=== PATIENT | female | born 1950 | race Caucasian/White ===

== ENCOUNTER 2018-01-10 14:25 | Emergency (ER) | payer MEDICARE, MEDICAID, SELFPAY ==
[2018-01-10 14:27] VITALS: BP 126/67; PULSE 91; RESP 22; TEMP 35.8; O2SAT 96; BMI 44.9
--- NOTE | 2018-01-10 15:17 | EKG12_ITS ---
Test Reason : SOB Blood Pressure : / mmHG Vent. Rate : 073 BPM Atrial Rate : 073 BPM P-R Int : 134 ms QRS Dur : 088 ms QT Int : 366 ms P-R-T Axes : 000 048 095 degrees QTc Int : 403 ms Normal sinus rhythm Low voltage QRS Nonspecific T wave abnormality Abnormal ECG Confirmed by JEAN MANCILLA, FREIDA ([id number]), slot editor SATISH DIAZ ([id number] on 01/13/2018 2:44:15 PM Referred By: KARLEY Confirmed By:FREIDA PENA MD
--- NOTE | 2018-01-10 15:17 | RAD_ITS ---
STUDY: X-RAY CHEST REASON FOR EXAM: Female, 67 years old. sob, leg redness and swelling TECHNIQUE: Single AP portable view of the chest. COMPARISON: February 01, 2017 FINDINGS: The lungs are clear and expanded. There is no demonstrated pleural abnormality. There is stable borderline cardiomegaly. Normal mediastinum and dorinda. Normal visualized pulmonary arteries. Normal visualized aortic arch and descending thoracic aorta. Normal visualized thoracic spine. Normal visualized ribs, clavicles, and shoulders. There is no demonstrated abnormality of the visualized soft tissue structures of the upper abdomen. RAD/Chest 1 View (Portable) IMPRESSION: No acute disease is demonstrated. Electronically Signed: Catherine Burton MD at 16:07 EDT , Service support ,
[2018-01-10 15:56] LABS: Absolute Lymphocyte Count 0.98 X10^3/ul (0.83-4.51); Absolute Neutrophil Count 6.5 X10^3/uL (2.0-7.7); Basophil# 0.03 X10^3/uL; Basophil% 0.4 % (0-1); Eosinophil# 0.16 X10^3/uL; Eosinophils% 1.9 % (0-5); Hematocrit 23.5 % (37-47); Hemoglobin 7.7 g/dl (12.0-15.0); Lymphocyte # 0.98 X10^3/ul (4.0); Lymphocyte % 11.6 % (19-41); Mean Corp Hgb Conc 32.8 g/gl (32-36); Mean Corpuscular Hgb 29.7 pg (27.0-32.0); Mean Corpuscular Volume 90.7 fL (81-99); Mean Platelet Vol. 10.4 fl (6.2-12.0); Monocyte# 0.75 X10^3/uL; Monocyte% 8.9 % (0-10); Neutrophil # 6.49 X10^3/uL (2.7-7.7); Neutrophil % 76.8 % (47-70); Platelet Count 268 K/mm3 (150-450); RBC Distribution Width SD 49.8 fl (35.1-43.9); Red Blood Count 2.59 M/mm3 (4.2-5.4); White Blood Count 8.4 K/mm3 (4.4-11.0)
[2018-01-10 15:58] LABS: POSITIVE COUNT NO; POSITIVE DIFFERENTIAL NO; POSITIVE MORPHOLOGY NO
[2018-01-10 16:06] LABS: ALB/GLOB Ratio 0.8 RATIO (0.9-2.4); AST(SGOT) 21 U/L (15-37); Alanine Aminotransfer ALT/SGPT 46 U/L (13-56); Albumin, Serum 2.9 g/dL (3.2-5.0); Alkaline Phosphatase 78 U/L (45-117); Anion Gap 8 (5-15); BUN 15 mg/dL (7-18); BUN/Creat Ratio 17.8 RATIO (10-20); Calcium,Total 8.5 mg/dL (8.5-10.1); Chloride 107 mmol/L (98-107); Creatinine, Serum 0.84 mg/dL (0.55-1.02); EST Glomerular Filtration Rate 71 mL/min (>60); Est Glom Filt Rate - Afr Amer 86 mL/min (>60); Estimated Creatinine Clearance 97.29 ml/min; Globulin 3.5 g/dL (2.2-4.2); Glucose 240 mg/dL (74-106); Potassium 3.5 mmol/L (3.5-5.1); Protein, Total 6.4 g/dL (6.4-8.2); Sodium Level 140 mmol/L (136-145)
[2018-01-10 16:21] LABS: International Normalized Ratio 1.1; Prothrombin Time (Protime)PT. 14.1 SECONDS (11.7-14.9)
[2018-01-10 16:26] LABS: BNP,B-Type NATRIURETIC PEPTIDE 860.9 pg/mL (0-100)
[2018-01-10 16:36] VITALS: BP 106/75; PULSE 73; RESP 18; O2SAT 97
--- NOTE | 2018-01-10 16:55 | CT_ITS ---
STUDY: CTA CHEST REASON FOR EXAM: Female, 67 years old. SOB and right leg redness/swelling x today. Hx diabetes, hypertension, afib. RADIATION DOSAGE (If Supplied By Facility): CTDIvol = ( 18.06 ) mGy, DLP = ( 609.30 ) mGycm TECHNIQUE: The examination was performed with the intravenous administration of 100mL ml of Isovue 370 contrast material. Post-processing of the angiographic images was performed, with multiplanar reformation and 3D reconstruction. Individualized dose optimization techniques were used for this CT. COMPARISON: None. FINDINGS: Normal enhancement of the main pulmonary artery and right and left pulmonary arteries. Normal enhancement of the bilateral peripheral pulmonary arteries. There is no demonstrated pulmonary embolism. Normal thoracic aorta and visualized great vessels. There is no demonstrated aortic dissection. There is borderline cardiomegaly. There is prominent lymphoid tissue of the subcarinal region. Normal visualized trachea and bronchi. There is a small right pleural effusion. There is a trace left pleural effusion. There are multiple groundglass and nodular opacities of the lower lungs. There is mild left upper lobe and right upper and middle lobe atelectasis/scarring. Normal chest wall structures. There are degenerative changes of thoracic spine. There is diffuse heterogeneous density of the vertebrae and metastatic disease is not excluded. There is a small hiatal hernia. CT/CTA Chest W/WO Contrast IMPRESSION: No demonstrated pulmonary embolism or aortic dissection. There are multiple groundglass and nodular opacities of the lower lungs. There is mild left upper lobe and right upper and middle lobe atelectasis/scarring. There is a small right pleural effusion. There is a trace left pleural effusion. There is borderline cardiomegaly. There is prominent lymphoid tissue of the subcarinal region. There is diffuse heterogeneous density of the vertebrae and metastatic disease is not excluded. There is a small hiatal hernia. Electronically Signed: Catherine Burton MD at 18:31 EDT , Service support ,
--- NOTE | 2018-01-10 17:01 | ED.RN ---
AMBULATED TO BR, REMARKABLY SOB. DR CRANDALL AWARE. PT UPDATED ON PLAN FOR CTA.
[2018-01-10 18:40] VITALS: PULSE 73; RESP 20; O2SAT 93
--- NOTE | 2018-01-10 19:01 | ED.VISSUMM ---
- ER Visit Summary Date of Service: 01/10/18 Chief Complaint: Dizzy, lightheaded, shortness of breath History of Present Illness: The patient is a 67 F who presents with the above symptoms. Symptoms started today. Patient was admitted to [facility] on Thursday. She had a bleeding ulcer and was given multiple blood transfusions. She was on Plavix and Coumadin but she is not on these currently. She was feeling palpitations and was having lightheadedness and dizziness. She has a history of paroxysmal atrial fibrillation. She also noted some bruising on her leg. She is concerned about a blood clot however they did do an ultrasound in the hospital and it did not show any DVT. She denies any cough or chest pain. Physical Examination: Vital signs reviewed. HEENT exam unremarkable. Heart is regular rate and rhythm without murmurs. Lungs clear to auscultation. Abdomen is soft nontender. Back is nontender. Extremity exam reveals scattered ecchymosis on the arms and legs. The right inner thigh does have a large area of ecchymosis. Her peripheral pulses are intact. Her neurologic exam is normal Test Results: EKG is normal sinus rhythm with rate of 73. Hemoglobin 7.7, glucose 240, INR 1.1 BNP 860. Troponin is normal. Chest x-ray reveals no acute findings. CTA of the chest reveals chronic changes with no PE or dissection Emergency Department Course and Treatment: The patient was concerned about DVT in the right leg. She told me she had a normal ultrasound earlier this week. I think the ecchymosis may be from the pressure that was applied during the ultrasound. She has good pulses in both legs. She states that her stools were black but they are now brown. Her hemoglobin is 7.7 which she states is around what she left the hospital with. I feel that her symptoms may be due to being anemic. 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 I do not feel she requires transfusion. Patient has a follow-up appointment in 2 days with her primary care physician Treatment Plan: [] Disposition: Discharge Impression: Anemia secondary to GI bleed, GI bleed resolved, malaise secondary to #1 This note was generated with [employer]ation software. It may contain incorrect words, spelling, and punctuation that were not noted in review of the chart prior to signing ED Disposition - Plan for ED Patient: Chief Complaint: Shortness of Breath Referrals: Stephon Rust MD [Primary Care Provider] -
--- NOTE | 2018-01-10 19:04 | ED.DCSUM_ITS ---
- ER Visit Summary Date of Service: 01/10/18 Chief Complaint: Dizzy, lightheaded, shortness of breath History of Present Illness: The patient is a 67 F who presents with the above symptoms. Symptoms started today. Patient was admitted to [facility] on Thursday. She had a bleeding ulcer and was given multiple blood transfusions. She was on Plavix and Coumadin but she is not on these currently. She was feeling palpitations and was having lightheadedness and dizziness. She has a history of paroxysmal atrial fibrillation. She also noted some bruising on her leg. She is concerned about a blood clot however they did do an ultrasound in the hospital and it did not show any DVT. She denies any cough or chest pain. Physical Examination: Vital signs reviewed. HEENT exam unremarkable. Heart is regular rate and rhythm without murmurs. Lungs clear to auscultation. Abdomen is soft nontender. Back is nontender. Extremity exam reveals scattered ecchymosis on the arms and legs. The right inner thigh does have a large area of ecchymosis. Her peripheral pulses are intact. Her neurologic exam is normal Test Results: EKG is normal sinus rhythm with rate of 73. Hemoglobin 7.7, glucose 240, INR 1.1 BNP 860. Troponin is normal. Chest x-ray reveals no acute findings. CTA of the chest reveals chronic changes with no PE or dissection Emergency Department Course and Treatment: The patient was concerned about DVT in the right leg. She told me she had a normal ultrasound earlier this week. I think the ecchymosis may be from the pressure that was applied during the ultrasound. She has good pulses in both legs. She states that her stools were black but they are now brown. Her hemoglobin is 7.7 which she states is around what she left the hospital with. I feel that her symptoms may be due to being anemic. 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 I do not feel she requires transfusion. Patient has a follow-up appointment in 2 days with her primary care physician Treatment Plan: [] Disposition: Discharge Impression: Anemia secondary to GI bleed, GI bleed resolved, malaise secondary to #1 This note was generated with [employer] software. It may contain incorrect words, spelling, and punctuation that were not noted in review of the chart prior to signing ED Disposition - Plan for ED Patient: Chief Complaint: Shortness of Breath Referrals: Stephon Rust MD [Primary Care Provider] -
--- NOTE | 2018-01-10 19:04 | ED.DEP ---
ED Disposition - Plan for ED Patient: Disposition: Home or Assisted Living Chief Complaint: Shortness of Breath Instructions: ED Anemia Type Not Specified Referrals: Stephon Rust MD [Primary Care Provider] -
[2018-01-10 19:25] VITALS: BP 113/59; PULSE 71; RESP 18; O2SAT 96
== END 2018-01-10 19:26 | disposition home or self-care (01) ==
PROVIDERS: Emergency Provider Emergency Medicine; Family Provider Family Medicine; PCP Family Medicine
DX: D62 Acute posthemorrhagic anemia (principal); R53.81 Other malaise; R06.00 Dyspnea, unspecified; E66.9 Obesity, unspecified; E11.9 Type 2 diabetes mellitus without complications; E03.9 Hypothyroidism, unspecified; Z79.84 Long term (current) use of oral hypoglycemic drugs; Z79.899 Other long term (current) drug therapy
CPT/HCPCS: 71045; 71275; 80053; 83880; 84484; 85025; 85610; 86850; 86900; 93005; 96360; 96361; 99285; J7030; J7040; Q9967; A4216

== ENCOUNTER 2018-01-12 09:09 | Observation (INO) | payer MEDICARE, MEDICAID, SELFPAY ==
[2018-01-12] VITALS (19 sets, daily range): BP systolic 102–141; BP diastolic 51–95; PULSE 72–83; RESP 14–22; TEMP 36.6–37.2; O2SAT 92–99; BMI 44.7; BMI 44.8
--- NOTE | 2018-01-12 09:28 | RAD_ITS ---
STUDY: X-RAY CHEST REASON FOR EXAM: Female, 67 years old. Shortness of breath, atrial fibrillation TECHNIQUE: Single AP portable view of the chest. COMPARISON: 01/10/2018 FINDINGS: Cardiac monitoring leads overlie the chest. There is patchy airspace disease in the right mid and lower lung. There is no demonstrated pleural abnormality. There is borderline cardiomegaly. Normal mediastinum and dorinda. Normal visualized pulmonary arteries. Normal visualized aortic arch and descending thoracic aorta. Normal visualized thoracic spine. Normal visualized ribs, clavicles, and shoulders. There is no demonstrated abnormality of the visualized soft tissue structures of the upper abdomen. RAD/Chest 1 View (Portable) IMPRESSION: Patchy airspace disease in the right mid to lower lung. Electronically Signed: Rudolph Duffy DO at 9:56 EDT Tel , Service support ,
--- NOTE | 2018-01-12 09:28 | EKG12_ITS ---
Test Reason : SOB, LEFT SIDE PAIN Blood Pressure : / mmHG Vent. Rate : 083 BPM Atrial Rate : 083 BPM P-R Int : 142 ms QRS Dur : 094 ms QT Int : 388 ms P-R-T Axes : -24 059 073 degrees QTc Int : 455 ms Normal sinus rhythm Nonspecific ST and T wave abnormality Abnormal ECG Confirmed by OTF PATEL ([id number]), continuity editor SATISH DIAZ ([id number]) on 01/25/2018 5:10:14 PM Referred By: PHILIP Confirmed By:OTF PATEL
[2018-01-12 09:53] LABS: Absolute Lymphocyte Count 0.58 X10^3/ul (0.83-4.51); Absolute Neutrophil Count 7.2 X10^3/uL (2.0-7.7); Basophil# 0.01 X10^3/uL; Basophil% 0.1 % (0-1); Eosinophil# 0.03 X10^3/uL; Eosinophils% 0.4 % (0-5); Hematocrit 23.3 % (37-47); Hemoglobin 7.4 g/dl (12.0-15.0); Lymphocyte # 0.58 X10^3/ul (4.0); Lymphocyte % 6.9 % (19-41); Mean Corp Hgb Conc 31.8 g/gl (32-36); Mean Corpuscular Hgb 28.8 pg (27.0-32.0); Mean Corpuscular Volume 90.7 fL (81-99); Mean Platelet Vol. 9.8 fl (6.2-12.0); Monocyte% 7.1 % (0-10); Neutrophil # 7.17 X10^3/uL (2.7-7.7); Neutrophil % 85.3 % (47-70); Platelet Count 273 K/mm3 (150-450); RBC Distribution Width CV 16.6 % (11.6-14.6); RBC Distribution Width SD 51.4 fl (35.1-43.9); Red Blood Count 2.57 M/mm3 (4.2-5.4); White Blood Count 8.4 K/mm3 (4.4-11.0)
[2018-01-12 09:55] LABS: International Normalized Ratio 1.2; Prothrombin Time (Protime)PT. 15.2 SECONDS (11.7-14.9)
[2018-01-12 10:00] LABS: POSITIVE COUNT NO; POSITIVE DIFFERENTIAL YES; POSITIVE MORPHOLOGY NO
[2018-01-12 10:01] LABS: Differential Indicated SCAN CRITERIA MET
[2018-01-12 10:06] LABS: Anion Gap 9 (5-15); BUN 14 mg/dL (7-18); BUN/Creat Ratio 21.7 RATIO (10-20); Calcium,Total 8.5 mg/dL (8.5-10.1); Chloride 103 mmol/L (98-107); Creatinine, Serum 0.64 mg/dL (0.55-1.02); EST Glomerular Filtration Rate 97 mL/min (>60); Est Glom Filt Rate - Afr Amer 117 mL/min (>60); Estimated Creatinine Clearance 81.36 ml/min; Glucose 203 mg/dL (74-106); Potassium 3.2 mmol/L (3.5-5.1); Sodium Level 138 mmol/L (136-145)
[2018-01-12 10:19] LABS: Differential Comment SCANNED
[2018-01-12 10:20] LABS: Anisocytosis 2+; Macrocytosis 1+; Microcytosis 1+
[2018-01-12] MEDS: Aspirin 81 MG TAB.CHEW 324 MG PO (10:23)
--- NOTE | 2018-01-12 11:04 | ED.VISSUMM ---
- ER Visit Summary Date of Service: 01/12/18 Chief Complaint: Shortness of breath History of Present Illness: The patient is a 67 F presenting with shortness of breath since yesterday. Patient had an admission to [facility] last week. She was discharged on Thursday. She was admitted for an upper GI bleed. She had an endoscopy performed during that admission. She states when she was admitted she had black stool. She did receive a blood transfusion. She states her stool has now been brown for several days. She has been short of breath. She has had intermittent left-sided chest pain. She is unable to lay flat without being very short of breath. Shortness of breath is also worsened with exertion. She was seen in the emergency department 2 days ago for pain in her right knee and concern for DVT. She states she noted shortness breath at that time and CT of the chest was obtained which was unremarkable. Today she went to her primary care physician's office and they sent her to the ED for low pulse ox. The pulse ox was not documented. She has been off Coumadin for the past week. Physical Examination: Vitals are stable. Patient is afebrile. Alert no acute distress. HEENT exam is unremarkable. Pale conjunctivae Neck is supple. Lungs are clear and equal bilaterally. Heart is regular rate and rhythm. Abdomen is soft nontender nondistended. Extremities are unremarkable. Skin is warm and dry. No focal neurologic deficit. Remainder of exam is unremarkable. Emergency Department Course and Treatment: EKG is sinus rate of 83. Chest x-ray shows patchy airspace disease right mid and low lower lung. CBC shows a hemoglobin of 7.4. Chemistries show potassium 3.2, glucose 203. INR is 1.2. Troponin is negative. Stool is guaiac negative. I feel her shortness of breath is likely related to her anemia and patchy airspace disease right mid and lower lung which appears like pulmonary congestion. She has no cough or fever. Discussed with the hospitalist for admission. Disposition: Admission Impression: Dyspnea, symptomatic anemia This note was generated with [employer] dictation software. It may contain incorrect words, spelling, and punctuation that were not noted in review of the chart prior to signing ED Disposition - Plan for ED Patient: Disposition: Acute Care Hospital [facility] Chief Complaint: Shortness of Breath
--- NOTE | 2018-01-12 11:08 | ED.DCSUM_ITS ---
- ER Visit Summary Date of Service: 01/12/18 Chief Complaint: Shortness of breath History of Present Illness: The patient is a 67 F presenting with shortness of breath since yesterday. Patient had an admission to [facility] last week. She was discharged on Thursday. She was admitted for an upper GI bleed. She had an endoscopy performed during that admission. She states when she was admitted she had black stool. She did receive a blood transfusion. She states her stool has now been brown for several days. She has been short of breath. She has had intermittent left-sided chest pain. She is unable to lay flat without being very short of breath. Shortness of breath is also worsened with exertion. She was seen in the emergency department 2 days ago for pain in her right knee and concern for DVT. She states she noted shortness breath at that time and CT of the chest was obtained which was unremarkable. Today she went to her primary care physician's office and they sent her to the ED for low pulse ox. The pulse ox was not documented. She has been off Coumadin for the past week. Physical Examination: Vitals are stable. Patient is afebrile. Alert no acute distress. HEENT exam is unremarkable. Pale conjunctivae Neck is supple. Lungs are clear and equal bilaterally. Heart is regular rate and rhythm. Abdomen is soft nontender nondistended. Extremities are unremarkable. Skin is warm and dry. No focal neurologic deficit. Remainder of exam is unremarkable. Emergency Department Course and Treatment: EKG is sinus rate of 83. Chest x- ray shows patchy airspace disease right mid and low lower lung. CBC shows a hemoglobin of 7.4. Chemistries show potassium 3.2, glucose 203. INR is 1.2. Troponin is negative. Stool is guaiac negative. I feel her shortness of breath is likely related to her anemia and patchy airspace disease right mid and lower lung which appears like pulmonary congestion. She has no cough or fever. Discussed with the hospitalist for admission. Disposition: Admission Impression: Dyspnea, symptomatic anemia This note was generated with [employer] dictation software. It may contain incorrect words, spelling, and punctuation that were not noted in review of the chart prior to signing ED Disposition - Plan for ED Patient: Disposition: Acute Care Hospital [facility] Chief Complaint: Shortness of Breath
--- NOTE | 2018-01-12 12:50 | ECHOD_ITS ---
Reason For Study: CHF Procedure This was a 2D Doppler, Color Flow transthoracic echocardiogram. The exam was of fair technical quality due to body habitus. The study was technically difficult. Exam performed portable in patient room. Left Ventricle Normal LV size. Mild concentric left ventricular hypertrophy. Left ventricular systolic function is normal. The estimated ejection fraction is 55 %. No regional wall motion abnormalities noted. Right Ventricle Normal RV size. Normal systolic function. Atria The left atrium is moderately enlarged. Normal right atrium. No doppler evidence for ASD. Mitral Valve There is no mitral annular calcification. Normal mitral valve. Mild (1+) mitral valve insufficiency. Tricuspid Valve Normal tricuspid valve. Mild to moderate (1-2+) tricuspid valve insufficiency. Right ventricular systolic pressure estimated to be 41 mmHg. Aortic Valve Trisinus/trileaflet aortic valve. Moderate focal aortic valve thickening. Pulmonic Valve The pulmonic valve is not well visualized. Great Vessels Normal sized aortic root. Pericardium/Pleural No pericardial effusion. MMode/2D Measurements & Calculations LVIDd: 4.4 cm IVSd: 1.4 cm LVOT diam: 2.0 cm LVIDs: 3.3 cm LVPWd: 1.4 cm LVOT area: 3.0 cm2 FS: 24.8 % Ao root diam: 2.6 cm LAV(MOD-bp): 63.5 ml LA A4 area: 21.9 cm2 LA dimension: 4.1 cm LAV(MOD-bp) Indexed: 33.9 ml/m2 LAV(MOD-sp2): 56.8 ml LAV(MOD-sp4): 65.6 ml RA A4 area: 12.8 cm2 Time Measurements MV dec time: 0.22 sec Doppler Measurements & Calculations MV E max julius: 109.9 cm/sec Lat Peak E' Julius: 9.6 cm/sec Med Peak E' Julius: 7.7 cm/sec MV A max julius: 79.8 cm/sec E/E' lat: 11.5 E/E' med: 14.2 MV E/A: 1.4 MV V2 max: 124.7 cm/sec MV P1/2t max julius: 124.7 cm/sec Ao V2 max: 209.7 cm/sec MV max P.2 mmHg MV P1/2t: 78.6 msec Ao max P.6 mmHg MV V2 mean: 63.3 cm/sec MV dec slope: 464.3 cm/sec2 Ao V2 mean: 139.3 cm/sec MV mean P.0 mmHg MVA(P1/2t): 2.8 cm2 Ao mean P.8 mmHg MV V2 VTI: 33.4 cm Ao V2 VTI: 31.9 cm MVA(VTI): 2.9 cm2 DEVAUGHN(I,D): 3.1 cm2 DEVAUGHN(V,D): 2.3 cm2 AI max julius: 418.0 cm/sec LV V1 max: 158.5 cm/sec SV(LVOT): 97.6 ml AI max P.9 mmHg LV V1 max P.1 mmHg AI dec slope: 280.4 cm/sec2 LV V1 mean P.1 mmHg AI P1/2t: 436.6 msec LV V1 mean: 104.0 cm/sec LV V1 VTI: 32.1 cm PA V2 max: 94.7 cm/sec TR max julius: 307.4 cm/sec TR max P.8 mmHg Interpretation Summary The study was technically difficult. Left ventricular systolic function is normal. The estimated ejection fraction is 55 %. Mild concentric left ventricular hypertrophy. The left atrium is moderately enlarged. Mild (1+) mitral valve insufficiency. Mild to moderate (1-2+) tricuspid valve insufficiency. Moderate focal aortic valve thickening. Right ventricular systolic pressure estimated to be 41 mmHg. Transmitral diastolic flow velocities suggest diastolic dysfunction (pseudonormal pattern). Ordering Physician: Dave Hickey Referring Physician: Stephon Rust Performed By: Spencer Hirsch RCS
[2018-01-12] MEDS: Furosemide 40 MG/4 ML Vial IV (13:27)
[2018-01-12 13:41] LABS: Bedside Glucose 119 mg/dL (70-110)
--- NOTE | 2018-01-12 14:18 | PCM.HP.STD ---
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 Patient underwent an EGD that showed peptic ulcer disease. Patient was transfused 2 units of packed red blood cells while she was there and also received a copious amount of IV fluids. Since being home, patient has been short of breath with exertion. Patient presented to the emergency room on the underwent a CAT scan that showed no pulmonary embolism though did show some groundglass opacities the patient was sent home. Patient presented to her office her primary care doctors today and was short of breath. Patient was very short of breath but apparently her pulse ox was okay. Patient had chest x-ray shows some questionable pulmonary edema and patient was admitted to the progressive care unit through the emergency room for concern for heart failure though the patient does not have a history of heart failure. [] Past Medical History Past Medical History (Chronic Problems): Chronic Problems PUD (peptic ulcer disease) (Chronic) Afib (Chronic) DM2 (diabetes mellitus, type 2) (Chronic) Hypothyroid (Chronic) Allergies atorvastatin calcium [From Lipitor] Allergy (Verified 01/12/18 09:29) Pain in joints clindamycin Allergy (Verified 01/12/18 09:29) Hives lisinopril Allergy (Verified 01/12/18 09:29) Unknown Penicillins [PCN] Allergy (Verified 01/12/18 09:29) Hives potassium chloride [From Klor-Con] Allergy (Verified 01/12/18 09:29) Unknown simvastatin [From Zocor] Allergy (Verified 01/12/18 09:29) Pain in joints Home Medications: Ambulatory Orders Medication Instructions Recorded Citalopram [Celexa] 40 mg PO DAILY 09/09/13 Gemfibrozil 600 mg PO BID 09/09/13 Levothyroxine [Synthroid] 112 mcg PO DAILY 09/09/13 Multivitamins,Ther W-Minerals 1 tablet PO DAILY 09/09/13 [Multivitamin With Minerals] glipiZIDE [Glucotrol] 5 mg PO DAILY 09/09/13 Meloxicam [Mobic] 15 mg PO DAILY 01/23/17 Metformin HCl 1,000 mg PO QHS 01/10/18 Metformin HCl 500 mg PO DAILY 01/10/18 Ropinirole HCl [Requip] 0.25 mg PO BID 01/10/18 Atenolol 75 mg PO DAILY 01/12/18 Calcium Carbonate [Calcium] 500 mg PO BID 01/12/18 Vit E/Zn/Lut/Lyco/Bilber/Hb261 1 each PO DAILY 01/12/18 [Lipotriad Vision Support Plus] Surgical History: - - History of tubal ligation, appendectomy, bilateral carpal tunnel surgery. 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 Denies: Cough, Sputum production Gastrointestinal: Denies: Abdominal Pain, Hematochezia, Nausea, Melena, Vomiting Genitourinary: Denies: Dysuria Musculoskeletal: Denies: Joint Pain, Joint Tenderness Skin: Reports: - - Patient had bruising on her posterior leg. Patient denied any antecedent trauma. Denies: Rash, Wounds Neurological: Denies: Numbness, Tingling, Focal weakness Psychiatric: Denies: Anxiety, Depression Endocrine: Denies: Change in Body Habitus, Heat/ Cold Intolerance Hematologic/ Lymphatic: Reports: Easy Bruising, Easy Bleeding. Denies: Hx of blood clot VTE Information - Inpt Only VTE Present on Admission: No VTE Mechan Device Prophylaxis: SCD's VTE Pharm Prophylaxis ordered?: No Reason prophylaxis not ordered:: Medical Contraindication Patient Problems: Active and Suspected Problems Symptomatic anemia (Acute) - Physical Exam General: Alert, Cooperative, No apparent distress HEENT: Atraumatic, Normocephalic Neck: No Nodes, Thyroid Normal Size and Texture Lungs: Diminished, - - Bibasilar crackles Cardiovascular: Regular rate, Regular Rhythm, Normal S1, Normal S2, No murmurs Abdomen: Bowel Sounds Present, Soft, Non Tender, Non-Distended, No Hepato-splenomegaly Extremities: No edema, No Calf Tenderness Skin: No rashes, No breakdown, - - Him again to light ecchymosis of the right posterior leg Musculoskeletal: No Tenderness to Palpation of Joints or Extremities, No Muscle Wasting Neurological: Neuro grossly intact, Muscle tone normal, Coordination normal Psych/Mental Status: Normal Affect, Appropriate Vital Signs Temp Pulse Resp BP Pulse Ox 37.0 C 77 17 114/61 94 01/12/18 12:12 01/12/18 12:16 01/12/18 12:12 01/12/18 12:12 01/12/18 13:06 Oxygen Flow Rate (L/min) 2 Oxygen Delivery Method Room Air Weight: 97.2 kg Body Mass Index (BMI) 44.8 POC Glucose 01/12/18 13:24 POC Glucose 119 H Clinical Impression(s) from Imaging Studies Chest X-Ray 01/12/18 09:28 IMPRESSION: Patchy airspace disease in the right mid to lower lung. Electronically Signed: Rudolph Duffy DO at 9:56 EDT Tel , Service support , Assessment/Plan Active and Suspected Problems Symptomatic anemia (Acute) 1. Symptomatic anemia I am not sure the anemia is enough to explain her shortness of breath but is certainly is a new phenomenon for her. I will transfuse her 1 unit of packed red blood cells given her symptoms. Her hemoglobin has remained stable since her most recent discharge on the Much of this bleeding is due to her peptic ulcer disease but patient also incidentally developed a large ecchymosis in on her right posterior leg Putting her shortness of breath may also be some underlying heart failure. Patient states that she has been evaluated for sleep apnea in the past and has been told that she does not have it. 2. Possible pulmonary edema Clinically, I do not feel the patient has pneumonia Patient did receive 2 units of packed bloods blood cells plus IV fluids I will give her a dose of IV Lasix 40 mg followed by oral Lasix 40 mg twice daily Check an echocardiogram to evaluate her cardiac function 3. Atrial fibrillation Chronic Rate controlled Continue with atenolol and aspirin Patient will not be resuming her Coumadin until around February 08, 30 days after his recent hospitalization for bleeding peptic ulcers. 4. Peptic ulcer disease with GI bleed Will start the patient on Protonix Additionally stop her meloxicam 5. DVT prophylaxis with SCDs as chemical prophylaxis contraindicated in light of her recent GI bleed. Code Visit Inpatient E&M: 02781 Init Hosp L3
--- NOTE | 2018-01-12 14:27 | HP.PCM_ITS ---
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 Patient underwent an EGD that showed peptic ulcer disease. Patient was transfused 2 units of packed red blood cells while she was there and also received a copious amount of IV fluids. Since being home, patient has been short of breath with exertion. Patient presented to the emergency room on the underwent a CAT scan that showed no pulmonary embolism though did show some groundglass opacities the patient was sent home. Patient presented to her office her primary care doctors today and was short of breath. Patient was very short of breath but apparently her pulse ox was okay. Patient had chest x-ray shows some questionable pulmonary edema and patient was admitted to the progressive care unit through the emergency room for concern for heart failure though the patient does not have a history of heart failure. [] Past Medical History Past Medical History (Chronic Problems): Chronic Problems PUD (peptic ulcer disease) (Chronic) Afib (Chronic) DM2 (diabetes mellitus, type 2) (Chronic) Hypothyroid (Chronic) Allergies atorvastatin calcium [From Lipitor] Allergy (Verified 01/12/18 09:29) Pain in joints clindamycin Allergy (Verified 01/12/18 09:29) Hives lisinopril Allergy (Verified 01/12/18 09:29) Unknown Penicillins [PCN] Allergy (Verified 01/12/18 09:29) Hives potassium chloride [From Klor-Con] Allergy (Verified 01/12/18 09:29) Unknown simvastatin [From Zocor] Allergy (Verified 01/12/18 09:29) Pain in joints Home Medications: Ambulatory Orders Medication Instructions Recorded Citalopram [Celexa] 40 mg PO DAILY 09/09/13 Gemfibrozil 600 mg PO BID 09/09/13 Levothyroxine [Synthroid] 112 mcg PO DAILY 09/09/13 Multivitamins,Ther W-Minerals 1 tablet PO DAILY 09/09/13 [Multivitamin With Minerals] glipiZIDE [Glucotrol] 5 mg PO DAILY 09/09/13 Meloxicam [Mobic] 15 mg PO DAILY 01/23/17 Metformin HCl 1,000 mg PO QHS 01/10/18 Metformin HCl 500 mg PO DAILY 01/10/18 Ropinirole HCl [Requip] 0.25 mg PO BID 01/10/18 Atenolol 75 mg PO DAILY 01/12/18 Calcium Carbonate [Calcium] 500 mg PO BID 01/12/18 Vit E/Zn/Lut/Lyco/Bilber/Hb261 1 each PO DAILY 01/12/18 [Lipotriad Vision Support Plus] Surgical History: - - History of tubal ligation, appendectomy, bilateral carpal tunnel surgery. 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 Denies: Cough, Sputum production Gastrointestinal: Denies: Abdominal Pain, Hematochezia, Nausea, Melena, Vomiting Genitourinary: Denies: Dysuria Musculoskeletal: Denies: Joint Pain, Joint Tenderness Skin: Reports: - - Patient had bruising on her posterior leg. Patient denied any antecedent trauma. Denies: Rash, Wounds Neurological: Denies: Numbness, Tingling, Focal weakness Psychiatric: Denies: Anxiety, Depression Endocrine: Denies: Change in Body Habitus, Heat/ Cold Intolerance Hematologic/ Lymphatic: Reports: Easy Bruising, Easy Bleeding. Denies: Hx of blood clot VTE Information - Inpt Only VTE Present on Admission: No VTE Mechan Device Prophylaxis: SCD's VTE Pharm Prophylaxis ordered?: No Reason prophylaxis not ordered:: Medical Contraindication Patient Problems: Active and Suspected Problems Symptomatic anemia (Acute) - Physical Exam General: Alert, Cooperative, No apparent distress HEENT: Atraumatic, Normocephalic Neck: No Nodes, Thyroid Normal Size and Texture Lungs: Diminished, - - Bibasilar crackles Cardiovascular: Regular rate, Regular Rhythm, Normal S1, Normal S2, No murmurs Abdomen: Bowel Sounds Present, Soft, Non Tender, Non-Distended, No Hepato- splenomegaly Extremities: No edema, No Calf Tenderness Skin: No rashes, No breakdown, - - Him again to light ecchymosis of the right posterior leg Musculoskeletal: No Tenderness to Palpation of Joints or Extremities, No Muscle Wasting Neurological: Neuro grossly intact, Muscle tone normal, Coordination normal Psych/Mental Status: Normal Affect, Appropriate Vital Signs Temp Pulse Resp BP Pulse Ox 37.0 C 77 17 114/61 94 01/12/18 12:12 01/12/18 12:16 01/12/18 12:12 01/12/18 12:12 01/12/18 13:06 Oxygen Flow Rate (L/min) 2 Oxygen Delivery Method Room Air Weight: 97.2 kg Body Mass Index (BMI) 44.8 POC Glucose 01/12/18 13:24 POC Glucose 119 H Clinical Impression(s) from Imaging Studies Chest X-Ray 01/12/18 09:28 IMPRESSION: Patchy airspace disease in the right mid to lower lung. Electronically Signed: Rudolph Duffy DO at 9:56 EDT Tel , Service support , Assessment/Plan Active and Suspected Problems Symptomatic anemia (Acute) 1. Symptomatic anemia * I am not sure the anemia is enough to explain her shortness of breath but is certainly is a new phenomenon for her. * I will transfuse her 1 unit of packed red blood cells given her symptoms. * Her hemoglobin has remained stable since her most recent discharge on the * Much of this bleeding is due to her peptic ulcer disease but patient also incidentally developed a large ecchymosis in on her right posterior leg * Putting her shortness of breath may also be some underlying heart failure. Patient states that she has been evaluated for sleep apnea in the past and has been told that she does not have it. 2. Possible pulmonary edema * Clinically, I do not feel the patient has pneumonia * Patient did receive 2 units of packed bloods blood cells plus IV fluids * I will give her a dose of IV Lasix 40 mg followed by oral Lasix 40 mg twice daily * Check an echocardiogram to evaluate her cardiac function 3. Atrial fibrillation * Chronic * Rate controlled * Continue with atenolol and aspirin * Patient will not be resuming her Coumadin until around February 08, 30 days after his recent hospitalization for bleeding peptic ulcers. 4. Peptic ulcer disease with GI bleed * Will start the patient on Protonix * Additionally stop her meloxicam 5. DVT prophylaxis with SCDs as chemical prophylaxis contraindicated in light of her recent GI bleed. Code Visit Inpatient E&M: 60848 Init Hosp L3
[2018-01-12 15:17] LABS: BNP,B-Type NATRIURETIC PEPTIDE 396.3 pg/mL (0-100)
[2018-01-12] MEDS: Calcium Carbonate 500 MG Tablet PO (17:05)
[2018-01-12] MEDS: Gemfibrozil 600 MG Tablet PO (17:05)
[2018-01-12] MEDS: Furosemide 40 MG Tablet PO (17:05)
[2018-01-12 17:11] LABS: Bedside Glucose 174 mg/dL (70-110)
[2018-01-12] MEDS: Pantoprazole Sodium 40 MG Tablet PO (21:31)
[2018-01-12] MEDS: Pramipexole Di-HCl 0.125 MG Tablet PO (21:31)
[2018-01-12] MEDS: metFORMIN HCl 1,000 MG Tablet 1000 MG PO (21:33)
[2018-01-12 23:01] LABS: Bedside Glucose 105 mg/dL (70-110)
[2018-01-13] VITALS (7 sets, daily range): BP systolic 103–137; BP diastolic 52–58; PULSE 74–87; RESP 12–16; TEMP 36.8–37.1; O2SAT 92–95
[2018-01-13 05:40] LABS: Hematocrit 26.6 % (37-47); Hemoglobin 8.7 g/dl (12.0-15.0); Mean Corp Hgb Conc 32.7 g/gl (32-36); Mean Corpuscular Hgb 30.3 pg (27.0-32.0); Mean Corpuscular Volume 92.7 fL (81-99); Mean Platelet Vol. 10.2 fl (6.2-12.0); Platelet Count 283 K/mm3 (150-450); RBC Distribution Width CV 15.9 % (11.6-14.6); RBC Distribution Width SD 48.3 fl (35.1-43.9); Red Blood Count 2.87 M/mm3 (4.2-5.4); White Blood Count 5.6 K/mm3 (4.4-11.0)
[2018-01-13 05:42] LABS: Scan Indicated on CBC? Y/N NO
[2018-01-13 06:03] LABS: Anion Gap 11 (5-15); BUN 10 mg/dL (7-18); BUN/Creat Ratio 15.9 RATIO (10-20); Calcium,Total 8.2 mg/dL (8.5-10.1); Chloride 101 mmol/L (98-107); Creatinine, Serum 0.63 mg/dL (0.55-1.02); EST Glomerular Filtration Rate 100 mL/min (>60); Est Glom Filt Rate - Afr Amer 121 mL/min (>60); Estimated Creatinine Clearance 81.47 ml/min; Glucose 102 mg/dL (74-106); Potassium 2.8 mmol/L (3.5-5.1); Sodium Level 142 mmol/L (136-145)
[2018-01-13 06:06] LABS: International Normalized Ratio 1.1; Prothrombin Time (Protime)PT. 14.4 SECONDS (11.7-14.9)
[2018-01-13] MEDS: Gemfibrozil 600 MG Tablet PO (06:41)
[2018-01-13] MEDS: glipiZIDE 5 MG Tablet PO (06:41)
[2018-01-13] MEDS: Levothyroxine 112 MCG Tablet PO (06:41)
[2018-01-13 07:05] LABS: Bedside Glucose 103 mg/dL (70-110)
[2018-01-13] MEDS: Multivitamins,Ther W-Minerals Tablet 1 TABLET PO (07:33)
[2018-01-13] MEDS: Aspirin E.C. 81 MG Tablet PO (07:33)
[2018-01-13] MEDS: Calcium Carbonate 500 MG Tablet PO (07:33)
[2018-01-13] MEDS: Furosemide 40 MG Tablet PO (09:11)
[2018-01-13] MEDS: 0.9% NaCl Peripheral Flush Adult/Peds IV (09:11)
[2018-01-13] MEDS: Ondansetron 4 MG/2 ML Vial IV (09:11)
[2018-01-13] MEDS: Pantoprazole Sodium 40 MG Tablet PO (09:11)
[2018-01-13] MEDS: Pramipexole Di-HCl 0.125 MG Tablet PO (09:11)
[2018-01-13] MEDS: Atenolol 25 MG Tablet 75 MG PO (09:11)
[2018-01-13] MEDS: Citalopram 40 MG TABLET PO (09:11)
--- NOTE | 2018-01-13 10:05 | SLEEP ---
Seen patient and education on screening/testing for sleep disorder breathing was given. Patient states that she had a negative sleep study in the past but was dx with restless legs which was causing the fatigue. Brochure of information with left with the patient.
--- NOTE | 2018-01-13 10:50 | PCM.PN.HOSP ---
Patient Problems: Active and Suspected Problems Symptomatic anemia (Acute) Subjective: Dizziness as well as some nausea and vomiting but is eating breakfast this morning. Vitals/I&O's: Vital Signs Temp Pulse Resp BP Pulse Ox 36.8 C 85 16 103/52 L 92 01/13/18 09:10 01/13/18 09:10 01/13/18 09:10 01/13/18 09:10 01/13/18 09:10 Oxygen Flow Rate (L/min) 2 Oxygen Delivery Method Room Air Weight: 97.2 kg Body Mass Index (BMI) 44.8 Intake and Output for Last 24 Hours 01/11/18 01/12/18 01/13/18 23:59 23:59 23:59 Intake Total 693 / 693 640 / 640 Output Total 1680 / 1680 1700 / 1700 Balance -987 / -987 -1060 / -1060 General: Alert, Cooperative, No apparent distress HEENT: Atraumatic, PERRLA, EOMI, Normocephalic Oral: Moist Mucosa Neck: No Nodes, Thyroid Normal Size and Texture Lungs: Clear to auscultation, Normal air movement, No rhonchi, No wheeze Cardiovascular: Regular rate, Regular Rhythm, Normal S1, Normal S2, No murmurs Abdomen: Bowel Sounds Present, Soft, Non Tender, Non-Distended, No Hepato-splenomegaly Extremities: No edema, No Calf Tenderness Skin: No rashes, No breakdown Musculoskeletal: No Tenderness to Palpation of Joints or Extremities, No Muscle Wasting Neurological: Cranial nerves II-XII grossly intact, Neuro grossly intact, Motor Exam 5/5 strength throughout, - - Dm Hallpike was positive for reproducible symptoms on the left though no witnessed nystagmus. Psych/Mental Status: Normal Affect, Appropriate Laboratory Results 01/12/18 13:24: POC Glucose 119 H 01/12/18 16:54: POC Glucose 174 H 01/12/18 21:29: POC Glucose 105 01/13/18 05:15: WBC 5.6, RBC 2.87 L, Hgb 8.7 L, Hct 26.6 L, MCV 92.7, MCH 30.3, MCHC 32.7, RDW 15.9 H, RDW Differential 48.3 H, Plt Count 283, MPV 10.2 01/13/18 05:15: PT 14.4, INR 1.1 01/13/18 05:15: Sodium 142, Potassium 2.8 L, Chloride 101, Carbon Dioxide 30.0, Anion Gap 11, BUN 10, Creatinine 0.63, Estim Creat Clear Calc 81.47, Est GFR (MDRD) Af Amer 121, Est GFR (MDRD) Non-Af 100, BUN/Creatinine Ratio 15.9, Glucose 102, Calcium 8.2 L 01/13/18 06:44: POC Glucose 103 Current Medications Aspirin (Ecotrin) 81 mg PO DAILY@0800 [facility] Last Admin: 01/13/18 07:33 Dose: 81 mg Atenolol (Tenormin (Beta Beryl)) 75 mg PO DAILY [facility] Last Admin: 01/13/18 09:11 Dose: 75 mg Calcium Carbonate (Tums) 500 mg PO BIDCM [facility] Last Admin: 01/13/18 07:33 Dose: 500 mg Citalopram Hydrobromide (Celexa) 40 mg PO DAILY [facility] Last Admin: 01/13/18 09:11 Dose: 40 mg Dextrose (D50w Syringe) 0 gm IV X1 PRN; Protocol PRN Reason: Hypoglycemia Furosemide (Lasix) 40 mg PO BID@1000,1800 [facility] Last Admin: 01/13/18 09:11 Dose: 40 mg Gemfibrozil (Lopid) 600 mg PO BIDAC [facility] Last Admin: 01/13/18 06:41 Dose: 600 mg Glipizide (Glucotrol) 5 mg PO DAILY@0730 [facility] Last Admin: 01/13/18 06:41 Dose: 5 mg Glucagon () 1 mg IM .X1 PRN PRN Reason: Hypoglycemia Insulin Aspart (Novolog Flexpen (Bkc)) 0 units SC TIDAC [facility] PRN Reason: Protocol Last Admin: 01/13/18 07:33 Dose: Not Given Levothyroxine Sodium (Synthroid) 112 mcg PO DAILY@0600 [facility] Last Admin: 01/13/18 06:41 Dose: 112 mcg Magnesium Hydroxide (Milk Of Magnesia) 30 ml PO DAILY PRN PRN Reason: Constipation Metformin HCl (Glucophage) 1,000 mg PO QHS [facility] Last Admin: 01/12/18 21:33 Dose: 1,000 mg Metformin HCl (Glucophage) 500 mg PO DAILY@0800 [facility] Last Admin: 01/13/18 07:33 Dose: 500 mg Multivitamins/Minerals (Multivitamin With Minerals) 1 tablet PO DAILYCM [facility] Last Admin: 01/13/18 07:33 Dose: 1 tablet [facility] Admin: 01/13/18 07:33 Dose: 1 tablet Ondansetron HCl (Zofran) 4 mg IV Q8H PRN PRN PRN Reason: NAUSEA Last Admin: 01/13/18 09:11 Dose: 4 mg Pantoprazole Sodium (Protonix) 40 mg PO BID [facility] Last Admin: 01/13/18 09:11 Dose: 40 mg Potassium Chloride (K-Dur) 40 meq PO X1 ONE Stop: 01/13/18 12:01 Pramipexole Dihydrochloride (Mirapex) 0.125 mg PO BID [facility] Last Admin: 01/13/18 09:11 Dose: 0.125 mg Sodium Chloride () 5 - 30 ml IV UD PRN PRN Reason: SALINE FLUSH Last Admin: 01/13/18 09:11 Dose: 10 ml Medical Necessity - Tobacco Use Smoking Status: Never smoker Tobacco Use: Non-smoker Assessment/Plan Active and Suspected Problems Symptomatic anemia (Acute) 1. Symptomatic anemia I am not sure the anemia is enough to explain her shortness of breath but is certainly is a new phenomenon for her. I will transfuse her 1 unit of packed red blood cells given her symptoms. Her hemoglobin has remained stable since her most recent discharge on the Much of this bleeding is due to her peptic ulcer disease but patient also incidentally developed a large ecchymosis in on her right posterior leg Putting her shortness of breath may also be some underlying heart failure. Patient states that she has been evaluated for sleep apnea in the past and has been told that she does not have it. Recheck hemoglobin as outpatient 2. Heart failure with preserved ejection fraction Clinically, I do not feel the patient has pneumonia EF of 55% Patient did receive 2 units of packed bloods blood cells plus IV fluids I will give her a dose of IV Lasix 40 mg followed by oral Lasix 40 mg twice daily Improved overall Will discontinue Lasix as I feel that patient developed this due to cups amount of fluids that she received at the outside hospital plus transfusions. Will start her on low-dose of lisinopril 2.5 mg daily. 3. Atrial fibrillation Chronic Rate controlled Continue with atenolol and aspirin Patient will not be resuming her Coumadin until around February 08, 30 days after his recent hospitalization for bleeding peptic ulcers. Follow-up with Dr. Singleton 4. Peptic ulcer disease with GI bleed Will start the patient on Protonix Additionally stop her meloxicam 5. Benign paroxysmal positional vertigo Meclizine as needed Physical therapy for vestibular rehab as outpatient. 5. DVT prophylaxis with SCDs as chemical prophylaxis contraindicated in light of her recent GI bleed.
--- NOTE | 2018-01-13 10:54 | PN_ITS ---
Patient Problems: Active and Suspected Problems Symptomatic anemia (Acute) Subjective: Dizziness as well as some nausea and vomiting but is eating breakfast this morning. Vitals/I&O's: Vital Signs Temp Pulse Resp BP Pulse Ox 36.8 C 85 16 103/52 L 92 01/13/18 09:10 01/13/18 09:10 01/13/18 09:10 01/13/18 09:10 01/13/18 09:10 Oxygen Flow Rate (L/min) 2 Oxygen Delivery Method Room Air Weight: 97.2 kg Body Mass Index (BMI) 44.8 Intake and Output for Last 24 Hours 01/11/18 01/12/18 01/13/18 23:59 23:59 23:59 Intake Total 693 / 693 640 / 640 Output Total 1680 / 1680 1700 / 1700 Balance -987 / -987 -1060 / -1060 General: Alert, Cooperative, No apparent distress HEENT: Atraumatic, PERRLA, EOMI, Normocephalic Oral: Moist Mucosa Neck: No Nodes, Thyroid Normal Size and Texture Lungs: Clear to auscultation, Normal air movement, No rhonchi, No wheeze Cardiovascular: Regular rate, Regular Rhythm, Normal S1, Normal S2, No murmurs Abdomen: Bowel Sounds Present, Soft, Non Tender, Non-Distended, No Hepato- splenomegaly Extremities: No edema, No Calf Tenderness Skin: No rashes, No breakdown Musculoskeletal: No Tenderness to Palpation of Joints or Extremities, No Muscle Wasting Neurological: Cranial nerves II-XII grossly intact, Neuro grossly intact, Motor Exam 5/5 strength throughout, - - Dm Hallpike was positive for reproducible symptoms on the left though no witnessed nystagmus. Psych/Mental Status: Normal Affect, Appropriate Laboratory Results 01/12/18 13:24: POC Glucose 119 H 01/12/18 16:54: POC Glucose 174 H 01/12/18 21:29: POC Glucose 105 01/13/18 05:15: WBC 5.6, RBC 2.87 L, Hgb 8.7 L, Hct 26.6 L, MCV 92.7, MCH 30.3, MCHC 32.7, RDW 15.9 H, RDW Differential 48.3 H, Plt Count 283, MPV 10.2 01/13/18 05:15: PT 14.4, INR 1.1 01/13/18 05:15: Sodium 142, Potassium 2.8 L, Chloride 101, Carbon Dioxide 30.0, Anion Gap 11, BUN 10, Creatinine 0.63, Estim Creat Clear Calc 81.47, Est GFR ( MDRD) Af Amer 121, Est GFR (MDRD) Non-Af 100, BUN/Creatinine Ratio 15.9, Glucose 102, Calcium 8.2 L 01/13/18 06:44: POC Glucose 103 Current Medications Aspirin (Ecotrin) 81 mg PO DAILY@0800 [facility] Last Admin: 01/13/18 07:33 Dose: 81 mg Atenolol (Tenormin (Beta Beryl)) 75 mg PO DAILY [facility] Last Admin: 01/13/18 09:11 Dose: 75 mg Calcium Carbonate (Tums) 500 mg PO BIDCM [facility] Last Admin: 01/13/18 07:33 Dose: 500 mg Citalopram Hydrobromide (Celexa) 40 mg PO DAILY [facility] Last Admin: 01/13/18 09:11 Dose: 40 mg Dextrose (D50w Syringe) 0 gm IV X1 PRN; Protocol PRN Reason: Hypoglycemia Furosemide (Lasix) 40 mg PO BID@1000,1800 [facility] Last Admin: 01/13/18 09:11 Dose: 40 mg Gemfibrozil (Lopid) 600 mg PO BIDAC [facility] Last Admin: 01/13/18 06:41 Dose: 600 mg Glipizide (Glucotrol) 5 mg PO DAILY@0730 [facility] Last Admin: 01/13/18 06:41 Dose: 5 mg Glucagon () 1 mg IM .X1 PRN PRN Reason: Hypoglycemia Insulin Aspart (Novolog Flexpen (Bkc)) 0 units SC TIDAC [facility] PRN Reason: Protocol Last Admin: 01/13/18 07:33 Dose: Not Given Levothyroxine Sodium (Synthroid) 112 mcg PO DAILY@0600 [facility] Last Admin: 01/13/18 06:41 Dose: 112 mcg Magnesium Hydroxide (Milk Of Magnesia) 30 ml PO DAILY PRN PRN Reason: Constipation Metformin HCl (Glucophage) 1,000 mg PO QHS [facility] Last Admin: 01/12/18 21:33 Dose: 1,000 mg Metformin HCl (Glucophage) 500 mg PO DAILY@0800 [facility] Last Admin: 01/13/18 07:33 Dose: 500 mg Multivitamins/Minerals (Multivitamin With Minerals) 1 tablet PO DAILYCM [facility] Last Admin: 01/13/18 07:33 Dose: 1 tablet [facility] Admin: 01/13/18 07:33 Dose: 1 tablet Ondansetron HCl (Zofran) 4 mg IV Q8H PRN PRN PRN Reason: NAUSEA Last Admin: 01/13/18 09:11 Dose: 4 mg Pantoprazole Sodium (Protonix) 40 mg PO BID [facility] Last Admin: 01/13/18 09:11 Dose: 40 mg Potassium Chloride (K-Dur) 40 meq PO X1 ONE Stop: 01/13/18 12:01 Pramipexole Dihydrochloride (Mirapex) 0.125 mg PO BID [facility] Last Admin: 01/13/18 09:11 Dose: 0.125 mg Sodium Chloride () 5 - 30 ml IV UD PRN PRN Reason: SALINE FLUSH Last Admin: 01/13/18 09:11 Dose: 10 ml Medical Necessity - Tobacco Use Smoking Status: Never smoker Tobacco Use: Non-smoker Assessment/Plan Active and Suspected Problems Symptomatic anemia (Acute) 1. Symptomatic anemia * I am not sure the anemia is enough to explain her shortness of breath but is certainly is a new phenomenon for her. * I will transfuse her 1 unit of packed red blood cells given her symptoms. * Her hemoglobin has remained stable since her most recent discharge on the * Much of this bleeding is due to her peptic ulcer disease but patient also incidentally developed a large ecchymosis in on her right posterior leg * Putting her shortness of breath may also be some underlying heart failure. Patient states that she has been evaluated for sleep apnea in the past and has been told that she does not have it. * Recheck hemoglobin as outpatient 2. Heart failure with preserved ejection fraction * Clinically, I do not feel the patient has pneumonia * EF of 55% * Patient did receive 2 units of packed bloods blood cells plus IV fluids * I will give her a dose of IV Lasix 40 mg followed by oral Lasix 40 mg twice daily * Improved overall * Will discontinue Lasix as I feel that patient developed this due to cups amount of fluids that she received at the outside hospital plus transfusions. Will start her on low-dose of lisinopril 2.5 mg daily. 3. Atrial fibrillation * Chronic * Rate controlled * Continue with atenolol and aspirin * Patient will not be resuming her Coumadin until around February 08, 30 days after his recent hospitalization for bleeding peptic ulcers. * Follow-up with Dr. Singleton 4. Peptic ulcer disease with GI bleed * Will start the patient on Protonix * Additionally stop her meloxicam 5. Benign paroxysmal positional vertigo * Meclizine as needed * Physical therapy for vestibular rehab as outpatient. 5. DVT prophylaxis with SCDs as chemical prophylaxis contraindicated in light of her recent GI bleed.
--- NOTE | 2018-01-13 11:00 | PCM.DC ---
- Discharge Diagnoses Current Active Problems: Current Active and Chronic Problems Symptomatic anemia (Acute) PUD (peptic ulcer disease) (Chronic) Afib (Chronic) DM2 (diabetes mellitus, type 2) (Chronic) Hypothyroid (Chronic) You will use the following diet at home:: Calorie/Carbohydrate Controlled (specify 1200, 1400, etc) - 1800 kcal/day, Fluid restricted (specify 2000 mls, 1500 mls) - 2 liters/day Your food should be the consistency of: Regular Your liquids should be the consistency of: Regular/Thin Discharge Activity: Return to Normal Activity Call your doctor if you observe: Shortness of breath, Chest pain, - - blood in stool/vomit, dark tarry stools Allergies/Adverse Reactions: Allergies atorvastatin calcium [From Lipitor] Allergy (Verified 01/12/18 09:29) Pain in joints clindamycin Allergy (Verified 01/12/18 09:29) Hives lisinopril Allergy (Verified 01/12/18 09:29) Unknown Penicillins [PCN] Allergy (Verified 01/12/18 09:29) Hives simvastatin [From Zocor] Allergy (Verified 01/12/18 09:29) Pain in joints Medications to take at Discharge Citalopram [Celexa] 40 mg PO DAILY 09/09/13 Gemfibrozil 600 mg PO BID 09/09/13 Levothyroxine [Synthroid] 112 mcg PO DAILY 09/09/13 Multivitamins,Ther W-Minerals [Multivitamin With Minerals] 1 tablet PO DAILY 09/09/13 glipiZIDE [Glucotrol] 5 mg PO DAILY 09/09/13 Metformin HCl 1,000 mg PO QHS 01/10/18 Metformin HCl 500 mg PO DAILY 01/10/18 Ropinirole HCl [Requip] 0.25 mg PO BID 01/10/18 Atenolol 75 mg PO DAILY 01/12/18 Calcium Carbonate [Calcium] 500 mg PO BID 01/12/18 Vit E/Zn/Lut/Lyco/Bilber/Hb261 [Lipotriad Vision Support Plus] 1 each PO DAILY 01/12/18 Aspirin E.C. [Ecotrin] 81 mg PO DAILY@0800 tablet 01/13/18 Meclizine HCl 25 mg PO TID PRN #20 tab.chew 01/13/18 Pantoprazole Sodium [Protonix] 40 mg PO BID #60 tab 01/13/18 The following prescriptions were given: Pantoprazole Sodium [Protonix] 40 mg PO BID #60 tab Meclizine HCl 25 mg PO TID PRN #20 tab.chew PRN Reason: Dizziness Orders to be completed after discharge: Physical Therapy Evaluation Location: None Selected Primary Care Physician: Stephon Rust MD [Primary Care Provider] - Within 1 Week Please Follow Up With: Barrett Watson MD When: 2 weeks Please Follow Up With: gastroenterology When: 4 weeks Proposed Discharge Date: 01/13/18
--- NOTE | 2018-01-13 11:03 | DCINST_ITS ---
- Discharge Diagnoses Current Active Problems: Current Active and Chronic Problems Symptomatic anemia (Acute) PUD (peptic ulcer disease) (Chronic) Afib (Chronic) DM2 (diabetes mellitus, type 2) (Chronic) Hypothyroid (Chronic) You will use the following diet at home:: Calorie/Carbohydrate Controlled ( specify 1200, 1400, etc) - 1800 kcal/day, Fluid restricted (specify 2000 mls, 1500 mls) - 2 liters/day Your food should be the consistency of: Regular Your liquids should be the consistency of: Regular/Thin Discharge Activity: Return to Normal Activity Call your doctor if you observe: Shortness of breath, Chest pain, - - blood in stool/vomit, dark tarry stools Allergies/Adverse Reactions: Allergies atorvastatin calcium [From Lipitor] Allergy (Verified 01/12/18 09:29) Pain in joints clindamycin Allergy (Verified 01/12/18 09:29) Hives lisinopril Allergy (Verified 01/12/18 09:29) Unknown Penicillins [PCN] Allergy (Verified 01/12/18 09:29) Hives simvastatin [From Zocor] Allergy (Verified 01/12/18 09:29) Pain in joints Medications to take at Discharge Citalopram [Celexa] 40 mg PO DAILY 09/09/13 Gemfibrozil 600 mg PO BID 09/09/13 Levothyroxine [Synthroid] 112 mcg PO DAILY 09/09/13 Multivitamins,Ther W-Minerals [Multivitamin With Minerals] 1 tablet PO DAILY glipiZIDE [Glucotrol] 5 mg PO DAILY 09/09/13 Metformin HCl 1,000 mg PO QHS 01/10/18 Metformin HCl 500 mg PO DAILY 01/10/18 Ropinirole HCl [Requip] 0.25 mg PO BID 01/10/18 Atenolol 75 mg PO DAILY 01/12/18 Calcium Carbonate [Calcium] 500 mg PO BID 01/12/18 Vit E/Zn/Lut/Lyco/Bilber/Hb261 [Lipotriad Vision Support Plus] 1 each PO DAILY 01/12/18 Aspirin E.C. [Ecotrin] 81 mg PO DAILY@0800 tablet 01/13/18 Meclizine HCl 25 mg PO TID PRN #20 tab.chew 01/13/18 Pantoprazole Sodium [Protonix] 40 mg PO BID #60 tab 01/13/18 The following prescriptions were given: Pantoprazole Sodium [Protonix] 40 mg PO BID #60 tab Meclizine HCl 25 mg PO TID PRN #20 tab.chew PRN Reason: Dizziness Orders to be completed after discharge: Physical Therapy Evaluation Location: None Selected Primary Care Physician: Stephon Rust MD [Primary Care Provider] - Within 1 Week Please Follow Up With: Barrett Watson MD When: 2 weeks Please Follow Up With: gastroenterology When: 4 weeks Proposed Discharge Date: 01/13/18
--- NOTE | 2018-01-13 11:03 | PCM.DC.SUM ---
Discharge Date and Diagnosis - Problem List Patient Problems: Active and Suspected Problems Heart failure with preserved ejection fraction (Acute) BPPV (benign paroxysmal positional vertigo) (Acute) Symptomatic anemia (Acute) Date of Admission: 01/12/18 Date of Discharge: 01/13/18 - Primary Discharge Diagnosis Active and Suspected Problems Heart failure with preserved ejection fraction (Acute) BPPV (benign paroxysmal positional vertigo) (Acute) Symptomatic anemia (Acute) - Secondary Discharge Diagnosis Chronic Problems PUD (peptic ulcer disease) (Chronic) Afib (Chronic) DM2 (diabetes mellitus, type 2) (Chronic) Hypothyroid (Chronic) Hospital Course and Treatment Imaging Results: Clinical Impression(s) from Imaging Studies Chest X-Ray 01/12/18 09:28 IMPRESSION: Patchy airspace disease in the right mid to lower lung. Electronically Signed: Rudolph Duffy DO at 9:56 EDT Tel , Service support , Operations: None Procedures: 2-D Echocardiogram Summary of Care Provided: The patient is a 67 year old F is with presents with shortness of breath. Shortness of breath was due to anemia plus also a component of heart failure. Patient developed heart failure due to recent hospitalization where she had a GI bleed and received copious amounts of IV fluid plus packed red blood cells. 1. Symptomatic anemia I am not sure the anemia is enough to explain her shortness of breath but is certainly is a new phenomenon for her. I will transfuse her 1 unit of packed red blood cells given her symptoms. Her hemoglobin has remained stable since her most recent discharge on the Much of this bleeding is due to her peptic ulcer disease but patient also incidentally developed a large ecchymosis in on her right posterior leg Putting her shortness of breath may also be some underlying heart failure. Patient states that she has been evaluated for sleep apnea in the past and has been told that she does not have it. Recheck hemoglobin as outpatient 2. Heart failure with preserved ejection fraction Clinically, I do not feel the patient has pneumonia EF of 55% Patient did receive 2 units of packed bloods blood cells plus IV fluids I will give her a dose of IV Lasix 40 mg followed by oral Lasix 40 mg twice daily Improved overall Will discontinue Lasix as I feel that patient developed this due to cups amount of fluids that she received at the outside hospital plus transfusions. Unable to do BRIGITTE inhibitor given prior allergy history. 3. Atrial fibrillation Chronic Rate controlled Continue with atenolol and aspirin Patient will not be resuming her Coumadin until around February 08, 30 days after his recent hospitalization for bleeding peptic ulcers. Follow-up with Dr. Singleton 4. Peptic ulcer disease with GI bleed Will start the patient on Protonix Additionally stop her meloxicam Follow-up with gastroenterology as outpatient. 5. Benign paroxysmal positional vertigo Meclizine as needed Physical therapy for vestibular rehab as outpatient.[] Discharge Diet: 1800 Calorie Control Diet, 6 Cup Fluid Restriction, 2000 mg Sodium Diet Discharge Activity: Return to Normal Activity Call your doctor if you observe: Shortness of breath, Chest pain, - - blood in stool/vomit, dark tarry stools Home Medications: Medications to take at Discharge Citalopram [Celexa] 40 mg PO DAILY 09/09/13 Gemfibrozil 600 mg PO BID 09/09/13 Levothyroxine [Synthroid] 112 mcg PO DAILY 09/09/13 Multivitamins,Ther W-Minerals [Multivitamin With Minerals] 1 tablet PO DAILY 09/09/13 glipiZIDE [Glucotrol] 5 mg PO DAILY 09/09/13 Metformin HCl 1,000 mg PO QHS 01/10/18 Metformin HCl 500 mg PO DAILY 01/10/18 Ropinirole HCl [Requip] 0.25 mg PO BID 01/10/18 Atenolol 75 mg PO DAILY 01/12/18 Calcium Carbonate [Calcium] 500 mg PO BID 01/12/18 Vit E/Zn/Lut/Lyco/Bilber/Hb261 [Lipotriad Vision Support Plus] 1 each PO DAILY 01/12/18 Aspirin E.C. [Ecotrin] 81 mg PO DAILY@0800 tablet 01/13/18 Meclizine HCl 25 mg PO TID PRN #20 tab.chew 01/13/18 Pantoprazole Sodium [Protonix] 40 mg PO BID #60 tab 01/13/18 Following Prescrptions Were Given to Patient: Pantoprazole Sodium [Protonix] 40 mg PO BID #60 tab Meclizine HCl 25 mg PO TID PRN #20 tab.chew PRN Reason: Dizziness Other Amb Orders: Physical Therapy Evaluation Location: None Selected Primary Care Physician: Stephon Rust MD [Primary Care Provider] - Within 1 Week Please Follow Up With: Barrett Watson MD When: 2 weeks Please Follow Up With: gastroenterology When: 4 weeks Disposition: Home Minutes spent on discharge:: 35 Patient Condition:: Fair Medical Necessity - Tobacco Use Smoking Status: Never smoker Tobacco Use: Non-smoker Meaningful Use Info Meaningful Use Diagnoses (Choose all that apply): None applicable Code Visit OBSV E&M: 78117 Observation care discharge
--- NOTE | 2018-01-13 11:06 | DS.PCM_ITS ---
Discharge Date and Diagnosis - Problem List Patient Problems: Active and Suspected Problems Heart failure with preserved ejection fraction (Acute) BPPV (benign paroxysmal positional vertigo) (Acute) Symptomatic anemia (Acute) Date of Admission: 01/12/18 Date of Discharge: 01/13/18 - Primary Discharge Diagnosis Active and Suspected Problems Heart failure with preserved ejection fraction (Acute) BPPV (benign paroxysmal positional vertigo) (Acute) Symptomatic anemia (Acute) - Secondary Discharge Diagnosis Chronic Problems PUD (peptic ulcer disease) (Chronic) Afib (Chronic) DM2 (diabetes mellitus, type 2) (Chronic) Hypothyroid (Chronic) Hospital Course and Treatment Imaging Results: Clinical Impression(s) from Imaging Studies Chest X-Ray 01/12/18 09:28 IMPRESSION: Patchy airspace disease in the right mid to lower lung. Electronically Signed: Rudolph Duffy DO at 9:56 EDT Tel , Service support , Operations: None Procedures: 2-D Echocardiogram Summary of Care Provided: The patient is a 67 year old F is with presents with shortness of breath. Shortness of breath was due to anemia plus also a component of heart failure. Patient developed heart failure due to recent hospitalization where she had a GI bleed and received copious amounts of IV fluid plus packed red blood cells. 1. Symptomatic anemia * I am not sure the anemia is enough to explain her shortness of breath but is certainly is a new phenomenon for her. * I will transfuse her 1 unit of packed red blood cells given her symptoms. * Her hemoglobin has remained stable since her most recent discharge on the * Much of this bleeding is due to her peptic ulcer disease but patient also incidentally developed a large ecchymosis in on her right posterior leg * Putting her shortness of breath may also be some underlying heart failure. Patient states that she has been evaluated for sleep apnea in the past and has been told that she does not have it. * Recheck hemoglobin as outpatient 2. Heart failure with preserved ejection fraction * Clinically, I do not feel the patient has pneumonia * EF of 55% * Patient did receive 2 units of packed bloods blood cells plus IV fluids * I will give her a dose of IV Lasix 40 mg followed by oral Lasix 40 mg twice daily * Improved overall * Will discontinue Lasix as I feel that patient developed this due to cups amount of fluids that she received at the outside hospital plus transfusions. * Unable to do BRIGITTE inhibitor given prior allergy history. 3. Atrial fibrillation * Chronic * Rate controlled * Continue with atenolol and aspirin * Patient will not be resuming her Coumadin until around February 08, 30 days after his recent hospitalization for bleeding peptic ulcers. * Follow-up with Dr. Singleton 4. Peptic ulcer disease with GI bleed * Will start the patient on Protonix * Additionally stop her meloxicam * Follow-up with gastroenterology as outpatient. 5. Benign paroxysmal positional vertigo * Meclizine as needed * Physical therapy for vestibular rehab as outpatient.[] Discharge Diet: 1800 Calorie Control Diet, 6 Cup Fluid Restriction, 2000 mg Sodium Diet Discharge Activity: Return to Normal Activity Call your doctor if you observe: Shortness of breath, Chest pain, - - blood in stool/vomit, dark tarry stools Home Medications: Medications to take at Discharge Citalopram [Celexa] 40 mg PO DAILY 09/09/13 Gemfibrozil 600 mg PO BID 09/09/13 Levothyroxine [Synthroid] 112 mcg PO DAILY 09/09/13 Multivitamins,Ther W-Minerals [Multivitamin With Minerals] 1 tablet PO DAILY glipiZIDE [Glucotrol] 5 mg PO DAILY 09/09/13 Metformin HCl 1,000 mg PO QHS 01/10/18 Metformin HCl 500 mg PO DAILY 01/10/18 Ropinirole HCl [Requip] 0.25 mg PO BID 01/10/18 Atenolol 75 mg PO DAILY 01/12/18 Calcium Carbonate [Calcium] 500 mg PO BID 01/12/18 Vit E/Zn/Lut/Lyco/Bilber/Hb261 [Lipotriad Vision Support Plus] 1 each PO DAILY 01/12/18 Aspirin E.C. [Ecotrin] 81 mg PO DAILY@0800 tablet 01/13/18 Meclizine HCl 25 mg PO TID PRN #20 tab.chew 01/13/18 Pantoprazole Sodium [Protonix] 40 mg PO BID #60 tab 01/13/18 Following Prescrptions Were Given to Patient: Pantoprazole Sodium [Protonix] 40 mg PO BID #60 tab Meclizine HCl 25 mg PO TID PRN #20 tab.chew PRN Reason: Dizziness Other Amb Orders: Physical Therapy Evaluation Location: None Selected Primary Care Physician: Stephon Rust MD [Primary Care Provider] - Within 1 Week Please Follow Up With: Barrett Watson MD When: 2 weeks Please Follow Up With: gastroenterology When: 4 weeks Disposition: Home Minutes spent on discharge:: 35 Patient Condition:: Fair Medical Necessity - Tobacco Use Smoking Status: Never smoker Tobacco Use: Non-smoker Meaningful Use Info Meaningful Use Diagnoses (Choose all that apply): None applicable Code Visit OBSV E&M: 37112 Observation care discharge
[2018-01-13 11:30] LABS: Bedside Glucose 133 mg/dL (70-110)
== END 2018-01-13 11:02 | disposition home or self-care (01) ==
LOC: ED 09:42 → PCU 11:54
PROVIDERS: Emergency Provider Emergency Medicine; Family Provider Family Medicine; PCP Family Medicine
DX: D64.9 Anemia, unspecified (principal); K27.4 Chronic or unspecified peptic ulcer, site unspecified, with hemorrhage; H81.10 Benign paroxysmal vertigo, unspecified ear; R06.02 Shortness of breath; R06.00 Dyspnea, unspecified; K21.9 Gastro-esophageal reflux disease without esophagitis; I11.0 Hypertensive heart disease with heart failure; I50.9 Heart failure, unspecified; E78.00 Pure hypercholesterolemia, unspecified; E11.9 Type 2 diabetes mellitus without complications; I48.2 Chronic atrial fibrillation; E03.9 Hypothyroidism, unspecified
CPT/HCPCS: 36415; 36430; 71045; 80048; 82274; 82962; 83880; 84484; 85025; 85027; 85610; 86850; 86900; 86920; 86922; 93005; 93306; 96361; 96374; 96375; 99218; 99251; 99284; P9016; Q9957; A4216; G0378; G0463; J1940; J2405

== ENCOUNTER 2018-07-15 19:31 | Inpatient (IN) | payer MEDICARE, MEDICAID, SELFPAY ==
[2018-07-15] VITALS (7 sets, daily range): BP systolic 121–136; BP diastolic 52–69; PULSE 75–86; RESP 15–20; TEMP 36.8–38; O2SAT 87–95; BMI 43.0; BMI 45.6
--- NOTE | 2018-07-15 19:38 | EKG12_ITS ---
Test Reason : SOB Blood Pressure : / mmHG Vent. Rate : 077 BPM Atrial Rate : 077 BPM P-R Int : 134 ms QRS Dur : 082 ms QT Int : 370 ms P-R-T Axes : -17 054 036 degrees QTc Int : 418 ms Normal sinus rhythm Low voltage QRS Nonspecific ST abnormality Abnormal ECG Confirmed by JEAN MANCILLA, FREIDA ([id number]), material expeditor SATISH DIAZ ([id number] on 07/20/2018 3:34:32 PM Referred By: JENN Confirmed By:FREIDA PENA MD
--- NOTE | 2018-07-15 19:40 | RAD_ITS ---
STUDY: X-RAY CHEST REASON FOR EXAM: Female, 67 years old. Shortness of breath after total right knee arthroplasty on Thursday. TECHNIQUE: Single AP portable view of the chest. COMPARISON: Chest radiograph dated January 12, 2018. FINDINGS: Cardiac monitoring leads are present. The lungs are expanded. There is heterogeneous airspace consolidation at the right lung base and left lung base. There is interstitial thickening visible throughout both lungs. There is questionable a small effusion at the right costophrenic angle. There is mild cardiac enlargement. Normal mediastinum and dorinda. There is prominence of the pulmonary hilar arteries without peripheral pulmonary vascular congestion. There is atherosclerotic tortuosity of the aortic arch and descending thoracic aorta. There is demineralization of the osseous structures. Normal visualized ribs, clavicles, and shoulders. There is no demonstrated abnormality of the visualized soft tissue structures of the upper abdomen. RAD/Chest 1 View (Portable) IMPRESSION: Cardiomegaly and pulmonary congestion with bilateral basilar airspace consolidations. Electronically Signed: Erlinda Gomez MD at 20:02 EST , Service support ,
--- NOTE | 2018-07-15 19:41 | ED.DCSUM_ITS ---
- ER Visit Summary Date of Service: 07/15/18 Chief Complaint: Shortness of breath, hypoxia History of Present Illness: The patient is a 67 F presents to the emergency department with shortness of breath and hypoxia. The patient was recently admitted at [facility]. She underwent right total knee replacement. She was just discharged 2 days ago. She is been at her rehab facility. She states while in the hospital, she was having shortness of breath and was hypoxic. She is not normally on oxygen. Over the past 2 days, she states that she has had scant cough and is felt more short of breath. Today, her pulse ox was in the mid 80s. She denies any chest pain. She does describe orthopnea. She is also had some generalized malaise but denies any fevers or chills. She has no history of pulmonary embolus. She states that she was placed on a blood thinner after her surgery. She has had no bright red blood per rectum. Physical Examination: Vital signs reviewed General: Well-nourished, well-developed Head: Normocephalic, atraumatic Eyes: Pupils equal and reactive, extraocular muscles intact Neck, supple, no lymphadenopathy Heart: Regular rate and rhythm Respiratory: No distress, diminished throughout Abdomen: Soft, nontender, nondistended, no peritoneal signs Back: Nontender Extremities: Nontender, postoperative site is clean, dry, and intact. There is small hematoma. There is no cords. Pulses are normal. Skin: Normal color no rash Neuro: Alert and oriented, no focal or lateralizing deficits Test Results: [] Emergency Department Course and Treatment: The patient presents with hypoxia. S he was requiring supplemental oxygen. She had diminished lung sounds and crackles in her bases. Chest x-ray does show evidence of volume overload and a right lower lobe infiltrate. Her labs are unremarkable. Her BNP is elevated, but her EKG and cardiac enzymes are normal. I did review the patient's prior echo and she does have mild diastolic dysfunction. I do feel that her presentation is likely multifactorial. She had recent knee surgery and intraoperative fluids. She does appear to have decompensated heart failure, but is also had infectious type symptoms. She was treated with broad-spectrum antibiotics. Blood cultures were obtained. She was also given IV Lasix. At this time, the patient will be admitted for hypoxia for diuresis and continued treatment. Treatment Plan: [] Disposition: Admission Impression: 1. Hypoxia 2. Right lower lobe pneumonia 3. Decompensated congestive heart failure This note was generated with [employer] dictation software. It may contain incorrect words, spelling, and punctuation that were not noted in review of the chart prior to signing ED Disposition - Plan for ED Patient: Chief Complaint: Shortness of Breath Referrals: Stephon Rust MD [Primary Care Provider] -
[2018-07-15] MEDS: Ipratropium/Albuterol Sulfate 3 ML AMPUL.NEB INHALATION (19:50)
[2018-07-15 20:03] LABS: Absolute Lymphocyte Count 0.89 X10^3/ul (0.83-4.51); Absolute Neutrophil Count 7.7 X10^3/uL (2.0-7.7); Basophil# 0.02 X10^3/uL; Basophil% 0.2 % (0-1); Eosinophil# 0.03 X10^3/uL; Eosinophils% 0.3 % (0-5); Hematocrit 30.8 % (37-47); Hemoglobin 9.8 g/dl (12.0-15.0); Lymphocyte # 0.89 X10^3/ul (4.0); Lymphocyte % 9.4 % (19-41); Mean Corp Hgb Conc 31.8 g/gl (32-36); Mean Corpuscular Volume 91.1 fL (81-99); Mean Platelet Vol. 10.3 fl (6.2-12.0); Monocyte# 0.76 X10^3/uL; Monocyte% 8.1 % (0-10); Neutrophil % 81.7 % (47-70); POSITIVE COUNT NO; POSITIVE DIFFERENTIAL NO; POSITIVE MORPHOLOGY NO; Platelet Count 182 K/mm3 (150-450); RBC Distribution Width CV 14.1 % (11.6-14.6); RBC Distribution Width SD 46.5 fl (35.1-43.9); Red Blood Count 3.38 M/mm3 (4.2-5.4); White Blood Count 9.4 K/mm3 (4.4-11.0)
[2018-07-15 20:21] LABS: Lactic Acid 1.8 mmol/L (0.4-2.0)
[2018-07-15 20:25] LABS: ALB/GLOB Ratio 0.7 RATIO (0.9-2.4); AST(SGOT) 44 U/L (15-37); Alanine Aminotransfer ALT/SGPT 51 U/L (13-56); Alkaline Phosphatase 136 U/L (45-117); Anion Gap 8 (5-15); BUN 19 mg/dL (7-18); BUN/Creat Ratio 25.6 RATIO (10-20); Calcium,Total 8.5 mg/dL (8.5-10.1); Chloride 99 mmol/L (98-107); Creatinine, Serum 0.74 mg/dL (0.55-1.02); EST Glomerular Filtration Rate 82 mL/min (>60); Est Glom Filt Rate - Afr Amer 100 mL/min (>60); Estimated Creatinine Clearance 78.32 ml/min; Globulin 4.4 g/dL (2.2-4.2); Glucose 261 mg/dL (74-106); Protein, Total 7.4 g/dL (6.4-8.2); Sodium Level 135 mmol/L (136-145)
[2018-07-15] MEDS: Ceftriaxone 1 GM/50 ML BAG IV (20:46)
[2018-07-15] MEDS: oxyCODONE 5 MG Tablet PO (21:06)
--- NOTE | 2018-07-15 21:22 | PCM.HP.STD ---
Problem List (1) Acute heart failure Status: Acute History of Present Illness Date of Admission: 07/15/18 Chief Complaint: shortness of breath The patient is a 67 year old F with a significant history of heart failure with preserved ejection fraction; hypertension; A. fib; Diabetes; and who had a right hip replacement on 07/12/2018 presenting with progressively worsening shortness of breath with exertion times 2 days. Patient had a right hip replacement at [facility]. She reports that whiles at [facility] her oxygen saturation decreased to a minimum of 83%. She was subsequently discharged home on incentive spirometer which she states she is unable to move it higher than previous. She lives with her friend; and physical therapy and home health nurse visit her. Her Home Health nurse realized that her oxygen saturation was at 83% -86%. Patient was scheduled to have another visits from physical therapy while at home; but with no other scheduled visits from home health nurse. Associated with her symptoms is dry cough, chills, malaise and weakness. She is able to walk with a walker but she has shortness of breath with exertion as stated above. She denies orthopnea or paroxysmal nocturnal dyspnea. She denies noting any increase in her weight or edema. Past Medical History Past Medical History (Chronic Problems): Chronic Problems PUD (peptic ulcer disease) (Chronic) Afib (Chronic) DM2 (diabetes mellitus, type 2) (Chronic) Hypothyroid (Chronic) Allergies atorvastatin calcium [From Lipitor] Allergy (Verified 07/15/18 19:33) Pain in joints clindamycin Allergy (Verified 07/15/18 19:33) Hives lisinopril Allergy (Verified 07/15/18 19:33) Unknown Penicillins [PCN] Allergy (Verified 07/15/18 19:33) Hives simvastatin [From Zocor] Allergy (Verified 07/15/18 19:33) Pain in joints Home Medications: Ambulatory Orders Medication Instructions Recorded Levothyroxine [Synthroid] 112 mcg PO DAILY 09/09/13 Multivitamins,Ther W-Minerals 1 tablet PO DAILY 09/09/13 [Multivitamin With Minerals] glipiZIDE [Glucotrol] 5 mg PO DAILY 09/09/13 Ropinirole HCl [Requip] 0.5 mg PO BID 01/10/18 Atenolol 50 mg PO DAILY 01/12/18 Calcium Carbonate [Calcium] 500 mg PO BID 01/12/18 Citalopram Hydrobromide 20 mg PO DAILY 07/15/18 [Citalopram HBr] Oxycodone HCl/Acetaminophen 1 - 2 tablet PO Q4H PRN PRN 07/15/18 [Percocet 5/325] Pantoprazole Sodium [Protonix] 40 mg PO DAILY 07/15/18 Warfarin [Coumadin (PBKC)] 2.5 mg PO DAILY 07/15/18 Surgical History: total knee arthroplasty, - - History of tubal ligation, appendectomy, bilateral carpal tunnel surgery. Psychiatric History: No pertinent psych hx PHYSICS TECHNICIAN History: No pertinent PHYSICS TECHNICIAN history Lives: Friends Smoking Status: Former smoker Alcohol: None - *Family History Maternal History Items: Diabetes, Heart Disease Review of Systems Constitutional: Reports: Anorexia, Chills, Malaise, Weakness. Denies: Fever, Weight Change HEENT: Denies: Head Aches, Sinus Congestion, Sinus Drainage Cardiovascular: Denies: Chest Pain, Palpitations Respiratory: Reports: Shortness of breath upon exertion, Wheezing. Denies: Cough, Shortness of breath at rest, Sputum production Gastrointestinal: Reports: Nausea. Denies: Abdominal Pain, Vomiting Genitourinary: Denies: Dysuria Musculoskeletal: Reports: - - Right knee pain. Denies: Joint Pain Skin: Denies: Rash, Wounds Neurological: Denies: Numbness, Tingling, Focal weakness Psychiatric: Denies: Anxiety, Depression, Homicidal Ideations, Suicidal Ideations Hematologic/ Lymphatic: Denies: Easy Bruising, Easy Bleeding VTE Information - Inpt Only VTE Present on Admission: No VTE Mechan Device Prophylaxis: None VTE Pharm Prophylaxis ordered?: Yes Patient Problems: Active and Suspected Problems Acute heart failure (Acute) - Physical Exam General: Alert, Oriented x3, Cooperative HEENT: Atraumatic, PERRLA, EOMI, Normocephalic Neck: Supple, No JVD, Negative Carotid Bruits Lungs: Rales - Mild to moderate; diffuse. Cardiovascular: Regular rate, No murmurs Abdomen: Bowel Sounds Present, Soft, Non Tender Extremities: No edema, Capillary Refill Less than 3 Seconds, Edema - Around right knee., - - Right knee with dressing and erythema beneath dressing. Skin: No rashes, No breakdown Musculoskeletal: No Muscle Wasting Neurological: Neuro grossly intact Psych/Mental Status: Normal Affect, Appropriate Vital Signs Temp Pulse Resp BP Pulse Ox 98.2 F 86 20 H 121/58 H 93 07/15/18 19:33 07/15/18 19:50 07/15/18 19:50 07/15/18 19:40 07/15/18 19:50 Oxygen Flow Rate (L/min) 2 Oxygen Delivery Method Nasal Cannula Weight: 93.44 kg Body Mass Index (BMI) 43.0 Finger Stick Blood Glucose 161 Laboratory Tests Past 24 Hrs 07/15/18 07/15/18 07/15/18 19:45 19:45 19:45 WBC 9.4 RBC 3.38 L Hgb 9.8 L Hct 30.8 L MCV 91.1 MCH 29.0 MCHC 31.8 L RDW 14.1 RDW Differential 46.5 H Plt Count 182 MPV 10.3 Immature Gran % (Auto) 0.300 Neut % (Auto) 81.7 H Lymph % (Auto) 9.4 L [place] % (Auto) 8.1 Eos % (Auto) 0.3 Baso % (Auto) 0.2 Absolute Neuts (auto) 7.7 Absolute Lymphs (auto) 0.89 Total Counted Not Reportable Sodium 135 L Potassium 4.0 Chloride 99 Carbon Dioxide 28.0 Anion Gap 8 BUN 19 H Creatinine 0.74 Estim Creat Clear Calc 78.32 Est GFR (MDRD) Af Amer 100 Est GFR (MDRD) Non-Af 82 BUN/Creatinine Ratio 25.6 H Glucose 261 H Lactic Acid Calcium 8.5 Total Bilirubin 0.80 AST 44 H ALT 51 Alkaline Phosphatase 136 H Troponin I < 0.015 B-Natriuretic Peptide 452.0 H Total Protein 7.4 Albumin 3.0 L Globulin 4.4 H Albumin/Globulin Ratio 0.7 L 07/15/18 19:50 WBC RBC Hgb Hct MCV MCH MCHC RDW RDW Differential Plt Count MPV Immature Gran % (Auto) Neut % (Auto) Lymph % (Auto) [place] % (Auto) Eos % (Auto) Baso % (Auto) Absolute Neuts (auto) Absolute Lymphs (auto) Total Counted Sodium Potassium Chloride Carbon Dioxide Anion Gap BUN Creatinine Estim Creat Clear Calc Est GFR (MDRD) Af Amer Est GFR (MDRD) Non-Af BUN/Creatinine Ratio Glucose Lactic Acid 1.8 Calcium Total Bilirubin AST ALT Alkaline Phosphatase Troponin I B-Natriuretic Peptide Total Protein Albumin Globulin Albumin/Globulin Ratio Assessment/Plan All Active Problems Acute heart failure (Acute) Heart failure with preserved ejection fraction (Acute) BPPV (benign paroxysmal positional vertigo) (Acute) Symptomatic anemia (Acute) The patient is a 67 year old F with a significant history of heart failure with preserved ejection fraction; hypertension; A. fib; Diabetes; and who had a right hip replacement on 07/12/2018 presenting with progressively worsening shortness of breath with exertion; and also with hypoxia and chills. Acute Hypoxemic Respiratory Failure The etiology of her acute hypoxemic respiratory failure is unclear at this time. Reportedly patient had oxygen saturation of as low as 83% while inpatient and at [facility]. On admission her oxygen saturation on 2 L is 93-95%. She does not have a white count by reportedly she had chills. Chest x-ray showed cardiomegaly and pulmonary congestion with bilateral basilar airspace consolidation. We will treat empirically for preserved heart failure exacerbation and pneumonia. Her echocardiogram on 01/12/2018 showed mild concentric left ventricular hypertrophy with normal left ventricular systolic function. Her ejection fraction was 55%. Her left atrium was moderately enlarged. Her right ventricular systolic pressure was 41. Patient received azithromycin and Rocephin at emergency department; will continue. Patient received Lasix at emergency department; will continue. Daily weights ordered. Strict intake and output. Diet: 2 g sodium diet with no concentrated sweets. Strep pneumo antigen and Legionella urine antigen ordered. Chest physiotherapy and incentive spirometer ordered. Scheduled DuoNeb and albuterol as needed. Mucinex ordered. Right knee surgery. Patient reported that she received of Dr. Almaraz , orthopedic surgeon, in about 2 weeks for removal of her dressing. We will continue as needed Percocet for pain. We will continue Coumadin that was started after knee surgery a prophylactic for DVT/PE. On admission INR was 2. Of note patient has been started on macrolide that can increase her INR. A. fib Patient reports history of A. fib for which he sees Dr. Singleton, primary school teacher librarian. She reported that she is not on any anticoagulation for A. fib. Patient in sinus rhythm at this time. Admitted to [facility] with Telemetry. Atenolol continued. Hypertension On admission blood pressure was within goal. Home atenolol continued. Diabetes Patient reported that she was on both metformin and glipizide. But this time she is only on glipizide since A1c reduced to 6.0 At admission blood glucose was not within goal. We will continue glipizide and add a correction scale insulin. Restless leg syndrome Requip continued Hypothyroidism Synthroid continued GERD Pantoprazole continued DVT prophylaxis We will continue home Coumadin that was started after right knee surgery. Code Visit Inpatient E&M: 62798 Init Hosp L3
[2018-07-15] MEDS: Furosemide 40 MG/4 ML Vial IV (21:57)
[2018-07-16] VITALS (17 sets, daily range): BP systolic 93–123; BP diastolic 50–63; PULSE 61–88; RESP 16–20; TEMP 36.4–37.5; O2SAT 94–99; BMI 45.0
[2018-07-16] MEDS: oxyCODONE 5 MG Tablet PO ×3 (01:31→22:37)
[2018-07-16 01:46] LABS: Bedside Glucose 322 mg/dL (70-110)
[2018-07-16 05:53] LABS: Absolute Lymphocyte Count 0.89 X10^3/ul (0.83-4.51); Absolute Neutrophil Count 6.4 X10^3/uL (2.0-7.7); Basophil# 0.02 X10^3/uL; Basophil% 0.2 % (0-1); Eosinophil# 0.01 X10^3/uL; Eosinophils% 0.1 % (0-5); Hematocrit 27.1 % (37-47); Hemoglobin 8.7 g/dl (12.0-15.0); Lymphocyte # 0.89 X10^3/ul (4.0); Lymphocyte % 10.9 % (19-41); Mean Corp Hgb Conc 32.1 g/gl (32-36); Mean Corpuscular Hgb 29.2 pg (27.0-32.0); Mean Corpuscular Volume 90.9 fL (81-99); Mean Platelet Vol. 10.3 fl (6.2-12.0); Monocyte# 0.77 X10^3/uL; Monocyte% 9.5 % (0-10); Neutrophil # 6.42 X10^3/uL (2.7-7.7); Neutrophil % 79.1 % (47-70); Platelet Count 173 K/mm3 (150-450); RBC Distribution Width CV 14.1 % (11.6-14.6); RBC Distribution Width SD 47.1 fl (35.1-43.9); Red Blood Count 2.98 M/mm3 (4.2-5.4); White Blood Count 8.1 K/mm3 (4.4-11.0)
[2018-07-16 05:56] LABS: International Normalized Ratio 2.1; Prothrombin Time (Protime)PT. 23.3 SECONDS (11.7-14.9)
[2018-07-16 05:59] LABS: POSITIVE COUNT NO; POSITIVE DIFFERENTIAL NO; POSITIVE MORPHOLOGY NO
[2018-07-16] MEDS: Levothyroxine 112 MCG Tablet PO (06:11)
[2018-07-16 06:13] LABS: Anion Gap 9 (5-15); BUN 15 mg/dL (7-18); BUN/Creat Ratio 21.1 RATIO (10-20); Calcium,Total 8.6 mg/dL (8.5-10.1); Chloride 97 mmol/L (98-107); Creatinine, Serum 0.71 mg/dL (0.55-1.02); EST Glomerular Filtration Rate 87 mL/min (>60); Est Glom Filt Rate - Afr Amer 105 mL/min (>60); Estimated Creatinine Clearance 82.98 ml/min; Glucose 275 mg/dL (74-106); Potassium 3.7 mmol/L (3.5-5.1); Sodium Level 137 mmol/L (136-145)
[2018-07-16] MEDS: Ipratropium/Albuterol Sulfate 3 ML AMPUL.NEB INHALATION ×2 (07:11→13:12)
[2018-07-16 07:36] LABS: Bedside Glucose 293 mg/dL (70-110)
[2018-07-16] MEDS: Insulin Lispro 100 UNIT/ML INSULN.PEN SC ×3 (07:42→22:16)
[2018-07-16] MEDS: Multivitamins,Ther W-Minerals Tablet 1 TABLET PO (08:48)
[2018-07-16] MEDS: Citalopram 20 MG Tablet PO (08:48)
[2018-07-16] MEDS: Atenolol 50 MG Tablet PO (08:48)
[2018-07-16] MEDS: Pantoprazole Sodium 40 MG Tablet PO (08:48)
[2018-07-16] MEDS: glipiZIDE 5 MG Tablet PO (08:48)
[2018-07-16] MEDS: Pramipexole Di-HCl 0.25 MG Tablet PO ×2 (08:49→22:17)
[2018-07-16] MEDS: Furosemide 40 MG/4 ML Vial IV ×2 (08:49→17:08)
[2018-07-16] MEDS: Calcium Carbonate 500 MG Tablet PO ×2 (08:49→22:17)
[2018-07-16] MEDS: guaiFENesin 1,200 MG Tablet 1200 MG PO ×2 (08:49→22:17)
--- NOTE | 2018-07-16 09:37 | PN_ITS ---
Patient Problems: Active and Suspected Problems Acute heart failure (Acute) Subjective: Patient was seen and examined. Denied any new complaints. Feels very tired. Denies any chest pain or dizziness. Not on oxygen at home. Currently on 4 L of oxygen Vitals/I&O's: Vital Signs Temp Pulse Resp BP Pulse Ox 99.5 F H 77 20 H 121/56 H 95 07/16/18 08:15 07/16/18 08:15 07/16/18 08:15 07/16/18 08:15 07/16/18 08:15 Oxygen Flow Rate (L/min) 4 Oxygen Delivery Method Nasal Cannula Weight: 99 kg Body Mass Index (BMI) 45.6 Finger Stick Blood Glucose 161 Intake and Output for Last 24 Hours 07/14/18 07/15/18 07/16/18 23:59 23:59 23:59 Intake Total 150 / 150 Output Total 320 / 320 Balance -170 / -170 General: Alert, Oriented x3, Cooperative, No apparent distress, - - Obese, on 4L oxygen, pale, not jaundiced HEENT: Atraumatic, PERRLA, EOMI, Normocephalic Oral: Moist Mucosa Neck: Supple, No JVD, Negative Carotid Bruits Lungs: Normal air movement, Diminished - at the lung bases Cardiovascular: Regular rate, Regular Rhythm, Normal S1, Normal S2, No murmurs Abdomen: Bowel Sounds Present, Soft, Non Tender, Non-Distended, No Hepato- splenomegaly Extremities: No edema, Capillary Refill Less than 3 Seconds Skin: No rashes, No breakdown Musculoskeletal: No Tenderness to Palpation of Joints or Extremities Neurological: Cranial nerves II-XII grossly intact Psych/Mental Status: Normal Affect, Appropriate Laboratory Results 07/15/18 19:45: WBC 9.4, RBC 3.38 L, Hgb 9.8 L, Hct 30.8 L, MCV 91.1, MCH 29.0, MCHC 31.8 L, RDW 14.1, RDW Differential 46.5 H, Plt Count 182, MPV 10.3, Immature Gran % (Auto) 0.300, Neut % (Auto) 81.7 H, Lymph % (Auto) 9.4 L, [place] % (Auto) 8.1, Eos % (Auto) 0.3, Baso % (Auto) 0.2, Absolute Neuts (auto) 7.7, Absolute Lymphs (auto) 0.89, Total Counted Not Reportable 07/15/18 19:45: Sodium 135 L, Potassium 4.0, Chloride 99, Carbon Dioxide 28.0, Anion Gap 8, BUN 19 H, Creatinine 0.74, Estim Creat Clear Calc 78.32, Est GFR (MDRD) Af Amer 100, Est GFR (MDRD) Non-Af 82, BUN/Creatinine Ratio 25.6 H, Glucose 261 H, Calcium 8.5, Total Bilirubin 0.80, AST 44 H, ALT 51, Alkaline Phosphatase 136 H, Troponin I < 0.015, Total Protein 7.4, Albumin 3.0 L, Globulin 4.4 H, Albumin/Globulin Ratio 0.7 L 07/15/18 19:45: B-Natriuretic Peptide 452.0 H 07/15/18 19:45: PT 23.0 H, INR 2.0 07/15/18 19:50: Lactic Acid 1.8 07/16/18 01:20: POC Glucose 322 H 07/16/18 05:40: WBC 8.1, RBC 2.98 L, Hgb 8.7 L, Hct 27.1 L, MCV 90.9, MCH 29.2, MCHC 32.1, RDW 14.1, RDW Differential 47.1 H, Plt Count 173, MPV 10.3, Immature Gran % (Auto) 0.200, Neut % (Auto) 79.1 H, Lymph % (Auto) 10.9 L, [place] % (Auto) 9.5, Eos % (Auto) 0.1, Baso % (Auto) 0.2, Absolute Neuts (auto) 6.4, Absolute L ymphs (auto) 0.89, Total Counted Not Reportable 07/16/18 05:40: PT 23.3 H, INR 2.1 07/16/18 05:40: Sodium 137, Potassium 3.7, Chloride 97 L, Carbon Dioxide 31.0, Anion Gap 9, BUN 15, Creatinine 0.71, Estim Creat Clear Calc 82.98, Est GFR (MDRD) Af Amer 105, Est GFR (MDRD) Non-Af 87, BUN/Creatinine Ratio 21.1 H, Glucose 275 H, Calcium 8.6 07/16/18 07:27: POC Glucose 293 H Current Medications Acetaminophen (Tylenol) 650 mg PO Q6H PRN PRN PRN Reason: Mild Pain (scale 0-3)/T>100.7 Albuterol Sulfate (Ventolin Aerosols) 2.5 mg INHALATION Q2H PRN PRN PRN Reason: SHORTNESS OF BREATH Albuterol/Ipratropium (Duoneb) 3 ml INHALATION Q6H.RT [facility] Last Admin: 07/16/18 07:11 Dose: 3 ml Atenolol (Tenormin (Beta Beryl)) 50 mg PO DAILY [facility] Last Admin: 07/16/18 08:48 Dose: 50 mg Calcium Carbonate (Tums) 500 mg PO BID [facility] Last Admin: 07/16/18 08:49 Dose: 500 mg Citalopram Hydrobromide (Celexa) 20 mg PO DAILY [facility] Last Admin: 07/16/18 08:48 Dose: 20 mg Furosemide (Lasix) 40 mg IV BIDLX [facility] Last Admin: 07/16/18 08:49 Dose: 40 mg [facility]) [facility] Last Admin: 07/16/18 08:48 Dose: 5 mg Guaifenesin (Mucinex) 1,200 mg PO BID [facility] Last Admin: 07/16/18 08:49 Dose: 1,200 mg Azithromycin 500 mg/ Dextrose 255 mls @ 250 mls/hr IV Q24@2200 [facility] Stop: 07/18/18 23:02 Ceftriaxone Sodium (Rocephin) 1 gm in 50 mls @ 100 mls/hr IV Q24@2200 [facility] Insulin Human Lispro (Humalog Eleonora (Bkc)) 0 unit SC [facility]; Protocol Last Admin: 07/16/18 07:42 Dose: 4 units Levothyroxine Sodium (Synthroid) 112 mcg PO DAILY@0600 [facility] Last Admin: 07/16/18 06:11 Dose: 112 mcg Magnesium Hydroxide (Milk Of Magnesia) 30 ml PO DAILY PRN PRN PRN Reason: Constipation Multivitamins/Minerals (Multivitamin With Minerals) [facility] Last Admin: 07/16/18 08:48 Dose: 1 tablet Ondansetron HCl (Zofran) 4 mg IV Q8H PRN PRN PRN Reason: NAUSEA Oxycodone HCl (Oxyir) 5 - 10 mg PO Q4H PRN PRN PRN Reason: PAIN Last Admin: 07/16/18 08:48 Dose: 10 mg Pantoprazole Sodium (Protonix) 40 mg PO DAILY [facility] Last Admin: 07/16/18 08:48 Dose: 40 mg Pramipexole Dihydrochloride (Mirapex) 0.25 mg PO BID [facility] Last Admin: 07/16/18 08:49 Dose: 0.25 mg Sodium Chloride () 5 - 15 ml IV UD PRN PRN Reason: SALINE FLUSH Warfarin Sodium (Coumadin (Pbkc)) 2.5 mg PO DAILY@1700 [facility] Zolpidem Tartrate (Ambien (Generic)) 5 mg PO QHS PRN PRN PRN Reason: SLEEP Medical Necessity - Tobacco Use Smoking Status: Former smoker Assessment/Plan All Active Problems Acute heart failure (Acute) Heart failure with preserved ejection fraction (Acute) BPPV (benign paroxysmal positional vertigo) (Acute) Symptomatic anemia (Acute) 67-year-old female with multiple comorbidities including chronic diastolic CHF, hypertension, AAA fib, type II DM, status post right knee replacement on 06/18/2018 Hospital comes in with progressive worsening shortness of breath. Patient was on Coumadin for DVT prophylaxis and her INR was therapeutic on admission. 1. Acute hypoxic respiratory failure secondary to acute on chronic diastolic CHF and bilateral HCAP SPO2 was reported as low as 83% in [place], patient is on 4 L of oxygen, Would encourage use of incentive spirometer, wean off for SPO2 for 94% 2. Acute on chronic diastolic CHF/heart failure with preserved EF, on IV Lasix 40 mg twice daily, continue same, strict I's and O's 3. Bilateral HCAP, urine streptococcal and Legionella antigen negative, blood cultures pending, afebrile, no leukocytosis Started on IV ceftriaxone and azithromycin, will continue the same 4. Type II DM, blood sugars uncontrolled, on glipizide, will increase insulin sliding scale to high-dose, continue with Accu-Cheks 5. Morbid obesity, BMI is 35.6, diet and exercise recommended 6. Recent right knee replacement, will continue with PT and OT 7. Chronic medical conditions including hypothyroidism, GERD, restless leg, hypertension, chronic atrial fibrillation, stable, will continue home meds 8. DVT PPx- On coumadin; INR is therapeutic Code Visit Inpatient E&M: 81523 Subs Hosp L2
--- NOTE | 2018-07-16 11:10 | CASEMGMT ---
RN EVELINE Face to Face with patient for initial transition planning/care coordination assessment. RN CM introduced self and role at [facility]. Patient lying in bed, alert and oriented. Patient willing to participate in assessment and is able to answer all questions appropriately. Care providers, pharmacy, and demographics verified. Patient wishes to discharge home, denies need for home health at this time. Patient states she has no further needs or concerns at this time. CM to follow for discharge planning needs that may arise. PCP: Yocasta Specialists: Walter adjunct professor of law; autumn Almaraz Preferred Pharmacy: [facility] Insurance: [place] [facility] Prescription Benefit: [facility] Living Will/HPOA: None LNOK: DIL, Friend Living Arrangements: Patient lives alone but will be discharging to friends house who can assist with care and has 1 level home. Transportation: Friend DME/HHC: Patient has cane and walker. Is setup with [facility] therapy. Disposition Plan: Patient to discharge to friends home with support and follow-up plans in place. Aliza BECKFORD, RN, CM
[2018-07-16 11:21] LABS: Bedside Glucose 266 mg/dL (70-110)
--- NOTE | 2018-07-16 15:39 | NURSING ---
removed pt o2 sats on ra 94%. after 15 min. pt called out stated that she was having trouble breathing. check sats 94%. pt requesting for o2 to be placed back on. pt stated it helped her breath and she wanted it.
[2018-07-16 16:00] LABS: Bedside Glucose 133 mg/dL (70-110)
[2018-07-16] MEDS: 0.9% NaCl Peripheral Flush Adult/Peds IV ×2 (17:08→22:18)
[2018-07-16] MEDS: Ceftriaxone 1 GM/50 ML BAG IV (22:17)
[2018-07-16 23:11] LABS: Bedside Glucose 213 mg/dL (70-110)
[2018-07-17] VITALS (17 sets, daily range): BP systolic 105–133; BP diastolic 53–79; PULSE 66–83; RESP 16–18; TEMP 36.8–37; O2SAT 91–98
--- NOTE | 2018-07-17 05:45 | RAD_ITS ---
STUDY: X-RAY CHEST REASON FOR EXAM: Female, 67 years old. Shortness of breath TECHNIQUE: Single AP portable view of the chest. COMPARISON: 07/15/2018 FINDINGS: Lungs are hypoinflated. Slight decrease in diffuse pulmonary edema. Remainder is unchanged RAD/Chest 1 View (Portable) IMPRESSION: Slight interval improvement in pulmonary edema Electronically Signed: Tiago Seay DO at 8:22 EST Tel , Service support ,
[2018-07-17] MEDS: Insulin Lispro 100 UNIT/ML INSULN.PEN SC ×3 (06:37→21:51)
[2018-07-17] MEDS: Levothyroxine 112 MCG Tablet PO (06:37)
[2018-07-17 06:55] LABS: Bedside Glucose 162 mg/dL (70-110)
[2018-07-17] MEDS: Ipratropium/Albuterol Sulfate 3 ML AMPUL.NEB INHALATION ×3 (07:26→19:18)
[2018-07-17 07:31] LABS: Absolute Lymphocyte Count 0.92 X10^3/ul (0.83-4.51); Absolute Neutrophil Count 4.5 X10^3/uL (2.0-7.7); Basophil# 0.01 X10^3/uL; Basophil% 0.2 % (0-1); Eosinophil# 0.24 X10^3/uL; Eosinophils% 3.8 % (0-5); Hematocrit 28.3 % (37-47); Hemoglobin 8.9 g/dl (12.0-15.0); Lymphocyte # 0.92 X10^3/ul (4.0); Lymphocyte % 14.5 % (19-41); Mean Corp Hgb Conc 31.4 g/gl (32-36); Mean Corpuscular Hgb 28.8 pg (27.0-32.0); Mean Corpuscular Volume 91.6 fL (81-99); Mean Platelet Vol. 10.1 fl (6.2-12.0); Monocyte# 0.72 X10^3/uL; Monocyte% 11.3 % (0-10); Neutrophil # 4.45 X10^3/uL (2.7-7.7); Platelet Count 206 K/mm3 (150-450); RBC Distribution Width CV 14.3 % (11.6-14.6); RBC Distribution Width SD 47.3 fl (35.1-43.9); Red Blood Count 3.09 M/mm3 (4.2-5.4); White Blood Count 6.4 K/mm3 (4.4-11.0)
[2018-07-17 07:32] LABS: POSITIVE COUNT NO; POSITIVE DIFFERENTIAL NO; POSITIVE MORPHOLOGY NO
[2018-07-17 07:42] LABS: International Normalized Ratio 1.9; Prothrombin Time (Protime)PT. 22.2 SECONDS (11.7-14.9)
[2018-07-17 08:08] LABS: Anion Gap 9 (5-15); BUN 15 mg/dL (7-18); BUN/Creat Ratio 23.6 RATIO (10-20); Calcium,Total 8.4 mg/dL (8.5-10.1); Chloride 95 mmol/L (98-107); Creatinine, Serum 0.64 mg/dL (0.55-1.02); EST Glomerular Filtration Rate 98 mL/min (>60); Est Glom Filt Rate - Afr Amer 119 mL/min (>60); Estimated Creatinine Clearance 81.25 ml/min; Glucose 158 mg/dL (74-106); Potassium 3.1 mmol/L (3.5-5.1); Sodium Level 138 mmol/L (136-145)
[2018-07-17] MEDS: Citalopram 20 MG Tablet PO (09:00)
[2018-07-17] MEDS: Furosemide 40 MG/4 ML Vial IV ×2 (09:00→17:45)
[2018-07-17] MEDS: glipiZIDE 5 MG Tablet PO (09:00)
[2018-07-17] MEDS: Atenolol 50 MG Tablet PO (09:00)
[2018-07-17] MEDS: Multivitamins,Ther W-Minerals Tablet 1 TABLET PO (09:00)
[2018-07-17] MEDS: guaiFENesin 1,200 MG Tablet 1200 MG PO ×2 (09:01→21:38)
[2018-07-17] MEDS: Pramipexole Di-HCl 0.25 MG Tablet PO ×2 (09:01→21:38)
[2018-07-17] MEDS: Pantoprazole Sodium 40 MG Tablet PO (09:01)
[2018-07-17] MEDS: Calcium Carbonate 500 MG Tablet PO ×2 (09:01→21:38)
[2018-07-17] MEDS: oxyCODONE 5 MG Tablet PO ×3 (09:04→21:38)
[2018-07-17 11:30] LABS: Bedside Glucose 203 mg/dL (70-110)
--- NOTE | 2018-07-17 13:54 | PCM.PN.HOSP ---
Patient Problems: Active and Suspected Problems Acute heart failure (Acute) Subjective: Patient was seen and examined. Complains of feeling tired. Not ambulating much. Denies any chest pain or dizziness or shortness of breath. Objective: Physical exam: General: Alert, Oriented x3, Cooperative, No apparent distress, - - Obese, on 2L oxygen, pale, not jaundiced HEENT: Atraumatic, PERRLA, EOMI, Normocephalic Oral: Moist Mucosa Neck: Supple, No JVD, Negative Carotid Bruits Lungs: Normal air movement, Diminished - at the lung bases Cardiovascular: Regular rate, Regular Rhythm, Normal S1, Normal S2, No murmurs Abdomen: Bowel Sounds Present, Soft, Non Tender, Non-Distended, No Hepato-splenomegaly Extremities: No edema, Capillary Refill Less than 3 Seconds Skin: No rashes, No breakdown Musculoskeletal: No Tenderness to Palpation of Joints or Extremities Neurological: Cranial nerves II-XII grossly intact Psych/Mental Status: Normal Affect, Appropriate Vitals/I&O's: Vital Signs Temp Pulse Resp BP Pulse Ox 98.2 F 67 16 116/79 98 07/17/18 08:59 07/17/18 13:04 07/17/18 13:04 07/17/18 08:59 07/17/18 13:04 Oxygen Flow Rate (L/min) 2 Oxygen Delivery Method Nasal Cannula Weight: 96.933 kg Body Mass Index (BMI) 45.6 Finger Stick Blood Glucose 161 Intake and Output for Last 24 Hours 07/15/18 07/16/18 07/17/18 23:59 23:59 23:59 Intake Total 800 / 800 1062 / 1062 Output Total 1220 / 1220 1300 / 1300 Balance -420 / -420 -238 / -238 Microbiology Past 72 Hours 07/16/18 13:05 Urine, Clean Catch Streptococcus pneumoniae Antigen (M - Final 07/16/18 13:05 Urine, Clean Catch Legionella Antigen - Final Laboratory Results 07/16/18 05:40: Hemoglobin A1c 7.0 H 07/16/18 15:54: POC Glucose 133 H 07/16/18 22:15: POC Glucose 213 H 07/17/18 06:35: POC Glucose 162 H 07/17/18 07:10: WBC 6.4, RBC 3.09 L, Hgb 8.9 L, Hct 28.3 L, MCV 91.6, MCH 28.8, MCHC 31.4 L, RDW 14.3, RDW Differential 47.3 H, Plt Count 206, MPV 10.1, Immature Gran % (Auto) 0.200, Neut % (Auto) 70.0, Lymph % (Auto) 14.5 L, [place] % (Auto) 11.3 H, Eos % (Auto) 3.8, Baso % (Auto) 0.2, Absolute Neuts (auto) 4.5, Absolute Lymphs (auto) 0.92, Total Counted Not Reportable 07/17/18 07:10: PT 22.2 H, INR 1.9 07/17/18 07:10: Sodium 138, Potassium 3.1 L, Chloride 95 L, Carbon Dioxide 34.0 H, Anion Gap 9, BUN 15, Creatinine 0.64, Estim Creat Clear Calc 81.25, Est GFR (MDRD) Af Amer 119, Est GFR (MDRD) Non-Af 98, BUN/Creatinine Ratio 23.6 H, Glucose 158 H, Calcium 8.4 L 07/17/18 11:16: POC Glucose 203 H Current Medications Acetaminophen (Tylenol) 650 mg PO Q6H PRN PRN PRN Reason: Mild Pain (scale 0-3)/T>100.7 Albuterol Sulfate (Ventolin Aerosols) 2.5 mg INHALATION Q2H PRN PRN PRN Reason: SHORTNESS OF BREATH Albuterol/Ipratropium (Duoneb) 3 ml INHALATION Q6H.RT [facility] Last Admin: 07/17/18 13:03 Dose: 3 ml Atenolol (Tenormin (Beta Beryl)) 50 mg PO DAILY [facility] Last Admin: 07/17/18 09:00 Dose: 50 mg Calcium Carbonate (Tums) 500 mg PO BID [facility] Last Admin: 07/17/18 09:01 Dose: 500 mg Citalopram Hydrobromide (Celexa) 20 mg PO DAILY [facility] Last Admin: 07/17/18 09:00 Dose: 20 mg Furosemide (Lasix) 40 mg IV BIDLX [facility] Last Admin: 07/17/18 09:00 Dose: 40 mg [facility] Admin: 07/17/18 09:00 Dose: 5 mg Guaifenesin (Mucinex) 1,200 mg PO BID [facility] Last Admin: 07/17/18 09:01 Dose: 1,200 mg Azithromycin 500 mg/ Dextrose 255 mls @ 250 mls/hr IV Q24@2200 [facility] Stop: 07/18/18 23:02 Last Admin: 07/16/18 23:17 Dose: 250 mls/hr Ceftriaxone Sodium (Rocephin) 1 gm in 50 mls @ 100 mls/hr IV Q24@2200 [facility] Last Admin: 07/16/18 22:17 Dose: 100 mls/hr Insulin Human Lispro (Humalog Kwikpen (Bkc)) 0 unit SC ACHS [facility]; Protocol Last Admin: 07/17/18 11:18 Dose: 3 units Levothyroxine Sodium (Synthroid) 112 mcg PO DAILY@0600 [facility] Last Admin: 07/17/18 06:37 Dose: 112 mcg Magnesium Hydroxide (Milk Of Magnesia) 30 ml PO DAILY PRN PRN PRN Reason: Constipation Multivitamins/Minerals (Multivitamin With Minerals) [facility] Last Admin: 07/17/18 09:00 Dose: 1 tablet Ondansetron HCl (Zofran) 4 mg IV Q8H PRN PRN PRN Reason: NAUSEA Oxycodone HCl (Oxyir) 5 - 10 mg PO Q4H PRN PRN PRN Reason: PAIN Last Admin: 07/17/18 09:04 Dose: 10 mg Pantoprazole Sodium (Protonix) 40 mg PO DAILY [facility] Last Admin: 07/17/18 09:01 Dose: 40 mg Pramipexole Dihydrochloride (Mirapex) 0.25 mg PO BID [facility] Last Admin: 07/17/18 09:01 Dose: 0.25 mg Sodium Chloride () 5 - 15 ml IV UD PRN PRN Reason: SALINE FLUSH Last Admin: 07/16/18 22:18 Dose: 10 ml Warfarin Sodium (Coumadin (Pbkc)) 2.5 mg PO DAILY@1700 [facility] Last Admin: 07/16/18 17:04 Dose: 2.5 mg Zolpidem Tartrate (Ambien (Generic)) 5 mg PO QHS PRN PRN PRN Reason: SLEEP Medical Necessity - Tobacco Use Smoking Status: Former smoker Assessment/Plan All Active Problems Acute heart failure (Acute) Heart failure with preserved ejection fraction (Acute) BPPV (benign paroxysmal positional vertigo) (Acute) Symptomatic anemia (Acute) 67-year-old female with multiple comorbidities including chronic diastolic CHF, hypertension, AAA fib, type II DM, status post right knee replacement on 06/18/2018 Hospital comes in with progressive worsening shortness of breath. Patient was on Coumadin for DVT prophylaxis and her INR was therapeutic on admission. 1. Acute hypoxic respiratory failure secondary to acute on chronic diastolic CHF and bilateral HCAP, improving, will continue to encourage use of incentive spirometer, wean off oxygen if able. 2. Acute on chronic diastolic CHF/heart failure with preserved EF, on IV Lasix 40 mg twice daily, continue same, strict I's and O's 3. Bilateral HCAP, urine streptococcal and Legionella antigen negative, blood cultures pending, afebrile, no leukocytosis, continue on IV antibiotics. 4. Hypokalemia, replace, recheck in a.m., will also check magnesium level 5. Type II DM, blood sugars uncontrolled, on glipizide, ISS, will increase glipizide to 10 mg p.o. daily, continue with Accu-Cheks 6. Morbid obesity, BMI is 35.6, diet and exercise recommended 7. Recent right knee replacement, will continue with PT and OT 8. Chronic medical conditions including hypothyroidism, GERD, restless leg, hypertension, chronic atrial fibrillation, stable, will continue home meds 9. DVT PPx- On coumadin; INR is therapeutic Code Visit Inpatient E&M: 98372 Subs Hosp L2
--- NOTE | 2018-07-17 14:01 | PN_ITS ---
Patient Problems: Active and Suspected Problems Acute heart failure (Acute) Subjective: Patient was seen and examined. Complains of feeling tired. Not ambulating much. Denies any chest pain or dizziness or shortness of breath. Objective: Physical exam: General: Alert, Oriented x3, Cooperative, No apparent distress, - - Obese, on 2L oxygen, pale, not jaundiced HEENT: Atraumatic, PERRLA, EOMI, Normocephalic Oral: Moist Mucosa Neck: Supple, No JVD, Negative Carotid Bruits Lungs: Normal air movement, Diminished - at the lung bases Cardiovascular: Regular rate, Regular Rhythm, Normal S1, Normal S2, No murmurs Abdomen: Bowel Sounds Present, Soft, Non Tender, Non-Distended, No Hepato- splenomegaly Extremities: No edema, Capillary Refill Less than 3 Seconds Skin: No rashes, No breakdown Musculoskeletal: No Tenderness to Palpation of Joints or Extremities Neurological: Cranial nerves II-XII grossly intact Psych/Mental Status: Normal Affect, Appropriate Vitals/I&O's: Vital Signs Temp Pulse Resp BP Pulse Ox 98.2 F 67 16 116/79 98 07/17/18 08:59 07/17/18 13:04 07/17/18 13:04 07/17/18 08:59 07/17/18 13:04 Oxygen Flow Rate (L/min) 2 Oxygen Delivery Method Nasal Cannula Weight: 96.933 kg Body Mass Index (BMI) 45.6 Finger Stick Blood Glucose 161 Intake and Output for Last 24 Hours 07/15/18 07/16/18 07/17/18 23:59 23:59 23:59 Intake Total 800 / 800 1062 / 1062 Output Total 1220 / 1220 1300 / 1300 Balance -420 / -420 -238 / -238 Microbiology Past 72 Hours 07/16/18 13:05 Urine, Clean Catch Streptococcus pneumoniae Antigen (M - Final 07/16/18 13:05 Urine, Clean Catch Legionella Antigen - Final Laboratory Results 07/16/18 05:40: Hemoglobin A1c 7.0 H 07/16/18 15:54: POC Glucose 133 H 07/16/18 22:15: POC Glucose 213 H 07/17/18 06:35: POC Glucose 162 H 07/17/18 07:10: WBC 6.4, RBC 3.09 L, Hgb 8.9 L, Hct 28.3 L, MCV 91.6, MCH 28.8, MCHC 31.4 L, RDW 14.3, RDW Differential 47.3 H, Plt Count 206, MPV 10.1, Immature Gran % (Auto) 0.200, Neut % (Auto) 70.0, Lymph % (Auto) 14.5 L, [place] % (Auto) 11.3 H, Eos % (Auto) 3.8, Baso % (Auto) 0.2, Absolute Neuts (auto) 4.5, Absolute Lymphs (auto) 0.92, Total Counted Not Reportable 07/17/18 07:10: PT 22.2 H, INR 1.9 07/17/18 07:10: Sodium 138, Potassium 3.1 L, Chloride 95 L, Carbon Dioxide 34.0 H, Anion Gap 9, BUN 15, Creatinine 0.64, Estim Creat Clear Calc 81.25, Est GFR (MDRD) Af Amer 119, Est GFR (MDRD) Non-Af 98, BUN/Creatinine Ratio 23.6 H, Glucose 158 H, Calcium 8.4 L 07/17/18 11:16: POC Glucose 203 H Current Medications Acetaminophen (Tylenol) 650 mg PO Q6H PRN PRN PRN Reason: Mild Pain (scale 0-3)/T>100.7 Albuterol Sulfate (Ventolin Aerosols) 2.5 mg INHALATION Q2H PRN PRN PRN Reason: SHORTNESS OF BREATH Albuterol/Ipratropium (Duoneb) 3 ml INHALATION Q6H.RT [facility] Last Admin: 07/17/18 13:03 Dose: 3 ml Atenolol (Tenormin (Beta Beryl)) 50 mg PO DAILY [facility] Last Admin: 07/17/18 09:00 Dose: 50 mg Calcium Carbonate (Tums) 500 mg PO BID [facility] Last Admin: 07/17/18 09:01 Dose: 500 mg Citalopram Hydrobromide (Celexa) 20 mg PO DAILY [facility] Last Admin: 07/17/18 09:00 Dose: 20 mg Furosemide (Lasix) 40 mg IV BIDLX [facility] Last Admin: 07/17/18 09:00 Dose: 40 mg [facility]) [facility] Admin: 07/17/18 09:00 Dose: 5 mg Guaifenesin (Mucinex) 1,200 mg PO BID [facility] Last Admin: 07/17/18 09:01 Dose: 1,200 mg Azithromycin 500 mg/ Dextrose 255 mls @ 250 mls/hr IV Q24@2200 [facility] Stop: 07/18/18 23:02 Last Admin: 07/16/18 23:17 Dose: 250 mls/hr Ceftriaxone Sodium (Rocephin) 1 gm in 50 mls @ 100 mls/hr IV Q24@2200 [facility] Last Admin: 07/16/18 22:17 Dose: 100 mls/hr Insulin Human Lispro (Humalog Kwikpen (Bkc)) 0 unit SC ACHS [facility]; Protocol Last Admin: 07/17/18 11:18 Dose: 3 units Levothyroxine Sodium (Synthroid) 112 mcg PO DAILY@0600 [facility] Last Admin: 07/17/18 06:37 Dose: 112 mcg Magnesium Hydroxide (Milk Of Magnesia) 30 ml PO DAILY PRN PRN PRN Reason: Constipation Multivitamins/Minerals (Multivitamin With Minerals) [facility] Last Admin: 07/17/18 09:00 Dose: 1 tablet Ondansetron HCl (Zofran) 4 mg IV Q8H PRN PRN PRN Reason: NAUSEA Oxycodone HCl (Oxyir) 5 - 10 mg PO Q4H PRN PRN PRN Reason: PAIN Last Admin: 07/17/18 09:04 Dose: 10 mg Pantoprazole Sodium (Protonix) 40 mg PO DAILY [facility] Last Admin: 07/17/18 09:01 Dose: 40 mg Pramipexole Dihydrochloride (Mirapex) 0.25 mg PO BID [facility] Last Admin: 07/17/18 09:01 Dose: 0.25 mg Sodium Chloride () 5 - 15 ml IV UD PRN PRN Reason: SALINE FLUSH Last Admin: 07/16/18 22:18 Dose: 10 ml Warfarin Sodium (Coumadin (Pbkc)) 2.5 mg PO DAILY@1700 [facility] Last Admin: 07/16/18 17:04 Dose: 2.5 mg Zolpidem Tartrate (Ambien (Generic)) 5 mg PO QHS PRN PRN PRN Reason: SLEEP Medical Necessity - Tobacco Use Smoking Status: Former smoker Assessment/Plan All Active Problems Acute heart failure (Acute) Heart failure with preserved ejection fraction (Acute) BPPV (benign paroxysmal positional vertigo) (Acute) Symptomatic anemia (Acute) 67-year-old female with multiple comorbidities including chronic diastolic CHF, hypertension, AAA fib, type II DM, status post right knee replacement on 06/18/2018 Hospital comes in with progressive worsening shortness of breath. Patient was on Coumadin for DVT prophylaxis and her INR was therapeutic on admission. 1. Acute hypoxic respiratory failure secondary to acute on chronic diastolic CHF and bilateral HCAP, improving, will continue to encourage use of incentive spirometer, wean off oxygen if able. 2. Acute on chronic diastolic CHF/heart failure with preserved EF, on IV Lasix 40 mg twice daily, continue same, strict I's and O's 3. Bilateral HCAP, urine streptococcal and Legionella antigen negative, blood cultures pending, afebrile, no leukocytosis, continue on IV antibiotics. 4. Hypokalemia, replace, recheck in a.m., will also check magnesium level 5. Type II DM, blood sugars uncontrolled, on glipizide, ISS, will increase glipizide to 10 mg p.o. daily, continue with Accu-Cheks 6. Morbid obesity, BMI is 35.6, diet and exercise recommended 7. Recent right knee replacement, will continue with PT and OT 8. Chronic medical conditions including hypothyroidism, GERD, restless leg, hypertension, chronic atrial fibrillation, stable, will continue home meds 9. DVT PPx- On coumadin; INR is therapeutic Code Visit Inpatient E&M: 55077 Subs Hosp L2
[2018-07-17 14:27] LABS: Magnesium 1.4 mg/dL (1.6-2.6)
[2018-07-17 16:21] LABS: Bedside Glucose 115 mg/dL (70-110)
--- NOTE | 2018-07-17 17:05 | CM.UR ---
spoke with patient. Explained that we will ensure home care knows when she is discharged so they can resume care. Also discussed possibility of her going home with oxygen. States she has no preference regarding agency used. [facility] is in her network according to [employer] (and entering her ID number). She is agreeable to [email or web address]. Prepped order, F2F and green sheet with instructions. Michael Ladd RN, CCM.
[2018-07-17] MEDS: 0.9% NaCl Peripheral Flush Adult/Peds IV ×2 (21:37→21:43)
[2018-07-17] MEDS: Ceftriaxone 1 GM/50 ML BAG IV (21:39)
[2018-07-17] MEDS: 0.9% NaCl IVPB Med Flush (250 mL) 15 ML IV (21:51)
[2018-07-17 22:41] LABS: Bedside Glucose 175 mg/dL (70-110)
[2018-07-18] VITALS (7 sets, daily range): BP systolic 122–139; BP diastolic 50–56; PULSE 68–78; RESP 18; TEMP 36.8; O2SAT 91–97
[2018-07-18 06:55] LABS: Bedside Glucose 167 mg/dL (70-110)
[2018-07-18] MEDS: oxyCODONE 5 MG Tablet PO ×2 (06:59→11:18)
[2018-07-18] MEDS: Ipratropium/Albuterol Sulfate 3 ML AMPUL.NEB INHALATION (06:59)
[2018-07-18] MEDS: Levothyroxine 112 MCG Tablet PO (06:59)
[2018-07-18] MEDS: Insulin Lispro 100 UNIT/ML INSULN.PEN SC ×2 (07:00→11:47)
[2018-07-18] MEDS: Citalopram 20 MG Tablet PO (07:54)
[2018-07-18] MEDS: Multivitamins,Ther W-Minerals Tablet 1 TABLET PO (07:54)
[2018-07-18] MEDS: glipiZIDE 5 MG Tablet 10 MG PO (07:54)
[2018-07-18] MEDS: Pramipexole Di-HCl 0.25 MG Tablet PO (07:55)
[2018-07-18] MEDS: Pantoprazole Sodium 40 MG Tablet PO (07:55)
[2018-07-18] MEDS: Atenolol 50 MG Tablet PO (07:55)
[2018-07-18] MEDS: Calcium Carbonate 500 MG Tablet PO (07:55)
[2018-07-18] MEDS: guaiFENesin 1,200 MG Tablet 1200 MG PO (07:56)
[2018-07-18] MEDS: Furosemide 40 MG/4 ML Vial IV (07:56)
[2018-07-18] MEDS: 0.9% NaCl Peripheral Flush Adult/Peds IV (07:57)
[2018-07-18 09:36] LABS: Anion Gap 8 (5-15); BUN 15 mg/dL (7-18); BUN/Creat Ratio 20.7 RATIO (10-20); Calcium,Total 8.6 mg/dL (8.5-10.1); Chloride 92 mmol/L (98-107); Creatinine, Serum 0.72 mg/dL (0.55-1.02); EST Glomerular Filtration Rate 85 mL/min (>60); Est Glom Filt Rate - Afr Amer 102 mL/min (>60); Estimated Creatinine Clearance 79.96 ml/min; Glucose 187 mg/dL (74-106); Potassium 3.4 mmol/L (3.5-5.1); Sodium Level 137 mmol/L (136-145)
--- NOTE | 2018-07-18 09:39 | DCINST_ITS ---
- Discharge Diagnoses Current Active Problems: Current Active and Chronic Problems Acute heart failure (Acute) Reason(s) for Visit for Discharge Instructions: Shortness of breath You will use the following diet at home:: Cardiac, Fluid restricted (specify 2000 mls, 1500 mls) Your food should be the consistency of: Regular Your liquids should be the consistency of: Regular/Thin Discharge Activity: Return to Normal Activity Additional Instructions: Complete your antibiotics. Continue to use your incentive spirometer. Use your inhaler if needed for shortness of breath. Continue to be active. Weigh yourself everyday. Restrict your fluid intake to 1.5L a day. Follow-up with your orthopedic surgery team as scheduled. Take note of the increased dose of your glipizide. Continue to monitor your blood sugars at home, monitoring for low blood sugars. Continue to monitor your INR as previously. Allergies/Adverse Reactions: Allergies atorvastatin calcium [From Lipitor] Allergy (Verified 07/15/18 19:33) Pain in joints clindamycin Allergy (Verified 07/15/18 19:33) Hives lisinopril Allergy (Verified 07/15/18 19:33) Unknown Penicillins [PCN] Allergy (Verified 07/15/18 19:33) Hives simvastatin [From Zocor] Allergy (Verified 07/15/18 19:33) Pain in joints Medications to take at Discharge Levothyroxine [Synthroid] 112 mcg PO DAILY 09/09/13 Multivitamins,Ther W-Minerals [Multivitamin With Minerals] 1 tablet PO DAILY 09/09/13 Ropinirole HCl [Requip] 0.5 mg PO BID 01/10/18 Atenolol 50 mg PO DAILY 01/12/18 Calcium Carbonate [Calcium] 500 mg PO BID 01/12/18 Citalopram Hydrobromide [Citalopram HBr] 20 mg PO DAILY 07/15/18 Oxycodone HCl/Acetaminophen [Percocet 5-325] 1 - 2 tablet PO Q4H PRN PRN 07/15/18 Pantoprazole Sodium [Protonix] 40 mg PO DAILY 07/15/18 Warfarin [Coumadin] 2.5 mg PO DAILY 07/15/18 Albuterol IH (ProAir) [Proair Hfa] 1 puff INHALATION Q4H PRN PRN #1 inhaler 07/18/18 Amoxicillin/Potassium Clav [Augmentin 875-125 Tablet] 1 ea PO BID #8 tab 07/18/18 Azithromycin 500 mg PO DAILY #2 tab 07/18/18 Furosemide [Lasix] 20 mg PO BID #30 tab 07/18/18 Guaifenesin [Mucinex] 1,200 mg PO BID #30 tab 07/18/18 glipiZIDE [Glucotrol] 10 mg PO DAILYCM #30 tab 07/18/18 The following prescriptions were given: Azithromycin 500 mg PO DAILY #2 tab Amoxicillin/Potassium Clav [Augmentin 875-125 Tablet] 1 ea PO BID #8 tab Furosemide [Lasix] 20 mg PO BID #30 tab Orders to be completed after discharge: Basic Metabolic Profile (BMP) Time Frame: 3 Days, Location: Laboratory Prothrombin Time w/INR Time Frame: 3 Days, Location: Laboratory Primary Care Physician: Stephon Rust MD [Primary Care Provider] - Please follow up with your Primary Care Physician in: within 1-2 weeks Test Results: Test results from this visit will be discussed in further detail at your follow- up appointment, if applicable. When: Your orthopedic doctor as scheduled Proposed Discharge Date: 07/18/18
--- NOTE | 2018-07-18 10:02 | PCM.DC.SUM ---
Discharge Date and Diagnosis Date of Admission: 07/15/18 Date of Discharge: 07/18/18 - Primary Discharge Diagnosis Active and Suspected Problems Acute hypoxic respiratory failure Acute on chronic diastolic heart failure Bilateral HCAP Hypokalemia Hyperglycemia - Secondary Discharge Diagnosis Chronic Problems PUD (peptic ulcer disease) (Chronic) Afib (Chronic) DM2 (diabetes mellitus, type 2) (Chronic) Hypothyroid (Chronic) Hospital Course and Treatment Imaging Results: Clinical Impression(s) from Imaging Studies Chest X-Ray 07/15/18 19:40 IMPRESSION: Cardiomegaly and pulmonary congestion with bilateral basilar airspace consolidations. Electronically Signed: Erlinda Gomez MD at 20:02 EST , Service support , Chest X-Ray 07/17/18 05:45 IMPRESSION: Slight interval improvement in pulmonary edema Electronically Signed: Tiago Seay DO at 8:22 EST Tel , Service support , None Operations: None Procedures: None Summary of Care Provided: 67-year-old female with multiple comorbidities including chronic diastolic CHF, hypertension, type II DM, recent right knee replacement on who was admitted with progressive worsening shortness of breath. Patient was on Coumadin for DVT prophylaxis and her INR was therapeutic on admission. Her management was as follows: 1. Acute hypoxic respiratory failure secondary to acute on chronic diastolic CHF and bilateral HCAP, resolved with treatment. Did not qualify for home oxygen. 2. Acute on chronic diastolic CHF/heart failure with preserved EF, managed on IV Lasix with adequate diuresis, discharged on Lasix 20mg po bid 3. Bilateral HCAP, urine streptococcal and Legionella antigen negative, blood cultures negative, managed on IV ceftriaxone and azithromycin, discharged on augmentin and azithromycin. 4. Hypokalemia, replaced, repeat blood work planned within a week. 5. Type II DM, blood sugars was uncontrolled in this admission, was on glipizide 5mg, managed with accucheks and ISS. Her glipizide was increased to 10 mg p.o. daily. 6. Morbid obesity, BMI is 35.6, diet and exercise recommended 7. Recent right knee replacement, will follow-up in the outpatient. 8. Chronic medical conditions including hypothyroidism, GERD, restless leg, hypertension, chronic atrial fibrillation were stable. Subjective: On the day of discharge, she felt improved. Denies any chest pain, dizziness. Off oxygen, did not qualify for oxygen. - Physical Exam Vital Signs Temp Pulse Resp BP Pulse Ox 98.3 F 78 18 139/56 H 96 07/18/18 07:44 07/18/18 07:44 07/18/18 07:44 07/18/18 07:44 07/18/18 09:30 Oxygen Flow Rate (L/min) 1 Oxygen Delivery Method Room Air Weight: 95.4 kg Body Mass Index (BMI) 45.6 Finger Stick Blood Glucose 161 Intake and Output for Last 24 Hours 07/16/18 07/17/18 07/18/18 23:59 23:59 23:59 Intake Total 800 / 800 1160.6 / 1160.6 772 / 772 Output Total 1220 / 1220 1600 / 1600 203 / 203 Balance -420 / -420 -439.4 / -439.4 569 / 569 Microbiology Past 72 Hours 07/16/18 13:05 Streptococcus pneumoniae Antigen (M - Final Urine, Clean Catch 07/16/18 13:05 Legionella Antigen - Final Urine, Clean Catch Laboratory Tests Past 24 Hrs 07/17/18 07/18/18 07:10 09:19 Sodium 137 Potassium 3.4 L Chloride 92 L Carbon Dioxide 37.0 H Anion Gap 8 BUN 15 Creatinine 0.72 Estim Creat Clear Calc 79.96 Est GFR (MDRD) Af Amer 102 Est GFR (MDRD) Non-Af 85 BUN/Creatinine Ratio 20.7 H Glucose 187 H Calcium 8.6 Magnesium 1.4 L POC Glucose 07/18/18 07/17/18 07/17/18 06:46 21:49 15:57 POC Glucose 167 H 175 H 115 H 07/17/18 11:16 POC Glucose 203 H Discharge Diet: Low fat/ Low Cholesterol, 6 Cup Fluid Restriction, 2000 mg Sodium Diet Discharge Activity: Return to Normal Activity Home Medications: Medications to take at Discharge Levothyroxine [Synthroid] 112 mcg PO DAILY 09/09/13 Multivitamins,Ther W-Minerals [Multivitamin With Minerals] 1 tablet PO DAILY 09/09/13 Ropinirole HCl [Requip] 0.5 mg PO BID 01/10/18 Atenolol 50 mg PO DAILY 01/12/18 Calcium Carbonate [Calcium] 500 mg PO BID 01/12/18 Citalopram Hydrobromide [Citalopram HBr] 20 mg PO DAILY 07/15/18 Oxycodone HCl/Acetaminophen [Percocet 5-325] 1 - 2 tablet PO Q4H PRN PRN 07/15/18 Pantoprazole Sodium [Protonix] 40 mg PO DAILY 07/15/18 Warfarin [Coumadin] 2.5 mg PO DAILY 07/15/18 Albuterol IH (ProAir) [Proair Hfa] 1 puff INHALATION Q4H PRN PRN #1 inhaler 07/18/18 Amoxicillin/Potassium Clav [Augmentin 875-125 Tablet] 1 ea PO BID #8 tab 07/18/18 Azithromycin 500 mg PO DAILY #2 tab 07/18/18 Furosemide [Lasix] 20 mg PO BID #30 tab 07/18/18 Guaifenesin [Mucinex] 1,200 mg PO BID #30 tab 07/18/18 Potassium Chloride [Klor-Con M20] 20 meq PO DAILY #14 tab.er.prt 07/18/18 glipiZIDE [Glucotrol] 10 mg PO DAILYCM #30 tab 07/18/18 Following Prescrptions Were Given to Patient: Albuterol IH (ProAir) [Proair Hfa] 1 puff INHALATION Q4H PRN PRN #1 inhaler PRN Reason: Sob &/Or Wheezing Azithromycin 500 mg PO DAILY #2 tab glipiZIDE [Glucotrol] 10 mg PO DAILYCM #30 tab Potassium Chloride [Klor-Con M20] 20 meq PO DAILY #14 tab.er.prt Amoxicillin/Potassium Clav [Augmentin 875-125 Tablet] 1 ea PO BID #8 tab Furosemide [Lasix] 20 mg PO BID #30 tab Guaifenesin [Mucinex] 1,200 mg PO BID #30 tab Other Amb Orders: Basic Metabolic Profile (BMP) Time Frame: 3 Days, Location: Laboratory Prothrombin Time w/INR Time Frame: 3 Days, Location: Laboratory Primary Care Physician: Stephon Rust MD [Primary Care Provider] - Please follow up with your Primary Care Physician in: within 1-2 weeks When: Your orthopedic doctor as scheduled Disposition: Home with Home Health Minutes spent on discharge:: 40 Patient Condition:: Stable Medical Necessity - Tobacco Use Smoking Status: Former smoker Tobacco Use: Non-smoker Meaningful Use Info Meaningful Use Diagnoses (Choose all that apply): CHF - CHF BRIGITTE/ARB ordered at discharge?: No Reason BRIGITTE/ARB not ordered?: Drug Interaction Documented LVEF (%): 55 Code Visit Inpatient E&M: 57975 Disch Hosp
--- NOTE | 2018-07-18 10:05 | DS.PCM_ITS ---
Discharge Date and Diagnosis Date of Admission: 07/15/18 Date of Discharge: 07/18/18 - Primary Discharge Diagnosis Active and Suspected Problems Acute hypoxic respiratory failure Acute on chronic diastolic heart failure Bilateral HCAP Hypokalemia Hyperglycemia - Secondary Discharge Diagnosis Chronic Problems PUD (peptic ulcer disease) (Chronic) Afib (Chronic) DM2 (diabetes mellitus, type 2) (Chronic) Hypothyroid (Chronic) Hospital Course and Treatment Imaging Results: Clinical Impression(s) from Imaging Studies Chest X-Ray 07/15/18 19:40 IMPRESSION: Cardiomegaly and pulmonary congestion with bilateral basilar airspace consolidations. Electronically Signed: Erlinda Gomez MD at 20:02 EST , Service support , Chest X-Ray 07/17/18 05:45 IMPRESSION: Slight interval improvement in pulmonary edema Electronically Signed: Tiago Seay DO at 8:22 EST Tel , Service support , None Operations: None Procedures: None Summary of Care Provided: 67-year-old female with multiple comorbidities including chronic diastolic CHF, hypertension, type II DM, recent right knee replacement on who was admitted with progressive worsening shortness of breath. Patient was on Coumadin for DVT prophylaxis and her INR was therapeutic on admission. Her management was as follows: 1. Acute hypoxic respiratory failure secondary to acute on chronic diastolic CHF and bilateral HCAP, resolved with treatment. Did not qualify for home oxygen. 2. Acute on chronic diastolic CHF/heart failure with preserved EF, managed on IV Lasix with adequate diuresis, discharged on Lasix 20mg po bid 3. Bilateral HCAP, urine streptococcal and Legionella antigen negative, blood cultures negative, managed on IV ceftriaxone and azithromycin, discharged on augmentin and azithromycin. 4. Hypokalemia, replaced, repeat blood work planned within a week. 5. Type II DM, blood sugars was uncontrolled in this admission, was on glipizide 5mg, managed with accucheks and ISS. Her glipizide was increased to 10 mg p.o. daily. 6. Morbid obesity, BMI is 35.6, diet and exercise recommended 7. Recent right knee replacement, will follow-up in the outpatient. 8. Chronic medical conditions including hypothyroidism, GERD, restless leg, hypertension, chronic atrial fibrillation were stable. Subjective: On the day of discharge, she felt improved. Denies any chest pain, dizziness. Off oxygen, did not qualify for oxygen. - Physical Exam Vital Signs Temp Pulse Resp BP Pulse Ox 98.3 F 78 18 139/56 H 96 07/18/18 07:44 07/18/18 07:44 07/18/18 07:44 07/18/18 07:44 07/18/18 09:30 Oxygen Flow Rate (L/min) 1 Oxygen Delivery Method Room Air Weight: 95.4 kg Body Mass Index (BMI) 45.6 Finger Stick Blood Glucose 161 Intake and Output for Last 24 Hours 07/16/18 07/17/18 07/18/18 23:59 23:59 23:59 Intake Total 800 / 800 1160.6 / 1160.6 772 / 772 Output Total 1220 / 1220 1600 / 1600 203 / 203 Balance -420 / -420 -439.4 / -439.4 569 / 569 Microbiology Past 72 Hours 07/16/18 13:05 Streptococcus pneumoniae Antigen (M - Final Urine, Clean Catch 07/16/18 13:05 Legionella Antigen - Final Urine, Clean Catch Laboratory Tests Past 24 Hrs 07/17/18 07/18/18 07:10 09:19 Sodium 137 Potassium 3.4 L Chloride 92 L Carbon Dioxide 37.0 H Anion Gap 8 BUN 15 Creatinine 0.72 Estim Creat Clear Calc 79.96 Est GFR (MDRD) Af Amer 102 Est GFR (MDRD) Non-Af 85 BUN/Creatinine Ratio 20.7 H Glucose 187 H Calcium 8.6 Magnesium 1.4 L POC Glucose 07/18/18 07/17/18 07/17/18 06:46 21:49 15:57 POC Glucose 167 H 175 H 115 H 07/17/18 11:16 POC Glucose 203 H Discharge Diet: Low fat/ Low Cholesterol, 6 Cup Fluid Restriction, 2000 mg Sodium Diet Discharge Activity: Return to Normal Activity Home Medications: Medications to take at Discharge Levothyroxine [Synthroid] 112 mcg PO DAILY 09/09/13 Multivitamins,Ther W-Minerals [Multivitamin With Minerals] 1 tablet PO DAILY 09/09/13 Ropinirole HCl [Requip] 0.5 mg PO BID 01/10/18 Atenolol 50 mg PO DAILY 01/12/18 Calcium Carbonate [Calcium] 500 mg PO BID 01/12/18 Citalopram Hydrobromide [Citalopram HBr] 20 mg PO DAILY 07/15/18 Oxycodone HCl/Acetaminophen [Percocet 5-325] 1 - 2 tablet PO Q4H PRN PRN 06/18 05/04 Pantoprazole Sodium [Protonix] 40 mg PO DAILY 07/15/18 Warfarin [Coumadin] 2.5 mg PO DAILY 07/15/18 Albuterol IH (ProAir) [Proair Hfa] 1 puff INHALATION Q4H PRN PRN #1 inhaler 07/18/18 Amoxicillin/Potassium Clav [Augmentin 875-125 Tablet] 1 ea PO BID #8 tab 07/18/18 Azithromycin 500 mg PO DAILY #2 tab 07/18/18 Furosemide [Lasix] 20 mg PO BID #30 tab 07/18/18 Guaifenesin [Mucinex] 1,200 mg PO BID #30 tab 07/18/18 Potassium Chloride [Klor-Con M20] 20 meq PO DAILY #14 tab.er.prt 07/18/18 glipiZIDE [Glucotrol] 10 mg PO DAILYCM #30 tab 07/18/18 Following Prescrptions Were Given to Patient: Albuterol IH (ProAir) [Proair Hfa] 1 puff INHALATION Q4H PRN PRN #1 inhaler PRN Reason: Sob &/Or Wheezing Azithromycin 500 mg PO DAILY #2 tab glipiZIDE [Glucotrol] 10 mg PO DAILYCM #30 tab Potassium Chloride [Klor-Con M20] 20 meq PO DAILY #14 tab.er.prt Amoxicillin/Potassium Clav [Augmentin 875-125 Tablet] 1 ea PO BID #8 tab Furosemide [Lasix] 20 mg PO BID #30 tab Guaifenesin [Mucinex] 1,200 mg PO BID #30 tab Other Amb Orders: Basic Metabolic Profile (BMP) Time Frame: 3 Days, Location: Laboratory Prothrombin Time w/INR Time Frame: 3 Days, Location: Laboratory Primary Care Physician: Stephon Rust MD [Primary Care Provider] - Please follow up with your Primary Care Physician in: within 1-2 weeks When: Your orthopedic doctor as scheduled Disposition: Home with Home Health Minutes spent on discharge:: 40 Patient Condition:: Stable Medical Necessity - Tobacco Use Smoking Status: Former smoker Tobacco Use: Non-smoker Meaningful Use Info Meaningful Use Diagnoses (Choose all that apply): CHF - CHF BRIGITTE/ARB ordered at discharge?: No Reason BRIGITTE/ARB not ordered?: Drug Interaction Documented LVEF (%): 55 Code Visit Inpatient E&M: 91539 Disch Hosp
[2018-07-18 11:40] LABS: Bedside Glucose 150 mg/dL (70-110)
--- NOTE | 2018-07-19 13:53 | CASEMGMT ---
DEL MOSQUERA Discharge Follow-up Phone Call: SYLWIA: Milind Strata: 3 Call Date: 07/19/18 Discharge Date: 07/18/18 Time of Call: 1350 Duration: 4 minutes ? Admitting Diagnosis: Acute on chronic diastolic CHF, pneumonia This DEL MOSQUERA contacted pt via telephone in regard to discharge follow-up. Pt states she has been doing well since discharge. States she will obtain her prescriptions today after she gets her check. States she has made her follow-up appointment with Dr. Rust. Pt denies any questions or concerns. Jacquelyn Olguin RN
--- OUTSIDE RECORDS SUMMARY | 2018-09-09 23:40 | XMS RPT_ITS ---
:1950 Author Organization OHIP Support Name Relationship Address Phone DOMINIC KENDALLA Unavailable Unavailable + KENDALL, LASHAWN Unavailable Unavailable + KENDALL, LASHAWN Unavailable [address] + [place] [address] R Unavailable Unavailable Unavailable KENDALL, LASHAWN Unavailable [address] + [place] [address] R Unavailable Unavailable Unavailable KENDALL, LASHAWN Unavailable [address] + [place] [address] R Unavailable Unavailable Unavailable KENDALL, LASHAWN Unavailable [address] + [place] [address] R Unavailable Unavailable Unavailable KENDALL, LASHAWN Unavailable [address] + [place] [address] R Unavailable Unavailable Unavailable KENDALL, LASHAWN Unavailable [address] + [place] [address] R Unavailable Unavailable Unavailable KENDALL, LASHAWN Unavailable Unavailable + KENDALL, LASHAWN Unavailable Unavailable + KENDALL, LASHAWN Unavailable Unavailable + KENDALL, LASHAWN Unavailable Unavailable + KENDALL, LASHAWN Unavailable Unavailable + KENDALL, LASHAWN Unavailable Unavailable + KENDALL, LASHAWN Unavailable Unavailable + KENDALL, LASHAWN Unavailable Unavailable + KENDALL, LASHAWN Unavailable Unavailable + KENDALL, LASHAWN Unavailable [address] + [place] [address] R Unavailable Unavailable Unavailable KENDALL, LASHAWN Unavailable [address] + [place] [address] R Unavailable Unavailable Unavailable KENDALL, LASHAWN Unavailable [address] + [place] [address] R Unavailable Unavailable Unavailable KENDALL LASHAWN Unavailable [address] + [place] [address] R Unavailable Unavailable Unavailable KENDALL, LASHAWN Unavailable [address] + [place] [address] R Unavailable Unavailable Unavailable X, X Unavailable NONE LISTED +X X, X X KENDALL LASHAWN Unavailable Unavailable + KENDALL LASHAWN Unavailable Unavailable + KENDALL LASHAWN Unavailable Unavailable + Care Team Providers Name Role Phone Olaf, Dr. Galloway Attending Unavailable Cesar, Dr. Krishnamurthy Attending Unavailable Gwen, Dr. Dante Martins Attending Unavailable Humaira, Dr. Bea Milner Attending Unavailable JOJO RAGSDALE Attending Unavailable BONNEMA JOJO R Attending Unavailable ElderbrockTanja D Admitting Unavailable Elderbrock, Tanja Oseguera Attending Unavailable Elderbrock, Tanja D Primary Care Unavailable Elderbrock, Tanja D Primary Care Unavailable Rings, Pa Admitting Unavailable Rings, Pa Attending Unavailable Thomae, Milton R Admitting Unavailable Thomae, Milton R Attending Unavailable Elderbrock, Tanja D Primary Care Unavailable Thomae, Milton R Attending Unavailable Elderbrock, Tanja D Referring Unavailable Elderbrock, Tanja D Primary Care Unavailable Thomae, Milton R Admitting Unavailable Elderbrock, Tanja D Primary Care Unavailable ReyesAgustoBeck Ct Admitting Unavailable Reyes Beck A Attending Unavailable ElderbrockTanja D Primary Care Unavailable Rufina Beck Ct Admitting Unavailable Reyes Beck Ct Attending Unavailable Barrett Mancilla Admitting Unavailable Barrett Mancilla Attending Unavailable Elderbrock, Tanja D Primary Care Unavailable REYESBECK Attending Unavailable ELDERBROCK, TANJA Primary Care Unavailable REYESBECK Attending Unavailable ELDERBROCK, TANJA Primary Care Unavailable REYESBECK Attending Unavailable ELDERBROCK, TANJA Primary Care Unavailable REYESBECK Attending Unavailable ELDERBROCK, TANJA Primary Care Unavailable REYESBECK ROSARIO Attending Unavailable ELDERBROCK, TANJA Primary Care Unavailable REYESBECK Attending Unavailable ELDERBROCK, TANJA Primary Care Unavailable REYESBECK Attending Unavailable ELDERBROCK, TANJA Primary Care Unavailable TOMY SHAW Attending Unavailable ELDERBROCK, TANJA Primary Care Unavailable Elderbrock, Tanja Primary Care Unavailable Harry Rondon Attending Unavailable Elderbrock, Tanja Primary Care Unavailable Jopperi, Dave Admitting Unavailable Jopperi, Dave Attending Unavailable Jopperi, Dave Admitting Unavailable Jopperi, Dave Attending Unavailable Elderbrock, Tanja Primary Care Unavailable Jopperi, Dave Consulting Unavailable Jopperi, Dave Admitting Unavailable Jopperi, Dave Attending Unavailable Elderbrock, Atnja Primary Care Unavailable Jopperi, Dave Consulting Unavailable Giovany Baron Attending Unavailable Jopperi, Dave Referring Unavailable Elderbrock, Tanja Primary Care Unavailable Agyepong, Paolo Admitting Unavailable Paintsil, Tyler Attending Unavailable Agyepong, Paolo Admitting Unavailable Agyepong, Paolo Attending Unavailable Elderbrock, Tanja Primary Care Unavailable Agyepong, Paolo Consulting Unavailable Agyepong, Paolo Admitting Unavailable Paintsil, Tyler Attending Unavailable Elderbrock, Tanja Primary Care Unavailable Paintsil, Tyler Consulting Unavailable Agyepong, Paolo Admitting Unavailable Paintsil, Tyler Attending Unavailable Elderbrock, Tanja Primary Care Unavailable Paintsil, Tyler Consulting Unavailable Agyepong, Paolo Admitting Unavailable Paintsil, Tyler Attending Unavailable Elderbrock, Tanja Primary Care Unavailable Paintsil, Tyler Consulting Unavailable Paintsil, Tyler Attending Unavailable Paintsil, Tyler Referring Unavailable Elderbrock, Tanja Primary Care Unavailable Rufina, Dr. Beck Fofana Admitting Unavailable Rufina, Dr. Beck Fofana Attending Unavailable Mervin, Dr. Sergio Reagan Admitting Unavailable Mervin, Dr. Sergio Reagan Attending Unavailable BARRETT MANCILLA Attending Unavailable BARRETT MANCILLA E Referring Unavailable Sanaullzac, Nilesh Admitting Unavailable Cole, Unni Consulting Unavailable Jojo Light Attending Unavailable BARRETT MANCILLA Attending Unavailable BARRETT MANCILLA Referring Unavailable Elderbrock, Tanja D Primary Care Unavailable BARRETT MANCILLA Attending Unavailable BARRETT MANCILLA Referring Unavailable Elderbrock, Tanja D Primary Care Unavailable RYDER ALBERTS (PRODUCTION OR PLANT ENGINEER) Attending Unavailable ELDERTANJA DAHL D Referring Unavailable BARRETT MANCILLA E Referring Unavailable ELDERBROCKTANJA Attending Unavailable ELDERBROCKTANJA D Referring Unavailable ELDERBROCKTANJA D Attending Unavailable ELDERBROCK, TANJA D Referring Unavailable LAURENT, BARRETT E Attending Unavailable LAURENT, BARRETT E Referring Unavailable LAURENT, BARRETT E Referring Unavailable TANJA RUST Referring Unavailable LAURENT, BARRETT E Referring Unavailable TANJA RUST Attending Unavailable TANJA RUST Referring Unavailable RYDER ALBERTS (PRODUCTION OR PLANT ENGINEER) Referring Unavailable TANJA RUST Referring Unavailable LAURENT, BARRETT E Referring Unavailable TANJA RUST Attending Unavailable LOREE ALBERTSE (PRODUCTION OR PLANT ENGINEER) Attending Unavailable PROBLEMS PROBLEMS DATE TYPE CONDITION / CODE ATTENDING STATUS SOURCE 07/06/2018 Admitting Unknown / BECK REYES Active [facility] diagnosis UNK(Unknown) [facility] Repository 06/07/2007 Active Essential (primary) NA Active [facility] hypertension / [facility] I10(ICD-10) [place] Repository 04/14/2018 Active Encounter for [facility] screening for [facility] osteoporosis / [place] Z13.820(ICD-10) Repository 04/14/2018 Active Asymptomatic NA Active [facility] menopausal state / [facility] Z78.0(ICD-10) [place] Repository 04/06/2018 Active Encounter for Active [facility] screening mammogram [facility] for malignant [place] neoplasm of breast / Repository Z12.31(ICD-10) 03/29/2018 Active 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09 - Other forms [place], Active [facility] of dyspnea / [facility] R06.09(ICD-10) Hospital Repository 01/01/2018 Active Encounter for Active [facility] preprocedural [facility] cardiovascular [place] examination / Repository Z01.810(ICD-10) 01/01/2018 Active 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 without Repository angina pectoris / I25.10(ICD-10) 12/29/2017 Active Unknown / LAURENT, Active [facility] UNK(Unknown) BARRETT [facility] Other [place] Repository 12/15/2017 Admitting Bilateral primary BECK REYES Active [facility] diagnosis osteoarthritis of [place] Three knee / M17.0(ICD-10) Repository 06/05/2015 Active Hyperlipidemia, NA Active [facility] unspecified / [facility] E78.5(ICD-10) [place] Repository 09/19/2017 Active Type 2 diabetes NA Active [facility] mellitus without [facility] complications / [place] E11.9(ICD-10) Repository 09/19/2017 Active Hypothyroidism, NA Active [facility] unspecified / [facility] E03.9(ICD-10) [place] Repository PROCEDURES PROCEDURES No Procedure Records FoundRESULTS RESULTS CNOV Observed: 07/29/2018 Status: COMPLETED Source: [facility] 1:00 PM [facility] REPOSITORY Office Visit (FAMPWS) KYAW ESPINOZA ([id number]) 1950 F Date Time Provider Department 07/29/18 1:00 PM RYDER ALBERTS ([facility]) FAMPWS During your visit today, we recorded the following information about you: Temperature Pulse Blood pressure Weight 98.6 degrees 72/minute 118/64 92.1 kg Ryder Alberts APRN.CNP 07/29/2018 1:34 PM Signed TRANSITION CARE MANAGEMENT (TCM) INITIAL CONTACT [employer] [facility] ? Provider Action/FYI: 14 day TCM-Pt went to [facility] ER on 07/15/18 complains of SOB and hypoxia. Pt was recently discharged from [facility] after having right TKR, 2 days ago. Her oxygen at time of arrival to ER was in mid 80s. Denied any chest pains. Did describe orthopnea and some generalized malaise but no fever or chills. No hx of PE. Started on warfarin after surgery. Pt required supplemental oxygen. Noted diminished lung sounds and crackles in the bases. CXR showed evidence of volume overload and right lower lobe infiltrate. Labs unremarkable. BNP was elevated, EKG and cardiac enzymes normal. Was admitted for infectious type symptoms and decompensated heart failure. Was started on IV Lasix and broad spectrum antibiotics. Blood cultures were obtained. Pt was discharged in stable condition on 07/18/18 and advised to follow up with PCP within 1-2 weeks. Pt was also instructed to follow up with Ortho, Dr. Reyes as scheduled. Pt follows with Job Developer, Dr. Mancilla. Pt was told to have INR checked in 3 days time frame. ? ? ? Initial contact with patient post discharge, spoke to patient on 07/20/18. Patient identified by name and . ? TRANSITION CARE MANAGEMENT INITIAL OUTREACH DOCUMENTATION: No flowsheet data found. ? SUMMARY: -Pt discharged from [facility] on 07/18/18. -Admitted for: 1) Acute Hypoxic Respiratory Failure 2) Acute on chronic diastolic heart failure 3) Bilateral HCAP 4) Hypokalemia 5) hyperglycemia ? Do you have a hospital follow up appointment with your PCP? Appointment on 07/29/18 with Ryder Alberts. Yes. Remind patient of appointment date, time, and location. If not within 14 calendar days of discharge - please reschedule accordingly. ? MEDICATIONS: Many patients have questions or concerns about their medications once they are home. Were you prescribed any new medications? If yes, what are those medications? ? Klor-Con 20 meq daily mucinex 1,200 mg BID Lasix 20 mg BID Azithromycin 500 mg # 2 tablets Augmentin 875 mg BID # 8 tablets Warfarin 2.5 mg daily ProAir inhaler Percocet 5-325 mg 1-2 tablets every 4 hours PRN ? Were you told to hold any medications? No Were any of your medications discontinued? No ? Do you have any questions about getting or taking your medications? No ? Your discharge instructions/After visit Summary (AVS) are important in guiding you through the recovery process. Is there anything I might help you understand? No ? Do you have all the necessary equipment and supplies at home? Yes ? Medical records from recent hospitalization: Placed for provider to review TRANSITION CARE MANAGEMENT (TCM): Provider Documentation Chief Complaint Patient presents with: TCM HPI Kyaw Espinoza is a 67 year old female who presents here today for Hospital Discharge Follow up. Patient presents today for hospital follow-up. Patient was admitted to [facility] on 07/15/18 and discharged 07/18/18. Reason for admission was shortness breath, hypoxia. She presented to the ER after developing these symptoms approximately 2 days after having a right total knee replacement at [facility]. She had complaints of a cough, orthopnea, generalized malaise. She was placed on a blood thinner after surgery. Does have a history of atrial fibrillation. Chest x-ray at [facility] showed evidence of following overload and right lower lobe infiltrate. BNP was elevated. EKG and cardiac enzymes were normal. She was treated with broad-spectrum antibiotics, given IV Lasix, potassium was replaced for hypokalemia. Also her blood sugar was not well controlled during this admission. Glipizide was increased to 10 mg daily, but she has not increased it. She was discharged with Lasix 20 mg twice a day. He did not qualify for home oxygen. Blood cultures, urine samples were negative. She did have a BMP completed on 07/21/18, which showed a glucose of 200, normal GFR, potassium 3.0. She has not been replaced with supplemental potassium at this time. At this time, her orthopedist is following her INR. She does follow with Dr. Mancilla with cardiology. At this time, she denies any orthopnea, chest pain. No shortness of breath with walking down the hallway. Doing well with a walker and her right knee. She states that she never picked up the Lasix, potassium chloride, mucinex or albuterol inhaler. She did mixing picker tender the azithromycin, Augmentin. She did finish the antibiotics. No fevers or chills. No leg swelling. Weight is stable. Patient does have a documented allergy to potassium chloride, but states that she received this medication without any problems while hospitalized. Past medical history, appointments, medications, allergies reviewed. Previous Medical History PAST MEDICAL HISTORY Diagnosis Date - Afib (HCC) 09/22/2016 - Hypertension - Major depressive disorder, single episode, mild (HCC) - Other and unspecified hyperlipidemia - Type I (juvenile type) diabetes mellitus without mention of complication, not stated as uncontrolled - Unspecified hypothyroidism Previous Surgical History PAST SURGICAL HISTORY Procedure Laterality Date - CARPAL TUNNEL 80's? bilateral - EGD 04/20/2018 Dr. Milton Richardson - LAPAROSCOPIC CHOLEYCYSTECTOMY 09/19/13 - LIGATE FALLOPIAN TUBE 77? Tubal ligation and appendectomy - PAST SURGICAL HISTORY OF 01/26/2017 Heart catherization, [facility] by Dr. Roger - TOTAL KNEE REPLACEMENT Right 07/12/2018 Dr. Beck Reyes Family History FAMILY HISTORY Problem Relation Age of Onset - Diabetes Mother - Heart Mother - Stroke Mother - Cancer Maternal Uncle Unknown primary - Diabetes Father - Diabetes Maternal Aunt - Stroke Maternal Aunt - Cancer Maternal Aunt The female kind. Patient Allergies ALLERGIES Allergen Reactions - Clindamycin Hives - Klor-Con [Potassium* Hives - Lipitor [Atorvastat* Intolerance Muscle pain - Lisinopril Cough - Penicillins Hives - Rxxmyzw-Sgh-Flf Red* Other: See Comments Muscle pain - Zocor [Simvastatin] Intolerance Muscle pain Current Medications Current Outpatient Prescriptions on File Prior to Visit: atenolol (TENORMIN) 50 mg tablet Take 1 tablet by mouth once daily. calcium carbonate-Vit D3-minerals (CALTRATE PLUS) 600-400 mg-unit ORAL Tab Take 1 tablet by mouth twice daily. citalopram (CELEXA) 40 mg tablet Take 0.5 tablets by mouth once daily. pantoprazole DR (PROTONIX) 40 mg tablet Take 1 tablet by mouth once daily. rOPINIRole (REQUIP) 0.25 mg tablet Take 2 tablets by mouth twice daily. triamcinolone acetonide (KENALOG) 0.1 % cream Apply 1 application to affected area three times daily. Apply sparingly to area for rash/itching. warfarin (COUMADIN) 2.5 mg tablet Take 1 tablet by mouth once daily. ezetimibe (ZETIA) 10 mg tablet Take 1 tablet by mouth once daily. ferrous sulfate 325 mg (65 mg iron) tablet Take 1 tablet by mouth daily with breakfast. glipiZIDE XL (GLUCOTROL XL) 5 mg 24 hr tablet Take 1 tablet by mouth once daily. levothyroxine (SYNTHROID) 112 mcg tablet TAKE ONE TABLET BY MOUTH ONCE DAILY meclizine 25 mg chewable tablet(s) Take 25 mg by mouth as needed. Fpcitbwzhfywx-Ew-Rsrh-Minerals (ONE-A-DAY WOMENS FORMULA) 27-0.4 mg ORAL Tab Take by mouth once daily. nitroglycerin sublingual (NITROQUICK) 0.4 mg SL tablet Dissolve 1 tablet under the tongue as needed. FOR CHEST PAIN. IF NO RELIEF CALL 911 nystatin-triamcinolone (MYCOLOG II) cream Apply 1 application to affected area twice daily. omega-3 fatty acids (FISH OIL CONCENTRATE) 1,000 mg ORAL Cap Take 1 capsule by mouth twice daily. No current facility-administered medications on file prior to visit. Social History Social History Marital status: Spouse name: Years of education: Number of children: Occupational History Occupation Employer Comment [employer]. 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 Social History Main Topics Smoking status: Never Smoker Smokeless tobacco: Never Used Comment: Mother smoked in childhood home. No smokers in home for many years. Alcohol use: No Drug use: No Social History Narrative Blood type-AB Positive REVIEW OF SYSTEMS: as above ? Reviewed relevant PMHx, PSHx, Social Hx, current medications and allergies. EXAM: BP 118/64 Pulse 72 Temp 37 ?C (98.6 ?F) (Tympanic) Wt 92.1 kg (203 lb) SpO2 96% BMI 43.20 kg/m? General Appearance: Well appearing, alert, in no acute distress, well-hydrated, well nourished. and Overweight. Head: Normocephalic, no masses, lesions, tenderness or abnormalities. Eyes: Anicteric sclera. Pupils are equally round and reactive to light. Extraocular movements are intact. . Ears: External ears normal, canals clear. Nose/Sinuses: Nares normal, septum midline, mucosa normal, no drainage or sinus tenderness. Oropharynx: Lips, mucosa, and tongue normal, teeth and gums normal, oropharynx normal. Neck: Supple, no adenopathy; thyroid symmetric, normal size, no bruits. Lungs: lungs clear to auscultation. No wheezing, rhonchi, rales. Heart: RRR without murmur, gallop, or rubs. No ectopy. Extremities: Pulses: 2+, Edema: Trace in right lower leg around sock line. Health Maintenance List DTAP,TDAP,TD(1 - Tdap) due on 12/05/2014 INFLUENZA(1) due on 04/17/2018 FECAL OCCULT BLOOD due on 07/13/2018 DIABETIC FOOT EXAM due on 07/10/2018 DIABETES MED ADHERENCE due on 08/17/2018 URINE ALBUMIN:CREATININE RATIO due on 09/19/2018 HBA1C due on 12/04/2018 MAMMOGRAM due on 04/06/2019 DILATED RETINAL EXAM due on 05/26/2019 LDL CHOLESTEROL due on 06/05/2019 ANNUAL PCP TEAM CHRONIC DISEASE VISIT due on 06/25/2019 BP CONTROLLED (<130/80) due on 06/25/2019 BONE DENSITY Completed ADULT PREVNAR-13 Completed HEPATITIS C SCREENING Completed PNEUMOVAX AGE 65 AND OVER WITH 5YR LOOKBACK Completed Data reviewed 07/21/2018 BMP reviewed (K+ 3.0), Discharge summary, chest x-ray, labs, progress notes reviewed. ASSESSMENT/PLAN: 1. Essential hypertension, benign - ICD9: 401.1, ICD10: I10 (primary diagnosis) - good control - Continue current medication(s) - Recommended regular aerobic exercise. - Recommend home blood pressure monitoring, to bring results in on next visit - Goal of BP <130/80 2. Atrial fibrillation, unspecified type (HCC) - ICD9: 427.31, ICD10: I48.91 - SR today in office. 3. Chronic atrial fibrillation (HCC) - ICD9: 427.31, ICD10: I48.2 - See #2 4. Acute on chronic diastolic congestive heart failure (HCC) - ICD9: 428.33, 428.0, ICD10: I50.33 - Resolved. Patient does not have any orthopnea, shortness breath, swelling. She denies wanting to go back on any furosemide at this time. Given that she is asymptomatic, weight is stable, we will hold off on resuming Lasix. She states she has never been on diuretics other than this last hospitalization. 5. Hypokalemia - ICD9: 276.8, ICD10: E87.6 - Replace for 7 days, check BMP in 10 days. Order sent to [facility]. - POTASSIUM CHLORIDE ER 20 MEQ TABLET,EXTENDED RELEASE(PART/CRYST) - BASIC METABOLIC PNL 6. Chronic respiratory failure with hypoxia (HCC) - ICD9: 518.83, 799.02, ICD10: J96.11 - Resolved. Keep upcoming follow up with cardiology in August. Keep upcoming appt with PCP. Sooner if symptoms of orthopnea, shortness of breath, chest pain occur. Ryder Alberts, POULTRY HATCHERY MAN.PRODUCTION OR PLANT ENGINEER Rydersandra Alberts APRN.CNP 07/29/2018 1:22 PM Signed supervisor tank house potassium today, recheck lab at [facility] 10-14 day from now. Ryder Alberts APRN.POORNIMA Referring Provider: SELF [200] Allergies As of Date: 07/29/2018 Noted Allergy Reaction CLINDAMYCIN 12/04/2008 4 - Hives KLOR-CON (POTASSIUM CHLORIDE) 12/08/2013 4 - Hives LIPITOR (ATORVASTATIN CALCIUM) 07/14/2005 5 - Intolerance Comments: Muscle pain LISINOPRIL 12/08/2013 3 - Cough PENICILLINS 07/14/2005 4 - Hives HNOCSYF-PKD-WFM REDUCTASE INHIBIT*06/07/2014 14 - Other: See Comments Comments: Muscle pain ZOCOR (SIMVASTATIN) 07/14/2005 5 - Intolerance Comments: Muscle pain Date Reviewed: 07/29/2018 Reviewed by: Ryder (Poornima) [facility] - Fully Assessed Reason for Visit: TCM [Other] Primary Visit Diagnosis:Essential hypertension, benign [I10] Other Visit Diagnoses:Atrial fibrillation, unspecified type (HCC) [I48.91] Chronic atrial fibrillation (HCC) [I48.2] Acute on chronic diastolic congestive heart failure (HCC) [I50.33] Hypokalemia [E87.6] Chronic respiratory failure with hypoxia (HCC) [J96.11] Order(s):PROTHROMBIN TIME/PT [SQPT] Order #: [id number] potassium chloride ER (K-DUR, KLOR-CON) 20 mEq tabletTake 1 tablet by mouth twice daily for 7 days.Disp: 14 tabletRfl: 0 BASIC METABOLIC PNL [SQBMP] Order #: [id number] FUTURE Prescriptions as of 07/29/2018 Sig: ATENOLOL 50 MG TABLET Take 1 tablet by mouth once d* * CALCIUM CARB-VIT D3-MINERALS * Take 1 tablet by mouth twice * CITALOPRAM 40 MG TABLET Take 0.5 tablets by mouth onc* EZETIMIBE 10 MG TABLET Take 1 tablet by mouth once d* FERROUS SULFATE 325 MG (65 MG* Take 1 tablet by mouth daily * GLIPIZIDE ER 5 MG TABLET, EXT* Take 1 tablet by mouth once d* LEVOTHYROXINE 112 MCG TABLET TAKE ONE TABLET BY MOUTH ONCE* * LWPZRKGFAHLK-OU-SADK-MINERALS* Take by mouth once daily. NITROGLYCERIN 0.4 MG SUBLINGU* Dissolve 1 tablet under the t* PANTOPRAZOLE 40 MG TABLET,DEL* Take 1 tablet by mouth once d* POTASSIUM CHLORIDE ER 20 MEQ * Take 1 tablet by mouth twice * ROPINIROLE 0.25 MG TABLET Take 2 tablets by mouth twice* TRIAMCINOLONE ACETONIDE 0.1 %* Apply 1 application to affect* WARFARIN 2.5 MG TABLET Take 1 tablet by mouth once d* MECLIZINE 25 MG CHEWABLE TABL* Take 25 mg by mouth as needed. NYSTATIN-TRIAMCINOLONE 100,00* Apply 1 application to affect* Problem List As Of Date 07/29/2018 Noted Resolved Hypothyroidism [E03.9] Hyperlipidemia [E78.5] BENIGN HYPERTENSION [I10] INVALID FOR* Diabetes mellitus type 2, controlled, without c*INVALID FOR* Depression [F32.9] INVALID FOR* Lumbago [M54.5] INVALID FOR* Spinal stenosis, lumbar region, without neuroge*INVALID FOR* L-S radiculopathy [M54.17] INVALID FOR* Cholelithiasis [K80.20] INVALID FOR* Afib (HCC) [I48.91] INVALID FOR* Obesity, Class III, BMI 40-49.9 (morbid obesity*INVALID FOR* Other instructions from your clinician: supervisor tank house potassium today, recheck lab at [facility] 10-14 day from now. Ryder Alberts APRN.PRODUCTION OR PLANT ENGINEER Prescriptions ordered this encounter Disp Refills Start End POTASSIUM CHLORIDE ER 20 MEQ TABLET,* 14 t* 0 07/29/2018 08/05/2018 Route: ORAL Sig: Take 1 tablet by mouth twice daily for 7 days. Medications Discontinued During This Encounter amoxicillin-clavulanic acid (AUGMENT* 20 t* 0 07/20/2018 07/29/2018 Class: Historical Med Route: ORAL Sig: Take 1 tablet by mouth twice daily. Disc: Course of therapy completed azithromycin (ZITHROMAX) 500 mg tabl* 3 ta* 0 07/20/2018 07/29/2018 Class: Historical Med Route: ORAL Sig: Take 1 tablet by mouth once daily. Disc: Course of therapy completed fluticasone (FLONASE) 50 mcg/actuati* 1 Erik* 11 08/31/2017 07/29/2018 Route: EACH NOSTRIL Sig: Use 2 Sprays in each nostril once daily. Rinse mouth after use. Disc: Discontinued by Patient metFORMIN (GLUCOPHAGE) 500 mg tablet 270 * 3 04/06/2018 07/29/2018 Class: Med Update Route: ORAL Sig: Take 1 tablet by mouth daily with breakfast. Disc: Course of therapy completed oxyCODONE-acetaminophen (PERCOCET) 5* 0 07/20/2018 07/29/2018 Class: Historical Med Route: ORAL Sig: Take 1-2 tablets by mouth every 4 hours as needed for Pain. Disc: Course of therapy completed omega-3 fatty acids (FISH OIL CONCEN* 0 11/30/2010 07/29/2018 Class: OTC Route: ORAL Sig: Take 1 capsule by mouth twice daily. Disc: Discontinued by Patient furosemide (LASIX) 20 mg tablet 07/20/2018 07/29/2018 Class: Historical Med Route: ORAL Sig: Take 1 tablet by mouth twice daily. Disc: Cost of medication guaiFENesin (MUCINEX) 600 mg 12 hr t* 07/20/2018 07/29/2018 Class: Historical Med Route: ORAL Sig: Take 2 tablets by mouth twice daily. Disc: Course of therapy completed gemfibrozil (LOPID) 600 mg tablet 180 * 1 02/11/2018 07/29/2018 Route: ORAL Sig: Take 1 tablet by mouth twice daily with meals. Disc: Discontinued by another Health Care Provider potassium chloride ER (NICOL BAUTISTA* 07/20/2018 07/29/2018 Class: Historical Med Route: ORAL Sig: Take 1 tablet by mouth twice daily. Disc: Reason for discontinue is not on file. albuterol HFA (PROAIR HFA) 90 mcg/ac* 07/20/2018 07/29/2018 Class: Historical Med Route: INHALATION Sig: Inhale 2 Puffs as instructed every 4 hours as needed. Disc: Course of therapy completed Disposition: Return if symptoms worsen or fail to improve. Follow-up and Disposition History Recorded Encounter Status:Closed by RYDER ALBERTS CNP on 07/29/18 PROGRESS Observed: 07/29/2018 Status: COMPLETED Source: [facility] 12:53 PM [facility] REPOSITORY HNO ID: [id number] Author: Ryder Alberts Service: (none) Author Type: Nurse Practitioner Type: Progress Notes Filed: 07/29/2018 1:34 PM Note Text: TRANSITION CARE MANAGEMENT (TCM) INITIAL CONTACT [employer] ? Provider Action/FYI: 14 day TCM-Pt went to [facility] ER on 07/15/18 complains of SOB and hypoxia. Pt was recently discharged from [facility] after having right TKR, 2 days ago. Her oxygen at time of arrival to ER was in mid 80s. Denied any chest pains. Did describe orthopnea and some generalized malaise but no fever or chills. No hx of PE. Started on warfarin after surgery. Pt required supplemental oxygen. Noted diminished lung sounds and crackles in the bases. CXR showed evidence of volume overload and right lower lobe infiltrate. Labs unremarkable. BNP was elevated, EKG and cardiac enzymes normal. Was admitted for infectious type symptoms and decompensated heart failure. Was started on IV Lasix and broad spectrum antibiotics. Blood cultures were obtained. Pt was discharged in stable condition on 07/18/18 and advised to follow up with PCP within 1-2 weeks. Pt was also instructed to follow up with Ortho, Dr. Reyes as scheduled. Pt follows with Job Developer, Dr. Mancilla. Pt was told to have INR checked in 3 days time frame. ? ? ? Initial contact with patient post discharge, spoke to patient on 07/20/18. Patient identified by name and . ? TRANSITION CARE MANAGEMENT INITIAL OUTREACH DOCUMENTATION: No flowsheet data found. ? SUMMARY: -Pt discharged from [facility] on 07/18/18. -Admitted for: 1) Acute Hypoxic Respiratory Failure 2) Acute on chronic diastolic heart failure 3) Bilateral HCAP 4) Hypokalemia 5) hyperglycemia ? Do you have a hospital follow up appointment with your PCP? Appointment on 07/29/18 with Ryder Alberts. Yes. Remind patient of appointment date, time, and location. If not within 14 calendar days of discharge - please reschedule accordingly. ? MEDICATIONS: Many patients have questions or concerns about their medications once they are home. Were you prescribed any new medications? If yes, what are those medications? ? Klor-Con 20 meq daily mucinex 1,200 mg BID Lasix 20 mg BID Azithromycin 500 mg # 2 tablets Augmentin 875 mg BID # 8 tablets Warfarin 2.5 mg daily ProAir inhaler Percocet 5-325 mg 1-2 tablets every 4 hours PRN ? Were you told to hold any medications? No Were any of your medications discontinued? No ? Do you have any questions about getting or taking your medications? No ? Your discharge instructions/After visit Summary (AVS) are important in guiding you through the recovery process. Is there anything I might help you understand? No ? Do you have all the necessary equipment and supplies at home? Yes ? Medical records from recent hospitalization: Placed for provider to review TRANSITION CARE MANAGEMENT (TCM): Provider Documentation Chief Complaint Patient presents with: TCM HPI Kyaw Espinoza is a 67 year old female who presents here today for Hospital Discharge Follow up. Patient presents today for hospital follow-up. Patient was admitted to [facility] on 07/15/18 and discharged 07/18/18. Reason for admission was shortness breath, hypoxia. She presented to the ER after developing these symptoms approximately 2 days after having a right total knee replacement at [facility]. She had complaints of a cough, orthopnea, generalized malaise. She was placed on a blood thinner after surgery. Does have a history of atrial fibrillation. Chest x-ray at [facility] showed evidence of following overload and right lower lobe infiltrate. BNP was elevated. EKG and cardiac enzymes were normal. She was treated with broad-spectrum antibiotics, given IV Lasix, potassium was replaced for hypokalemia. Also her blood sugar was not well controlled during this admission. Glipizide was increased to 10 mg daily, but she has not increased it. She was discharged with Lasix 20 mg twice a day. He did not qualify for home oxygen. Blood cultures, urine samples were negative. She did have a BMP completed on 07/21/18, which showed a glucose of 200, normal GFR, potassium 3.0. She has not been replaced with supplemental potassium at this time. At this time, her orthopedist is following her INR. She does follow with Dr. Mancilla with cardiology. At this time, she denies any orthopnea, chest pain. No shortness of breath with walking down the hallway. Doing well with a walker and her right knee. She states that she never picked up the Lasix, potassium chloride, mucinex or albuterol inhaler. She did mixing picker tender the azithromycin, Augmentin. She did finish the antibiotics. No fevers or chills. No leg swelling. Weight is stable. Patient does have a documented allergy to potassium chloride, but states that she received this medication without any problems while hospitalized. Past medical history, appointments, medications, allergies reviewed. Previous Medical History PAST MEDICAL HISTORY Diagnosis Date - Afib (HCC) 09/22/2016 - Hypertension - Major depressive disorder, single episode, mild (HCC) - Other and unspecified hyperlipidemia - Type I (juvenile type) diabetes mellitus without mention of complication, not stated as uncontrolled - Unspecified hypothyroidism Previous Surgical History PAST SURGICAL HISTORY Procedure Laterality Date - CARPAL TUNNEL 80's? bilateral - EGD 04/20/2018 Dr. Milton Richardson - LAPAROSCOPIC CHOLEYCYSTECTOMY 09/19/13 - LIGATE FALLOPIAN TUBE 77? Tubal ligation and appendectomy - PAST SURGICAL HISTORY OF 01/26/2017 Heart catherization, [facility] by Dr. Roger - TOTAL KNEE REPLACEMENT Right 07/12/2018 Dr. Beck Reyes Family History FAMILY HISTORY Problem Relation Age of Onset - Diabetes Mother - Heart Mother - Stroke Mother - Cancer Maternal Uncle Unknown primary - Diabetes Father - Diabetes Maternal Aunt - Stroke Maternal Aunt - Cancer Maternal Aunt The female kind. Patient Allergies ALLERGIES Allergen Reactions - Clindamycin Hives - Klor-Con [Potassium* Hives - Lipitor [Atorvastat* Intolerance Muscle pain - Lisinopril Cough - Penicillins Hives - Oknjgml-Xgj-Yfj Red* Other: See Comments Muscle pain - Zocor [Simvastatin] Intolerance Muscle pain Current Medications Current Outpatient Prescriptions on File Prior to Visit: atenolol (TENORMIN) 50 mg tablet Take 1 tablet by mouth once daily. calcium carbonate-Vit D3-minerals (CALTRATE PLUS) 600-400 mg-unit ORAL Tab Take 1 tablet by mouth twice daily. citalopram (CELEXA) 40 mg tablet Take 0.5 tablets by mouth once daily. pantoprazole DR (PROTONIX) 40 mg tablet Take 1 tablet by mouth once daily. rOPINIRole (REQUIP) 0.25 mg tablet Take 2 tablets by mouth twice daily. triamcinolone acetonide (KENALOG) 0.1 % cream Apply 1 application to affected area three times daily. Apply sparingly to area for rash/itching. warfarin (COUMADIN) 2.5 mg tablet Take 1 tablet by mouth once daily. ezetimibe (ZETIA) 10 mg tablet Take 1 tablet by mouth once daily. ferrous sulfate 325 mg (65 mg iron) tablet Take 1 tablet by mouth daily with breakfast. glipiZIDE XL (GLUCOTROL XL) 5 mg 24 hr tablet Take 1 tablet by mouth once daily. levothyroxine (SYNTHROID) 112 mcg tablet TAKE ONE TABLET BY MOUTH ONCE DAILY meclizine 25 mg chewable tablet(s) Take 25 mg by mouth as needed. Cbumqnvotxcbw-Jv-Vwxr-Minerals (ONE-A-DAY WOMENS FORMULA) 27-0.4 mg ORAL Tab Take by mouth once daily. nitroglycerin sublingual (NITROQUICK) 0.4 mg SL tablet Dissolve 1 tablet under the tongue as needed. FOR CHEST PAIN. IF NO RELIEF CALL 911 nystatin-triamcinolone (MYCOLOG II) cream Apply 1 application to affected area twice daily. omega-3 fatty acids (FISH OIL CONCENTRATE) 1,000 mg ORAL Cap Take 1 capsule by mouth twice daily. No current facility-administered medications on file prior to visit. Social History Social History Marital status: Spouse name: Years of education: Number of children: Occupational History Occupation Employer Comment [employer]. 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 Social History Main Topics Smoking status: Never Smoker Smokeless tobacco: Never Used Comment: Mother smoked in childhood home. No smokers in home for many years. Alcohol use: No Drug use: No Social History Narrative Blood type-AB Positive REVIEW OF SYSTEMS: as above ? Reviewed relevant PMHx, PSHx, Social Hx, current medications and allergies. EXAM: BP 118/64 Pulse 72 Temp 37 ?C (98.6 ?F) (Tympanic) Wt 92.1 kg (203 lb) SpO2 96% BMI 43.20 kg/m? General Appearance: Well appearing, alert, in no acute distress, well-hydrated, well nourished. and Overweight. Head: Normocephalic, no masses, lesions, tenderness or abnormalities. Eyes: Anicteric sclera. Pupils are equally round and reactive to light. Extraocular movements are intact. . Ears: External ears normal, canals clear. Nose/Sinuses: Nares normal, septum midline, mucosa normal, no drainage or sinus tenderness. Oropharynx: Lips, mucosa, and tongue normal, teeth and gums normal, oropharynx normal. Neck: Supple, no adenopathy; thyroid symmetric, normal size, no bruits. Lungs: lungs clear to auscultation. No wheezing, rhonchi, rales. Heart: RRR without murmur, gallop, or rubs. No ectopy. Extremities: Pulses: 2+, Edema: Trace in right lower leg around sock line. Health Maintenance List DTAP,TDAP,TD(1 - Tdap) due on 12/05/2014 INFLUENZA(1) due on 04/17/2018 FECAL OCCULT BLOOD due on 07/13/2018 DIABETIC FOOT EXAM due on 07/10/2018 DIABETES MED ADHERENCE due on 08/17/2018 URINE ALBUMIN:CREATININE RATIO due on 09/19/2018 HBA1C due on 12/04/2018 MAMMOGRAM due on 04/06/2019 DILATED RETINAL EXAM due on 05/26/2019 LDL CHOLESTEROL due on 06/05/2019 ANNUAL PCP TEAM CHRONIC DISEASE VISIT due on 06/25/2019 BP CONTROLLED (<130/80) due on 06/25/2019 BONE DENSITY Completed ADULT PREVNAR-13 Completed HEPATITIS C SCREENING Completed PNEUMOVAX AGE 65 AND OVER WITH 5YR LOOKBACK Completed Data reviewed 07/21/2018 BMP reviewed (K+ 3.0), Discharge summary, chest x-ray, labs, progress notes reviewed. ASSESSMENT/PLAN: 1. Essential hypertension, benign - ICD9: 401.1, ICD10: I10 (primary diagnosis) - good control - Continue current medication(s) - Recommended regular aerobic exercise. - Recommend home blood pressure monitoring, to bring results in on next visit - Goal of BP <130/80 2. Atrial fibrillation, unspecified type (HCC) - ICD9: 427.31, ICD10: I48.91 - SR today in office. 3. Chronic atrial fibrillation (HCC) - ICD9: 427.31, ICD10: I48.2 - See #2 4. Acute on chronic diastolic congestive heart failure (HCC) - ICD9: 428.33, 428.0, ICD10: I50.33 - Resolved. Patient does not have any orthopnea, shortness breath, swelling. She denies wanting to go back on any furosemide at this time. Given that she is asymptomatic, weight is stable, we will hold off on resuming Lasix. She states she has never been on diuretics other than this last hospitalization. 5. Hypokalemia - ICD9: 276.8, ICD10: E87.6 - Replace for 7 days, check BMP in 10 days. Order sent to [facility]. - POTASSIUM CHLORIDE ER 20 MEQ TABLET,EXTENDED RELEASE(PART/CRYST) - BASIC METABOLIC PNL 6. Chronic respiratory failure with hypoxia (HCC) - ICD9: 518.83, 799.02, ICD10: J96.11 - Resolved. Keep upcoming follow up with cardiology in August. Keep upcoming appt with PCP. Sooner if symptoms of orthopnea, shortness of breath, chest pain occur. Ryder Alberts APRN.PRODUCTION OR PLANT ENGINEER XR KNEE RIGHT 3 VIEWS Observed: 07/28/2018 Status: F Source: [facility] (SPECIFY VIEWS IN 12:00 AM THREE REPOSITORY COMMENTS) 3 views right knee reveals total knee replacement in excellent position without complications patella tracks well Dictated by: BECK REYES on ThuJul 28, 2018 4:47:39 PM EST Transcribed by: BECK REYES on ThuJul 28, 2018 4:47:39 PM EST Finalized by: BECK REYES on ThuJul 28, 2018 4:47:39 PM EST PROTHROMBIN TIME W/INR Collected: 07/21/2018 Status: F Source: [place] 2:[address] [facility] REPOSITORY Order Comment: Send Results To: PCP Reason for Laboratory Test follow-up on coumadin therapy TYPE CODE TESTS RESULT OUT OF RANGE REFERENCE UNITS LAB L300.4150 11.7-14.9 SECONDS High PROTIME 29.1 LAB L300.4200 Normal INR 2.7 Performed By: #### L300.3900 #### [facility] [address] [place], [address] BASIC METABOLIC Collected: 07/21/2018 Status: F Source: [place] PROFILE (BMP) 2:[address] [facility] REPOSITORY Order Comment: Send Results To: PCP Reason for Laboratory Test follow-up on hypokalemia and diuretic effect TYPE CODE TESTS RESULT OUT OF RANGE REFERENCE UNITS LAB L501.0100 74-106 mg/dL High GLU 200 Result Comment: Glucose result greater than or equal to 200 mg/dL suggests DIABETES MELLITUS per A.D.A. criteria. Please note revised GLUCOSE reference range effective 2017. LAB L501.1000 7-18 mg/dL Normal BUN 12 LAB L501.1100 0.55-1.02 mg/dL Normal CREAT,SERUM 0.66 Result Comment: The validity of the calculated GFR AND GFRAA in patients over 70 years has not been determined. Clinical correlation is essential. LAB L501.1110 >60 mL/min Normal EST GFR 93 Result Comment: Non- GFR Calc LAB L501.1115 >60 mL/min Normal EST GFR - AA 113 Result Comment: GFR Calc LAB L501.1300 10-20 RATIO Normal BUN/CRE 18.0 LAB L501.2200 8.5-10.1 mg/dL CA Normal 8.6 LAB L501.5300 136-145 mmol/L NA Normal 139 LAB L501.5600 3.5-5.1 mmol/L Low K 3.0 LAB L501.5900 98-107 mmol/L CL Normal 99 LAB L501.6100 21.0-32.0 mmol/L Normal CO2 30.0 LAB L501.6200 5-15 Normal GAP 10 Performed By: #### L500.2500 #### [facility] [address] [place], [address] 12 LEAD ELECTROCARDIOGRAM Observed: 07/20/2018 Status: F Source: [place] 3:[address] [facility] REPOSITORY [facility] Cardiovascular Services [address] [place] [address] 12 Lead EKG 07/15/181957 MR#: [id number] Acct: [id number] Name: KYAW ESPINOZA Rep #: [id number] : 1950 67 From: Giovany Baron MD Attending Dr: Kat Bustos MD Status: DIS IN Ordering Dr: Mark Peck MD Date: 07/15/18 Location: [place] Sex: F C Admitted: 07/15/18 Test Reason : SOB Blood Pressure : / mmHG Vent. Rate : 077 BPM Atrial Rate : 077 BPM P-R Int : 134 ms QRS Dur : 082 ms QT Int : 370 ms P-R-T Axes : -17 054 036 degrees QTc Int : 418 ms Normal sinus rhythm Low voltage QRS Nonspecific ST abnormality Abnormal ECG Confirmed by JEAN MANCILLA, GIOVANY ([id number]), development editor SATISH DIAZ ([id number]) on 07/20/2018 3:34:32 PM Referred By: JENN Confirmed By:GIOVANY BARON MD 07/20/18 1534 Date Giovany Baron MD CC: Kat Bustos MD; Tanja Rust MD; Mark Peck MD Signed DISCHARGE SUMMARY Observed: 07/20/2018 Status: F Source: [place] 12:[address] [facility] REPOSITORY [facility] Medical Records Department [address] [place] [address] Discharge Summary 07/18/18 1002 MR#: [id number] Acct: [id number] Name: KYAW ESPINOZA Rep #: [id number] : 1950 67 From: Kat Bustos MD PCP: Tanja Rust MD Status: DIS IN Y Location: [place] [address] Discharge Date and Diagnosis Date of Admission: 07/15/18 Date of Discharge: 07/18/18 - Primary Discharge Diagnosis Active and Suspected Problems Acute hypoxic respiratory failure Acute on chronic diastolic heart failure Bilateral HCAP Hypokalemia Hyperglycemia - Secondary Discharge Diagnosis Chronic Problems PUD (peptic ulcer disease) (Chronic) Afib (Chronic) DM2 (diabetes mellitus, type 2) (Chronic) Hypothyroid (Chronic) Hospital Course and Treatment Imaging Results: Clinical Impression(s) from Imaging Studies Chest X-Ray 07/15/18 19:40 IMPRESSION: Cardiomegaly and pulmonary congestion with bilateral basilar airspace consolidations. Electronically Signed: Erlinda Diaz MD at 20:02 EST , Service support , Chest X-Ray 07/17/18 05:45 IMPRESSION: Slight interval improvement in pulmonary edema Electronically Signed: Tiago Seay DO at 8:22 EST Tel , Service support , None Operations: None Procedures: None Summary of Care Provided: 67-year-old female with multiple comorbidities including chronic diastolic CHF, hypertension, type II DM, recent right knee replacement on who was admitted with progressive worsening shortness of breath. Patient was on Coumadin for DVT prophylaxis and her INR was therapeutic on admission. Her management was as follows: 1. Acute hypoxic respiratory failure secondary to acute on chronic diastolic CHF and bilateral HCAP, resolved with treatment. Did not qualify for home oxygen. 2. Acute on chronic diastolic CHF/heart failure with preserved EF, managed on IV Lasix with adequate diuresis, discharged on Lasix 20mg po bid 3. Bilateral HCAP, urine streptococcal and Legionella antigen negative, blood cultures negative, managed on IV ceftriaxone and azithromycin, discharged on augmentin and azithromycin. 4. Hypokalemia, replaced, repeat blood work planned within a week. 5. Type II DM, blood sugars was uncontrolled in this admission, was on glipizide 5mg, managed with accucheks and ISS. Her glipizide was increased to 10 mg p.o. daily. 6. Morbid obesity, BMI is 35.6, diet and exercise recommended 7. Recent right knee replacement, will follow-up in the outpatient. 8. Chronic medical conditions including hypothyroidism, GERD, restless leg, hypertension, chronic atrial fibrillation were stable. Subjective: On the day of discharge, she felt improved. Denies any chest pain, dizziness. Off oxygen, did not qualify for oxygen. - Physical Exam Vital Signs Temp Pulse Resp BP Pulse Ox 98.3 F 78 18 139/56 H 96 07/18/18 07:44 07/18/18 07:44 07/18/18 07:44 07/18/18 07:44 07/18/18 09:30 Oxygen Flow Rate (L/min) 1 Oxygen Delivery Method Room Air Weight: 95.4 kg Body Mass Index (BMI) 45.6 Finger Stick Blood Glucose 161 Intake and Output for Last 24 Hours Intake Total 800 / 800 1160.6 / 1160.6 772 / 772 Output Total 1220 / 1220 1600 / 1600 203 / 203 Balance -420 / -420 -439.4 / -439.4 569 / 569 Microbiology Past 72 Hours 07/16/18 13:05 Streptococcus pneumoniae Antigen (M - Final Urine, Clean Catch 07/16/18 13:05 Legionella Antigen - Final Urine, Clean Catch Laboratory Tests Past 24 Hrs Sodium 137 Potassium 3.4 L Chloride 92 L Carbon Dioxide 37.0 H Anion Gap 8 BUN 15 POC Glucose POC Glucose 167 H 175 H 115 H POC Glucose 203 H Discharge Diet: Low fat/ Low Cholesterol, 6 Cup Fluid Restriction, 2000 mg Sodium Diet Discharge Activity: Return to Normal Activity Home Medications: Medications to take at Discharge Levothyroxine [Synthroid] 112 mcg PO DAILY 09/09/13 Multivitamins,Ther W-Minerals [Multivitamin With Minerals] 1 tablet PO DAILY 09/09/13 Ropinirole HCl [Requip] 0.5 mg PO BID 01/10/18 Atenolol 50 mg PO DAILY 01/12/18 Calcium Carbonate [Calcium] 500 mg PO BID 01/12/18 Citalopram Hydrobromide [Citalopram HBr] 20 mg PO DAILY 07/15/18 Oxycodone HCl/Acetaminophen [Percocet 5-325] 1 - 2 tablet PO Q4H PRN PRN 07/15/18 Pantoprazole Sodium [Protonix] 40 mg PO DAILY 07/15/18 Warfarin [Coumadin] 2.5 mg PO DAILY 07/15/18 Albuterol IH (ProAir) [Proair Hfa] 1 puff INHALATION Q4H PRN PRN #1 inhaler 07/18/18 Amoxicillin/Potassium Clav [Augmentin 875-125 Tablet] 1 ea PO BID #8 tab 07/18/18 Azithromycin 500 mg PO DAILY #2 tab 07/18/18 Furosemide [Lasix] 20 mg PO BID #30 tab 07/18/18 Guaifenesin [Mucinex] 1,200 mg PO BID #30 tab 07/18/18 Potassium Chloride [Klor-Con M20] 20 meq PO DAILY #14 tab.er.prt 07/18/18 glipiZIDE [Glucotrol] 10 mg PO DAILYCM #30 tab 07/18/18 Following Prescrptions Were Given to Patient: Albuterol IH (ProAir) [Proair Hfa] 1 puff INHALATION Q4H PRN PRN #1 inhaler PRN Reason: Sob AND /Or Wheezing Azithromycin 500 mg PO DAILY #2 tab glipiZIDE [Glucotrol] 10 mg PO DAILYCM #30 tab Potassium Chloride [Klor-Con M20] 20 meq PO DAILY #14 tab.er.prt Amoxicillin/Potassium Clav [Augmentin 875-125 Tablet] 1 ea PO BID #8 tab Furosemide [Lasix] 20 mg PO BID #30 tab Guaifenesin [Mucinex] 1,200 mg PO BID #30 tab Other Amb Orders: Basic Metabolic Profile (BMP) Time Frame: 3 Days, Location: Laboratory Prothrombin Time w/INR Time Frame: 3 Days, Location: Laboratory Primary Care Physician: Tanja Rust MD [Primary Care Provider] - Please follow up with your Primary Care Physician in: within 1-2 weeks When: Your orthopedic doctor as scheduled Disposition: Home with Home Health Minutes spent on discharge:: 40 Patient Condition:: Stable Medical Necessity - Tobacco Use Smoking Status: Former smoker Tobacco Use: Non-smoker Meaningful Use Info Meaningful Use Diagnoses (Choose all that apply): CHF - CHF BRIGITTE/ARB ordered at discharge?: No Reason BRIGITTE/ARB not ordered?: Drug Interaction Documented LVEF (%): 55 Code Visit Inpatient E AND M: [id number] Disch Hosp 07/20/18 1233 <Electronically signed by Kat Bustos MD> Date Kat Bustos MD Cosigner Signature (if applicable): Date CC: Kat Bustos MD; Tanja Rust MD Signed BEDSIDE GLUCOSE Collected: 07/18/2018 Status: F Source: [place] 11:[address] [facility] REPOSITORY TYPE CODE TESTS RESULT OUT OF REFERENCE UNITS RANGE LAB L501.080 70-110 mg/dL High BEDSIDE GLU 150 Result Comment: MANAGEMENT OF PATIENT CARE PER NURSING PROTOCOL Performed By: #### L501.080 #### [facility] Point of Care [address] [place] [address] DISCHARGE INSTRUCTION Observed: 07/18/2018 Status: F Source: [place] 10:[address] [facility] REPOSITORY [facility] Medical Records Department [address] [place] [address] Instructions for Home/Discharge Instructions 07/18/18 0935 MR#: [id number] Acct: [id number] Name: KYAW ESPINOZA Rep #: [id number] : 1950 67 From: Kat Bustos MD PCP: Yocasta MANCILLA,Tanja Status: ADM IN - Discharge Diagnoses Current Active Problems: Current Active and Chronic Problems Acute heart failure (Acute) Reason(s) for Visit for Discharge Instructions: Shortness of breath You will use the following diet at home:: Cardiac, Fluid restricted (specify 2000 mls, 1500 mls) Your food should be the consistency of: Regular Your liquids should be the consistency of: Regular/Thin Discharge Activity: Return to Normal Activity Additional Instructions: Complete your antibiotics. Continue to use your incentive spirometer. Use your inhaler if needed for shortness of breath. Continue to be active. Weigh yourself everyday. Restrict your fluid intake to 1.5L a day. Follow- up with your orthopedic surgery team as scheduled. Take note of the increased dose of your glipizide. Continue to monitor your blood sugars at home, monitoring for low blood sugars. Continue to monitor your INR as previously. Allergies/Adverse Reactions: Allergies atorvastatin calcium [From Lipitor] Allergy (Verified 07/15/18 19:33) Pain in joints clindamycin Allergy (Verified 07/15/18 19:33) Hives lisinopril Allergy (Verified 07/15/18 19:33) Unknown Penicillins [PCN] Allergy (Verified 07/15/18 19:33) Hives simvastatin [From Zocor] Allergy (Verified 07/15/18 19:33) Pain in joints Medications to take at Discharge Levothyroxine [Synthroid] 112 mcg PO DAILY 09/09/13 Multivitamins,Ther W-Minerals [Multivitamin With Minerals] 1 tablet PO DAILY 09/09/13 Ropinirole HCl [Requip] 0.5 mg PO BID 01/10/18 Atenolol 50 mg PO DAILY 01/12/18 Calcium Carbonate [Calcium] 500 mg PO BID 01/12/18 Citalopram Hydrobromide [Citalopram HBr] 20 mg PO DAILY 07/15/18 Oxycodone HCl/Acetaminophen [Percocet 5-325] 1 - 2 tablet PO Q4H PRN PRN 07/15/18 Pantoprazole Sodium [Protonix] 40 mg PO DAILY 07/15/18 Warfarin [Coumadin] 2.5 mg PO DAILY 07/15/18 Albuterol IH (ProAir) [Proair Hfa] 1 puff INHALATION Q4H PRN PRN #1 inhaler 07/18/18 Amoxicillin/Potassium Clav [Augmentin 875-125 Tablet] 1 ea PO BID #8 tab 07/18/18 Azithromycin 500 mg PO DAILY #2 tab 07/18/18 Furosemide [Lasix] 20 mg PO BID #30 tab 07/18/18 Guaifenesin [Mucinex] 1,200 mg PO BID #30 tab 07/18/18 glipiZIDE [Glucotrol] 10 mg PO DAILYCM #30 tab 07/18/18 The following prescriptions were given: Azithromycin 500 mg PO DAILY #2 tab Amoxicillin/Potassium Clav [Augmentin 875-125 Tablet] 1 ea PO BID #8 tab Furosemide [Lasix] 20 mg PO BID #30 tab Orders to be completed after discharge: Basic Metabolic Profile (BMP) Time Frame: 3 Days, Location: Laboratory Prothrombin Time w/INR Time Frame: 3 Days, Location: Laboratory Primary Care Physician: Tanja Rust MD [Primary Care Provider] - Please follow up with your Primary Care Physician in: within 1-2 weeks Test Results: Test results from this visit will be discussed in further detail at your follow-up appointment, if applicable. When: Your orthopedic doctor as scheduled Proposed Discharge Date: 07/18/18 07/18/18 1002 <Electronically signed by Kat Bustos MD> Date Kat Bustos MD CC: Tanja Rust MD BASIC METABOLIC Collected: 07/18/2018 Status: F Source: MICHEAL PROFILE (BMP) 9:[address] [facility] REPOSITORY TYPE CODE TESTS RESULT OUT OF RANGE REFERENCE UNITS LAB L501.0100 74-106 mg/dL High GLU 187 Result Comment: Fasting Glucose result greater than or equal to 126 mg/dL suggests DIABETES MELLITUS per A.D.A. criteria. Please note revised GLUCOSE reference range effective 2017. LAB L501.1000 7-18 mg/dL Normal BUN 15 LAB L501.1100 0.55-1.02 mg/dL Normal CREAT,SERUM 0.72 Result Comment: The validity of the calculated GFR AND GFRAA in patients over 70 years has not been determined. Clinical correlation is essential. LAB L501.1110 >60 mL/min Normal EST GFR 85 Result Comment: Non- GFR Calc LAB L501.1115 >60 mL/min Normal EST GFR - AA 102 Result Comment: GFR Calc LAB L501.1255 ml/min Normal Estimated CRCL 79.96 LAB L501.1300 10-20 RATIO High BUN/CRE 20.7 LAB L501.2200 8.5-10 mg/dL Normal .1 CA 8.6 LAB L501.5300 136-14 mmol/L Normal 5 NA 137 LAB L501.5600 3.5-5. mmol/L Low 1 K 3.4 LAB L501.5900 98-107 mmol/L Low CL 92 LAB L501.6100 21.0-3 mmol/L High 2.0 CO2 37.0 LAB L501.6200 5-15 Normal GAP 8 Performed By: #### L500.2500 #### [facility] [address] [place], [address] BEDSIDE GLUCOSE Collected: 07/18/2018 Status: F Source: MICHEAL 6:[address] [facility] REPOSITORY TYPE CODE TESTS RESULT OUT OF REFERENCE UNITS RANGE LAB L501.080 70-110 mg/dL High BEDSIDE GLU 167 Result Comment: Insulin Given MANAGEMENT OF PATIENT CARE PER NURSING PROTOCOL Performed By: #### L501.080 #### [facility] Point of Care [address] [place] [address] BEDSIDE GLUCOSE Collected: 07/17/2018 Status: F Source: MICHEAL 9:[address] [facility] REPOSITORY TYPE CODE TESTS RESULT OUT OF REFERENCE UNITS RANGE LAB L501.080 70-110 mg/dL High BEDSIDE GLU 175 Result Comment: Insulin Given MANAGEMENT OF PATIENT CARE PER NURSING PROTOCOL Performed By: #### L501.080 #### [facility] Point of Care [address] [place] [address] BEDSIDE GLUCOSE Collected: 07/17/2018 Status: F Source: MICHEAL 3:[address] [facility] REPOSITORY TYPE CODE TESTS RESULT OUT OF REFERENCE UNITS RANGE LAB L501.080 70-110 mg/dL High BEDSIDE GLU 115 Result Comment: MANAGEMENT OF PATIENT CARE PER NURSING PROTOCOL Performed By: #### L501.080 #### [facility] Point of Care [address] [place], [place] [id number] BEDSIDE GLUCOSE Collected: 07/17/2018 Status: F Source: AURELIA 11:[address] [facility] REPOSITORY TYPE CODE TESTS RESULT OUT OF REFERENCE UNITS RANGE LAB L501.080 70-110 mg/dL High BEDSIDE GLU 203 Result Comment: MANAGEMENT OF PATIENT CARE PER NURSING PROTOCOL Performed By: #### L501.080 #### [facility] Point of Care [address] [place] [address] CBC W/DIFF, AUTOMATED Collected: 07/17/2018 Status: F Source: A[place] 7:[address] [facility] REPOSITORY TYPE CODE TESTS RESULT OUT OF RANGE REFERENCE UNITS LAB L100.1000 4.4-11.0 K/mm3 Normal WBC 6.4 LAB L100.1200 4.2-5.4 M/mm3 Low RBC 3.09 LAB L100.1300 12.0-15.0 g/dl Low HGB 8.9 LAB L100.1400 37-47 % Low HCT 28.3 LAB L100.1500 81-99 fL Normal MCV 91.6 LAB L100.1600 27.0-32.0 pg Normal MCH 28.8 LAB L100.1700 32-36 g/gl Low MCHC 31.4 LAB L100.1810 11.6-14.6 % Normal RDW CV 14.3 LAB L100.1820 35.1-43.9 fl High RDW SD 47.3 LAB L100.1900 150-450 K/mm3 Normal PLT 206 LAB L100.2000 6.2-12.0 fl Normal MPV 10.1 LAB L100.2100 47-70 % Normal NEUT% 70.0 LAB L100.2200 19-41 % Low LY% 14.5 LAB L100.2300 0-10 % High MONO% 11.3 LAB L100.2400 0-5 % Normal EO% 3.8 LAB L100.2500 0-1 % Normal BASO% 0.2 LAB L100.2550 0.0-0.9 % Normal IM GRAN % 0.200 Result Comment: IG% - Immature Granulocytes (promyelocytes, myelocytes and metamyelocytes) > 1% indicates that a LEFT SHIFT is Present. LAB L100.2620 2.0-7.7 X10 3/uL Normal Absolute Neut 4.5 LAB L100.2720 0.83-4.51 X10 3/ul Normal Absolute Lymph 0.92 Performed By: #### L100.0100 #### [facility] [address] [place], [address] PROTHROMBIN TIME W/INR Collected: 07/17/2018 Status: F Source: AURELIA 7:[address] [facility] REPOSITORY TYPE CODE TESTS RESULT OUT OF RANGE REFERENCE UNITS LAB L300.4150 11.7-14.9 SECONDS High PROTIME 22.2 LAB L300.4200 Normal INR 1.9 Performed By: #### L300.3900 #### [facility] [address] [place], [address] BASIC METABOLIC Collected: 07/17/2018 Status: F Source: [place] PROFILE (BMP) 7:[address] [facility] REPOSITORY TYPE CODE TESTS RESULT OUT OF RANGE REFERENCE UNITS LAB L501.0100 74-106 mg/dL High GLU 158 Result Comment: Fasting Glucose result greater than or equal to 126 mg/dL suggests DIABETES MELLITUS per A.D.A. criteria. Please note revised GLUCOSE reference range effective 2017. LAB L501.1000 7-18 mg/dL Normal BUN 15 LAB L501.1100 0.55-1.02 mg/dL Normal CREAT,SERUM 0.64 Result Comment: The validity of the calculated GFR AND GFRAA in patients over 70 years has not been determined. Clinical correlation is essential. LAB L501.1110 >60 mL/min Normal EST GFR 98 Result Comment: Non- GFR Calc LAB L501.1115 >60 mL/min Normal EST GFR - AA 119 Result Comment: GFR Calc LAB L501.1255 ml/min Normal Estimated CRCL 81.25 LAB L501.1300 10-20 RATIO High BUN/CRE 23.6 LAB L501.2200 8.5-10 mg/dL Low .1 CA 8.4 LAB L501.5300 136-14 mmol/L Normal 5 NA 138 LAB L501.5600 3.5-5. mmol/L Low 1 K 3.1 LAB L501.5900 98-107 mmol/L Low CL 95 LAB L501.6100 21.0-3 mmol/L High 2.0 CO2 34.0 LAB L501.6200 5-15 Normal GAP 9 Performed By: #### L500.2500 #### [facility] [address] [place], [address] MAGNESIUM Collected: 07/17/2018 Status: F Source: AURELIA 7:[address] [facility] REPOSITORY Order Comment: Comments: As add on test TYPE CODE TESTS RESULT OUT OF RANGE REFERENCE UNITS LAB L501.5200 1.6-2.6 mg/dL Low MG 1.4 Performed By: #### L501.5200 #### [facility] [address] [place], [address] BEDSIDE GLUCOSE Collected: 07/17/2018 Status: F Source: A[place]LIA 6:[address] [facility] REPOSITORY TYPE CODE TESTS RESULT OUT OF REFERENCE UNITS RANGE LAB L501.080 70-110 mg/dL High BEDSIDE GLU 162 Result Comment: MANAGEMENT OF PATIENT CARE PER NURSING PROTOCOL Performed By: #### L501.080 #### [facility] Point of Care [address] [place] [address] CHEST 1 VIEW Observed: 07/17/2018 Status: F Source: MICHEAL (PORTABLE) 12:[address] [facility] REPOSITORY [facility] Imaging Services [address] [place] [address] Chest 1 View (Portable) MR#: [id number] Acct: [id number] Name: KYAW ESPINOZA Rep #: [id number] : 1950 F 67 From: Tiago Seay DO PCP: Yocasta MANCILLATanja Status: ADM IN Study: Chest 1 View (Portable) Date of Exam: 07/17/18 Exam# [id number] Ordering Dr: Kat Bustos MD STUDY: X-RAY CHEST REASON FOR EXAM: Female, 67 years old. Shortness of breath TECHNIQUE: Single AP portable view of the chest. COMPARISON: 07/15/2018 FINDINGS: Lungs are hypoinflated. Slight decrease in diffuse pulmonary edema. Remainder is unchanged RAD/Chest 1 View (Portable) IMPRESSION: Slight interval improvement in pulmonary edema Electronically Signed: Tiago Seay DO at 8:22 EST Tel , Service support , CC: Kat Bustos MD; Tanja Rust MD Software Sales Executive: Signed BEDSIDE GLUCOSE Collected: 07/16/2018 Status: F Source: AURELIA 10:[address] [facility] REPOSITORY TYPE CODE TESTS RESULT OUT OF REFERENCE UNITS RANGE LAB L501.080 70-110 mg/dL High BEDSIDE GLU 213 Result Comment: MANAGEMENT OF PATIENT CARE PER NURSING PROTOCOL Performed By: #### L501.080 #### [facility] Point of Care [address] [place] [address] BEDSIDE GLUCOSE Collected: 07/16/2018 Status: F Source: AURELIA 3:[address] [facility] REPOSITORY TYPE CODE TESTS RESULT OUT OF REFERENCE UNITS RANGE LAB L501.080 70-110 mg/dL High BEDSIDE GLU 133 Result Comment: MANAGEMENT OF PATIENT CARE PER NURSING PROTOCOL Performed By: #### L501.080 #### [facility] Point of Care [address] [place], [place] [address] Observed: 07/16/2018 Status: F Source: AURELIA LEGIONELLA ANTIGEN 1:[address] [facility] URINE REPOSITORY Specimen Source: URINE, CLEAN CATCH Legionella, UR Legionella Antigen result interpretation: Negative Presumptive negative for Legionella pneumophila serogroup 1 antigen in urine, suggesting no recent or current infection. Legionella Ag, Urine Negative (See interpretation below) Performed By: #### M300.4500 #### [facility] [address] [facility] [place], [address] STREP Observed: 07/16/2018 Status: F Source: MICHEAL PNEUMONIAE ANTIG(UR,CSF) 1:[address] [facility] REPOSITORY S pneumo Ag URINE INTERPRETATION Negative Urine Presumptive negative for pneumococcal pneumonia, suggesting no current or recent pneumococcal infection. Infection due to S pneumoniae cannot be ruled out since the antigen present in the sample may be below the detection limit of the test. Strep pneumo Test Negative URINE (See interpretation below) Performed By: #### M300.4600 #### [facility] [address] [facility] [place], [address] BEDSIDE GLUCOSE Collected: 07/16/2018 Status: F Source: MICHEAL 11:[address] [facility] REPOSITORY TYPE CODE TESTS RESULT OUT OF REFERENCE UNITS RANGE LAB L501.080 70-110 mg/dL High BEDSIDE GLU 266 Result Comment: MANAGEMENT OF PATIENT CARE PER NURSING PROTOCOL Performed By: #### L501.080 #### [facility] Point of Care [address] [place] [address] BEDSIDE GLUCOSE Collected: 07/16/2018 Status: F Source: MICHEAL 7:[address] [facility] REPOSITORY TYPE CODE TESTS RESULT OUT OF REFERENCE UNITS RANGE LAB L501.080 70-110 mg/dL High BEDSIDE GLU 293 Result Comment: MANAGEMENT OF PATIENT CARE PER NURSING PROTOCOL Performed By: #### L501.080 #### [facility] Point of Care [address] [place] [address] HISTORY AND PHYSICAL Observed: 07/16/2018 Status: F Source: MICHEAL EXAM 6:[address] [facility] REPOSITORY [facility] Medical Records Department [address] [place] [id number] History and Physical 07/15/182121 MR#: [id number] Acct: [id number] Name: KYAW ESPINOZA Rep #: [id number] : 1950 67 From: Paolo Montanez MD PCP: Tanja Rust MD Status: ADM IN Location: [place]3 [id number] Problem List (1) Acute heart failure Status: Acute History of Present Illness Date of Admission: 07/15/18 Chief Complaint: shortness of breath The patient is a 67 year old F with a significant history of heart failure with preserved ejection fraction; hypertension; A. fib; Diabetes; and who had a right hip replacement on 07/12/2018 presenting with progressively worsening shortness of breath with exertion times 2 days. Patient had a right hip replacement at [facility]. She reports that whiles at [facility] her oxygen saturation decreased to a minimum of 83%. She was subsequently discharged home on incentive spirometer which she states she is unable to move it higher than previous. She lives with her friend; and physical therapy and home health nurse visit her. Her Home Health nurse realized that her oxygen saturation was at 83% -86%. Patient was scheduled to have another visits from physical therapy while at home; but with no other scheduled visits from home health nurse. Associated with her symptoms is dry cough, chills, malaise and weakness. She is able to walk with a walker but she has shortness of breath with exertion as stated above. She denies orthopnea or paroxysmal nocturnal dyspnea. She denies noting any increase in her weight or edema. Past Medical History Past Medical History (Chronic Problems): Chronic Problems PUD (peptic ulcer disease) (Chronic) Afib (Chronic) DM2 (diabetes mellitus, type 2) (Chronic) Hypothyroid (Chronic) Allergies atorvastatin calcium [From Lipitor] Allergy (Verified 07/15/18 19:33) Pain in joints clindamycin Allergy (Verified 07/15/18 19:33) Hives lisinopril Allergy (Verified 07/15/18 19:33) Unknown Penicillins [PCN] Allergy (Verified 07/15/18 19:33) Hives simvastatin [From Zocor] Allergy (Verified 07/15/18 19:33) Pain in joints Home Medications: Ambulatory Orders Medication Instructions Recorded Surgical History: total knee arthroplasty, - - History of tubal ligation, appendectomy, bilateral carpal tunnel surgery. Psychiatric History: No pertinent psych hx BUSINESS OFFICE ASSISTANT History: No pertinent BUSINESS OFFICE ASSISTANT history Lives: Friends Smoking Status: Former smoker Alcohol: None - *Family History Maternal History Items: Diabetes, Heart Disease Review of Systems Constitutional: Reports: Anorexia, Chills, Malaise, Weakness. Denies: Fever, Weight Change HEENT: Denies: Head Aches, Sinus Congestion, Sinus Drainage Cardiovascular: Denies: Chest Pain, Palpitations Respiratory: Reports: Shortness of breath upon exertion, Wheezing. Denies: Cough, Shortness of breath at rest, Sputum production Gastrointestinal: Reports: Nausea. Denies: Abdominal Pain, Vomiting Genitourinary: Denies: Dysuria Musculoskeletal: Reports: - - Right knee pain. Denies: Joint Pain Skin: Denies: Rash, Wounds Neurological: Denies: Numbness, Tingling, Focal weakness Psychiatric: Denies: Anxiety, Depression, Homicidal Ideations, Suicidal Ideations Hematologic/ Lymphatic: Denies: Easy Bruising, Easy Bleeding VTE Information - Inpt Only VTE Present on Admission: No VTE Mechan Device Prophylaxis: None VTE Pharm Prophylaxis ordered?: Yes Patient Problems: Active and Suspected Problems Acute heart failure (Acute) - Physical Exam General: Alert, Oriented x3, Cooperative HEENT: Atraumatic, PERRLA, EOMI, Normocephalic Neck: Supple, No JVD, Negative Carotid Bruits Lungs: Rales - Mild to moderate; diffuse. Cardiovascular: Regular rate, No murmurs Abdomen: Bowel Sounds Present, Soft, Non Tender Extremities: No edema, Capillary Refill Less than 3 Seconds, Edema - Around right knee., - - Right knee with dressing and erythema beneath dressing. Skin: No rashes, No breakdown Musculoskeletal: No Muscle Wasting Neurological: Neuro grossly intact Psych/Mental Status: Normal Affect, Appropriate Vital Signs Temp Pulse Resp BP Pulse Ox 98.2 F 86 20 H 121/58 H 93 07/15/18 19:33 07/15/18 19:50 07/15/18 19:50 07/15/18 19:40 07/15/18 19:50 Oxygen Flow Rate (L/min) 2 Oxygen Delivery Method Nasal Cannula Weight: 93.44 kg Body Mass Index (BMI) 43.0 Finger Stick Blood Glucose 161 Laboratory Tests Past 24 Hrs WBC RBC Hgb Hct MCV MCH MCHC RDW RDW Differential Assessment/Plan All Active Problems Acute heart failure (Acute) Heart failure with preserved ejection fraction (Acute) BPPV (benign paroxysmal positional vertigo) (Acute) Symptomatic anemia (Acute) The patient is a 67 year old F with a significant history of heart failure with preserved ejection fraction; hypertension; A. fib; Diabetes; and who had a right hip replacement on 07/12/2018 presenting with progressively worsening shortness of breath with exertion; and also with hypoxia and chills. Acute Hypoxemic Respiratory Failure The etiology of her acute hypoxemic respiratory failure is unclear at this time. Reportedly patient had oxygen saturation of as low as 83% while inpatient and at [facility]. On admission her oxygen saturation on 2 L is 93-95%. She does not have a white count by reportedly she had chills. Chest x-ray showed cardiomegaly and pulmonary congestion with bilateral basilar airspace consolidation. We will treat empirically for preserved heart failure exacerbation and pneumonia. Her echocardiogram on 01/12/2018 showed mild concentric left ventricular hypertrophy with normal left ventricular systolic function. Her ejection fraction was 55%. Her left atrium was moderately enlarged. Her right ventricular systolic pressure was 41. Patient received azithromycin and Rocephin at emergency department; will continue. Patient received Lasix at emergency department; will continue. Daily weights ordered. Strict intake and output. Diet: 2 g sodium diet with no concentrated sweets. Strep pneumo antigen and Legionella urine antigen ordered. Chest physiotherapy and incentive spirometer ordered. Scheduled DuoNeb and albuterol as needed. Mucinex ordered. Right knee surgery. Patient reported that she received of Dr. Reyes , orthopedic surgeon, in about 2 weeks for removal of her dressing. We will continue as needed Percocet for pain. We will continue Coumadin that was started after knee surgery a prophylactic for DVT/PE. On admission INR was 2. Of note patient has been started on macrolide that can increase her INR. A. fib Patient reports history of A. fib for which he sees Dr. Singleton, paediatrician. She reported that she is not on any anticoagulation for A. fib. Patient in sinus rhythm at this time. Admitted to [facility] with Telemetry. Atenolol continued. Hypertension On admission blood pressure was within goal. Home atenolol continued. Diabetes Patient reported that she was on both metformin and glipizide. But this time she is only on glipizide since A1c reduced to 6.0 At admission blood glucose was not within goal. We will continue glipizide and add a correction scale insulin. Restless leg syndrome Requip continued Hypothyroidism Synthroid continued GERD Pantoprazole continued DVT prophylaxis We will continue home Coumadin that was started after right knee surgery. Code Visit Inpatient E AND M: [id number] Init Hosp L3 07/16/18 0623 <Electronically signed by Paolo Montanez MD> Date Paolo Montanez MD Cosigner Signature: Date (if applicable) CC: Paolo Montanez MD; Tanja Rust MD Signed CBC W/DIFF, AUTOMATED Collected: 07/16/2018 Status: F Source: MICHEAL 5:[address] [facility] REPOSITORY TYPE CODE TESTS RESULT OUT OF RANGE REFERENCE UNITS LAB L100.1000 4.4-11.0 K/mm3 Normal WBC 8.1 LAB L100.1200 4.2-5.4 M/mm3 Low RBC 2.98 LAB L100.1300 12.0-15.0 g/dl Low HGB 8.7 LAB L100.1400 37-47 % Low HCT 27.1 LAB L100.1500 81-99 fL Normal MCV 90.9 LAB L100.1600 27.0-32.0 pg Normal MCH 29.2 LAB L100.1700 32-36 g/gl Normal MCHC 32.1 LAB L100.1810 11.6-14.6 % Normal RDW CV 14.1 LAB L100.1820 35.1-43.9 fl High RDW SD 47.1 LAB L100.1900 150-450 K/mm3 Normal PLT 173 LAB L100.2000 6.2-12.0 fl Normal MPV 10.3 LAB L100.2100 47-70 % High NEUT% 79.1 LAB L100.2200 19-41 % Low LY% 10.9 LAB L100.2300 0-10 % Normal MONO% 9.5 LAB L100.2400 0-5 % Normal EO% 0.1 LAB L100.2500 0-1 % Normal BASO% 0.2 LAB L100.2550 0.0-0.9 % Normal IM GRAN % 0.200 Result Comment: IG% - Immature Granulocytes (promyelocytes, myelocytes and metamyelocytes) > 1% indicates that a LEFT SHIFT is Present. LAB L100.2620 2.0-7.7 X10 3/uL Normal Absolute Neut 6.4 LAB L100.2720 0.83-4.51 X10 3/ul Normal Absolute Lymph 0.89 Performed By: #### L100.0100 #### [facility] [address] [place], [place], [address] BASIC METABOLIC Collected: 07/16/2018 Status: F Source: A[place] PROFILE (BMP) 5:[address] [facility] REPOSITORY TYPE CODE TESTS RESULT OUT OF RANGE REFERENCE UNITS LAB L501.0100 74-106 mg/dL High GLU 275 Result Comment: Glucose result greater than or equal to 200 mg/dL suggests DIABETES MELLITUS per A.D.A. criteria. Please note revised GLUCOSE reference range effective 2017. LAB L501.1000 7-18 mg/dL Normal BUN 15 LAB L501.1100 0.55-1.02 mg/dL Normal CREAT,SERUM 0.71 Result Comment: The validity of the calculated GFR AND GFRAA in patients over 70 years has not been determined. Clinical correlation is essential. LAB L501.1110 >60 mL/min Normal EST GFR 87 Result Comment: Non- GFR Calc LAB L501.1115 >60 mL/min Normal EST GFR - AA 105 Result Comment: GFR Calc LAB L501.1255 ml/min Normal Estimated CRCL 82.98 LAB L501.1300 10-20 RATIO High BUN/CRE 21.1 LAB L501.2200 8.5-10 mg/dL Normal .1 CA 8.6 LAB L501.5300 136-14 mmol/L Normal 5 NA 137 LAB L501.5600 3.5-5. mmol/L Normal 1 K 3.7 LAB L501.5900 98-107 mmol/L Low CL 97 LAB L501.6100 21.0-3 mmol/L Normal 2.0 CO2 31.0 LAB L501.6200 5-15 Normal GAP 9 Performed By: #### L500.2500 #### [facility] [address] [place], [place], [address] PROTHROMBIN TIME W/INR Collected: 07/16/2018 Status: F Source: MICHEAL 5:[address] [facility] REPOSITORY TYPE CODE TESTS RESULT OUT OF RANGE REFERENCE UNITS LAB L300.4150 11.7-14.9 SECONDS High PROTIME 23.3 LAB L300.4200 Normal INR 2.1 Performed By: #### L300.3900 #### [facility] [address] [place], [address] HEMOGLOBIN A1C Collected: 07/16/2018 Status: F Source: MICHEAL 5:[address] [facility] REPOSITORY Order Comment: Comments: as add on test TYPE CODE TESTS RESULT OUT OF RANGE REFERENCE UNITS LAB L501.9985 4.2-6.3 % High HGB A1C 7.0 Performed By: #### L501.9985 #### [facility] [address] [place], [address] BEDSIDE GLUCOSE Collected: 07/16/2018 Status: F Source: MICHEAL 1:[address] [facility] REPOSITORY TYPE CODE TESTS RESULT OUT OF REFERENCE UNITS RANGE LAB L501.080 70-110 mg/dL High BEDSIDE GLU 322 Result Comment: MANAGEMENT OF PATIENT CARE PER NURSING PROTOCOL Performed By: #### L501.080 #### [facility] Point of Care [address] [place] [address] EMERGENCY DEPARTMENT Observed: 07/15/2018 Status: F Source: MICHEAL SUMMARY 10:[address] [facility] REPOSITORY [facility] Medical Records Department [address] [place] [address] Emergency Department Summary 07/15/181939 MR#: [id number] Acct: [id number] Name: KYAW ESPINOZA Rep #: [id number] : 1950 67 From: Mark Peck MD PCP: Tanja Rust MD Status: ADM IN - ER Visit Summary Date of Service: 07/15/18 Chief Complaint: Shortness of breath, hypoxia History of Present Illness: The patient is a 67 F presents to the emergency department with shortness of breath and hypoxia. The patient was recently admitted at [facility]. She underwent right total knee replacement. She was just discharged 2 days ago. She is been at her rehab facility. She states while in the hospital, she was having shortness of breath and was hypoxic. She is not normally on oxygen. Over the past 2 days, she states that she has had scant cough and is felt more short of breath. Today, her pulse ox was in the mid 80s. She denies any chest pain. She does describe orthopnea. She is also had some generalized malaise but denies any fevers or chills. She has no history of pulmonary embolus. She states that she was placed on a blood thinner after her surgery. She has had no bright red blood per rectum. Physical Examination: Vital signs reviewed General: Well-nourished, well-developed Head: Normocephalic, atraumatic Eyes: Pupils equal and reactive, extraocular muscles intact Neck, supple, no lymphadenopathy Heart: Regular rate and rhythm Respiratory: No distress, diminished throughout Abdomen: Soft, nontender, nondistended, no peritoneal signs Back: Nontender Extremities: Nontender, postoperative site is clean, dry, and intact. There is small hematoma. There is no cords. Pulses are normal. Skin: Normal color no rash Neuro: Alert and oriented, no focal or lateralizing deficits Test Results: [] Emergency Department Course and Treatment: The patient presents with hypoxia. She was requiring supplemental oxygen. She had diminished lung sounds and crackles in her bases. Chest x-ray does show evidence of volume overload and a right lower lobe infiltrate. Her labs are unremarkable. Her BNP is elevated, but her EKG and cardiac enzymes are normal. I did review the patient's prior echo and she does have mild diastolic dysfunction. I do feel that her presentation is likely multifactorial. She had recent knee surgery and intraoperative fluids. She does appear to have decompensated heart failure, but is also had infectious type symptoms. She was treated with broad-spectrum antibiotics. Blood cultures were obtained. She was also given IV Lasix. At this time, the patient will be admitted for hypoxia for diuresis and continued treatment. Treatment Plan: [] Disposition: Admission Impression: 1. Hypoxia 2. Right lower lobe pneumonia 3. Decompensated congestive heart failure This note was generated with Celsenseation software. It may contain incorrect words, spelling, and punctuation that were not noted in review of the chart prior to signing ED Disposition - Plan for ED Patient: Chief Complaint: Shortness of Breath Referrals: Tanja Rust MD [Primary Care Provider] - What to do if you have Problems For any increased pain, shortness of breath, bleeding, nausea or vomiting, chest pain, or any unexpected problems, contact your Primary Care Provider. Call [facility] ([phone]) or report to the closest Emergency Room. Call 911 if necessary. 07/15/184 <Electronically signed by Mark Peck MD> Date Mark Peck MD Cosigner Signature (If Indicated): Date CC: Tanja Rust MD Observed: 07/15/2018 Status: F Source: MICHEAL CULTURE, BLOOD (WB) 8:20 PM [facility] REPOSITORY BC No growth in 5 days. Performed By: #### M200.1000 #### [facility] [address] [place], [address] LACTIC ACID Collected: 07/15/2018 Status: F Source: MICHEAL 7:[address] [facility] REPOSITORY Order Comment: Yes/No query for Sepsis Lactate Rule Y TYPE CODE TESTS RESULT OUT OF RANGE REFERENCE UNITS LAB L503.6005 0.4-2.0 mmol/L Normal LACTIC ACID 1.8 Performed By: #### L503.6005 #### [facility] [address] [place], [address] Observed: 07/15/2018 Status: F Source: MICHEAL CULTURE, BLOOD (WB) 7:50 PM [facility]OSPITAL REPOSITORY BC No growth in 5 days. Performed By: #### M200.1000 #### [facility] [address] [place], [address] CBC W/DIFF, AUTOMATED Collected: 07/15/2018 Status: F Source: MICHEAL 7:45 PM [facility]OSPITAL REPOSITORY TYPE CODE TESTS RESULT OUT OF RANGE REFERENCE UNITS LAB L100.1000 4.4-11.0 K/mm3 Normal WBC 9.4 LAB L100.1200 4.2-5.4 M/mm3 Low RBC 3.38 LAB L100.1300 12.0-15.0 g/dl Low HGB 9.8 LAB L100.1400 37-47 % Low HCT 30.8 LAB L100.1500 81-99 fL Normal MCV 91.1 LAB L100.1600 27.0-32.0 pg Normal MCH 29.0 LAB L100.1700 32-36 g/gl Low MCHC 31.8 LAB L100.1810 11.6-14.6 % Normal RDW CV 14.1 LAB L100.1820 35.1-43.9 fl High RDW SD 46.5 LAB L100.1900 150-450 K/mm3 Normal PLT 182 LAB L100.2000 6.2-12.0 fl Normal MPV 10.3 LAB L100.2100 47-70 % High NEUT% 81.7 LAB L100.2200 19-41 % Low LY% 9.4 LAB L100.2300 0-10 % Normal MONO% 8.1 LAB L100.2400 0-5 % Normal EO% 0.3 LAB L100.2500 0-1 % Normal BASO% 0.2 LAB L100.2550 0.0-0.9 % Normal IM GRAN % 0.300 Result Comment: IG% - Immature Granulocytes (promyelocytes, myelocytes and metamyelocytes) > 1% indicates that a LEFT SHIFT is Present. LAB L100.2620 2.0-7.7 X10 3/uL Normal Absolute Neut 7.7 LAB L100.2720 0.83-4.51 X10 3/ul Normal Absolute Lymph 0.89 Performed By: #### L100.0100 #### [facility] [address] [place], [address] COMPREHENSIVE METABOLIC Collected: 07/15/2018 Status: F Source: [facility] 7:[address] [facility] REPOSITORY TYPE CODE TESTS RESULT OUT OF RANGE REFERENCE UNITS LAB L501.0100 74-106 mg/dL High GLU 261 Result Comment: Glucose result greater than or equal to 200 mg/dL suggests DIABETES MELLITUS per A.D.A. criteria. Please note revised GLUCOSE reference range effective 2017. LAB L501.1000 7-18 mg/dL High BUN 19 LAB L501.1100 0.55-1.02 mg/dL Normal CREAT,SERUM 0.74 Result Comment: The validity of the calculated GFR AND GFRAA in patients over 70 years has not been determined. Clinical correlation is essential. LAB L501.1110 >60 mL/min Normal EST GFR 82 Result Comment: Non- GFR Calc LAB L501.1115 >60 mL/min Normal EST GFR - AA 100 Result Comment: GFR Calc LAB L501.1255 ml/min Normal Estimated CRCL 78.32 LAB L501.1300 10-20 RATIO High BUN/CRE 25.6 LAB L501.1500 6.4-8. g/dL Normal 2 T PROT 7.4 LAB L501.1800 3.2-5. g/dL Low 0 ALB 3.0 LAB L501.1950 2.2-4. g/dL High 2 GLOB 4.4 LAB L501.2000 0.9-2. RATIO Low 4 A/G 0.7 LAB L501.2200 8.5-10 mg/dL Normal .1 CA 8.5 LAB L501.4100 15-37 U/L High AST 44 LAB L501.4305 45-117 U/L High ALK P 136 LAB L501.4405 13-56 U/L Normal ALT 51 LAB L501.4600 0.20-1 mg/dL Normal .00 T BILI 0.80 LAB L501.5300 136-14 mmol/L Low 5 NA 135 LAB L501.5600 3.5-5. mmol/L Normal 1 K 4.0 LAB L501.5900 98-107 mmol/L Normal CL 99 LAB L501.6100 21.0-3 mmol/L Normal 2.0 CO2 28.0 LAB L501.6200 5-15 Normal GAP 8 Performed By: #### L500.4050, L501.4010 #### [facility] [address] [place], [address] TROPONIN-I Collected: 07/15/2018 Status: F Source: MICHEAL 7:[address] [facility] REPOSITORY TYPE CODE TESTS RESULT OUT OF RANGE REFERENCE UNITS LAB L501.4010 <0.045 ng/mL Normal < 0.015 TROPONIN-I Result Comment: TROPONIN-I EXPECTED VALUES <0.045 Negative 0.045 - 0.590 Consistent with Cardiac Damage > OR = 0.600 Critical Value Not every elevated troponin is indicative of VT. These values should be used with clinical judgement in examining the patient's clinical picture for diagnosis. To establish a diagnosis of VT versus myocardial injury, there must be a demonstrated rise and/or fall in the troponin values, in addition to ischemic symptoms, EKG changes, new regional wall motion abnormality, and/or angiographical evidence. PLEASE NOTE: REFERENCE RANGES EDITED 17 Performed By: #### L500.4050, L501.4010 #### [facility] [address] [place], [address] BNP,B-TYPE NATRIURETIC Collected: 07/15/2018 Status: F Source: AURELIA PEPTIDE 7:[address] [facility] REPOSITORY TYPE CODE TESTS RESULT OUT OF RANGE REFERENCE UNITS LAB L503.6620 0-100 pg/mL High B-TYPE 452.0 CLARISSA PEP Performed By: #### L503.6620 #### [facility] [address] [facility] [place], [address] PROTHROMBIN TIME W/INR Collected: 07/15/2018 Status: F Source: MICHEAL 7:[address] [facility] REPOSITORY TYPE CODE TESTS RESULT OUT OF RANGE REFERENCE UNITS LAB L300.4150 11.7-14.9 SECONDS High PROTIME 23.0 LAB L300.4200 Normal INR 2.0 Performed By: #### L300.3900 #### [facility] [address] [place], [address] CHEST 1 VIEW Observed: 07/15/2018 Status: F Source: AURELIA (PORTABLE) 7:[address] [facility] REPOSITORY [facility] Imaging Services [address] [place] [address] Chest 1 View (Portable) MR#: [id number] Acct: [id number] Name: KYAW ESPINOZA Rep #: [id number] : 1950 F 67 From: Erlinda Diaz MD PCP: Elderbrock MD,Tanja Status: PRE ER Study: Chest 1 View (Portable) Date of Exam: 07/15/18 Exam# [id number] Ordering Dr: Mark Peck MD STUDY: X-RAY CHEST REASON FOR EXAM: Female, 67 years old. Shortness of breath after total right knee arthroplasty on Thursday. TECHNIQUE: Single AP portable view of the chest. COMPARISON: Chest radiograph dated January 12, 2018. FINDINGS: Cardiac monitoring leads are present. The lungs are expanded. There is heterogeneous airspace consolidation at the right lung base and left lung base. There is interstitial thickening visible throughout both lungs. There is questionable a small effusion at the right costophrenic angle. There is mild cardiac enlargement. Normal mediastinum and dorinda. There is prominence of the pulmonary hilar arteries without peripheral pulmonary vascular congestion. There is atherosclerotic tortuosity of the aortic arch and descending thoracic aorta. There is demineralization of the osseous structures. Normal visualized ribs, clavicles, and shoulders. There is no demonstrated abnormality of the visualized soft tissue structures of the upper abdomen. RAD/Chest 1 View (Portable) IMPRESSION: Cardiomegaly and pulmonary congestion with bilateral basilar airspace consolidations. Electronically Signed: Erlinda Diaz MD at 20:02 EST , Service support , CC: Tanja Rust MD; Mark Peck MD Software Sales Executive: Signed GLUCOSE POC Collected: 07/14/2018 Status: F Source: EPISCOPAL 11:21 AM [facility] REPOSITORY TYPE CODE TESTS RESULT OUT OF REFERENCE UNITS RANGE LAB 74114020(LO 70-99 mg/dL INC) High Glucose POC 228 Performed By: #### [id number] #### [place] [address] GLUCOSE POC Collected: 07/14/2018 Status: F Source: EPISCOPAL 7:10 AM [facility] REPOSITORY TYPE CODE TESTS RESULT OUT OF REFERENCE UNITS RANGE LAB [id number](LO 70-99 mg/dL INC) High Glucose POC 208 Performed By: #### [id number] #### YARTIZA POC Subsection [facility] [place] [id number] HCT & HGB Collected: 07/14/2018 Status: F Source: EPISCOPAL 6:01 AM [facility] REPOSITORY TYPE CODE TESTS RESULT OUT OF RANGE REFERENCE UNITS LAB [id number](LO 12.0-16.0 G/DL INC) Low Hgb 9.9 LAB 82011381(LO 36.0-48.0 % INC) Low Hct 29.7 Performed By: #### [id number] #### YARTIZA [employer] [address] [place] [address] PT Collected: 07/14/2018 Status: F Source: EPISCOPAL 6:01 AM [facility] REPOSITORY Order Comment: If Coumadin ordered TYPE CODE TESTS RESULT OUT OF RANGE REFERENCE UNITS LAB [id number](LO 1.0-1.2 INC) High INR 1.6 Result Comment: INR Recommended Therapeuptic Ranges: Prophylaxis/treatment of DVT and PE?2.0-3.0 Prevention of systemic embolism?.2.0-3.0 Mechanical prosthetic values?2.5-3.5 CRITICAL VALUES?.>4.0 LAB 43922475(LOINC) 11.6-14.6 second(s) High PT 18.1 Performed By: #### [id number] #### YARITAZ [employer] Automated Subsection [facility] [place] [address] GLUCOSE POC Collected: 07/13/2018 Status: F Source: EPISCOPAL 8:15 PM [facility] REPOSITORY TYPE CODE TESTS RESULT OUT OF REFERENCE UNITS RANGE LAB [id number](LO 70-99 mg/dL INC) High Glucose POC 227 Performed By: #### [id number] #### YARITZA POC Subsection [facility] [place] [address] GLUCOSE POC Collected: 07/13/2018 Status: F Source: EPISCOPAL 4:47 PM [facility] REPOSITORY TYPE CODE TESTS RESULT OUT OF REFERENCE UNITS RANGE LAB 86891697(LO 70-99 mg/dL INC) High Glucose POC 138 Performed By: #### [id number] #### YARITZA POC Subsection [address] [place] [address] GLUCOSE POC Collected: 07/13/2018 Status: F Source: EPISCOPAL 11:22 AM [facility] REPOSITORY TYPE CODE TESTS RESULT OUT OF REFERENCE UNITS RANGE LAB [id number](LO 70-99 mg/dL INC) High Glucose POC 186 Performed By: #### [id number] #### YARITZA POC Subsection [address] [place] [address] GLUCOSE POC Collected: 07/13/2018 Status: F Source: EPISCOPAL 7:45 AM [facility] REPOSITORY TYPE CODE TESTS RESULT OUT OF REFERENCE UNITS RANGE LAB 63205075(LO 70-99 mg/dL INC) High Glucose POC 179 Performed By: #### [id number] #### YARITZA POC Subsection [address] [place] [address] HCT & HGB Collected: 07/13/2018 Status: F Source: EPISCOPAL 6:07 AM [facility] REPOSITORY TYPE CODE TESTS RESULT OUT OF RANGE REFERENCE UNITS LAB [id number](LO 12.0-16.0 G/DL INC) Low Hgb 10.1 LAB 25600668(LO 36.0-48.0 % INC) Low Hct 30.5 Performed By: #### [id number] #### YARITZA [employer] [address] [place] [address] PT Collected: 07/13/2018 Status: F Source: EPISCOPAL 6:07 AM [facility] REPOSITORY Order Comment: If Coumadin ordered TYPE CODE TESTS RESULT OUT OF RANGE REFERENCE UNITS LAB [id number](LO 1.0-1.2 INC) Normal INR 1.1 Result Comment: INR Recommended Therapeuptic Ranges: Prophylaxis/treatment of DVT and PE?2.0-3.0 Prevention of systemic embolism?.2.0-3.0 Mechanical prosthetic values?2.5-3.5 CRITICAL VALUES?.>4.0 LAB 65986343(LOINC) 11.6-14.6 second(s) Normal 14.0 PT Performed By: #### [id number] #### YARITZA [employer]emat[employer] Autom[employer] Subsection [address] [place] [address] BMP Collected: 07/13/2018 Status: F Source: EPISCOPAL 6:07 AM [facility] REPOSITORY TYPE CODE TESTS RESULT OUT OF RANGE REFERENCE UNITS LAB 03795629(L 70-99 mg/dL OINC) High Glucose Lvl 175 LAB 83021531(L 6-23 mg/dL OINC) High BUN 28 LAB 5885908(LO 0.5-1.1 mg/dL INC) Normal Creatinine 0.9 LAB 90071130(L 5.4-30.0 ratio OINC) High BUN/Creat Ratio 31.1 LAB 01376212(L 8.6-10.3 mg/dL OINC) Low Calcium Lvl 8.5 LAB 45865704(L 136-145 mEq/L OINC) Low Sodium Lvl 134 LAB 02578903(L 3.5-5.3 mEq/L OINC) Normal Potassium Lvl 4.4 LAB 08522278(L 98-107 mEq/L OINC) Chloride Normal 100 LAB 85941372(L 21.0-32.0 mEq/L OINC) CO2 Normal 26.0 LAB [id number](L 10-20 mEq/L OINC) AGAP Normal 12 Performed By: #### [id number] #### YARTIZA [employer] [facility] [place] [address] EGFR Collected: 07/13/2018 Status: F Source: EPISCOPAL 6:07 AM [facility] REPOSITORY Order Comment: Order added by Discern Expert. TYPE CODE TESTS RESULT OUT OF RANGE REFERENCE UNITS LAB [id number](LO mL/min/1.73 INC) m2 Normal eGFR >60 LAB 41066163(LO mL/min/1.73 INC) m2 Normal eGFR AA >60 Performed By: #### [id number] #### YARITZA [employer] [address] [place] [id number] GLUCOSE POC Collected: 07/12/2018 Status: F Source: EPISCOPAL 8:39 PM [facility] REPOSITORY TYPE CODE TESTS RESULT OUT OF REFERENCE UNITS RANGE LAB 36609883(LO 70-99 mg/dL INC) High Glucose POC 283 Performed By: #### [id number] #### YARITZA POC Subsection [address] [place] [address] GLUCOSE POC Collected: 07/12/2018 Status: F Source: EPISCOPAL 4:51 PM [facility] REPOSITORY TYPE CODE TESTS RESULT OUT OF REFERENCE UNITS RANGE LAB 15778631(LO 70-99 mg/dL INC) High Glucose POC 203 Performed By: #### [id number] #### YARITZA POC Subsection [address] [place] [address] GLUCOSE POC Collected: 07/12/2018 Status: F Source: EPISCOPAL 10:58 AM [facility] REPOSITORY TYPE CODE TESTS RESULT OUT OF REFERENCE UNITS RANGE LAB [id number](LO 70-99 mg/dL INC) High Glucose POC 237 Performed By: #### [id number] #### YARITZA POC Subsection [address] [place] [address] XR KNEE 1 OR 2 Observed: 07/12/2018 Status: F Source: EPISCOPAL VIEWS RIGHT 10:16 AM [facility] REPOSITORY Exam Date/Time: 07/12/2018 10:22 EST Reason for Exam: Post-op total knee;Post Op Report STUDY: XR Knee 1 or 2 Views Right; 07/12/2018 10:22 am INDICATION: Post Op. COMPARISON: None. ACCESSION NUMBER(S): [id number] ORDERING CLINICIAN: Beck Reyes FINDINGS: Total knee arthroplasty with patellar resurfacing with apparent satisfactory positioning of prosthetic components. Bursal in soft tissue air in keeping with recent operative status. IMPRESSION: Expected findings post right total knee arthroplasty FINAL REPORT Dictated: 07/12/2018 10:44 am Paolo Lindsay MD Signed (Electronic Signature): 07/12/2018 10:44 am Signed by: Paolo Lindsay MD Technologist: HLL GLUCOSE POC Collected: 07/12/2018 Status: F Source: EPISCOPAL 6:36 AM [facility] REPOSITORY TYPE CODE TESTS RESULT OUT OF REFERENCE UNITS RANGE LAB [id number](LO 70-99 mg/dL INC) High Glucose POC 169 Performed By: #### [id number] #### YARITZA POC Subsection [address] [place] [address] ALT Collected: 07/10/2018 Status: F Source: EPISCOPAL 8:31 AM [facility] REPOSITORY TYPE CODE TESTS RESULT OUT OF RANGE REFERENCE UNITS LAB [id number](LO 7-45 Int._Unit/L INC) Normal ALT 17 Performed By: #### [id number] #### YARITZA [employer] [facility] [place] [address] CK Collected: 07/10/2018 Status: F Source: EPISCOPAL 8:31 AM [facility] REPOSITORY TYPE CODE TESTS RESULT OUT OF RANGE REFERENCE UNITS LAB [id number](LO <=215 Int._Unit/L INC) Normal Total CK 109 Performed By: #### [id number] #### YARITZA [employer] [address] [place] [address] LIPID PROFILE Collected: 07/10/2018 Status: F Source: EPISCOPAL 8:31 AM [facility] REPOSITORY TYPE CODE TESTS RESULT OUT OF RANGE REFERENCE UNITS LAB [id number](LO 0-199 mg/dL INC) Normal Chol 198 Result Comment: TOTAL CHOLEESTEROL: <200 NORMAL 200 - 239 BORDERLINE HIGH >240 HIGH LAB 28935414(LOINC) 40-60 mg/dL Normal HDL 48 LAB [id number](LOINC) 0-130 mg/dL Normal LDL 105 Result Comment: <100 OPTIMAL 100-129 NEAR / ABOVE OPTIMAL 130-159 BORDERLINE HIGH 160-189 HIGH >190 VERY HIGH CALC LDL NOT VALID WHEN TRIGLYCERIDE IS >400 MG/DL LAB 17050861(LOINC) 0-149 mg/dL High Trig 225 Result Comment: AGE DESIRABLE BORDERLINE HIGH 91 D - 9 Y 0 - 74 75 - 99 > 100 10 - 19 Y 0 - 89 90 - 129 > 130 20 -24 Y 0 - 114 115 - 149 > 150 > 25 0 - 149 150 - 199 200 - 499 LAB [id number](LOINC) 0-40 mg/dL High VLDL 45 Performed By: #### [id number] #### YARITZA [employer] [facility] [place] [address] CNOV Observed: 06/25/2018 Status: COMPLETED Source: KORY 1:20 PM [facility] REPOSITORY Office Visit (FAMPWS) KYAW ESPINOZA ([id number]) 1950 F Date Time Provider Department 06/25/18 1:20 PM TANJA RUST During your visit today, we recorded the following information about you: Pulse Respiration Blood pressure Weight 60/minute 16/minute 122/72 93.3 kg Tanja Rust MD 06/28/2018 5:13 PM Signed Chief Complaint Patient presents with: Pre-Op Exam: R knee replacement Results: Labs HPI Kyaw Espinoza is a 67 year old female who presents here today for a Pre-Op Exam. Pt here today for Pre-Op Exam for TKR, right on 07/12/[address] Reyes. All Pre-Op testing was completed on 06/15/18 at per documents that have been faxed to this office. Patient states that once this knee is completed she will have to fix the other one. Notes that she is tired a lot but feels this is related to pain. Denies any prior issues with surgery or complications. HTN - Denies checking BP at home. No symptoms of chest pain, sob or dizziness. Currently taking Atenolol 50 mg once daily. DM - Discontinued Metformin with improvement in dizzy spells. Denies checking sugars at home and no longer feeling low blood sugars. Denies neuropathy symptoms. Taking Glipizide 5 mg once daily. A1c was 6.5 on 06/06/18, stable without use of Metformin. Lipids - Dr. Mancilla has switched medications due to cholesterol being elevated on recent lab work. She has been put on Zetia 10 mg once daily from Lopid 600 mg bid. Thyroid - Stable per last lab work. Currently taking Levothyroxine 112 mcg once daily. RLS - Does well with Requip 0.25 mg 2 at bedtime. When she takes a nap during the day her legs tend to keep her awake. Requests use of 2 at nap time as well. Past medical history, appointments, medications, allergies reviewed. Previous Medical History PAST MEDICAL HISTORY Diagnosis Date - Afib (HCC) 09/22/2016 - Hypertension - Major depressive disorder, single episode, mild (HCC) - Other and unspecified hyperlipidemia - Type I (juvenile type) diabetes mellitus without mention of complication, not stated as uncontrolled - Unspecified hypothyroidism Previous Surgical History PAST SURGICAL HISTORY Procedure Laterality Date - CARPAL TUNNEL 80's? bilateral - EGD 04/20/2018 Dr. Milton Richardson - LAPAROSCOPIC CHOLEYCYSTECTOMY 09/19/13 - LIGATE FALLOPIAN TUBE 77? Tubal ligation and appendectomy - PAST SURGICAL HISTORY OF 01/26/2017 Heart catherization, [facility] by Dr. Roger Family History FAMILY HISTORY Problem Relation Age of Onset - Diabetes Mother - Heart Mother - Stroke Mother - Cancer Maternal Uncle Unknown primary - Diabetes Father - Diabetes Maternal Aunt - Stroke Maternal Aunt - Cancer Maternal Aunt The female kind. Patient Allergies ALLERGIES Allergen Reactions - Clindamycin Hives - Klor-Con [Potassium* Hives - Lipitor [Atorvastat* Intolerance Muscle pain - Lisinopril Cough - Penicillins Hives - Gsdnrov-Aim-Ftv Red* Other: See Comments Muscle pain - Zocor [Simvastatin] Intolerance Muscle pain Current Medications Current Outpatient Prescriptions on File Prior to Visit: ezetimibe (ZETIA) 10 mg tablet Take 1 tablet by mouth once daily. rOPINIRole (REQUIP) 0.25 mg tablet Take 2 tablets by mouth daily at bedtime. pantoprazole DR (PROTONIX) 40 mg tablet Take 1 tablet by mouth once daily. citalopram (CELEXA) 40 mg tablet Take 0.5 tablets by mouth once daily. glipiZIDE XL (GLUCOTROL XL) 5 mg 24 hr tablet Take 1 tablet by mouth once daily. atenolol (TENORMIN) 50 mg tablet Take 1 tablet by mouth once daily. ferrous sulfate 325 mg (65 mg iron) tablet Take 1 tablet by mouth daily with breakfast. levothyroxine (SYNTHROID) 112 mcg tablet TAKE ONE TABLET BY MOUTH ONCE DAILY fluticasone (FLONASE) 50 mcg/actuation nasal spray Use 2 Sprays in each nostril once daily. Rinse mouth after use. nystatin-triamcinolone (MYCOLOG II) cream Apply 1 application to affected area twice daily. triamcinolone acetonide (KENALOG) 0.1 % cream Apply 1 application to affected area three times daily. Apply sparingly to area for rash/itching. nitroglycerin sublingual (NITROQUICK) 0.4 mg SL tablet Dissolve 1 tablet under the tongue as needed. FOR CHEST PAIN. IF NO RELIEF CALL 911 Zazxjtbhnjkaw-Le-Lwxu-Minerals (ONE-A-DAY WOMENS FORMULA) 27-0.4 mg ORAL Tab Take by mouth once daily. calcium carbonate-Vit D3-minerals (CALTRATE PLUS) 600-400 mg-unit ORAL Tab Take 1 tablet by mouth twice daily. omega-3 fatty acids (FISH OIL CONCENTRATE) 1,000 mg ORAL Cap Take 1 capsule by mouth twice daily. metFORMIN (GLUCOPHAGE) 500 mg tablet Take 1 tablet by mouth daily with breakfast. gemfibrozil (LOPID) 600 mg tablet Take 1 tablet by mouth twice daily with meals. meclizine 25 mg chewable tablet(s) Take 25 mg by mouth as needed. No current facility-administered medications on file prior to visit. Social History Social History Marital status: Spouse name: Years of education: Number of children: Occupational History Occupation Employer Comment [employer]. 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 Social History Main Topics Smoking status: Never Smoker Smokeless tobacco: Never Used Comment: Mother smoked in childhood home. No smokers in home for many years. Alcohol use: No Drug use: No Social History Narrative Blood type-AB Positive EXAM: BP 122/72 (BP Site: Left Arm, BP Position: Sitting, BP Cuff Size: Regular Adult) Pulse 60 Resp 16 Wt 93.3 kg (205 lb 9.6 oz) BMI 43.75 kg/m? General Appearance: Well appearing, alert, in no acute distress, well-hydrated, well nourished. and Obese. Lungs: lungs clear to auscultation. No wheezing, rhonchi, rales. Heart: RRR without murmur, gallop, or rubs. No ectopy. Health Maintenance List PAP EVERY 3 YEARS (65-80 YEARS OLD) due on 12/28/2013 DTAP,TDAP,TD(1 - Tdap) due on 12/05/2014 INFLUENZA(1) due on 04/17/2018 DIABETIC FOOT EXAM due on 07/10/2018 FECAL OCCULT BLOOD due on 07/13/2018 DIABETES MED ADHERENCE due on 07/17/2018 URINE ALBUMIN:CREATININE RATIO due on 09/19/2018 HBA1C due on 12/04/2018 MAMMOGRAM due on 04/06/2019 ANNUAL PCP TEAM CHRONIC DISEASE VISIT due on 04/06/2019 BP CONTROLLED (<130/80) due on 04/06/2019 DILATED RETINAL EXAM due on 05/26/2019 LDL CHOLESTEROL due on 06/05/2019 BONE DENSITY Completed ADULT PREVNAR-13 Completed HEPATITIS C SCREENING Completed PNEUMOVAX AGE 65 AND OVER WITH 5YR LOOKBACK Completed Data reviewed Appointment on 06/05/2018 Component Date Value - Protein, Total 06/05/2018 7.5 - Albumin 06/05/2018 4.4 - Calcium 06/05/2018 9.8 - Bilirubin, Total 06/05/2018 0.3 - Alkaline Phosphatase 06/05/2018 86 - AST 06/05/2018 14 - Glucose 06/05/2018 185* - BUN 06/05/2018 21 - Creatinine 06/05/2018 0.81 - Sodium 06/05/2018 138 - Potassium 06/05/2018 4.7 - Chloride 06/05/2018 99 - CO2 06/05/2018 26 - Anion Gap 06/05/2018 13 - ALT 06/05/2018 10 - eGFR- 06/05/2018 >60 - eGFR-All Other Races 06/05/2018 >60 - Cholesterol, Total 06/05/2018 232* - Triglyceride 06/05/2018 152* - HDL Cholesterol 06/05/2018 38* - LDL Cholesterol 06/05/2018 164* - Non HDL Cholesterol 06/05/2018 194* - Fasting Time 06/05/2018 12 - VLDL Cholesterol 06/05/2018 30* - TC:HDL Ratio 06/05/2018 6.11* - LDL:HDL Ratio 06/05/2018 4.32* - Hemoglobin A1C 06/05/2018 6.5* - Estimated Average Glucose 06/05/2018 140 - WBC 06/05/2018 5.84 - RBC 06/05/2018 4.19 - Hemoglobin 06/05/2018 12.6 - Hematocrit 06/05/2018 39.2 - MCV 06/05/2018 93.6 - MCH 06/05/2018 30.1 - MCHC 06/05/2018 32.1 - RDW-CV 06/05/2018 14.3 - Platelet Count 06/05/2018 276 - MPV 06/05/2018 11.5 - Neut% 06/05/2018 56.3 - Abs Neut (ANC) 06/05/2018 3.28 - Lymph% 06/05/2018 29.3 - Abs Lymph 06/05/2018 1.71 - [place]% 06/05/2018 8.9 - Abs [place] 06/05/2018 0.52 - Eosin% 06/05/2018 4.8 - Abs Eosin 06/05/2018 0.28 - Baso% 06/05/2018 0.7 - Abs Baso 06/05/2018 0.04 - Nucleated Reds 06/05/2018 0.0 - Absolute nRBC 06/05/2018 <0.01 - Diff Type 06/05/2018 Auto Diff ASSESSMENT/PLAN: 1. Pre-op exam - ICD9: V72.84, ICD10: Z01.818 (primary diagnosis) - Medically optimized for surgery; proceed as planned 2. Essential hypertension, benign - ICD9: 401.1, ICD10: I10 - good control - Continue current medication(s) - Goal of BP <130/80 3. Hypothyroidism, unspecified type - ICD9: 244.9, ICD10: E03.9 - Instructed patient on importance of taking on an empty stomach either first thing in the morning or at bedtime. - Continue current medication regimen. 4. Hyperlipidemia, unspecified hyperlipidemia type - ICD9: 272.4, ICD10: E78.5 - Continue current medication regimen. 5. Restless legs syndrome (RLS) - ICD9: 333.94, ICD10: G25.81 - Change to 2 tabs po twice daily for symptom control 6 mo f/u with labs I agree with the Chief Complaint, ROS, and Past Histories independently gathered by the clinical customer support executive and the remaining scribed note accurately describes my personal service to the patient. Tanja Rust MD The documentation for this note was completed by Ariadna Buenrostro Ma acting as scribe for Tanja Rust MD. June 25, 2018 1:19 PM. Referring Provider: SELF [[id number]] Allergies As of Date: 06/25/2018 Noted Allergy Reaction CLINDAMYCIN 12/04/2008 4 - Hives KLOR-CON (POTASSIUM CHLORIDE) 12/08/2013 4 - Hives LIPITOR (ATORVASTATIN CALCIUM) 07/14/2005 5 - Intolerance Comments: Muscle pain LISINOPRIL 12/08/2013 3 - Cough PENICILLINS 07/14/2005 4 - Hives [id number]-WOJ-OVG REDUCTASE INHIBIT*06/07/2014 14 - Other: See Comments Comments: Muscle pain ZOCOR (SIMVASTATIN) 07/14/2005 5 - Intolerance Comments: Muscle pain Date Reviewed: 06/25/2018 Reviewed by: Ariadna Buenrostro Ma - Fully Assessed Reason for Visit: Pre-Op Exam [87] Cmt: R knee replacement Results [95] Cmt: Labs Reason For Visit History Recorded Primary Visit Diagnosis:Pre-op exam [Z01.818] Other Visit Diagnoses:Essential hypertension, benign [I10] Hypothyroidism, unspecified type [E03.9] Hyperlipidemia, unspecified hyperlipidemia type [E78.5] Restless legs syndrome (RLS) [G25.81] Controlled type 2 diabetes mellitus without complication, without long-term current use of insulin (HCC) [E11.9] Order(s):rOPINIRole (REQUIP) 0.25 mg tabletTake 2 tablets by mouth twice daily.Disp: 120 tabletRfl: 5 COMP METABOLIC PANEL [SQCMP] Order #: [id number] FUTURE LIPID PANEL BASIC [SQLIPB] Order #: [id number] FUTURE HGB A1C [SYZHM0H] Order #: [id number] FUTURE TSH BLD [SQTSH] Order #: [id number] FUTURE Prescriptions as of 06/25/2018 Sig: ROPINIROLE 0.25 MG TABLET Take 2 tablets by mouth twice* EZETIMIBE 10 MG TABLET Take 1 tablet by mouth once d* PANTOPRAZOLE 40 MG TABLET,DEL* Take 1 tablet by mouth once d* CITALOPRAM 40 MG TABLET Take 0.5 tablets by mouth onc* GLIPIZIDE ER 5 MG TABLET, EXT* Take 1 tablet by mouth once d* ATENOLOL 50 MG TABLET Take 1 tablet by mouth once d* FERROUS SULFATE 325 MG (65 MG* Take 1 tablet by mouth daily * LEVOTHYROXINE 112 MCG TABLET TAKE ONE TABLET BY MOUTH ONCE* FLUTICASONE 50 MCG/ACTUATION * Use 2 Sprays in each nostril * NYSTATIN-TRIAMCINOLONE 100,00* Apply 1 application to affect* TRIAMCINOLONE ACETONIDE 0.1 %* Apply 1 application to affect* NITROGLYCERIN 0.4 MG SUBLINGU* Dissolve 1 tablet under the t* * ZVWFJNLKHZKA-ZU-LGTV-MINERALS* Take by mouth once daily. * CALCIUM CARB-VIT D3-MINERALS * Take 1 tablet by mouth twice * * OMEGA-3 FATTY ACIDS 1,000 MG * Take 1 capsule by mouth twice* METFORMIN 500 MG TABLET Take 1 tablet by mouth daily * GEMFIBROZIL 600 MG TABLET Take 1 tablet by mouth twice * MECLIZINE 25 MG CHEWABLE TABL* Take 25 mg by mouth as needed. Problem List As Of Date 06/25/2018 Noted Resolved Hypothyroidism [E03.9] Hyperlipidemia [E78.5] BENIGN HYPERTENSION [I10] INVALID FOR* Diabetes mellitus type 2, controlled, without c*INVALID FOR* Depression [F32.9] INVALID FOR* Lumbago [M54.5] INVALID FOR* Spinal stenosis, lumbar region, without neuroge*INVALID FOR* L-S radiculopathy [M54.17] INVALID FOR* Cholelithiasis [K80.20] INVALID FOR* Afib (HCC) [I48.91] INVALID FOR* Obesity, Class III, BMI 40-49.9 (morbid obesity*INVALID FOR* Prescriptions ordered this encounter Disp Refills Start End ROPINIROLE 0.25 MG TABLET 120 * 5 06/25/2018 Route: ORAL Sig: Take 2 tablets by mouth twice daily. Medications Discontinued During This Encounter rOPINIRole (REQUIP) 0.25 mg tablet 180 * 1 04/15/2018 06/25/2018 Route: ORAL Sig: Take 2 tablets by mouth daily at bedtime. Disc: Reason for discontinue is not on file. Disposition: Return in about 6 months (around 12/23/2018). Follow-up and Disposition History Recorded Letter Text Tanja Rust MD [address] [place], [place] [address] 06/25/2018 Kyaw Espinoza [address] [place] [address] Dr. Reyes, I saw Kyaw S Alexis in my office today for a pre-op examination. She is medically stable to proceed with the planned R TKA on 07/12/2018. Enclosed are my office notes from the visit. Sincerely yours, Tanja Rust MD Encounter Status:Closed by TANJA RUST MD on 06/28/18 PROGRESS Observed: 06/25/2018 Status: COMPLETED Source: [facility] 1:19 PM [facility] REPOSITORY HNO ID: [id number] Author: Tanja Rust Service: (none) Author Type: Physician Type: Progress Notes Filed: 06/28/2018 5:13 PM Note Text: Chief Complaint Patient presents with: Pre-Op Exam: R knee replacement Results: Labs HPI Kyaw Espinoza is a 67 year old female who presents here today for a Pre-Op Exam. Pt here today for Pre-Op Exam for TKR, right on 07/12/[address] Reyes. All Pre-Op testing was completed on 06/15/18 at per documents that have been faxed to this office. Patient states that once this knee is completed she will have to fix the other one. Notes that she is tired a lot but feels this is related to pain. Denies any prior issues with surgery or complications. HTN - Denies checking BP at home. No symptoms of chest pain, sob or dizziness. Currently taking Atenolol 50 mg once daily. DM - Discontinued Metformin with improvement in dizzy spells. Denies checking sugars at home and no longer feeling low blood sugars. Denies neuropathy symptoms. Taking Glipizide 5 mg once daily. A1c was 6.5 on 06/06/18, stable without use of Metformin. Lipids - Dr. Mancilla has switched medications due to cholesterol being elevated on recent lab work. She has been put on Zetia 10 mg once daily from Lopid 600 mg bid. Thyroid - Stable per last lab work. Currently taking Levothyroxine 112 mcg once daily. RLS - Does well with Requip 0.25 mg 2 at bedtime. When she takes a nap during the day her legs tend to keep her awake. Requests use of 2 at nap time as well. Past medical history, appointments, medications, allergies reviewed. Previous Medical History PAST MEDICAL HISTORY Diagnosis Date - Afib (HCC) 09/22/2016 - Hypertension - Major depressive disorder, single episode, mild (HCC) - Other and unspecified hyperlipidemia - Type I (juvenile type) diabetes mellitus without mention of complication, not stated as uncontrolled - Unspecified hypothyroidism Previous Surgical History PAST SURGICAL HISTORY Procedure Laterality Date - CARPAL TUNNEL 80's? bilateral - EGD 04/20/2018 Dr. Milton Richardson - LAPAROSCOPIC CHOLEYCYSTECTOMY 09/19/13 - LIGATE FALLOPIAN TUBE 77? Tubal ligation and appendectomy - PAST SURGICAL HISTORY OF 01/26/2017 Heart catherization, [facility] by Dr. Roger Family History FAMILY HISTORY Problem Relation Age of Onset - Diabetes Mother - Heart Mother - Stroke Mother - Cancer Maternal Uncle Unknown primary - Diabetes Father - Diabetes Maternal Aunt - Stroke Maternal Aunt - Cancer Maternal Aunt The female kind. Patient Allergies ALLERGIES Allergen Reactions - Clindamycin Hives - Klor-Con [Potassium* Hives - Lipitor [Atorvastat* Intolerance Muscle pain - Lisinopril Cough - Penicillins Hives - Jgsysyb-Cej-Gyc Red* Other: See Comments Muscle pain - Zocor [Simvastatin] Intolerance Muscle pain Current Medications Current Outpatient Prescriptions on File Prior to Visit: ezetimibe (ZETIA) 10 mg tablet Take 1 tablet by mouth once daily. rOPINIRole (REQUIP) 0.25 mg tablet Take 2 tablets by mouth daily at bedtime. pantoprazole DR (PROTONIX) 40 mg tablet Take 1 tablet by mouth once daily. citalopram (CELEXA) 40 mg tablet Take 0.5 tablets by mouth once daily. glipiZIDE XL (GLUCOTROL XL) 5 mg 24 hr tablet Take 1 tablet by mouth once daily. atenolol (TENORMIN) 50 mg tablet Take 1 tablet by mouth once daily. ferrous sulfate 325 mg (65 mg iron) tablet Take 1 tablet by mouth daily with breakfast. levothyroxine (SYNTHROID) 112 mcg tablet TAKE ONE TABLET BY MOUTH ONCE DAILY fluticasone (FLONASE) 50 mcg/actuation nasal spray Use 2 Sprays in each nostril once daily. Rinse mouth after use. nystatin-triamcinolone (MYCOLOG II) cream Apply 1 application to affected area twice daily. triamcinolone acetonide (KENALOG) 0.1 % cream Apply 1 application to affected area three times daily. Apply sparingly to area for rash/itching. nitroglycerin sublingual (NITROQUICK) 0.4 mg SL tablet Dissolve 1 tablet under the tongue as needed. FOR CHEST PAIN. IF NO RELIEF CALL 911 Uvasffpcrtffw-Wr-Awvu-Minerals (ONE-A-DAY WOMENS FORMULA) 27-0.4 mg ORAL Tab Take by mouth once daily. calcium carbonate-Vit D3-minerals (CALTRATE PLUS) 600-400 mg-unit ORAL Tab Take 1 tablet by mouth twice daily. omega-3 fatty acids (FISH OIL CONCENTRATE) 1,000 mg ORAL Cap Take 1 capsule by mouth twice daily. metFORMIN (GLUCOPHAGE) 500 mg tablet Take 1 tablet by mouth daily with breakfast. gemfibrozil (LOPID) 600 mg tablet Take 1 tablet by mouth twice daily with meals. meclizine 25 mg chewable tablet(s) Take 25 mg by mouth as needed. No current facility-administered medications on file prior to visit. Social History Social History Marital status: Spouse name: Years of education: Number of children: Occupational History Occupation Employer Comment [employer]. 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 Social History Main Topics Smoking status: Never Smoker Smokeless tobacco: Never Used Comment: Mother smoked in childhood home. No smokers in home for many years. Alcohol use: No Drug use: No Social History Narrative Blood type-AB Positive EXAM: BP 122/72 (BP Site: Left Arm, BP Position: Sitting, BP Cuff Size: Regular Adult) Pulse 60 Resp 16 Wt 93.3 kg (205 lb 9.6 oz) BMI 43.75 kg/m? General Appearance: Well appearing, alert, in no acute distress, well-hydrated, well nourished. and Obese. Lungs: lungs clear to auscultation. No wheezing, rhonchi, rales. Heart: RRR without murmur, gallop, or rubs. No ectopy. Health Maintenance List PAP EVERY 3 YEARS (65-80 YEARS OLD) due on 12/28/2013 DTAP,TDAP,TD(1 - Tdap) due on 12/05/2014 INFLUENZA(1) due on 04/17/2018 DIABETIC FOOT EXAM due on 07/10/2018 FECAL OCCULT BLOOD due on 07/13/2018 DIABETES MED ADHERENCE due on 07/17/2018 URINE ALBUMIN:CREATININE RATIO due on 09/19/2018 HBA1C due on 12/04/2018 MAMMOGRAM due on 04/06/2019 ANNUAL PCP TEAM CHRONIC DISEASE VISIT due on 04/06/2019 BP CONTROLLED (<130/80) due on 04/06/2019 DILATED RETINAL EXAM due on 05/26/2019 LDL CHOLESTEROL due on 06/05/2019 BONE DENSITY Completed ADULT PREVNAR-13 Completed HEPATITIS C SCREENING Completed PNEUMOVAX AGE 65 AND OVER WITH 5YR LOOKBACK Completed Data reviewed Appointment on 06/05/2018 Component Date Value - Protein, Total 06/05/2018 7.5 - Albumin 06/05/2018 4.4 - Calcium 06/05/2018 9.8 - Bilirubin, Total 06/05/2018 0.3 - Alkaline Phosphatase 06/05/2018 86 - AST 06/05/2018 14 - Glucose 06/05/2018 185* - BUN 06/05/2018 21 - Creatinine 06/05/2018 0.81 - Sodium 06/05/2018 138 - Potassium 06/05/2018 4.7 - Chloride 06/05/2018 99 - CO2 06/05/2018 26 - Anion Gap 06/05/2018 13 - ALT 06/05/2018 10 - eGFR- 06/05/2018 >60 - eGFR-All Other Races 06/05/2018 >60 - Cholesterol, Total 06/05/2018 232* - Triglyceride 06/05/2018 152* - HDL Cholesterol 06/05/2018 38* - LDL Cholesterol 06/05/2018 164* - Non HDL Cholesterol 06/05/2018 194* - Fasting Time 06/05/2018 12 - VLDL Cholesterol 06/05/2018 30* - TC:HDL Ratio 06/05/2018 6.11* - LDL:HDL Ratio 06/05/2018 4.32* - Hemoglobin A1C 06/05/2018 6.5* - Estimated Average Glucose 06/05/2018 140 - WBC 06/05/2018 5.84 - RBC 06/05/2018 4.19 - Hemoglobin 06/05/2018 12.6 - Hematocrit 06/05/2018 39.2 - MCV 06/05/2018 93.6 - MCH 06/05/2018 30.1 - MCHC 06/05/2018 32.1 - RDW-CV 06/05/2018 14.3 - Platelet Count 06/05/2018 276 - MPV 06/05/2018 11.5 - Neut% 06/05/2018 56.3 - Abs Neut (ANC) 06/05/2018 3.28 - Lymph% 06/05/2018 29.3 - Abs Lymph 06/05/2018 1.71 - [place]% 06/05/2018 8.9 - Abs [place] 06/05/2018 0.52 - Eosin% 06/05/2018 4.8 - Abs Eosin 06/05/2018 0.28 - Baso% 06/05/2018 0.7 - Abs Baso 06/05/2018 0.04 - Nucleated Reds 06/05/2018 0.0 - Absolute nRBC 06/05/2018 <0.01 - Diff Type 06/05/2018 Auto Diff ASSESSMENT/PLAN: 1. Pre-op exam - ICD9: V72.84, ICD10: Z01.818 (primary diagnosis) - Medically optimized for surgery; proceed as planned 2. Essential hypertension, benign - ICD9: 401.1, ICD10: I10 - good control - Continue current medication(s) - Goal of BP <130/80 3. Hypothyroidism, unspecified type - ICD9: 244.9, ICD10: E03.9 - Instructed patient on importance of taking on an empty stomach either first thing in the morning or at bedtime. - Continue current medication regimen. 4. Hyperlipidemia, unspecified hyperlipidemia type - ICD9: 272.4, ICD10: E78.5 - Continue current medication regimen. 5. Restless legs syndrome (RLS) - ICD9: 333.94, ICD10: G25.81 - Change to 2 tabs po twice daily for symptom control 6 mo f/u with labs I agree with the Chief Complaint, ROS, and Past Histories independently gathered by the clinical customer support executive and the remaining scribed note accurately describes my personal service to the patient. Tanja Rust MD The documentation for this note was completed by Ariadna Buenrostro Ma acting as scribe for Tanja Rust MD. June 25, 2018 1:19 PM. PT Collected: 06/15/2018 Status: F Source: EPISCOPAL 7:00 AM [facility] REPOSITORY TYPE CODE TESTS RESULT OUT OF RANGE REFERENCE UNITS LAB [id number](LO 1.0-1.2 INC) Normal INR 1.0 Result Comment: INR Recommended Therapeuptic Ranges: Prophylaxis/treatment of DVT and PE?2.0-3.0 Prevention of systemic embolism?.2.0-3.0 Mechanical prosthetic values?2.5-3.5 CRITICAL VALUES?.>4.0 LAB [id number](LOINC) 11.6-14.6 second(s) Normal 12.7 PT Performed By: #### [id number] #### YARITZA Hemat[facility] [employer] [facility] [place] [address] CBC W/ AUTO DIFF Collected: 06/15/2018 Status: F Source: EPISCOPAL 7:00 AM [facility] REPOSITORY TYPE CODE TESTS RESULT OUT OF RANGE REFERENCE UNITS LAB [id number](L 3.6-11.0 E3/mcL OINC) Normal WBC 7.9 LAB [id number](L 3.90-5.40 E6/mcL OINC) Normal RBC 4.09 LAB [id number](L 12.0-16.0 G/DL OINC) Normal Hgb 12.5 LAB [id number](L 36.0-48.0 % OINC) Normal Hct 36.9 LAB [id number](L 11.5-14.5 % OINC) Normal RDW 14.5 LAB [id number](L 27.0-31.0 pg OINC) Normal MCH 30.6 LAB [id number](L 33.0-37.0 G/DL OINC) Normal MCHC 33.9 LAB [id number](L 78.0-100.0 fL OINC) Normal MCV 90.2 LAB [id number](L 7.4-11.0 fL OINC) Normal MPV 9.7 LAB [id number](L 130-400 E3/mcL OINC) Normal Platelet 228 Performed By: #### [id number] #### YARITZA [employer] [address] [place], [place] [id number] AUTO DIFF Collected: 06/15/2018 Status: F Source: EPISCOPAL 7:00 AM [facility] REPOSITORY Order Comment: Order Added by Discern Expert. TYPE CODE TESTS RESULT OUT OF RANGE REFERENCE UNITS LAB [id number](L 37.0-75.0 % OINC) Normal Neutro Auto 62.1 LAB [id number](L 20.0-55.0 % OINC) Normal Lymph Auto 26.0 LAB [id number](L 0.0-10.0 % OINC) Normal [place] Auto 7.2 LAB [id number](L 0.0-11.0 % OINC) Normal Eos Auto 3.9 LAB [id number](L 0.0-2.0 % OINC) Normal Basophil Auto 0.8 LAB [id number](L 1.4-6.5 E3/mcL OINC) Normal Neutro 4.9 Absolute LAB [id number](L 1.2-3.4 E3/mcL OINC) Normal Lymph Absolute 2.0 LAB [id number](L 0.0-0.7 E3/mcL OINC) Normal [place] Absolute 0.6 LAB [id number](L 0.0-0.7 E3/mcL OINC) Normal Eos Absolute 0.3 LAB [id number](L 0.0-0.2 E3/mcL OINC) Normal Basophil 0.1 Absolute Performed By: #### [id number] #### YARITZA [employer] [address] [id number] BMP Collected: 06/15/2018 Status: F Source: EPISCOPAL 7:00 AM [facility] REPOSITORY TYPE CODE TESTS RESULT OUT OF RANGE REFERENCE UNITS LAB [id number](L 70-99 mg/dL OINC) High Glucose Lvl 173 LAB [id number](L 6-23 mg/dL OINC) High BUN 29 LAB [id number](LO 0.6-1.3 mg/dL INC) Normal Creatinine 0.7 LAB [id number](L 5.4-30.0 ratio OINC) High BUN/Creat Ratio 41.4 LAB [id number](L 8.6-10.3 mg/dL OINC) Calcium Normal Lvl 9.5 LAB [id number](L 136-145 mEq/L OINC) Sodium Normal Lvl 139 LAB [id number](L 3.5-5.3 mEq/L OINC) Normal Potassium Lvl 3.9 LAB [id number](L 98-107 mEq/L OINC) Chloride Normal 102 LAB [id number](L 21.0-32.0 mEq/L OINC) CO2 Normal 29.0 LAB [id number](L 10-20 mEq/L OINC) AGAP Normal 12 Performed By: #### [id number] #### YARITZA [employer] [facility] [place] [address] EGFR Collected: 06/15/2018 Status: F Source: EPISCOPAL 7:00 AM [facility] REPOSITORY Order Comment: Order added by Discern Expert. TYPE CODE TESTS RESULT OUT OF RANGE REFERENCE UNITS LAB [id number](LO mL/min/1.73 INC) m2 Normal eGFR >60 LAB 88064851(LO mL/min/1.73 INC) m2 Normal eGFR AA >60 Performed By: #### [id number] #### YARITZA [facility]o [address] [id number] DINORAH Observed: 06/07/2018 Status: COMPLETED Source: HORN 12:00 AM [facility] REPOSITORY Telephone (FAMPWS) KYAW ESPINOZA ([id number]) 1950 F Date Time Provider Department 06/07/18 RYDER ALBERTS (PO[place] During your visit today, we recorded the following information about you: Ryder Alberts APRN.CNP 06/07/2018 7:17 AM Signed Please inform patient that her hemoglobin A1c is 6.5%. This is a sign of well-controlled diabetes. Her cholesterol panel is okay. Her complete blood count showed no signs of infection or anemia ongoing. Her metabolic profile showed normal kidney function, electrolytes and liver studies. Glucose at the time of the metabolic profile was 185. I would recommend continuing with current medications as prescribed and continue with the point with Dr. Rust in June. SANIYA Carmona Ma 06/07/2018 11:45 AM Signed Letter mailed to pt home of results. Manuela Arthur Cma 06/07/2018 11:46 AM Signed Spoke with patient ,voiced understanding of results Nadine Arthur Archivist Political History Allergies As of Date: 06/07/2018 Noted Allergy Reaction CLINDAMYCIN 12/04/2008 4 - Hives KLOR-CON (POTASSIUM CHLORIDE) 12/08/2013 4 - Hives LIPITOR (ATORVASTATIN CALCIUM) 07/14/2005 5 - Intolerance Comments: Muscle pain LISINOPRIL 12/08/2013 3 - Cough PENICILLINS 07/14/2005 4 - Hives ZTKUIPK-NKE-VSY REDUCTASE INHIBIT*06/07/2014 14 - Other: See Comments Comments: Muscle pain ZOCOR (SIMVASTATIN) 07/14/2005 5 - Intolerance Comments: Muscle pain Date Reviewed: 04/06/2018 Reviewed by: Ariadna Buenrostro Ma - Fully Assessed Reason for Visit: Results [95] Prescriptions as of 06/07/2018 Sig: ROPINIROLE 0.25 MG TABLET Take 2 tablets by mouth daily* METFORMIN 500 MG TABLET Take 1 tablet by mouth daily * PANTOPRAZOLE 40 MG TABLET,DEL* Take 1 tablet by mouth once d* CITALOPRAM 40 MG TABLET Take 0.5 tablets by mouth onc* GEMFIBROZIL 600 MG TABLET Take 1 tablet by mouth twice * GLIPIZIDE ER 5 MG TABLET, EXT* Take 1 tablet by mouth once d* MECLIZINE 25 MG CHEWABLE TABL* Take 25 mg by mouth as needed. ATENOLOL 50 MG TABLET Take 1 tablet by mouth once d* FERROUS SULFATE 325 MG (65 MG* Take 1 tablet by mouth daily * LEVOTHYROXINE 112 MCG TABLET TAKE ONE TABLET BY MOUTH ONCE* FLUTICASONE 50 MCG/ACTUATION * Use 2 Sprays in each nostril * NYSTATIN-TRIAMCINOLONE 100,00* Apply 1 application to affect* TRIAMCINOLONE ACETONIDE 0.1 %* Apply 1 application to affect* NITROGLYCERIN 0.4 MG SUBLINGU* Dissolve 1 tablet under the t* * GXZXIEZXJVNB-SU-IVMS-MINERALS* Take by mouth once daily. * CALCIUM CARB-VIT D3-MINERALS * Take 1 tablet by mouth twice * * OMEGA-3 FATTY ACIDS 1,000 MG * Take 1 capsule by mouth twice* Problem List As Of Date 06/07/2018 Noted Resolved Hypothyroidism [E03.9] Hyperlipidemia [E78.5] BENIGN HYPERTENSION [I10] INVALID FOR* Diabetes mellitus type 2, controlled, without c*INVALID FOR* Depression [F32.9] INVALID FOR* Lumbago [M54.5] INVALID FOR* Spinal stenosis, lumbar region, without neuroge*INVALID FOR* L-S radiculopathy [M54.17] INVALID FOR* Cholelithiasis [K80.20] INVALID FOR* Afib (HCC) [I48.91] INVALID FOR* Obesity, Class III, BMI 40-49.9 (morbid obesity*INVALID FOR* Letter Text Ryder Alberts, PRODUCTION [employer] PLANT ENGINEER. [address] [id number] Kyaw Espinoza [address] [place] [address] [address] [place] [id number] Clinic #: [id number] 06/07/2018 Dear Ms. Espinoza, I have received the results of your recent tests. The hemoglobin A1c is 6.5%. This is a sign of well-controlled diabetes. Your cholesterol panel is okay. Your complete blood count showed no signs of infection or anemia ongoing. The metabolic profile showed normal kidney function, electrolytes and liver studies. Glucose at the time of the metabolic profile was 185. I would recommend continuing with current medications as prescribed and continue with the appointment with Dr. Rust in June. ? We can discuss this at your next visit. Please do not hesitate to contact me with any questions. Sincerely, Ryder Alberts CNP. electronically signed to expedite mailing Encounter Status:Closed by MANUELA GE MA on 06/07/18 CBC AND DIFFERENTIAL Collected: 06/05/2018 Status: F Source: BEL[facility] 10:01 AM [facility] REPOS[facility]ORY TYPE CODE TESTS RESULT OUT OF REFERENCE UNITS RANGE LAB WBC 3.70-11.00 k/uL WBC 5.84 LAB RBC 3.90-5.20 m/uL RBC 4.19 LAB HGB 11.5-15.5 g/dL Hemoglobin 12.6 LAB HCT 36.0-46.0 % Hematocrit 39.2 LAB MCV 80.0-100.0 fL MCV 93.6 LAB MCH 26.0-34.0 pG MCH 30.1 LAB MCHC 30.5-36.0 g/dL MCHC 32.1 LAB RDWCV 11.5-15.0 % RDW-CV 14.3 LAB PLTCT 150-400 k/uL Platelet Count 276 LAB MPV 9.0-12.7 fL MPV 11.5 LAB ANEUT % Neut% 56.3 LAB AANEUT 1.45-7.50 k/uL Abs Neut 3.28 LAB ALYMP % Lymph% 29.3 LAB AALYMP 1.00-4.00 k/uL Abs Lymph 1.71 LAB AMONO % [place]% 8.9 LAB AAMONO <0.87 k/uL Abs [place] 0.52 LAB AEOS % Eosin% 4.8 LAB AAEOS <0.46 k/uL Abs Eosin 0.28 LAB ABASO % Baso% 0.7 LAB AABASO <0.11 k/uL Abs Baso 0.04 LAB AUNRBC 0 /100 WBC NRBCs 0.0 LAB ABNRBC <0.01 k/uL Absolute nRBC <0.01 LAB DTYP DTYPE Auto Diff Performed By: #### CBCDIF, CMP, LIPB, HBA1C #### [facility] [address] [place], [place] [address] COMP METABOLIC PANEL Collected: 06/05/2018 Status: F Source: BELLE 10:01 AM [facility] REPOSITORY TYPE CODE TESTS RESULT OUT OF REFERENCE UNITS RANGE LAB TP 6.3-8.0 g/dL Protein, Total 7.5 LAB ALB 3.9-4.9 g/dL Albumin 4.4 LAB CA 8.5-10.2 mg/dL Calcium, Total 9.8 LAB TBIL 0.2-1.3 mg/dL Bilirubin, Total 0.3 LAB ALKP 34-123 U/L Alkaline Phosphatase 86 LAB AST 13-35 U/L AST 14 LAB GLU 74-99 mg/dL Glucose High 185 Result Comment: The [place] Diabetes Association (ADA) provides guidance for cutoff values for fasting glucose and random glucose. The ADA defines fasting as no caloric intake for at least 8 hours. Fas ting plasma glucose results between 100 to 125 mg/dL indicate increased risk for diabetes (prediabetes). Fasting plasma glucose results greater than or equal to 126 mg/dL meet the criteria for diagnosis of diabetes. In the absence of unequivocal hyperglycemia, results should be confirmed by repeat testing. In a patient with classic symptoms of hyperglycemia or hyperglycemic crisis, random plasma glucose results greater than or equal to 200 mg/dL meet the criteria for diagnosis of diabetes. Reference: Standards of Medical Care in Diabetes 2016, [place] Diabetes Association. Diabetes Care. 2016.39(Suppl 1). LAB BUN 7-21 mg/dL BUN 21 LAB CRET 0.58-0.96 mg/dL Creatinine 0.81 LAB NA 136-144 mmol/L Sodium 138 LAB K 3.7-5.1 mmol/L Potassium 4.7 LAB CL 97-105 mmol/L Chloride 99 LAB CO2 22-30 mmol/L CO2 26 LAB AGAP 9-18 mmol/L Anion Gap 13 LAB ALT 7-38 U/L ALT 10 LAB GFRAA eGFR- Amer. >60 LAB GFRNAA . eGFR-All Other Races >60 Result Comment: eGFR (Estimated GFR) Units of measure: mL/min/1.73 meters squared eGFR is derived from the reexpressed MDRD Study equation using the following parameters: serum creatinine, age, gender and race. The creatinine assay has been calibrated to be traceable to IDMS. An eGFR <60 mL/min/1.73m2 for >3 months is consistent with chronic kidney disease. Refer to KDOQI guidelines for clinical interpretation. In patients with unstable renal function, e.g. those with acute kidney injury, the eGFR may not accurately reflect actual GFR. Performed By: #### CBCDIF, CMP, LIPB, HBA1C #### [facility] [address] [place], [place] [address] LIPID PANEL, BASIC Collected: 06/05/2018 Status: F Source: BELLE 10:01 [facility] REPOSITORY TYPE CODE TESTS RESULT OUT OF REFERENCE UNITS RANGE LAB CHOL <200 mg/dL Cholesterol High 232 Result Comment: <200 mg/dL, Desirable 200-239 mg/dL, Borderline high >239 mg/dL, High LAB TRIGLY <150 mg/dL Triglyceride High 152 Result Comment: <150 mg/dL, Normal 150-199 mg/dL, Borderline high 200-499 mg/dL, High >499 mg/dL, Very high LAB HDL >39 mg/dL HDL-Cholesterol Low 38 Result Comment: 40-59 mg/dL, Acceptable >59 mg/dL, High: Negative risk factor for coronary heart disease <40 mg/dL, Low: Positive risk factor for coronary heart disease LAB LDL <100 mg/dL LDL-Cholesterol High 164 Result Comment: <100 mg/dL, Optimal 100-129 mg/dL, Near optimal/above optimal 130-159 mg/dL, Borderline high 160-189 mg/dL, High >189 mg/dL, Very high Secondary prevention optimal LDL Cholesterol levels are recommended to be < 70 mg/dL LAB NONHDL <130 mg/dL Non HDL High Cholesterol 194 Result Comment: <130 mg/dL, Optimal 130-159 mg/dL, Near optimal/above optimal 160-189 mg/dL, Borderline high 190-219 mg/dL, High >219 mg/dL, Very high Secondary prevention optimal non HDL Cholesterol levels are recommended to be < 100 mg/dL LAB FT hrs Fasting Time 12 LAB VLDL <30 mg/dL High VLDL Cholesterol 30 LAB TCHDL <5.10 High TC:HDL Ratio 6.11 LAB LDLHDL <2.54 High LDL:HDL Ratio 4.32 Result Comment: Reference: 1. National Cholesterol Education Program ATP III Guideline At-A-Glance Quick Desk Reference: National Heart, Lung, and Blood [place]. National Institutes of Health. 2001: NIH Publication No. 01-3305. 2. An International Atherosclerosis Society position paper: global recommendations for the management of dyslipidemia: executive summary, Atherosclerosis. 2014: 232(2):410-413. Performed By: #### CBCDIF, CMP, LIPB, HBA1C #### [facility] [address] [place], [place] [address] HEMOGLOBIN A1C Collected: 06/05/2018 Status: F Source: [facility] 10:01 AM [facility] REPOSITORY TYPE CODE TESTS RESULT OUT OF REFERENCE UNITS RANGE LAB HGBA1C 4.3-5.6 % High Hemoglobin A1c 6.5 LAB HBA0 mg/dL Est. Average Glucose 140 Result Comment: eAG: (Estimated average glucose) is a calculated value from HgbA1c and is access service representative of the average blood glucose level in the last 2-3 month period. Performed By: #### CBCDIF, CMP, LIPB, HBA1C #### [facility] [address] [place], [place] [address] XR KNEE RIGHT 4+ VIEWS Observed: 05/27/2018 Status: F Source: [employer] (SPECIFY VIEWS IN 12:00 AM THREE REPOSITORY COMMENTS) 4 views right knee reveals severe degenerative arthritis with bone against bone medially patellar osteophytes and lateral osteophyte varus and translation of the femur on the tibia Dictated by: BECK REYES on ThuMay 27, 2018 1:08:42 PM EDT Transcribed by: BECK REYES on ThuMay 27, 2018 1:08:42 PM EDT Finalized by: BECK REYES on ThuMay 27, 2018 1:08:42 PM EDT XR KNEE RIGHT 4+ VIEWS Observed: 05/27/2018 Status: F Source: [place] [employer] (SPECIFY VIEWS IN 12:00 AM THREE REPOSITORY COMMENTS) 4 views right knee reveals severe degenerative arthritis with bone against bone medially patellar osteophytes and lateral osteophyte varus and translation of the femur on the tibia Dictated by: BECK REYES on ThuMay 27, 2018 1:08:42 PM EDT Transcribed by: BECK REYES on ThuMay 27, 2018 1:08:42 PM EDT Finalized by: BECK REYES on ThuMay 27, 2018 1:08:42 PM EDT RANI TEST Collected: 04/20/2018 Status: F Source: EPISCOPAL 4:32 PM [facility] REPOSITORY TYPE CODE TESTS RESULT OUT OF RANGE REFERENCE UNITS LAB [id number](LO Negative INC) Normal RANI Negative Test Performed By: #### [id number] #### YARIT[facility] Misc Micro SubSection , GLUCOSE POC Collected: 04/20/2018 Status: F Source: EPISCOPAL 10:09 AM [facility] REPOSITORY TYPE CODE TESTS RESULT OUT OF REFERENCE UNITS RANGE LAB [id number](LO 70-99 mg/dL INC) High Glucose POC 117 Performed By: #### [id number] #### [facility] POC Subsection [address] [place] [address] CNPN Observed: 04/15/2018 Status: COMPLETED Source: HORN 12:00 AM [facility] REPOSITORY Telephone (FAMPWS) KYAW ESPINOZA ([id number]) 1950 F Date Time Provider Department 04/15/18 RYDER ALBERTS ([facility]) FAMPWS During your visit today, we recorded the following information about you: Ryder Alberts APRN.CNP 04/15/2018 7:46 AM Signed Please inform patient that her bone density testing showed normal bone appearance. No evidence of osteopenia or osteoporosis. I would recommend continuing with her calcium, vitamin D supplement, exercise as tolerated and repeat in 4-5 years. SANIYA Carmona [facility] 04/15/2018 9:14 AM Signed Left detailed message on [employer] [employer] Arthur [facility] Mary Diaz, [facility] [place] [facility] [place] 04/15/2018 9:20 AM Signed Relayed message to patient. She verbalized understanding. Allergies As of Date: 04/15/2018 Noted Allergy Reaction CLINDAMYCIN 12/04/2008 4 - Hives KLOR-CON (POTASSIUM CHLORIDE) 12/08/2013 4 - Hives LIPITOR (ATORVASTATIN CALCIUM) 07/14/2005 5 - Intolerance Comments: Muscle pain LISINOPRIL 12/08/2013 3 - Cough PENICILLINS 07/14/2005 4 - Hives [id number] REDUCTASE INHIBIT*06/07/2014 14 - Other: See Comments Comments: Muscle pain ZOCOR (SIMVASTATIN) 07/14/2005 5 - Intolerance Comments: Muscle pain Date Reviewed: 04/06/2018 Reviewed by: Ariadna Buenrostro Ma - Fully Assessed Reason for Visit: Results [95] Prescriptions as of 04/15/2018 Sig: METFORMIN 500 MG TABLET Take 1 tablet by mouth daily * PANTOPRAZOLE 40 MG TABLET,DEL* Take 1 tablet by mouth once d* CITALOPRAM 40 MG TABLET Take 0.5 tablets by mouth onc* GEMFIBROZIL 600 MG TABLET Take 1 tablet by mouth twice * GLIPIZIDE ER 5 MG TABLET, EXT* Take 1 tablet by mouth once d* MECLIZINE 25 MG CHEWABLE TABL* Take 25 mg by mouth as needed. ATENOLOL 50 MG TABLET Take 1 tablet by mouth once d* FERROUS SULFATE 325 MG (65 MG* Take 1 tablet by mouth daily * LEVOTHYROXINE 112 MCG TABLET TAKE ONE TABLET BY MOUTH ONCE* ROPINIROLE 0.25 MG TABLET Take 2 tablets by mouth daily* FLUTICASONE 50 MCG/ACTUATION * Use 2 Sprays in each nostril * NYSTATIN-TRIAMCINOLONE 100,00* Apply 1 application to affect* TRIAMCINOLONE ACETONIDE 0.1 %* Apply 1 application to affect* NITROGLYCERIN 0.4 MG SUBLINGU* Dissolve 1 tablet under the t* * JFYIUQPGFBHB-KA-VKNJ-MINERALS* Take by mouth once daily. * CALCIUM CARB-VIT D3-MINERALS * Take 1 tablet by mouth twice * * OMEGA-3 FATTY ACIDS 1,000 MG * Take 1 capsule by mouth twice* Problem List As Of Date 04/15/2018 Noted Resolved Hypothyroidism [E03.9] Hyperlipidemia [E78.5] BENIGN HYPERTENSION [I10] INVALID FOR* Diabetes mellitus type 2, controlled, without c*INVALID FOR* Depression [F32.9] INVALID FOR* Lumbago [M54.5] INVALID FOR* Spinal stenosis, lumbar region, without neuroge*INVALID FOR* L-S radiculopathy [M54.17] INVALID FOR* Cholelithiasis [K80.20] INVALID FOR* Afib (HCC) [I48.91] INVALID FOR* Obesity, Class III, BMI 40-49.9 (morbid obesity*INVALID FOR* Encounter Status:Closed by NADINE ARTHUR CMA on 04/15/18 BD DXA - AXIAL Observed: 04/14/2018 Status: F Source: [place] SKELETON 11:23 AM [facility] [place] REPOSITORY * * *Final Report* * * DATE OF EXAM: Apr 14 2018 11:23AM WRB 0804 - BD DXA - AXIAL SKELETON B / PROCEDURE REASON: multiple diagnoses * * * * Physician Interpretation * * * * PROCEDURE: BD DXA - AXIAL SKELETON INDICATION: Encounter for screening for osteoporosis Asymptomatic menopausal state TECHNIQUE: Low dose AP spine and hip images COMPARISON: 01/03/2014 LUMBAR SPINE: The bone mineral density from L1 through L4 is 1.251 grams per square centimeter which yields a T-score of 1.9. This is 8.9% improved. LEFT HIP: The bone mineral density of the total region of the hip is 1.188 grams per square centimeter which yields a T-score of 2.0. . LEFT FEMORAL NECK: The bone mineral density of the femoral neck is 0.950 grams per square centimeter which yields a T-score of 0.9. This is 7.7% worse. RIGHT HIP: The bone mineral density of the total region of the hip is 1.143 grams per square centimeter which yields a T-score of 1.6. . RIGHT FEMORAL NECK: The bone mineral density of the femoral neck is 0.918 grams per square centimeter which yields a T-score of 0.6. This is 7.6% worse. 10-year Fracture Risk (FRAX): Major osteoporotic fracture risk 5.6% Hip fracture risk 0.2% IMPRESSION: Normal. [facility]. CLASSIFICATION OF BONE MASS CLASSIFICATION T-SCORE Normal Greater than -1 Low Bone Mass Between -1 and -2.5 (Osteopenia) Osteoporosis Less than or equal to -2.5 Software Sales Executive: LULA Transcribe Date/Time: Apr 14 2018 12:39P Dictated by : FREDDIE AGUDELO MD This examination was interpreted and the report reviewed and electronically signed by: FREDDIE AGUDELO MD on Apr 14 2018 12:40PM EST [id number] PROGRESS Observed: 04/14/2018 Status: COMPLETED Source: BELLE 11:07 AM [facility] REPOSITORY HNO ID: [id number] Author: Calin Fofana (Rt) Pradeep Flores Service: (none) Author Type: Cheesemaker Type: Progress Notes Filed: 04/14/2018 11:16 AM Note Text: Radiology Service Progress Note PATIENT NAME: Kyaw Espinoza DATE OF SERVICE: April 14, 2018 TIME: 11:07 AM PATIENT IDENTITY VERIFICATION COMPLETED USING TWO (2) METHODS: Patient confirmed name verbally and Date of . PATIENT GENDER DATA: Female. status: : No status: NO. PATIENT RELEVANT IMPLANT DATA REVIEWED: Not Applicable RADIOLOGY DEPARTMENT: [facility] bone density PERIPHERAL IV DATA: Not applicable SIGNED BY: RT Blaise April 14, 2018 11:07 AM CNCO Observed: 04/06/2018 Status: COMPLETED Source: BELLE 6:15 PM [facility] REPOSITORY HNO ID: [id number] Author: Mammography Coordinator Service: (none) Author Type: Physician Type: Letter Filed: 04/07/2018 11:32 PM Note Text: April 06, 2018 PID: [id number] Kyaw Espinoza [address] [place] [address] Dear Ms. Espinoza, We are pleased to inform you that the results of your recent breast imaging exam on 04/06/2018 are normal. Early detection of cancer is very important. We also understand recommendations regarding breast cancer screening are controversial. Please discuss with your primary care provider which strategy is best for you and whether a mammogram is right for you. Your imaging studies and report will be kept on file at [facility] as part of your permanent medical record and are available for your continuing care. Thank you for allowing us to help in meeting your health care needs. Sincerely, Dr. Pradhan Interpreting Radiologist [facility] (Normal over 40) PROGRESS Observed: 04/06/2018 Status: COMPLETED Source: BELLE 11:53 AM [facility] [place] REPOSITORY O ID: [id number] Author: Dixie Rosado Service: (none) Author Type: (none) Type: Progress Notes Filed: 04/06/2018 11:53 AM Note Text: Radiology Service Progress Note PATIENT NAME: Kyaw Espinoza DATE OF SERVICE: April 06, 2018 TIME: 11:53 AM PATIENT IDENTITY VERIFICATION COMPLETED USING TWO (2) METHODS: Patient confirmed name verbally and Date of . PATIENT GENDER DATA: Female. status: : No status: NO. PATIENT RELEVANT IMPLANT DATA REVIEWED: Not Applicable RADIOLOGY DEPARTMENT: [facility] DATA: Not applicable SIGNED BY: Dixie Rosado April 06, 2018 11:53 AM [facility] SCREENING Observed: 04/06/2018 Status: F Source: BELLE 11:53 AM [facility] REPOSITORY * * *Final Report* * * DATE OF EXAM: Apr 06 2018 11:53AM [facility] [address] [facility] SCREENING / PROCEDURE REASON: Encounter for screening mammogram for malignant neoplasm of breast * * * * Physician Interpretation * * * * RESULT: #[id number] - [place] SCREENING BILATERAL DIGITAL SCREENING MAMMOGRAM WITH CAD: 04/06/2018 HISTORY: Screening Mammogram - patient reports NO breast symptoms /priors available for comparison. RESULT: TECHNIQUE: The study was acquired using full field digital technology and interpreted from soft copy. Current study was also evaluated with a Computer Aided Detection (CAD). Comparison is made to exams dated: 03/31/2017 mammogram, 12/03/2015 mammogram, and 01/03/2014 mammogram - [facility]. The tissue of both breasts is predominantly fatty. No significant masses, calcifications, or other findings are seen in either breast. There has been no significant interval change. IMPRESSION: NEGATIVE There is no mammographic evidence of malignancy.A 1 year screening mammogram is recommended. Maranda Pradahn M.D. pb/penrad:04/06/2018 18:15:02 [employer] Main And Line Fitter: Jyoti ROSADO(R)(M), [facility] letter sent: Normal over 40 Mammogram BI-RADS: 1 Negative Software Sales Executive: Sonya Romeo Date/Time: Apr 06 2018 11:40A Dictated by: MARANDA PRADHAN MD This examination was interpreted and the report reviewed and electronically signed by: MARANDA PRADHAN MD on Apr 06 2018 6:15PM EST [id number] PROGRESS Observed: 04/06/2018 Status: COMPLETED Source: BELLE 10:19 AM [facility] [place] REPOSITORY [facility] ID: [id number] Author: Tanja Rust Service: (none) Author Type: Physician Type: Progress Notes Filed: 04/08/2018 3:20 PM Note Text: Chief Complaint Patient presents with: F/U 1 month: lab results HPI Kyaw Espinoza is a 67 year old female who presents here today for a 1 mo f/u. Patient is here today for a 1 mo f/u. Labs - Has completed and here to review lab results. Diarrhea - Has days where she is unable to make it to the bathroom and has accidents in her pull-ups. Sometimes this will occur more then once a day. Started a couple of weeks ago. Denies chest pain, SOB. Doing Ok on celexa 40 mg daily Scheduled to see Dr Richardson in [place] on apr 20; planning on doing repeat EGD to follow up on anemia. Requests DEXA scan for osteoporosis screening Past medical history, appointments, medications, allergies reviewed. Previous Medical History PAST MEDICAL HISTORY Diagnosis Date - Afib (HCC) 09/22/2016 - Hypertension - Major depressive disorder, single episode, mild (HCC) - Other and unspecified hyperlipidemia - Type I (juvenile type) diabetes mellitus without mention of complication, not stated as uncontrolled - Unspecified hypothyroidism Previous Surgical History PAST SURGICAL HISTORY Procedure Laterality Date - CARPAL TUNNEL 80's? bilateral - LAPAROSCOPIC CHOLEYCYSTECTOMY 09/19/13 - LIGATE FALLOPIAN TUBE 77? Tubal ligation and appendectomy - PAST SURGICAL HISTORY OF 01/26/2017 Heart catherization, [facility] by Dr. Roger Family History FAMILY HISTORY Problem Relation Age of Onset - Diabetes Mother - Heart Mother - Stroke Mother - Cancer Maternal Uncle Unknown primary - Diabetes Father - Diabetes Maternal Aunt - Stroke Maternal Aunt - Cancer Maternal Aunt The female kind. Patient Allergies ALLERGIES Allergen Reactions - Clindamycin Hives - Klor-Con [Potassium* Hives - Lipitor [Atorvastat* Intolerance Muscle pain - Lisinopril Cough - Penicillins Hives - Lwzoxwv-Ldf-Fxv Red* Other: See Comments Muscle pain - Zocor [Simvastatin] Intolerance Muscle pain Current Medications Current Outpatient Prescriptions on File Prior to Visit: metFORMIN (GLUCOPHAGE) 500 mg tablet Take by mouth. 1 tablet in the morning and 2 in the evening pantoprazole DR (PROTONIX) 40 mg tablet Take 1 tablet by mouth once daily. citalopram (CELEXA) 40 mg tablet Take 0.5 tablets by mouth once daily. gemfibrozil (LOPID) 600 mg tablet Take 1 tablet by mouth twice daily with meals. glipiZIDE XL (GLUCOTROL XL) 5 mg 24 hr tablet Take 1 tablet by mouth once daily. meclizine 25 mg chewable tablet(s) Take 25 mg by mouth as needed. atenolol (TENORMIN) 50 mg tablet Take 1 tablet by mouth once daily. ferrous sulfate 325 mg (65 mg iron) tablet Take 1 tablet by mouth daily with breakfast. levothyroxine (SYNTHROID) 112 mcg tablet TAKE ONE TABLET BY MOUTH ONCE DAILY rOPINIRole (REQUIP) 0.25 mg tablet Take 2 tablets by mouth daily at bedtime. fluticasone (FLONASE) 50 mcg/actuation nasal spray Use 2 Sprays in each nostril once daily. Rinse mouth after use. nystatin-triamcinolone (MYCOLOG II) cream Apply 1 application to affected area twice daily. Itvrvfptthndq-Hg-Fofl-Minerals (ONE-A-DAY WOMENS FORMULA) 27-0.4 mg ORAL Tab Take by mouth once daily. calcium carbonate-Vit D3-minerals (CALTRATE PLUS) 600-400 mg-unit ORAL Tab Take 1 tablet by mouth twice daily. omega-3 fatty acids (FISH OIL CONCENTRATE) 1,000 mg ORAL Cap Take 1 capsule by mouth twice daily. triamcinolone acetonide (KENALOG) 0.1 % cream Apply 1 application to affected area three times daily. Apply sparingly to area for rash/itching. nitroglycerin sublingual (NITROQUICK) 0.4 mg SL tablet Dissolve 1 tablet under the tongue as needed. FOR CHEST PAIN. IF NO RELIEF CALL 911 No current facility-administered medications on file prior to visit. 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 Social History Main Topics Smoking status: Never Smoker Smokeless tobacco: Never Used Comment: Mother smoked in childhood home. No smokers in home for many years. Alcohol use: No Drug use: No Social History Narrative Blood type-AB Positive EXAM: BP 116/74 (BP Site: Left Arm, BP Position: Sitting, BP Cuff Size: Regular Adult) Pulse 68 Resp 16 Wt 87.3 kg (192 lb 6.4 oz) BMI 40.94 kg/m? General Appearance: Well appearing, alert, in no acute distress, well-hydrated, well nourished. and Obese. Neck: Supple, no adenopathy; thyroid symmetric, normal size, no bruits. Lungs: Lungs clear to auscultation. No wheezing, rhonchi, rales. Heart: RRR without murmur, gallop, or rubs. No ectopy. Abdomen: Normal abdominal exam, Abdomen soft, non-tender. Bowel sounds normal. No masses, organomegaly. Health Maintenance List DTAP,TDAP,TD(1 - Tdap) due on 12/05/2014 MAMMOGRAM due on 03/31/2018 INFLUENZA(1) due on 04/17/2018 DIABETES MED ADHERENCE due on 04/17/2018 DILATED RETINAL EXAM due on 05/22/2018 DIABETIC FOOT EXAM due on 07/10/2018 FECAL OCCULT BLOOD due on 07/13/2018 URINE ALBUMIN:CREATININE RATIO due on 09/19/2018 HBA1C due on 09/29/2018 ANNUAL PCP TEAM CHRONIC DISEASE VISIT due on 02/26/2019 BLOOD PRESSURE CONTROLLED due on 03/10/2019 LDL CHOLESTEROL due on 03/29/2019 BONE DENSITY Completed ADULT PREVNAR-13 Completed HEPATITIS C SCREENING Completed PNEUMOVAX AGE 65 AND OVER WITH 5YR LOOKBACK Completed Data reviewed Appointment on 03/29/2018 Component Date Value - Hemoglobin A1C 03/29/2018 6.0* - Estimated Average Glucose 03/29/2018 126 - Protein, Total 03/29/2018 7.5 - Albumin 03/29/2018 4.4 - Calcium 03/29/2018 10.3* - Bilirubin, Total 03/29/2018 0.2 - Alkaline Phosphatase 03/29/2018 78 - AST 03/29/2018 17 - Glucose 03/29/2018 136* - BUN 03/29/2018 22* - Creatinine 03/29/2018 0.87 - Sodium 03/29/2018 139 - Potassium 03/29/2018 4.6 - Chloride 03/29/2018 98 - CO2 03/29/2018 25 - Anion Gap 03/29/2018 16 - ALT 03/29/2018 13 - eGFR- 03/29/2018 >60 - eGFR-All Other Races 03/29/2018 >60 - WBC 03/29/2018 6.54 - RBC 03/29/2018 4.13 - Hemoglobin 03/29/2018 12.3 - Hematocrit 03/29/2018 38.6 - MCV 03/29/2018 93.5 - MCH 03/29/2018 29.8 - MCHC 03/29/2018 31.9 - RDW-CV 03/29/2018 13.5 - Platelet Count 03/29/2018 287 - MPV 03/29/2018 11.8 - Absolute nRBC 03/29/2018 <0.01 - Cholesterol, Total 03/29/2018 241* - Triglyceride 03/29/2018 147 - HDL Cholesterol 03/29/2018 34* - LDL Cholesterol 03/29/2018 178* - Non HDL Cholesterol 03/29/2018 207* - Fasting Time 03/29/2018 14 - VLDL Cholesterol 03/29/2018 29 - TC:HDL Ratio 03/29/2018 7.09* - LDL:HDL Ratio 03/29/2018 5.24* - TSH 03/29/2018 2.720 Component Date Value - Glucose 03/10/2018 184* - BUN 03/10/2018 27* - Creatinine 03/10/2018 0.82 - Sodium 03/10/2018 137 - Potassium 03/10/2018 4.3 - Chloride 03/10/2018 96* - CO2 03/10/2018 24 - Anion Gap 03/10/2018 17 - Calcium 03/10/2018 9.9 - eGFR- 03/10/2018 >60 - eGFR-All Other Races 03/10/2018 >60 ASSESSMENT/PLAN: 1. Essential hypertension, benign - ICD9: 401.1, ICD10: I10 (primary diagnosis) - good control - Continue current medication(s) - Recommend home blood pressure monitoring, to bring results in on next visit - Goal of BP <140/90 2. Controlled type 2 diabetes mellitus without complication, without long-term current use of insulin (HCC) - ICD9: 250.00, ICD10: E11.9 Controlled. - Decrease metformin (Glucophage) to see if diarrhea improves - METFORMIN 500 MG TABLET - COMP METABOLIC PANEL - LIPID PANEL BASIC - HGB A1C 3. Hyperlipidemia, unspecified hyperlipidemia type - ICD9: 272.4, ICD10: E78.5 - good control - Continue current medication. - COMP METABOLIC PANEL - LIPID PANEL BASIC 4. Acquired hypothyroidism - ICD9: 244.9, ICD10: E03.9 - Instructed patient on importance of taking on an empty stomach either first thing in the morning or at bedtime. - continue current dose of Synthroid - CBC + DIFF 5. Depression, unspecified depression type - ICD9: 311, ICD10: F32.9 Continue current medications. 6. Encounter for screening for osteoporosis - ICD9: V82.81, ICD10: Z13.820 - DXA-AXIAL SKELETON WITH VFA 7. Asymptomatic postmenopausal status - ICD9: V49.81, ICD10: Z78.0 - DXA-AXIAL SKELETON WITH VFA Check labs in three months Follow up in 3 months Tanja Rust MD The documentation for this note was completed by Ariadna Buenrostro Ma acting as scribe for Tanja Rust MD. April 06, 2018 10:19 AM. CNOV Observed: 04/06/2018 Status: COMPLETED Source: [place] 10:00 AM [facility] REPOSITORY Office Visit (FAMPWS) KYAW ESPINOZA ([id number]) 1950 F Date Time Provider Department 04/06/18 10:00 AM TANJA RUST During your visit today, we recorded the following information about you: Pulse Respiration Blood pressure Weight 68/minute 16/minute 116/74 87.3 kg Tanja Rust MD 04/08/2018 3:20 PM Signed Chief Complaint Patient presents with: F/U 1 month: lab results HPI Kyawchaz Espinoza is a 67 year old female who presents here today for a 1 mo f/u. Patient is here today for a 1 mo f/u. Labs - Has completed and here to review lab results. Diarrhea - Has days where she is unable to make it to the bathroom and has accidents in her pull-ups. Sometimes this will occur more then once a day. Started a couple of weeks ago. Denies chest pain, SOB. Doing Ok on celexa 40 mg daily Scheduled to see Dr Richardson in [place] on apr 20; planning on doing repeat EGD to follow up on anemia. Requests DEXA scan for osteoporosis screening Past medical history, appointments, medications, allergies reviewed. Previous Medical History PAST MEDICAL HISTORY Diagnosis Date - Afib (HCC) 09/22/2016 - Hypertension - Major depressive disorder, single episode, mild (HCC) - Other and unspecified hyperlipidemia - Type I (juvenile type) diabetes mellitus without mention of complication, not stated as uncontrolled - Unspecified hypothyroidism Previous Surgical History PAST SURGICAL HISTORY Procedure Laterality Date - CARPAL TUNNEL 80's? bilateral - LAPAROSCOPIC CHOLEYCYSTECTOMY 09/19/13 - LIGATE FALLOPIAN TUBE 77? Tubal ligation and appendectomy - PAST SURGICAL HISTORY OF 01/26/2017 Heart catherization, [facility] by Dr. Roger Family History FAMILY HISTORY Problem Relation Age of Onset - Diabetes Mother - Heart Mother - Stroke Mother - Cancer Maternal Uncle Unknown primary - Diabetes Father - Diabetes Maternal Aunt - Stroke Maternal Aunt - Cancer Maternal Aunt The female kind. Patient Allergies ALLERGIES Allergen Reactions - Clindamycin Hives - Klor-Con [Potassium* Hives - Lipitor [Atorvastat* Intolerance Muscle pain - Lisinopril Cough - Penicillins Hives - Qjifsvk-Rfx-Usv Red* Other: See Comments Muscle pain - Zocor [Simvastatin] Intolerance Muscle pain Current Medications Current Outpatient Prescriptions on File Prior to Visit: metFORMIN (GLUCOPHAGE) 500 mg tablet Take by mouth. 1 tablet in the morning and 2 in the evening pantoprazole DR (PROTONIX) 40 mg tablet Take 1 tablet by mouth once daily. citalopram (CELEXA) 40 mg tablet Take 0.5 tablets by mouth once daily. gemfibrozil (LOPID) 600 mg tablet Take 1 tablet by mouth twice daily with meals. glipiZIDE XL (GLUCOTROL XL) 5 mg 24 hr tablet Take 1 tablet by mouth once daily. meclizine 25 mg chewable tablet(s) Take 25 mg by mouth as needed. atenolol (TENORMIN) 50 mg tablet Take 1 tablet by mouth once daily. ferrous sulfate 325 mg (65 mg iron) tablet Take 1 tablet by mouth daily with breakfast. levothyroxine (SYNTHROID) 112 mcg tablet TAKE ONE TABLET BY MOUTH ONCE DAILY rOPINIRole (REQUIP) 0.25 mg tablet Take 2 tablets by mouth daily at bedtime. fluticasone (FLONASE) 50 mcg/actuation nasal spray Use 2 Sprays in each nostril once daily. Rinse mouth after use. nystatin-triamcinolone (MYCOLOG II) cream Apply 1 application to affected area twice daily. Diudpqassdrjt-Zo-Lnmo-Minerals (ONE-A-DAY WOMENS FORMULA) 27-0.4 mg ORAL Tab Take by mouth once daily. calcium carbonate-Vit D3-minerals (CALTRATE PLUS) 600-400 mg-unit ORAL Tab Take 1 tablet by mouth twice daily. omega-3 fatty acids (FISH OIL CONCENTRATE) 1,000 mg ORAL Cap Take 1 capsule by mouth twice daily. triamcinolone acetonide (KENALOG) 0.1 % cream Apply 1 application to affected area three times daily. Apply sparingly to area for rash/itching. nitroglycerin sublingual (NITROQUICK) 0.4 mg SL tablet Dissolve 1 tablet under the tongue as needed. FOR CHEST PAIN. IF NO RELIEF CALL 911 No current facility-administered medications on file prior to visit. Social History Social History Marital status: Spouse name: Years of education: Number of children: Occupational History Occupation Employer Comment [employer]. 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 Social History Main Topics Smoking status: Never Smoker Smokeless tobacco: Never Used Comment: Mother smoked in childhood home. No smokers in home for many years. Alcohol use: No Drug use: No Social History Narrative Blood type-AB Positive EXAM: BP 116/74 (BP Site: Left Arm, BP Position: Sitting, BP Cuff Size: Regular Adult) Pulse 68 Resp 16 Wt 87.3 kg (192 lb 6.4 oz) BMI 40.94 kg/m? General Appearance: Well appearing, alert, in no acute distress, well-hydrated, well nourished. and Obese. Neck: Supple, no adenopathy; thyroid symmetric, normal size, no bruits. Lungs: Lungs clear to auscultation. No wheezing, rhonchi, rales. Heart: RRR without murmur, gallop, or rubs. No ectopy. Abdomen: Normal abdominal exam, Abdomen soft, non-tender. Bowel sounds normal. No masses, organomegaly. Health Maintenance List DTAP,TDAP,TD(1 - Tdap) due on 12/05/2014 MAMMOGRAM due on 03/31/2018 INFLUENZA(1) due on 04/17/2018 DIABETES MED ADHERENCE due on 04/17/2018 DILATED RETINAL EXAM due on 05/22/2018 DIABETIC FOOT EXAM due on 07/10/2018 FECAL OCCULT BLOOD due on 07/13/2018 URINE ALBUMIN:CREATININE RATIO due on 09/19/2018 HBA1C due on 09/29/2018 ANNUAL PCP TEAM CHRONIC DISEASE VISIT due on 02/26/2019 BLOOD PRESSURE CONTROLLED due on 03/10/2019 LDL CHOLESTEROL due on 03/29/2019 BONE DENSITY Completed ADULT PREVNAR-13 Completed HEPATITIS C SCREENING Completed PNEUMOVAX AGE 65 AND OVER WITH 5YR LOOKBACK Completed Data reviewed Appointment on 03/29/2018 Component Date Value - Hemoglobin A1C 03/29/2018 6.0* - Estimated Average Glucose 03/29/2018 126 - Protein, Total 03/29/2018 7.5 - Albumin 03/29/2018 4.4 - Calcium 03/29/2018 10.3* - Bilirubin, Total 03/29/2018 0.2 - Alkaline Phosphatase 03/29/2018 78 - AST 03/29/2018 17 - Glucose 03/29/2018 136* - BUN 03/29/2018 22* - Creatinine 03/29/2018 0.87 - Sodium 03/29/2018 139 - Potassium 03/29/2018 4.6 - Chloride 03/29/2018 98 - CO2 03/29/2018 25 - Anion Gap 03/29/2018 16 - ALT 03/29/2018 13 - eGFR- 03/29/2018 >60 - eGFR-All Other Races 03/29/2018 >60 - WBC 03/29/2018 6.54 - RBC 03/29/2018 4.13 - Hemoglobin 03/29/2018 12.3 - Hematocrit 03/29/2018 38.6 - MCV 03/29/2018 93.5 - MCH 03/29/2018 29.8 - MCHC 03/29/2018 31.9 - RDW-CV 03/29/2018 13.5 - Platelet Count 03/29/2018 287 - MPV 03/29/2018 11.8 - Absolute nRBC 03/29/2018 <0.01 - Cholesterol, Total 03/29/2018 241* - Triglyceride 03/29/2018 147 - HDL Cholesterol 03/29/2018 34* - LDL Cholesterol 03/29/2018 178* - Non HDL Cholesterol 03/29/2018 207* - Fasting Time 03/29/2018 14 - VLDL Cholesterol 03/29/2018 29 - TC:HDL Ratio 03/29/2018 7.09* - LDL:HDL Ratio 03/29/2018 5.24* - TSH 03/29/2018 2.720 Component Date Value - Glucose 03/10/2018 184* - BUN 03/10/2018 27* - Creatinine 03/10/2018 0.82 - Sodium 03/10/2018 137 - Potassium 03/10/2018 4.3 - Chloride 03/10/2018 96* - CO2 03/10/2018 24 - Anion Gap 03/10/2018 17 - Calcium 03/10/2018 9.9 - eGFR- 03/10/2018 >60 - eGFR-All Other Races 03/10/2018 >60 ASSESSMENT/PLAN: 1. Essential hypertension, benign - ICD9: 401.1, ICD10: I10 (primary diagnosis) - good control - Continue current medication(s) - Recommend home blood pressure monitoring, to bring results in on next visit - Goal of BP <140/90 2. Controlled type 2 diabetes mellitus without complication, without long-term current use of insulin (HCC) - ICD9: 250.00, ICD10: E11.9 Controlled. - Decrease metformin (Glucophage) to see if diarrhea improves - METFORMIN 500 MG TABLET - COMP METABOLIC PANEL - LIPID PANEL BASIC - HGB A1C 3. Hyperlipidemia, unspecified hyperlipidemia type - ICD9: 272.4, ICD10: E78.5 - good control - Continue current medication. - COMP METABOLIC PANEL - LIPID PANEL BASIC 4. Acquired hypothyroidism - ICD9: 244.9, ICD10: E03.9 - Instructed patient on importance of taking on an empty stomach either first thing in the morning or at bedtime. - continue current dose of Synthroid - CBC + DIFF 5. Depression, unspecified depression type - ICD9: 311, ICD10: F32.9 Continue current medications. 6. Encounter for screening for osteoporosis - ICD9: V82.81, ICD10: Z13.820 - DXA-AXIAL SKELETON WITH VFA 7. Asymptomatic postmenopausal status - ICD9: V49.81, ICD10: Z78.0 - DXA-AXIAL SKELETON WITH VFA Check labs in three months Follow up in 3 months Tanja Rust MD The documentation for this note was completed by Ariadna Buenrostro Ma acting as scribe for Tanja Rust MD. April 06, 2018 10:19 AM. Tanja Rust MD 04/06/2018 10:34 AM Signed BONE MINERAL DENSITY PATIENT INSTRUCTIONS Bone mineral density testing measures the amount of calcium in certain parts of your bones. This information determines how strong your bones are. The test is used to detect osteoporosis, a disease in which the bone's mineral content and density are low, increasing a person's risk of fractures. The lumbar spine (lower back) and the hip are the skeletal sites usually examined. For the test, remember that: 1. You cannot take this test if you are . 2. Eat a normal diet on the day of the test. 3. Take your medications as you normally would. 4. DO NOT take calcium supplements (such as Tums) for 24 hours before the test. 5. On the day of the test, leave valuables (jewelry or credit cards) at home. 6. The test should be performed prior to oral, rectal or IV contrast studies, or at least 7 days after any of these studies. For the test, you may be asked to wear a hospital gown. You will lie on your back, on a padded table, in a comfortable position. Generally, you can resume your usual activities immediately. Ariadna Buenrostro Ma 04/06/2018 12:46 PM Signed Pt requested labs to be faxed to Dr. Richardson's office. Faxed to [phone]. Ariadna Buenrostro Ma Referring Provider: TANJA RUST [[id number]] Allergies As of Date: 04/06/2018 Noted Allergy Reaction CLINDAMYCIN 12/04/2008 4 - Hives KLOR-CON (POTASSIUM CHLORIDE) 12/08/2013 4 - Hives LIPITOR (ATORVASTATIN CALCIUM) 07/14/2005 5 - Intolerance Comments: Muscle pain LISINOPRIL 12/08/2013 3 - Cough PENICILLINS 07/14/2005 4 - Hives YOURJVA-ZAF-OHN REDUCTASE INHIBIT*06/07/2014 14 - Other: See Comments Comments: Muscle pain ZOCOR (SIMVASTATIN) 07/14/2005 5 - Intolerance Comments: Muscle pain Date Reviewed: 04/06/2018 Reviewed by: Ariadna Buenrostro Ma - Fully Assessed Reason for Visit: F/U 1 month [1175] Cmt: lab results Reason For Visit History Recorded Primary Visit Diagnosis:Essential hypertension, benign [I10] Other Visit Diagnoses:Controlled type 2 diabetes mellitus without complication, without long-term current use of insulin (HCC) [E11.9] Hyperlipidemia, unspecified hyperlipidemia type [E78.5] Acquired hypothyroidism [E03.9] Depression, unspecified depression type [F32.9] Encounter for screening for osteoporosis [Z13.820] Asymptomatic postmenopausal status [Z78.0] Order(s):metFORMIN (GLUCOPHAGE) 500 mg tabletTake 1 tablet by mouth daily with breakfast.Disp: 270 tabletRfl: 3 DXA-AXIAL SKELETON WITH VFA [[id number]] Order #: [id number] FUTURE COMP METABOLIC PANEL [SQCMP] Order #: [id number] FUTURE LIPID PANEL BASIC [SQLIPB] Order #: [id number] FUTURE HGB A1C [HVQWN1P] Order #: [id number] FUTURE CBC + DIFF [SQCBCDIF] Order #: [id number] FUTURE Prescriptions as of 04/06/2018 Sig: METFORMIN 500 MG TABLET Take 1 tablet by mouth daily * PANTOPRAZOLE 40 MG TABLET,DEL* Take 1 tablet by mouth once d* CITALOPRAM 40 MG TABLET Take 0.5 tablets by mouth onc* GEMFIBROZIL 600 MG TABLET Take 1 tablet by mouth twice * GLIPIZIDE ER 5 MG TABLET, EXT* Take 1 tablet by mouth once d* MECLIZINE 25 MG CHEWABLE TABL* Take 25 mg by mouth as needed. ATENOLOL 50 MG TABLET Take 1 tablet by mouth once d* FERROUS SULFATE 325 MG (65 MG* Take 1 tablet by mouth daily * LEVOTHYROXINE 112 MCG TABLET TAKE ONE TABLET BY MOUTH ONCE* ROPINIROLE 0.25 MG TABLET Take 2 tablets by mouth daily* FLUTICASONE 50 MCG/ACTUATION * Use 2 Sprays in each nostril * NYSTATIN-TRIAMCINOLONE 100,00* Apply 1 application to affect* * SOZQOUFSCSDZ-KT-WFWO-MINERALS* Take by mouth once daily. * CALCIUM CARB-VIT D3-MINERALS * Take 1 tablet by mouth twice * * OMEGA-3 FATTY ACIDS 1,000 MG * Take 1 capsule by mouth twice* TRIAMCINOLONE ACETONIDE 0.1 %* Apply 1 application to affect* NITROGLYCERIN 0.4 MG SUBLINGU* Dissolve 1 tablet under the t* Problem List As Of Date 04/06/2018 Noted Resolved Hypothyroidism [E03.9] Hyperlipidemia [E78.5] BENIGN HYPERTENSION [I10] INVALID FOR* Diabetes mellitus type 2, controlled, without c*INVALID FOR* Depression [F32.9] INVALID FOR* Lumbago [M54.5] INVALID FOR* Spinal stenosis, lumbar region, without neuroge*INVALID FOR* L-S radiculopathy [M54.17] INVALID FOR* Cholelithiasis [K80.20] INVALID FOR* Afib (HCC) [I48.91] INVALID FOR* Obesity, Class III, BMI 40-49.9 (morbid obesity*INVALID FOR* Other instructions from your clinician: BONE MINERAL DENSITY PATIENT INSTRUCTIONS Bone mineral density testing measures the amount of calcium in certain parts of your bones. This information determines how strong your bones are. The test is used to detect osteoporosis, a disease in which the bone's mineral content and density are low, increasing a person's risk of fractures. The lumbar spine (lower back) and the hip are the skeletal sites usually examined. For the test, remember that: 1. You cannot take this test if you are . 2. Eat a normal diet on the day of the test. 3. Take your medications as you normally would. 4. DO NOT take calcium supplements (such as Tums) for 24 hours before the test. 5. On the day of the test, leave valuables (jewelry or credit cards) at home. 6. The test should be performed prior to oral, rectal or IV contrast studies, or at least 7 days after any of these studies. For the test, you may be asked to wear a hospital gown. You will lie on your back, on a padded table, in a comfortable position. Generally, you can resume your usual activities immediately. Visit Notes: >> Ariadna Buenrostro Ma Sophia Apr 06, 2018 12:45 PM Status: Signed Pt requested labs to be faxed to Dr. Richardson's office. Faxed to [phone]. Ariadna Buenrostro Ma Prescriptions ordered this encounter Disp Refills Start End METFORMIN 500 MG TABLET 270 * 3 04/06/2018 Class: Med Update Route: ORAL Sig: Take 1 tablet by mouth daily with breakfast. Medications Discontinued During This Encounter cyclobenzaprine (FLEXERIL) 5 mg tabl* 60 t* 3 06/03/2016 04/06/2018 Route: ORAL Sig: Take 2 tablets by mouth three times daily as needed for Muscle Spasm. Disc: Discontinued by Patient metFORMIN (GLUCOPHAGE) 500 mg tablet 270 * 3 03/15/2018 04/06/2018 Sig: Take by mouth. 1 tablet in the morning and 2 in the evening Disc: Reason for discontinue is not on file. Disposition: Return in about 2 months (around 06/06/2018). Follow-up and Disposition History Recorded Encounter Status:Closed by TANJA RUST MD on 04/08/18 CBC Collected: 03/29/2018 Status: F Source: [place] 10:36 AM [facility] REPOSITORY TYPE CODE TESTS RESULT OUT OF REFERENCE UNITS RANGE LAB WBC 3.70-11.00 k/uL WBC 6.54 LAB RBC 3.90-5.20 m/uL RBC 4.13 LAB HGB 11.5-15.5 g/dL Hemoglobin 12.3 LAB HCT 36.0-46.0 % Hematocrit 38.6 LAB MCV 80.0-100.0 fL MCV 93.5 LAB MCH 26.0-34.0 pG MCH 29.8 LAB MCHC 30.5-36.0 g/dL MCHC 31.9 LAB RDWCV 11.5-15.0 % RDW-CV 13.5 LAB PLTCT 150-400 k/uL Platelet Count 287 LAB MPV 9.0-12.7 fL MPV 11.8 LAB ABSNUC <0.01 k/uL Absolute nRBC <0.01 Performed By: #### CBC, HBA1C, CMP, LIPB, TSH #### [facility] [address], [place] [address] HEMOGLOBIN A1C Collected: 03/29/2018 Status: F Source: [place] 10:36 AM [facility] REPOSITORY TYPE CODE TESTS RESULT OUT OF REFERENCE UNITS RANGE LAB HGBA1C 4.3-5.6 % High Hemoglobin A1c 6.0 LAB HBA0 mg/dL Est. Average Glucose 126 Result Comment: eAG: (Estimated average glucose) is a calculated value from HgbA1c and is access service representative of the average blood glucose level in the last 2-3 month period. Performed By: #### CBC, HBA1C, CMP, LIPB, TSH #### [facility] [address], [place] [address] COMP METABOLIC PANEL Collected: 03/29/2018 Status: F Source: BEL[place] 10:36 AM [facility] REPOSITORY TYPE CODE TESTS RESULT OUT OF REFERENCE UNITS RANGE LAB TP 6.3-8.0 g/dL Protein, Total 7.5 LAB ALB 3.9-4.9 g/dL Albumin 4.4 LAB CA 8.5-10.2 mg/dL Calcium, High Total 10.3 LAB TBIL 0.2-1.3 mg/dL Bilirubin, Total 0.2 LAB ALKP 32-117 U/L Alkaline Phosphatase 78 LAB AST 13-35 U/L AST 17 LAB GLU 74-99 mg/dL Glucose High 136 Result Comment: The [place] Diabetes Association (ADA) provides guidance for cutoff values for fasting glucose and random glucose. The ADA defines fasting as no caloric intake for at least 8 hours. Fas ting plasma glucose results between 100 to 125 mg/dL indicate increased risk for diabetes (prediabetes). Fasting plasma glucose results greater than or equal to 126 mg/dL meet the criteria for diagnosis of diabetes. In the absence of unequivocal hyperglycemia, results should be confirmed by repeat testing. In a patient with classic symptoms of hyperglycemia or hyperglycemic crisis, random plasma glucose results greater than or equal to 200 mg/dL meet the criteria for diagnosis of diabetes. Reference: Standards of Medical Care in Diabetes 2016, [place] Diabetes Association. Diabetes Care. 2016.39(Suppl 1). LAB BUN 7-21 mg/dL BUN High 22 LAB CRET 0.58-0.96 mg/dL Creatinine 0.87 LAB NA 136-144 mmol/L Sodium 139 LAB K 3.7-5.1 mmol/L Potassium 4.6 LAB CL 97-105 mmol/L Chloride 98 LAB CO2 22-30 mmol/L CO2 25 LAB AGAP 9-18 mmol/L Anion Gap 16 LAB ALT 7-38 U/L ALT 13 LAB GFRAA eGFR- Amer. >60 LAB GFRNAA . eGFR-All Other Races >60 Result Comment: eGFR (Estimated GFR) Units of measure: mL/min/1.73 meters squared eGFR is derived from the reexpressed MDRD Study equation using the following parameters: serum creatinine, age, gender and race. The creatinine assay has been calibrated to be traceable to IDMS. An eGFR <60 mL/min/1.73m2 for >3 months is consistent with chronic kidney disease. Refer to KDOQI guidelines for clinical interpretation. In patients with unstable renal function, e.g. those with acute kidney injury, the eGFR may not accurately reflect actual GFR. Performed By: #### CBC, HBA1C, CMP, LIPB, TSH #### [facility] [address] [place] [address] LIPID PANEL, BASIC Collected: 03/29/2018 Status: F Source: BEL[place] 10:36 AM [facility] REPOSITORY TYPE CODE TESTS RESULT OUT OF REFERENCE UNITS RANGE LAB CHOL <200 mg/dL Cholesterol High 241 Result Comment: <200 mg/dL, Desirable 200-239 mg/dL, Borderline high >239 mg/dL, High LAB TRIGLY <150 mg/dL Triglyceride 147 Result Comment: <150 mg/dL, Normal 150-199 mg/dL, Borderline high 200-499 mg/dL, High >499 mg/dL, Very high LAB HDL >39 mg/dL HDL-Cholesterol Low 34 Result Comment: 40-59 mg/dL, Acceptable >59 mg/dL, High: Negative risk factor for coronary heart disease <40 mg/dL, Low: Positive risk factor for coronary heart disease LAB LDL <100 mg/dL LDL-Cholesterol High 178 Result Comment: <100 mg/dL, Optimal 100-129 mg/dL, Near optimal/above optimal 130-159 mg/dL, Borderline high 160-189 mg/dL, High >189 mg/dL, Very high Secondary prevention optimal LDL Cholesterol levels are recommended to be < 70 mg/dL LAB NONHDL <130 mg/dL Non HDL High Cholesterol 207 Result Comment: <130 mg/dL, Optimal 130-159 mg/dL, Near optimal/above optimal 160-189 mg/dL, Borderline high 190-219 mg/dL, High >219 mg/dL, Very high Secondary prevention optimal non HDL Cholesterol levels are recommended to be < 100 mg/dL LAB FT hrs Fasting Time 14 LAB VLDL <30 mg/dL VLDL Cholesterol 29 LAB TCHDL <5.10 High TC:HDL Ratio 7.09 LAB LDLHDL <2.54 High LDL:HDL Ratio 5.24 Result Comment: Reference: 1. National Cholesterol Education Program ATP III Guideline At-A-Glance Quick Desk Reference: National Heart, Lung, and Blood [place]. National Institutes of Health. 2001: NIH Publication No. 01-3305. 2. An International Atherosclerosis Society position paper: global recommendations for the management of dyslipidemia: executive summary, Atherosclerosis. 2014: 232(2):410-413. Performed By: #### CBC, HBA1C, CMP, LIPB, TSH #### [facility] [address] [place] [address] TSH Collected: 03/29/2018 Status: F Source: [place] 10:36 AM [facility] REPOSITORY TYPE CODE TESTS RESULT OUT OF RANGE REFERENCE UNITS LAB TSH 0.400-5.500 uU/mL TSH 2.720 Performed By: #### CBC, HBA1C, CMP, LIPB, TSH #### [facility] [address] [place] [address] BASIC METABOLIC PANL Collected: 03/10/2018 Status: F Source: [place] 3:48 PM [facility] REPOSITORY TYPE CODE TESTS RESULT OUT OF REFERENCE UNITS RANGE LAB GLU 74-99 mg/dL High Glucose 184 Result Comment: The [place] Diabetes Association (ADA) provides guidance for cutoff values for fasting glucose and random glucose. The ADA defines fasting as no caloric intake for at least 8 hours. Fas ting plasma glucose results between 100 to 125 mg/dL indicate increased risk for diabetes (prediabetes). Fasting plasma glucose results greater than or equal to 126 mg/dL meet the criteria for diagnosis of diabetes. In the absence of unequivocal hyperglycemia, results should be confirmed by repeat testing. In a patient with classic symptoms of hyperglycemia or hyperglycemic crisis, random plasma glucose results greater than or equal to 200 mg/dL meet the criteria for diagnosis of diabetes. Reference: Standards of Medical Care in Diabetes 2016, [place] Diabetes Association. Diabetes Care. 2016.39(Suppl 1). LAB BUN 7-21 mg/dL BUN High 27 LAB CRET 0.58-0.96 mg/dL Creatinine 0.82 LAB NA 136-144 mmol/L Sodium 137 LAB K 3.7-5.1 mmol/L Potassium 4.3 LAB CL 97-105 mmol/L Low Chloride 96 LAB CO2 22-30 mmol/L CO2 24 LAB AGAP 9-18 mmol/L Anion Gap 17 LAB CA 8.5-10.2 mg/dL Calcium, Total 9.9 LAB GFRAA eGFR- Amer. >60 LAB GFRNAA . eGFR-All Other Races >60 Result Comment: eGFR (Estimated GFR) Units of measure: mL/min/1.73 meters squared eGFR is derived from the reexpressed MDRD Study equation using the following parameters: serum creatinine, age, gender and race. The creatinine assay has been calibrated to be traceable to IDMS. An eGFR <60 mL/min/1.73m2 for >3 months is consistent with chronic kidney disease. Refer to KDOQI guidelines for clinical interpretation. In patients with unstable renal function, e.g. those with acute kidney injury, the eGFR may not accurately reflect actual GFR. Performed By: #### BMP #### [facility] [address] [place] [address] PROGRESS Observed: 03/10/2018 Status: COMPLETED Source: [place] 3:33 PM [facility] REPOSITORY HNO ID: [id number] Author: Barrett Mancilla Service: (none) Author Type: Physician Type: Progress Notes Filed: 03/10/2018 5:25 PM Note Text: PERTINENT CARDIAC HISTORY LOCO - equivocal stress tests, cath minimal ASHD PAF HTN - BRIGITTE-I intolerance HL - statin intolerant, try zetia? DM CHARO? - RLS on sleep study ADHERENCE TO GUIDELINES BRIGITTE-I or ARB for HF with prior LVEF<40 (NQF 0081) - N/A ASA or Plavix for ASHD (NQF 0067) - met Beta dorcas for ASHD with prior VT or prior LVEF<40 (NQF 0070) - N/A Beta dorcas for HF with prior LVEF<40 (NQF 0083) - N/A BRIGITTE-I or ARB for ASHD with DM or prior LVEF<40 (NQF 0066) - intolerant Statin therapy for ASHD or FHL or DM - intolerant BMI documented and plan if >25 (NQF 0421) - lifestyle recommendation form Tobacco use screening and referral (NQF 0028) - lifestyle recommendation form Recommendation for whole food, plant based diet - lifestyle recommendation form CLINICAL IMPRESSION/PLAN: Kyaw Espinoza has had recent GI blood loss which is due to be evaluated next month with endoscopy. I agree with holding aspirin and anti- coagulation for the time being, but we should start her on warfarin again when possible. Her aspirin can be held for the time being, especially if she has evidence of upper GI bleeding We will consider adding an ARB in the future although her blood pressure is borderline low at this time. She was reminded to have labs done. I will see her in 6 months or as needed. Written and verbal health teaching given to patient, patient verbalizes understanding and agrees with treatment plan. DIAGNOSIS FOR VISIT: PAF HISTORY OF PRESENT ILLNESS Kyaw Espinoza returns for follow-up of her fibrillation. She was recently hospitalized with GI bleed, requiring multiple transfusions. She became volume overloaded and she was transferred to [facility]. No changes were made in her medication other than stopping her warfarin and aspirin. Her knee surgery has been deferred. She denies chest discomfort. Her shortness of breath has improved. She's had no edema, syncope, TIAs, amaurosis or claudication. She's had rare sensation of palpitation, but nonsustained. ALLERGIES: ALLERGIES Allergen Reactions - Clindamycin Hives - Klor-Con [Potassium* Hives - Lipitor [Atorvastat* Intolerance Muscle pain - Lisinopril Cough - Penicillins Hives - Fiifuuq-Vcj-Tnh Red* Other: See Comments Muscle pain - Zocor [Simvastatin] Intolerance Muscle pain CURRENT OUTPATIENT MEDICATIONS: citalopram (CELEXA) 40 mg tablet Take 0.5 tablets by mouth once daily. gemfibrozil (LOPID) 600 mg tablet Take 1 tablet by mouth twice daily with meals. glipiZIDE XL (GLUCOTROL XL) 5 mg 24 hr tablet Take 1 tablet by mouth once daily. pantoprazole DR (PROTONIX) 40 mg tablet Take 40 mg by mouth once daily. meclizine 25 mg chewable tablet(s) Take 25 mg by mouth as needed. atenolol (TENORMIN) 50 mg tablet Take 1 tablet by mouth once daily. ferrous sulfate 325 mg (65 mg iron) tablet Take 1 tablet by mouth daily with breakfast. levothyroxine (SYNTHROID) 112 mcg tablet TAKE ONE TABLET BY MOUTH ONCE DAILY rOPINIRole (REQUIP) 0.25 mg tablet Take 2 tablets by mouth daily at bedtime. metFORMIN (GLUCOPHAGE) 500 mg tablet Take by mouth. 1 tablet in the morning and 2 in the evening Eqnethkqunkfy-Pt-Nxre-Minerals (ONE-A-DAY WOMENS FORMULA) 27-0.4 mg ORAL Tab Take by mouth once daily. calcium carbonate-Vit D3-minerals (CALTRATE PLUS) 600-400 mg-unit ORAL Tab Take 1 tablet by mouth twice daily. omega-3 fatty acids (FISH OIL CONCENTRATE) 1,000 mg ORAL Cap Take 1 capsule by mouth twice daily. fluticasone (FLONASE) 50 mcg/actuation nasal spray Use 2 Sprays in each nostril once daily. Rinse mouth after use. nystatin-triamcinolone (MYCOLOG II) cream Apply 1 application to affected area twice daily. triamcinolone acetonide (KENALOG) 0.1 % cream Apply 1 application to affected area three times daily. Apply sparingly to area for rash/itching. nitroglycerin sublingual (NITROQUICK) 0.4 mg SL tablet Dissolve 1 tablet under the tongue as needed. FOR CHEST PAIN. IF NO RELIEF CALL 911 cyclobenzaprine (FLEXERIL) 5 mg tablet Take 2 tablets by mouth three times daily as needed for Muscle Spasm. PHYSICAL EXAMINATION: VITAL SIGNS: BP 118/78 Pulse 68 Wt 198 lb 8 oz (90.0kg) Chest: Clear to percussion and auscultation. Trachea is midline. Air entry is equal. Cardiac: Regular rhythm. S1 and S2 are normal. PMI is nondisplaced. There is a soft systolic ejection click. Carotids are brisk without bruits. JVP is less than 10 cm. Abdomen: Soft and nontender. There are no pulsatile masses or bruits. No liver enlargement. Bowel sounds are active. Extremities: Trace edema. Pulses are intact and symmetrical. EKG shows sinus rhythm and is unchanged. Recent labs reviewed. Hemoglobin is normal. Renal function is normal. Electronically Signed: Barrett Mancilla MD March 10, 2018 3:33 PM CC: Tanja Rust MD CNNURSE Observed: 03/10/2018 Status: COMPLETED Source: [place] 3:15 PM [facility] REPOSITORY Nurse Visit (CAWSTR) KYAW ESPINOZA ([id number]) 1950 F Date Time Provider Department 03/10/18 3:15 PM NURSE CARD ADMIN [facility] CAWSTR During your visit today, we recorded the following information about you: Ema Escalante MA 04/05/2018 4:39 PM Signed EKG completed and given to Dr Mancilla for review. Ema Escalante MA Referring Provider: BARRETT MANCILLA [[id number]] Allergies As of Date: 03/10/2018 Noted Allergy Reaction CLINDAMYCIN 12/04/2008 4 - Hives KLOR-CON (POTASSIUM CHLORIDE) 12/08/2013 4 - Hives LIPITOR (ATORVASTATIN CALCIUM) 07/14/2005 5 - Intolerance Comments: Muscle pain LISINOPRIL 12/08/2013 3 - Cough PENICILLINS 07/14/2005 4 - Hives PUMRHXO-OAV-ENZ REDUCTASE INHIBIT*06/07/2014 14 - Other: See Comments Comments: Muscle pain ZOCOR (SIMVASTATIN) 07/14/2005 5 - Intolerance Comments: Muscle pain Date Reviewed: 03/10/2018 Reviewed by: Lashawn Muir Ma - Fully Assessed Reason for Visit: Allied Health Visit [5] Visit Diagnosis:PAF (paroxysmal atrial fibrillation) (HCC) [I48.0] Order(s):ECG COMPLETE W INTERPRETATION [ECG01] Order #: [id number] Prescriptions as of 03/10/2018 Sig: CITALOPRAM 40 MG TABLET Take 0.5 tablets by mouth onc* GEMFIBROZIL 600 MG TABLET Take 1 tablet by mouth twice * GLIPIZIDE ER 5 MG TABLET, EXT* Take 1 tablet by mouth once d* MECLIZINE 25 MG CHEWABLE TABL* Take 25 mg by mouth as needed. ATENOLOL 50 MG TABLET Take 1 tablet by mouth once d* FERROUS SULFATE 325 MG (65 MG* Take 1 tablet by mouth daily * X PANTOPRAZOLE 40 MG TABLET,DEL* Take 40 mg by mouth once lana* LEVOTHYROXINE 112 MCG TABLET TAKE ONE TABLET BY MOUTH ONCE* ROPINIROLE 0.25 MG TABLET Take 2 tablets by mouth daily* FLUTICASONE 50 MCG/ACTUATION * Use 2 Sprays in each nostril * Patient not taking: Reported on 03/10/2018 NYSTATIN-TRIAMCINOLONE 100,00* Apply 1 application to affect* Patient not taking: Reported on 03/10/2018 TRIAMCINOLONE ACETONIDE 0.1 %* Apply 1 application to affect* Patient not taking: Reported on 03/10/2018 X METFORMIN 500 MG TABLET Take by mouth. 1 tablet in t* NITROGLYCERIN 0.4 MG SUBLINGU* Dissolve 1 tablet under the t* Patient not taking: Reported on 03/10/2018 CYCLOBENZAPRINE 5 MG TABLET Take 2 tablets by mouth three* Patient not taking: Reported on 03/10/2018 * BCWRMHZSWHLR-JO-QCPP-MINERALS* Take by mouth once daily. * CALCIUM CARB-VIT D3-MINERALS * Take 1 tablet by mouth twice * * OMEGA-3 FATTY ACIDS 1,000 MG * Take 1 capsule by mouth twice* Problem List As Of Date 03/10/2018 Noted Resolved Hypothyroidism [E03.9] Hyperlipidemia [E78.5] BENIGN HYPERTENSION [I10] INVALID FOR* Diabetes mellitus type 2, controlled, without c*INVALID FOR* Depression [F32.9] INVALID FOR* Lumbago [M54.5] INVALID FOR* Spinal stenosis, lumbar region, without neuroge*INVALID FOR* L-S radiculopathy [M54.17] INVALID FOR* Cholelithiasis [K80.20] INVALID FOR* Afib (HCC) [I48.91] INVALID FOR* Obesity, Class III, BMI 40-49.9 (morbid obesity*INVALID FOR* Visit Notes: >> Ema Escalante MA ThuMar 10, 2018 4:39 PM Status: Signed EKG completed and given to Dr Mancilla for review. Ema Escalante SASHA Encounter Status:Closed by EMA ESCALANTE MA on 04/05/18 EKG1 Observed: 03/10/2018 Status: F Source: [place] 3:13 PM [facility] REPOSITORY NAME : KYAW ESPINOZA PID : [id number] : 1950 Gender : Female Race : ORD : Procedure Date : Mar 10 2018 15:13:04 Edit Date : Mar 11 2018 08:42:44 Diagnosis:NORMAL SINUS RHYTHM LOW VOLTAGE QRS, CONSIDER PULMONARY DISEASE, PERICARDIAL EFFUSION, OR NORMAL VARIANT BORDERLINE ECG NO SIGNIFICANT CHANGE FROM PREVIOUS ECG Confirmed by BARRETT MANCILLA MD ([id number]) on 03/11/2018 8:42:41 AM Ventricular Rate : 68 BPM Atrial Rate : 68 BPM P-R Interval : 134 ms QRS Duration : 84 ms Q-T Interval : 420 ms QTC Calculation(Bezet) : 446 ms P Shiloh : 28 degrees R Shiloh : 53 degrees T Shiloh : 55 degrees Test Reason : Location : 136 : [facility] Overread By : BARRETT MANCILLA MD Edited By : BARRETT MANCILLA MD Referred By : Brandt MANCILLA Acquired by : LINDSAY ANDERSON Observed: 03/10/2018 Status: COMPLETED Source: [place] 2:15 PM [facility] REPOSITORY Office Visit (CAWSTR) KYAW ESPINOZA S ([id number]) 1950 F Date Time Provider Department 03/10/18 2:15 PM BARRETT MANCILLA CAWSTR During your visit today, we recorded the following information about you: Pulse Blood pressure Weight 68/minute 118/78 90 kg Lashawn Muir Sasha 03/10/2018 3:19 PM Signed AMB ROOMING INTAKE FLOWSHEET DATA Risk Screening Do you have concerns about personal safety or safety in the home?: No Pain Pain Location: Arm-Left Description: (Muscle pain) Duration Amount of Time: 2 Duration Units: Days Frequency: Continuous Intervention: Medication Patient states she has been having some muscle pain down her left arm that started 2 days ago. She is also feeling light headed today. Takes Meclizine for her dizziness. Patient states she was also in [facility] January 04 for bleeding ulcer. She has recently found out she is anemic and has had blood transfusions. Barrett Mancilla MD 03/10/2018 5:25 PM Signed PERTINENT CARDIAC HISTORY LOCO - equivocal stress tests, cath minimal ASHD PAF HTN - BRIGITTE-I intolerance HL - statin intolerant, try zetia? DM CHARO? - RLS on sleep study ADHERENCE TO GUIDELINES BRIGITTE-I or ARB for HF with prior LVEF<40 (NQF 0081) - N/A ASA or Plavix for ASHD (NQF 0067) - met Beta dorcas for ASHD with prior VT or prior LVEF<40 (NQF 0070) - N/A Beta dorcas for HF with prior LVEF<40 (NQF 0083) - N/A RBIGITTE-I or ARB for ASHD with DM or prior LVEF<40 (NQF 0066) - intolerant Statin therapy for ASHD or FHL or DM - intolerant BMI documented and plan if >25 (NQF 0421) - lifestyle recommendation form Tobacco use screening and referral (NQF 0028) - lifestyle recommendation form Recommendation for whole food, plant based diet - lifestyle recommendation form CLINICAL IMPRESSION/PLAN: Kyaw Espinoza has had recent GI blood loss which is due to be evaluated next month with endoscopy. I agree with holding aspirin and anti- coagulation for the time being, but we should start her on warfarin again when possible. Her aspirin can be held for the time being, especially if she has evidence of upper GI bleeding We will consider adding an ARB in the future although her blood pressure is borderline low at this time. She was reminded to have labs done. I will see her in 6 months or as needed. Written and verbal health teaching given to patient, patient verbalizes understanding and agrees with treatment plan. DIAGNOSIS FOR VISIT: PAF HISTORY OF PRESENT ILLNESS Kyaw Espinoza returns for follow-up of her fibrillation. She was recently hospitalized with GI bleed, requiring multiple transfusions. She became volume overloaded and she was transferred to [facility]. No changes were made in her medication other than stopping her warfarin and aspirin. Her knee surgery has been deferred. She denies chest discomfort. Her shortness of breath has improved. She's had no edema, syncope, TIAs, amaurosis or claudication. She's had rare sensation of palpitation, but nonsustained. ALLERGIES: ALLERGIES Allergen Reactions - Clindamycin Hives - Klor-Con [Potassium* Hives - Lipitor [Atorvastat* Intolerance Muscle pain - Lisinopril Cough - Penicillins Hives - Wlmjmoq-Ect-Rqc Red* Other: See Comments Muscle pain - Zocor [Simvastatin] Intolerance Muscle pain CURRENT OUTPATIENT MEDICATIONS: citalopram (CELEXA) 40 mg tablet Take 0.5 tablets by mouth once daily. gemfibrozil (LOPID) 600 mg tablet Take 1 tablet by mouth twice daily with meals. glipiZIDE XL (GLUCOTROL XL) 5 mg 24 hr tablet Take 1 tablet by mouth once daily. pantoprazole DR (PROTONIX) 40 mg tablet Take 40 mg by mouth once daily. meclizine 25 mg chewable tablet(s) Take 25 mg by mouth as needed. atenolol (TENORMIN) 50 mg tablet Take 1 tablet by mouth once daily. ferrous sulfate 325 mg (65 mg iron) tablet Take 1 tablet by mouth daily with breakfast. levothyroxine (SYNTHROID) 112 mcg tablet TAKE ONE TABLET BY MOUTH ONCE DAILY rOPINIRole (REQUIP) 0.25 mg tablet Take 2 tablets by mouth daily at bedtime. metFORMIN (GLUCOPHAGE) 500 mg tablet Take by mouth. 1 tablet in the morning and 2 in the evening Mjyuifirwudkm-Yl-Lkal-Minerals (ONE-A-DAY WOMENS FORMULA) 27-0.4 mg ORAL Tab Take by mouth once daily. calcium carbonate-Vit D3-minerals (CALTRATE PLUS) 600-400 mg-unit ORAL Tab Take 1 tablet by mouth twice daily. omega-3 fatty acids (FISH OIL CONCENTRATE) 1,000 mg ORAL Cap Take 1 capsule by mouth twice daily. fluticasone (FLONASE) 50 mcg/actuation nasal spray Use 2 Sprays in each nostril once daily. Rinse mouth after use. nystatin-triamcinolone (MYCOLOG II) cream Apply 1 application to affected area twice daily. triamcinolone acetonide (KENALOG) 0.1 % cream Apply 1 application to affected area three times daily. Apply sparingly to area for rash/itching. nitroglycerin sublingual (NITROQUICK) 0.4 mg SL tablet Dissolve 1 tablet under the tongue as needed. FOR CHEST PAIN. IF NO RELIEF CALL 911 cyclobenzaprine (FLEXERIL) 5 mg tablet Take 2 tablets by mouth three times daily as needed for Muscle Spasm. PHYSICAL EXAMINATION: VITAL SIGNS: BP 118/78 Pulse 68 Wt 198 lb 8 oz (90.0kg) Chest: Clear to percussion and auscultation. Trachea is midline. Air entry is equal. Cardiac: Regular rhythm. S1 and S2 are normal. PMI is nondisplaced. There is a soft systolic ejection click. Carotids are brisk without bruits. JVP is less than 10 cm. Abdomen: Soft and nontender. There are no pulsatile masses or bruits. No liver enlargement. Bowel sounds are active. Extremities: Trace edema. Pulses are intact and symmetrical. EKG shows sinus rhythm and is unchanged. Recent labs reviewed. Hemoglobin is normal. Renal function is normal. Electronically Signed: Barrett Mancilla MD March 10, 2018 3:33 PM CC: MD Ema Espana MA 04/01/2018 9:16 AM Signed Addended by: EMA ESCALANTE MA on: 04/01/2018 09:16 AM Modules accepted: Chris Mancilla MD 04/01/2018 12:53 PM Signed Addended by: BARRETT MANCILLA MD on: 04/01/2018 12:53 PM Modules accepted: Chris Escalante MA 04/02/2018 1:25 PM Signed Addended by: EMA ESCALANTE MA on: 04/02/2018 01:25 PM Modules accepted: Chris Mancilla MD 04/02/2018 4:31 PM Signed Addended by: BARRETT MANCILLA MD on: 04/02/2018 04:31 PM Modules accepted: Orders Referring Provider: BARRETT MANCILLA [[id number]] Allergies As of Date: 03/10/2018 Noted Allergy Reaction CLINDAMYCIN 12/04/2008 4 - Hives KLOR-CON (POTASSIUM CHLORIDE) 12/08/2013 4 - Hives LIPITOR (ATORVASTATIN CALCIUM) 07/14/2005 5 - Intolerance Comments: Muscle pain LISINOPRIL 12/08/2013 3 - Cough PENICILLINS 07/14/2005 4 - Hives AKRHLOF-SFU-IGR REDUCTASE INHIBIT*06/07/2014 14 - Other: See Comments Comments: Muscle pain ZOCOR (SIMVASTATIN) 07/14/2005 5 - Intolerance Comments: Muscle pain Date Reviewed: 03/10/2018 Reviewed by: Lashawn Muir Ma - Fully Assessed Reason for Visit: Established Patient [175] Cmt: Follow up - blood thinner Primary Visit Diagnosis:PAF (paroxysmal atrial fibrillation) ([facility]) [I48.0] Order(s):ECG COMPLETE W INTERPRETATION [ECG01] Order #: [id number] FUTURE Prescriptions as of 03/10/2018 Sig: CITALOPRAM 40 MG TABLET Take 0.5 tablets by mouth onc* GEMFIBROZIL 600 MG TABLET Take 1 tablet by mouth twice * GLIPIZIDE ER 5 MG TABLET, EXT* Take 1 tablet by mouth once d* MECLIZINE 25 MG CHEWABLE TABL* Take 25 mg by mouth as needed. ATENOLOL 50 MG TABLET Take 1 tablet by mouth once d* FERROUS SULFATE 325 MG (65 MG* Take 1 tablet by mouth daily * X PANTOPRAZOLE 40 MG TABLET,DEL* Take 40 mg by mouth once lana* LEVOTHYROXINE 112 MCG TABLET TAKE ONE TABLET BY MOUTH ONCE* ROPINIROLE 0.25 MG TABLET Take 2 tablets by mouth daily* X METFORMIN 500 MG TABLET Take by mouth. 1 tablet in t* * WAOKTJWOIWWW-QQ-UUNP-MINERALS* Take by mouth once daily. * CALCIUM CARB-VIT D3-MINERALS * Take 1 tablet by mouth twice * * OMEGA-3 FATTY ACIDS 1,000 MG * Take 1 capsule by mouth twice* FLUTICASONE 50 MCG/ACTUATION * Use 2 Sprays in each nostril * Patient not taking: Reported on 03/10/2018 NYSTATIN-TRIAMCINOLONE 100,00* Apply 1 application to affect* Patient not taking: Reported on 03/10/2018 TRIAMCINOLONE ACETONIDE 0.1 %* Apply 1 application to affect* Patient not taking: Reported on 03/10/2018 NITROGLYCERIN 0.4 MG SUBLINGU* Dissolve 1 tablet under the t* Patient not taking: Reported on 03/10/2018 CYCLOBENZAPRINE 5 MG TABLET Take 2 tablets by mouth three* Patient not taking: Reported on 03/10/2018 Problem List As Of Date 03/10/2018 Noted Resolved Hypothyroidism [E03.9] Hyperlipidemia [E78.5] BENIGN HYPERTENSION [I10] INVALID FOR* Diabetes mellitus type 2, controlled, without c*INVALID FOR* Depression [F32.9] INVALID FOR* Lumbago [M54.5] INVALID FOR* Spinal stenosis, lumbar region, without neuroge*INVALID FOR* L-S radiculopathy [M54.17] INVALID FOR* Cholelithiasis [K80.20] INVALID FOR* Afib (HCC) [I48.91] INVALID FOR* Obesity, Class III, BMI 40-49.9 (morbid obesity*INVALID FOR* Visit Notes: >> Lashawn Muir Ma Wed Mar 10, 2018 2:58 PM Status: Signed AMB ROOMING INTAKE FLOWSHEET DATA Risk Screening Do you have concerns about personal safety or safety in the home?: No Pain Pain Location: Arm-Left Description: (Muscle pain) Duration Amount of Time: 2 Duration Units: Days Frequency: Continuous Intervention: Medication Patient states she has been having some muscle pain down her left arm that started 2 days ago. She is also feeling light headed today. Takes Meclizine for her dizziness. Patient states she was also in [facility] January 04 for bleeding ulcer. She has recently found out she is anemic and has had blood transfusions. Follow-up and Disposition History Recorded Encounter Status:Closed by BARRETT MANCILLA MD on 03/10/18 CNOV Observed: 02/26/2018 Status: COMPLETED Source: [place] 11:20 AM [facility] REPOSITORY Office Visit (FAMPWS) KYAW ESPINOZA ([id number]) 1950 F Date Time Provider Department 02/26/18 11:20 AM TANJA RUST FAMPWS During your visit today, we recorded the following information about you: Temperature Pulse Respiration Blood pressure 97.9 degrees 68/minute 12/minute 112/70 Weight 89.8 kg Tanja Rust MD 02/26/2018 11:54 AM Signed Chief Complaint Patient presents with: F/U 1 month HPI Kyaw Espinoza is a 67 year old female who presents here today for 1 month follow up. Pt states she has been doing much better lately, she feels she has more energy with the iron tablets. She feels she does not need to take a nap anymore. Denies any abdominal pain or any rectal bleeding. History of peptic ulcer with bleeding in January. Pt is to follow up with Dr. Mancilla later this month, she was taken off of her coumadin, meloxicam, and aspirin. Pt is to follow up with gastro for a scope in March. Has appt with Dr Richardson in [place] for this. Pt's only concern is her weight, states she has noticed she has been eating a lot lately. Would like to lose some weight. Discussed may be related to celexa use; she would like to cut down on this. Feels that depression is doing well. Past medical history, appointments, medications, allergies reviewed. Previous Medical History PAST MEDICAL HISTORY Diagnosis Date - Afib (HCC) 09/22/2016 - Hypertension - Major depressive disorder, single episode, mild (HCC) - Other and unspecified hyperlipidemia - Type I (juvenile type) diabetes mellitus without mention of complication, not stated as uncontrolled - Unspecified hypothyroidism Previous Surgical History PAST SURGICAL HISTORY Procedure Laterality Date - CARPAL TUNNEL 80's? bilateral - LAPAROSCOPIC CHOLEYCYSTECTOMY 09/19/13 - LIGATE FALLOPIAN TUBE 77? Tubal ligation and appendectomy - PAST SURGICAL HISTORY OF 01/26/2017 Heart catherization, [facility] by Dr. Roger Family History FAMILY HISTORY Problem Relation Age of Onset - Diabetes Mother - Heart Mother - Stroke Mother - Cancer Maternal Uncle Unknown primary - Diabetes Father - Diabetes Maternal Aunt - Stroke Maternal Aunt - Cancer Maternal Aunt The female kind. Patient Allergies ALLERGIES Allergen Reactions - Clindamycin Hives - Klor-Con [Potassium* Hives - Lipitor [Atorvastat* Intolerance Muscle pain - Lisinopril Cough - Penicillins Hives - Xsukxfb-Ffh-Ffp Red* Other: See Comments Muscle pain - Zocor [Simvastatin] Intolerance Muscle pain Current Medications Current Outpatient Prescriptions on File Prior to Visit: gemfibrozil (LOPID) 600 mg tablet Take 1 tablet by mouth twice daily with meals. glipiZIDE XL (GLUCOTROL XL) 5 mg 24 hr tablet Take 1 tablet by mouth once daily. pantoprazole DR (PROTONIX) 40 mg tablet Take 40 mg by mouth once daily. meclizine 25 mg chewable tablet(s) Take 25 mg by mouth as needed. atenolol (TENORMIN) 50 mg tablet Take 1 tablet by mouth once daily. levothyroxine (SYNTHROID) 112 mcg tablet TAKE ONE TABLET BY MOUTH ONCE DAILY citalopram (CELEXA) 40 mg tablet Take 1 tablet by mouth once daily. rOPINIRole (REQUIP) 0.25 mg tablet Take 2 tablets by mouth daily at bedtime. fluticasone (FLONASE) 50 mcg/actuation nasal spray Use 2 Sprays in each nostril once daily. Rinse mouth after use. nystatin-triamcinolone (MYCOLOG II) cream Apply 1 application to affected area twice daily. triamcinolone acetonide (KENALOG) 0.1 % cream Apply 1 application to affected area three times daily. Apply sparingly to area for rash/itching. metFORMIN (GLUCOPHAGE) 500 mg tablet Take by mouth. 1 tablet in the morning and 2 in the evening nitroglycerin sublingual (NITROQUICK) 0.4 mg SL tablet Dissolve 1 tablet under the tongue as needed. FOR CHEST PAIN. IF NO RELIEF CALL 911 cyclobenzaprine (FLEXERIL) 5 mg tablet Take 2 tablets by mouth three times daily as needed for Muscle Spasm. Mcijbxikaxini-He-Wsbu-Minerals (ONE-A-DAY WOMENS FORMULA) 27-0.4 mg ORAL Tab Take by mouth once daily. calcium carbonate-Vit D3-minerals (CALTRATE PLUS) 600-400 mg-unit ORAL Tab Take 1 tablet by mouth twice daily. omega-3 fatty acids (FISH OIL CONCENTRATE) 1,000 mg ORAL Cap Take 1 capsule by mouth twice daily. ferrous sulfate 325 mg (65 mg iron) tablet Take 1 tablet by mouth daily with breakfast. warfarin (COUMADIN) 2 mg tablet 2 mg on Mon and Fri and 3 mg all other days. (Patient not taking: Reported on 02/26/2018 ) meloxicam (MOBIC) 15 mg tablet Take 1 tablet by mouth once daily. (Patient not taking: Reported on 02/26/2018 ) warfarin (COUMADIN) 3 mg tablet Take 1 tablet by mouth once daily. (Patient not taking: Reported on 02/26/2018 ) warfarin (COUMADIN) 4 mg tablet Take 1 tablet by mouth once daily. (Patient not taking: Reported on 02/26/2018 ) Aspirin 81 mg Tab Take 1 tablet by mouth once daily. No current facility-administered medications on file prior to visit. Social History Social History Marital status: Spouse name: Years of education: Number of children: Occupational History Occupation Employer Comment [employer]. 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 Social History Main Topics Smoking status: Never Smoker Smokeless tobacco: Never Used Comment: Mother smoked in childhood home. No smokers in home for many years. Alcohol use: No Drug use: No Social History Narrative Blood type-AB Positive EXAM: BP 112/70 Pulse 68 Temp 36.6 ?C (97.9 ?F) (Left Tympanic) Resp 12 Wt 89.8 kg (198 lb) BMI 42.13 kg/m? General Appearance: Well appearing, alert, in no acute distress, well-hydrated, well nourished.. Lungs: Lungs clear to auscultation. No wheezing, rhonchi, rales. Heart: RRR without murmur, gallop, or rubs. No ectopy. Health Maintenance List ZOSTER VACCINE (SHINGRIX)(2 of 3) due on 02/28/2012 DTAP,TDAP,TD(1 - Tdap) due on 12/05/2014 HBA1C due on 03/19/2018 MAMMOGRAM due on 03/31/2018 INFLUENZA(1) due on 04/17/2018 DILATED RETINAL EXAM due on 05/22/2018 DIABETIC FOOT EXAM due on 07/10/2018 FECAL OCCULT BLOOD due on 07/13/2018 URINE ALBUMIN CREATININE RATIO due on 09/19/2018 LDL due on 09/19/2018 BONE DENSITY Completed ADULT PREVNAR-13 Completed HEPATITIS C SCREENING Completed PNEUMOVAX AGE 65 AND OVER WITH 5YR LOOKBACK Completed Data reviewed N/A ASSESSMENT/PLAN: 1. Controlled type 2 diabetes mellitus without complication, without long-term current use of insulin (HCC) - ICD9: 250.00, ICD10: E11.9 (primary diagnosis) Check labs next month - HGB A1C - COMP METABOLIC PANEL - LIPID PANEL BASIC 2. Acquired hypothyroidism - ICD9: 244.9, ICD10: E03.9 - TSH BLD 3. Hyperlipidemia, unspecified hyperlipidemia type - ICD9: 272.4, ICD10: E78.5 4. Essential hypertension, benign - ICD9: 401.1, ICD10: I10 5. Depression, unspecified depression type - ICD9: 311, ICD10: F32.9 Decrease celexa to 20 mg daily - CITALOPRAM 40 MG TABLET 6. Atrial fibrillation, unspecified type (HCC) - ICD9: 427.31, ICD10: I48.91 Stay off anti coagulation for now; reassess after repeat EGD 7. Iron deficiency anemia due to chronic blood loss - ICD9: 280.0, ICD10: D50.0 - CBC 8. Peptic ulcer - ICD9: 533.90, ICD10: K27.9 - CBC Follow up in 1 month Tanja Rust MD The documentation for this note was completed by Alexia Auguste Ma acting as scribe for Tanja Rust MD. February 26, 2018 11:08 AM. Referring Provider: TANJA RUST [[id number]] Allergies As of Date: 02/26/2018 Noted Allergy Reaction CLINDAMYCIN 12/04/2008 4 - Hives KLOR-CON (POTASSIUM CHLORIDE) 12/08/2013 4 - Hives LIPITOR (ATORVASTATIN CALCIUM) 07/14/2005 5 - Intolerance Comments: Muscle pain LISINOPRIL 12/08/2013 3 - Cough PENICILLINS 07/14/2005 4 - Hives QHONVQL-HMG-JUM REDUCTASE INHIBIT*06/07/2014 14 - Other: See Comments Comments: Muscle pain ZOCOR (SIMVASTATIN) 07/14/2005 5 - Intolerance Comments: Muscle pain Date Reviewed: 02/26/2018 Reviewed by: Alexia Auguste Ma - Fully Assessed Reason for Visit: F/U 1 month [[id number]] Primary Visit Diagnosis:Controlled type 2 diabetes mellitus without complication, without long-term current use of insulin (HCC) [E11.9] Other Visit Diagnoses:Acquired hypothyroidism [E03.9] Hyperlipidemia, unspecified hyperlipidemia type [E78.5] Essential hypertension, benign [I10] Depression, unspecified depression type [F32.9] Atrial fibrillation, unspecified type (HCC) [I48.91] Iron deficiency anemia due to chronic blood loss [D50.0] Peptic ulcer [K27.9] Order(s):HGB A1C [CRIZO2D] Order #: [id number] FUTURE COMP METABOLIC PANEL [SQCMP] Order #: [id number] FUTURE CBC [SQCBC] Order #: [id number] FUTURE LIPID PANEL BASIC [SQLIPB] Order #: [id number] FUTURE TSH BLD [SQTSH] Order #: [id number] FUTURE citalopram (CELEXA) 40 mg tabletTake 0.5 tablets by mouth once daily.Disp: 90 tabletRfl: 3 Prescriptions as of 02/26/2018 Sig: CITALOPRAM 40 MG TABLET Take 0.5 tablets by mouth onc* GEMFIBROZIL 600 MG TABLET Take 1 tablet by mouth twice * GLIPIZIDE ER 5 MG TABLET, EXT* Take 1 tablet by mouth once d* PANTOPRAZOLE 40 MG TABLET,DEL* Take 40 mg by mouth once lana* MECLIZINE 25 MG CHEWABLE TABL* Take 25 mg by mouth as needed. ATENOLOL 50 MG TABLET Take 1 tablet by mouth once d* LEVOTHYROXINE 112 MCG TABLET TAKE ONE TABLET BY MOUTH ONCE* ROPINIROLE 0.25 MG TABLET Take 2 tablets by mouth daily* FLUTICASONE 50 MCG/ACTUATION * Use 2 Sprays in each nostril * NYSTATIN-TRIAMCINOLONE 100,00* Apply 1 application to affect* TRIAMCINOLONE ACETONIDE 0.1 %* Apply 1 application to affect* METFORMIN 500 MG TABLET Take by mouth. 1 tablet in t* NITROGLYCERIN 0.4 MG SUBLINGU* Dissolve 1 tablet under the t* CYCLOBENZAPRINE 5 MG TABLET Take 2 tablets by mouth three* * ICHNMQZRGBLO-NU-MJZB-MINERALS* Take by mouth once daily. * CALCIUM CARB-VIT D3-MINERALS * Take 1 tablet by mouth twice * * OMEGA-3 FATTY ACIDS 1,000 MG * Take 1 capsule by mouth twice* FERROUS SULFATE 325 MG (65 MG* Take 1 tablet by mouth daily * Problem List As Of Date 02/26/2018 Noted Resolved Hypothyroidism [E03.9] Hyperlipidemia [E78.5] BENIGN HYPERTENSION [I10] INVALID FOR* Diabetes mellitus type 2, controlled, without c*INVALID FOR* Depression [F32.9] INVALID FOR* Lumbago [M54.5] INVALID FOR* Spinal stenosis, lumbar region, without neuroge*INVALID FOR* L-S radiculopathy [M54.17] INVALID FOR* Cholelithiasis [K80.20] INVALID FOR* Afib (HCC) [I48.91] INVALID FOR* Obesity, Class III, BMI 40-49.9 (morbid obesity*INVALID FOR* Prescriptions ordered this encounter Disp Refills Start End CITALOPRAM 40 MG TABLET 90 t* 3 02/26/2018 Class: Med Update Route: ORAL Sig: Take 0.5 tablets by mouth once daily. Medications Discontinued During This Encounter meloxicam (MOBIC) 15 mg tablet 90 t* 1 11/18/2017 02/26/2018 Route: ORAL Sig: Take 1 tablet by mouth once daily. Patient not taking: Reported on 02/26/2018 Disc: Reason for discontinue is not on file. meloxicam (MOBIC) 15 mg tablet 90 t* 1 11/18/2017 02/26/2018 Route: ORAL Sig: Take 1 tablet by mouth once daily. Patient not taking: Reported on 02/26/2018 Disc: Reason for discontinue is not on file. warfarin (COUMADIN) 3 mg tablet 90 t* 3 02/11/2017 02/26/2018 Route: ORAL Sig: Take 1 tablet by mouth once daily. Patient not taking: Reported on 02/26/2018 Disc: Reason for discontinue is not on file. warfarin (COUMADIN) 4 mg tablet 30 t* 6 09/16/2016 02/26/2018 Route: ORAL Sig: Take 1 tablet by mouth once daily. Patient not taking: Reported on 02/26/2018 Disc: Reason for discontinue is not on file. Aspirin 81 mg Tab 0 11/30/2012 02/26/2018 Class: OTC Route: ORAL Sig: Take 1 tablet by mouth once daily. Disc: Reason for discontinue is not on file. warfarin (COUMADIN) 2 mg tablet 12/14/2017 02/26/2018 Class: Med Update Si mg on Mon and Fri and 3 mg all other days. Patient not taking: Reported on 02/26/2018 Disc: Reason for discontinue is not on file. Cosign accepted by TANJA RUST MD[[id number]] on 12/14/2017 5:07 PM citalopram (CELEXA) 40 mg tablet 90 t* 3 10/12/2017 02/26/2018 Route: ORAL Sig: Take 1 tablet by mouth once daily. Disc: Reason for discontinue is not on file. Disposition: Return in about 1 month (around 03/29/2018). Follow-up and Disposition History Recorded Encounter Status:Closed by TANJA RUST MD on 02/26/18 PROGRESS Observed: 02/26/2018 Status: COMPLETED Source: [place] 10:59 AM [facility] [place] REPOSITORY O ID: [id number] Author: Tanja Rust Service: (none) Author Type: Physician Type: Progress Notes Filed: 02/26/2018 11:54 AM Note Text: Chief Complaint Patient presents with: F/U 1 month HPI Kyaw Espinoza is a 67 year old female who presents here today for 1 month follow up. Pt states she has been doing much better lately, she feels she has more energy with the iron tablets. She feels she does not need to take a nap anymore. Denies any abdominal pain or any rectal bleeding. History of peptic ulcer with bleeding in January. Pt is to follow up with Dr. Mancilla later this month, she was taken off of her coumadin, meloxicam, and aspirin. Pt is to follow up with gastro for a scope in March. Has appt with Dr Richardson in [place] for this. Pt's only concern is her weight, states she has noticed she has been eating a lot lately. Would like to lose some weight. Discussed may be related to celexa use; she would like to cut down on this. Feels that depression is doing well. Past medical history, appointments, medications, allergies reviewed. Previous Medical History PAST MEDICAL HISTORY Diagnosis Date - Afib (HCC) 09/22/2016 - Hypertension - Major depressive disorder, single episode, mild (HCC) - Other and unspecified hyperlipidemia - Type I (juvenile type) diabetes mellitus without mention of complication, not stated as uncontrolled - Unspecified hypothyroidism Previous Surgical History PAST SURGICAL HISTORY Procedure Laterality Date - CARPAL TUNNEL 80's? bilateral - LAPAROSCOPIC CHOLEYCYSTECTOMY 09/19/13 - LIGATE FALLOPIAN TUBE 77? Tubal ligation and appendectomy - PAST SURGICAL HISTORY OF 01/26/2017 Heart catherization, WC by Dr. Roger Family History FAMILY HISTORY Problem Relation Age of Onset - Diabetes Mother - Heart Mother - Stroke Mother - Cancer Maternal Uncle Unknown primary - Diabetes Father - Diabetes Maternal Aunt - Stroke Maternal Aunt - Cancer Maternal Aunt The female kind. Patient Allergies ALLERGIES Allergen Reactions - Clindamycin Hives - Klor-Con [Potassium* Hives - Lipitor [Atorvastat* Intolerance Muscle pain - Lisinopril Cough - Penicillins Hives - Nywidsa-Xxt-Glu Red* Other: See Comments Muscle pain - Zocor [Simvastatin] Intolerance Muscle pain Current Medications Current Outpatient Prescriptions on File Prior to Visit: gemfibrozil (LOPID) 600 mg tablet Take 1 tablet by mouth twice daily with meals. glipiZIDE XL (GLUCOTROL XL) 5 mg 24 hr tablet Take 1 tablet by mouth once daily. pantoprazole DR (PROTONIX) 40 mg tablet Take 40 mg by mouth once daily. meclizine 25 mg chewable tablet(s) Take 25 mg by mouth as needed. atenolol (TENORMIN) 50 mg tablet Take 1 tablet by mouth once daily. levothyroxine (SYNTHROID) 112 mcg tablet TAKE ONE TABLET BY MOUTH ONCE DAILY citalopram (CELEXA) 40 mg tablet Take 1 tablet by mouth once daily. rOPINIRole (REQUIP) 0.25 mg tablet Take 2 tablets by mouth daily at bedtime. fluticasone (FLONASE) 50 mcg/actuation nasal spray Use 2 Sprays in each nostril once daily. Rinse mouth after use. nystatin-triamcinolone (MYCOLOG II) cream Apply 1 application to affected area twice daily. triamcinolone acetonide (KENALOG) 0.1 % cream Apply 1 application to affected area three times daily. Apply sparingly to area for rash/itching. metFORMIN (GLUCOPHAGE) 500 mg tablet Take by mouth. 1 tablet in the morning and 2 in the evening nitroglycerin sublingual (NITROQUICK) 0.4 mg SL tablet Dissolve 1 tablet under the tongue as needed. FOR CHEST PAIN. IF NO RELIEF CALL 911 cyclobenzaprine (FLEXERIL) 5 mg tablet Take 2 tablets by mouth three times daily as needed for Muscle Spasm. Qqgufrxehknwc-Ug-Etvy-Minerals (ONE-A-DAY WOMENS FORMULA) 27-0.4 mg ORAL Tab Take by mouth once daily. calcium carbonate-Vit D3-minerals (CALTRATE PLUS) 600-400 mg-unit ORAL Tab Take 1 tablet by mouth twice daily. omega-3 fatty acids (FISH OIL CONCENTRATE) 1,000 mg ORAL Cap Take 1 capsule by mouth twice daily. ferrous sulfate 325 mg (65 mg iron) tablet Take 1 tablet by mouth daily with breakfast. warfarin (COUMADIN) 2 mg tablet 2 mg on Mon and Fri and 3 mg all other days. (Patient not taking: Reported on 02/26/2018 ) meloxicam (MOBIC) 15 mg tablet Take 1 tablet by mouth once daily. (Patient not taking: Reported on 02/26/2018 ) warfarin (COUMADIN) 3 mg tablet Take 1 tablet by mouth once daily. (Patient not taking: Reported on 02/26/2018 ) warfarin (COUMADIN) 4 mg tablet Take 1 tablet by mouth once daily. (Patient not taking: Reported on 02/26/2018 ) Aspirin 81 mg Tab Take 1 tablet by mouth once daily. No current facility-administered medications on file prior to visit. Social History Social History Marital status: Spouse name: Years of education: Number of children: Occupational History Occupation Employer Comment [employer]. 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 Social History Main Topics Smoking status: Never Smoker Smokeless tobacco: Never Used Comment: Mother smoked in childhood home. No smokers in home for many years. Alcohol use: No Drug use: No Social History Narrative Blood type-AB Positive EXAM: BP 112/70 Pulse 68 Temp 36.6 ?C (97.9 ?F) (Left Tympanic) Resp 12 Wt 89.8 kg (198 lb) BMI 42.13 kg/m? General Appearance: Well appearing, alert, in no acute distress, well-hydrated, well nourished.. Lungs: Lungs clear to auscultation. No wheezing, rhonchi, rales. Heart: RRR without murmur, gallop, or rubs. No ectopy. Health Maintenance List ZOSTER VACCINE (SHINGRIX)(2 of 3) due on 02/28/2012 DTAP,TDAP,TD(1 - Tdap) due on 12/05/2014 HBA1C due on 03/19/2018 MAMMOGRAM due on 03/31/2018 INFLUENZA(1) due on 04/17/2018 DILATED RETINAL EXAM due on 05/22/2018 DIABETIC FOOT EXAM due on 07/10/2018 FECAL OCCULT BLOOD due on 07/13/2018 URINE ALBUMIN CREATININE RATIO due on 09/19/2018 LDL due on 09/19/2018 BONE DENSITY Completed ADULT PREVNAR-13 Completed HEPATITIS C SCREENING Completed PNEUMOVAX AGE 65 AND OVER WITH 5YR LOOKBACK Completed Data reviewed N/A ASSESSMENT/PLAN: 1. Controlled type 2 diabetes mellitus without complication, without long-term current use of insulin (HCC) - ICD9: 250.00, ICD10: E11.9 (primary diagnosis) Check labs next month - HGB A1C - COMP METABOLIC PANEL - LIPID PANEL BASIC 2. Acquired hypothyroidism - ICD9: 244.9, ICD10: E03.9 - TSH BLD 3. Hyperlipidemia, unspecified hyperlipidemia type - ICD9: 272.4, ICD10: E78.5 4. Essential hypertension, benign - ICD9: 401.1, ICD10: I10 5. Depression, unspecified depression type - ICD9: 311, ICD10: F32.9 Decrease celexa to 20 mg daily - CITALOPRAM 40 MG TABLET 6. Atrial fibrillation, unspecified type (HCC) - ICD9: 427.31, ICD10: I48.91 Stay off anti coagulation for now; reassess after repeat EGD 7. Iron deficiency anemia due to chronic blood loss - ICD9: 280.0, ICD10: D50.0 - CBC 8. Peptic ulcer - ICD9: 533.90, ICD10: K27.9 - CBC Follow up in 1 month Tanja Rust MD The documentation for this note was completed by Alexia Auguste Ma acting as scribe for Tanja Rust MD. February 26, 2018 11:08 AM. CNPTOUTREACH Observed: 02/09/2018 Status: COMPLETED Source: BEL[place] 12:00 AM [facility] REPOSITORY Patient Outreach (FAMPST) KYAW ESPINOZA ([id number]) 1950 F Date Time Provider Department 02/09/18 TANJA RUST During your visit today, we recorded the following information about you: Allergies As of Date: 02/09/2018 Noted Allergy Reaction CLINDAMYCIN 12/04/2008 4 - Hives KLOR-CON (POTASSIUM CHLORIDE) 12/08/2013 4 - Hives LIPITOR (ATORVASTATIN CALCIUM) 07/14/2005 5 - Intolerance Comments: Muscle pain LISINOPRIL 12/08/2013 3 - Cough PENICILLINS 07/14/2005 4 - Hives AORJIAR-ROT-IYD REDUCTASE INHIBIT*06/07/2014 14 - Other: See Comments Comments: Muscle pain ZOCOR (SIMVASTATIN) 07/14/2005 5 - Intolerance Comments: Muscle pain Date Reviewed: 01/27/2018 Reviewed by: Manuela Ge Ma - Fully Assessed Visit Diagnosis:Medication management [Z79.899] Prescriptions as of 02/09/2018 Sig: MECLIZINE 25 MG CHEWABLE TABL* Take 25 mg by mouth as needed. ATENOLOL 50 MG TABLET Take 1 tablet by mouth once d* FERROUS SULFATE 325 MG (65 MG* Take 1 tablet by mouth daily * X PANTOPRAZOLE 40 MG TABLET,DEL* Take 40 mg by mouth once lana* LEVOTHYROXINE 112 MCG TABLET TAKE ONE TABLET BY MOUTH ONCE* X WARFARIN 2 MG TABLET 2 mg on Mon and Fri and 3 mg * Patient not taking: Reported on 02/26/2018 X MELOXICAM 15 MG TABLET Take 1 tablet by mouth once d* Patient not taking: Reported on 02/26/2018 X CITALOPRAM 40 MG TABLET Take 1 tablet by mouth once d* X ROPINIROLE 0.25 MG TABLET Take 2 tablets by mouth daily* FLUTICASONE 50 MCG/ACTUATION * Use 2 Sprays in each nostril * NYSTATIN-TRIAMCINOLONE 100,00* Apply 1 application to affect* TRIAMCINOLONE ACETONIDE 0.1 %* Apply 1 application to affect* X GEMFIBROZIL 600 MG TABLET Take 1 tablet by mouth twice * X WARFARIN 3 MG TABLET Take 1 tablet by mouth once d* Patient not taking: Reported on 02/26/2018 X GLIPIZIDE ER 5 MG TABLET, EXT* Take 1 tablet by mouth once d* X METFORMIN 500 MG TABLET Take by mouth. 1 tablet in t* NITROGLYCERIN 0.4 MG SUBLINGU* Dissolve 1 tablet under the t* X WARFARIN 4 MG TABLET Take 1 tablet by mouth once d* Patient not taking: Reported on 02/26/2018 X CYCLOBENZAPRINE 5 MG TABLET Take 2 tablets by mouth three* X ASPIRIN 81 MG TABLET Take 1 tablet by mouth once d* * PKTFSDJADGXK-EQ-UYES-MINERALS* Take by mouth once daily. * CALCIUM CARB-VIT D3-MINERALS * Take 1 tablet by mouth twice * * OMEGA-3 FATTY ACIDS 1,000 MG * Take 1 capsule by mouth twice* Problem List As Of Date 02/09/2018 Noted Resolved Hypothyroidism [E03.9] Hyperlipidemia [E78.5] BENIGN HYPERTENSION [I10] INVALID FOR* Diabetes mellitus type 2, controlled, without c*INVALID FOR* Depression [F32.9] INVALID FOR* Lumbago [M54.5] INVALID FOR* Spinal stenosis, lumbar region, without neuroge*INVALID FOR* L-S radiculopathy [M54.17] INVALID FOR* Cholelithiasis [K80.20] INVALID FOR* Afib (HCC) [I48.91] INVALID FOR* Obesity, Class III, BMI 40-49.9 (morbid obesity*INVALID FOR* Encounter Status:Closed by ZenRoboticsLEANNAUSENatividad on 05/28/18 12 LEAD ELECTROCARDIOGRAM Observed: 02/01/2018 Status: F Source: [place] 8:[address] [facility] REPOSITORY [facility] Cardiovascular Services [address] [place] [id number] Lead EKG 01/12/18 09 MR#: [id number] Acct: [id number] Name: KYAW ESPINOZA Rep #: [id number] : 1950 67 From: Carlos Enrique Patel MD Attending Dr: Dave Hickey DO Status: DIS ERICA Ordering Dr: Abigail Franklin MD Date: 01/12/18 Location: [facility] Sex: F C Admitted: 01/12/18 Test Reason : SOB, LEFT SIDE PAIN Blood Pressure : / mmHG Vent. Rate : 083 BPM Atrial Rate : 083 BPM P-R Int : 142 ms QRS Dur : 094 ms QT Int : 388 ms P-R-T Axes : -24 059 073 degrees QTc Int : 455 ms Normal sinus rhythm Nonspecific ST and T wave abnormality Abnormal ECG Confirmed by CARLOS ENRIQUE PATEL ([id number]), development editor SATISH DIAZ ([id number]) on 01/25/2018 5:10:14 PM Referred By: PHILIP Confirmed By:CARLOS ENRIQUE PATEL 01/25/18 171 Date Carlos Enrique Patel MD CC: Abigail Franklin MD; Dave Hickey DO; Tanja Rust MD Signed CBC AND DIFFERENTIAL Collected: 01/27/2018 Status: F Source: BEL[place] 10:27 AM [facility] REPOSITORY TYPE CODE TESTS RESULT OUT OF REFERENCE UNITS RANGE LAB WBC 3.70-11.00 k/uL WBC 6.91 LAB RBC 3.90-5.20 m/uL RBC 4.13 LAB HGB 11.5-15.5 g/dL Hemoglobin 12.1 LAB HCT 36.0-46.0 % Hematocrit 40.1 LAB MCV 80.0-100.0 fL MCV 97.1 LAB MCH 26.0-34.0 pG MCH 29.3 LAB MCHC 30.5-36.0 g/dL Low MCHC 30.2 LAB RDWCV 11.5-15.0 % RDW-CV High 15.9 LAB PLTCT 150-400 k/uL Platelet Count 349 LAB MPV 9.0-12.7 fL MPV 11.4 LAB ANEUT % Neut% 62.1 LAB AANEUT 1.45-7.50 k/uL Abs Neut 4.30 LAB ALYMP % Lymph% 23.6 LAB AALYMP 1.00-4.00 k/uL Abs Lymph 1.63 LAB AMONO % [place]% 9.3 LAB AAMONO <0.87 k/uL Abs [place] 0.64 LAB AEOS % Eosin% 3.8 LAB AAEOS <0.46 k/uL Abs Eosin 0.26 LAB ABASO % Baso% 1.2 LAB AABASO <0.11 k/uL Abs Baso 0.08 LAB AUNRBC 0 /100 WBC NRBCs 0.0 LAB ABNRBC <0.01 k/uL Absolute nRBC <0.01 LAB DTYP DTYPE Auto Diff Performed By: #### CBCDIF, BMP #### [facility] [address] [place], [place] [address] BASIC METABOLIC PANL Collected: 01/27/2018 Status: F Source: BEL[place] 10:27 AM [facility] REPOSITORY TYPE CODE TESTS RESULT OUT OF REFERENCE UNITS RANGE LAB GLU 74-99 mg/dL High Glucose 215 Result Comment: The [place] Diabetes Association (ADA) provides guidance for cutoff values for fasting glucose and random glucose. The ADA defines fasting as no caloric intake for at least 8 hours. Fas ting plasma glucose results between 100 to 125 mg/dL indicate increased risk for diabetes (prediabetes). Fasting plasma glucose results greater than or equal to 126 mg/dL meet the criteria for diagnosis of diabetes. In the absence of unequivocal hyperglycemia, results should be confirmed by repeat testing. In a patient with classic symptoms of hyperglycemia or hyperglycemic crisis, random plasma glucose results greater than or equal to 200 mg/dL meet the criteria for diagnosis of diabetes. Reference: Standards of Medical Care in Diabetes 2016, [place] Diabetes Association. Diabetes Care. 2016.39(Suppl 1). LAB BUN 7-21 mg/dL BUN 19 LAB CRET 0.58-0.96 mg/dL Creatinine 0.91 LAB NA 136-144 mmol/L Sodium 140 LAB K 3.7-5.1 mmol/L Potassium 4.6 LAB CL 97-105 mmol/L Chloride 99 LAB CO2 22-30 mmol/L CO2 26 LAB AGAP 9-18 mmol/L Anion Gap 15 LAB CA 8.5-10.2 mg/dL Calcium, Total 10.0 LAB GFRAA eGFR- Amer. >60 LAB GFRNAA . eGFR-All Other Races >60 Result Comment: eGFR (Estimated GFR) Units of measure: mL/min/1.73 meters squared eGFR is derived from the reexpressed MDRD Study equation using the following parameters: serum creatinine, age, gender and race. The creatinine assay has been calibrated to be traceable to IDMS. An eGFR <60 mL/min/1.73m2 for >3 months is consistent with chronic kidney disease. Refer to KDOQI guidelines for clinical interpretation. In patients with unstable renal function, e.g. those with acute kidney injury, the eGFR may not accurately reflect actual GFR. Performed By: #### CBCDIF, BMP #### [facility] [address] [place], [place] [address] CNOV Observed: 01/27/2018 Status: COMPLETED Source: BELLE 10:00 AM [facility] REPOSITORY Office Visit (FAMPWS) KYAW ESPINOZA ([id number]) 1950 F Date Time Provider Department 01/27/18 10:00 AM TANJA RUST FAMPWS During your visit today, we recorded the following information about you: Pulse Respiration Blood pressure Weight 66/minute 16/minute 98/68 88 kg Tanja Rust MD 01/31/2018 7:33 PM Signed Transitional Care Management Progress Note The patients TCM visit was performed within the 14 days of discharge. Patient's Date of discharge: 01/13/18 Date of initial coordinator contact after discharge: 01/14/18 Discharge diagnosis: (1) Symptomatic anemia Status: Acute ? (2) PUD (peptic ulcer disease) Status: Chronic ? (3) Afib Status: Chronic ? (4) DM2 (diabetes mellitus, type 2) Status: Chronic Qualifiers: Diabetes mellitus usp insulin use: without usp use Diabetes mellitus complication status: with unspecified complications Qualified Code(s): E11.8 - Type 2 diabetes mellitus with unspecified complications ? (5) Hypothyroid Status: Chronic Qualifiers: Hypothyroidism type: acquired Qualified Code(s): E03.9 - Hypothyroidism, unspecified Medication review completed Yes Manuela Ge Ma Provider Documentation: In follow-up of hospitalization, Kyaw Espinoza is a 67 year old female with the chief complaint of hospital follow up I have reviewed the patient?s last hospital course including diagnostic testing performed during this hospitalization, their discharge medications, and my assessment and plan with the patient and any family members present at today?s visit. Provider Action/FYI: Chief Complaint Patient presents with: Hospital Follow Up: TCM 14 day-[facility] Kyaw Espinoza is a 67 year old female who presents here today for Hospital Discharge Follow up.. - Pt states that she is doing ok and feels that nothing has ever happened. Denies any sob currently. Before going to [facility] ER on 01/12/2018 she was having a lot of difficulty with breathing and swelling. ? - Denies any bleeding at this time. ? - Complaint of numbness in her feet. She is able to feel if she pokes her feet but feels like she has socks on (dulled). Did have bilateral feet and ankle swelling. ? - Was given Lasix 40 mg bid in [facility] ER and no longer at home, has minimal swelling currently. ? - Pt was admitted to [facility] on 01/04/18. Started with 4 days of abdominal pain, dizziness and subtherapeutic range INR. Pt was transfused 1 u pRBCs and admitted to [facility] for for further management. GI consulted started on IV PPI and IVF. 01/04/18 EGD showed 2 cm penetrating gastric ulcer. Repeat EGD on 01/08/18 showed no active bleeding. GI recommended holding coumadin/aspirin for at least 4 weeks, daily PPI OV f/u in 3 wks and repeat EGD in 4 wks (demonstrate healing and possibly biopsy for gastric malignancy). Pt received IV Iron and 1u pRBC on 01/06/18. Reported R inner thigh pain and mild nonpitting edema, venous duplex negative for DVT. Pt monitored and stable for d/c on 01/08/18. HHC per PT recommended. Recommended to have labs drawn on 01/12/18, f/u with PCP in 1 week, GI in 3 weeks and Cardiology in 1 mo after seen by GI. ? - Returned to [facility] ER on 01/10/18 for dizziness, lightheadedness and sob. With being just d/c from [place], having negative DVT, Hbg stable from d/c of [place] and stool turning brown in color vs black. [place] symptoms were related to being anemic. 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 No transfusion required. F/u with PCP in 2 days. Impression: Anemia due to GI bleed. GI Bleed resolved. Malaise secondary to #1. ? - Returned to [facility] ER with SOB on 01/12/18 and was admitted and d/c on 01/13/18. ? - Currently on no blood thinners. Pt was told to hold the aspirin, warfarin, and stop taking mobic. She was started on meclizine for dizziness as needed and prescribed protonix for her stomach. Was not started on any iron. She is feeling better, scheduled to follow up with Gastro Dr. Heber Morales in [place] in 4 weeks and is to have repeat EGD in 6 weeks to check for healing. Pt would like to see a gastro provider closer so she does not have to go to [place]. 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 Denies any blood in stool. Had 3 blood transfusions, 3 pints of blood total. Has not had her CBC checked since being discharged. Hemoglobin was 7.4 when admitted and 8.7 at time of discharge. Potassium level was also low while in the hospital. Pt has never had a colonoscopy, would like to get that done. Past medical history, appointments, medications, allergies reviewed. Previous Medical History PAST MEDICAL HISTORY Diagnosis Date - Afib (HCC) 09/22/2016 - Hypertension - Major depressive disorder, single episode, mild (HCC) - Other and unspecified hyperlipidemia - Type I (juvenile type) diabetes mellitus without mention of complication, not stated as uncontrolled - Unspecified hypothyroidism Previous Surgical History PAST SURGICAL HISTORY Procedure Laterality Date - CARPAL TUNNEL 80's? bilateral - LAPAROSCOPIC CHOLEYCYSTECTOMY 09/19/13 - LIGATE FALLOPIAN TUBE 77? Tubal ligation and appendectomy - PAST SURGICAL HISTORY OF 01/26/2017 Heart catherization, [facility] by Dr. Roger Family History FAMILY HISTORY Problem Relation Age of Onset - Diabetes Mother - Heart Mother - Stroke Mother - Cancer Maternal Uncle Unknown primary - Diabetes Father - Diabetes Maternal Aunt - Stroke Maternal Aunt - Cancer Maternal Aunt The female kind. Patient Allergies ALLERGIES Allergen Reactions - Clindamycin Hives - Klor-Con [Potassium* Hives - Lipitor [Atorvastat* Intolerance Muscle pain - Lisinopril Cough - Penicillins Hives - Otujvft-Xba-Sab Red* Other: See Comments Muscle pain - Zocor [Simvastatin] Intolerance Muscle pain Current Medications Current Outpatient Prescriptions on File Prior to Visit: levothyroxine (SYNTHROID) 112 mcg tablet TAKE ONE TABLET BY MOUTH ONCE DAILY warfarin (COUMADIN) 2 mg tablet 2 mg on Mon and Fri and 3 mg all other days. meloxicam (MOBIC) 15 mg tablet Take 1 tablet by mouth once daily. citalopram (CELEXA) 40 mg tablet Take 1 tablet by mouth once daily. rOPINIRole (REQUIP) 0.25 mg tablet Take 2 tablets by mouth daily at bedtime. fluticasone (FLONASE) 50 mcg/actuation nasal spray Use 2 Sprays in each nostril once daily. Rinse mouth after use. nystatin-triamcinolone (MYCOLOG II) cream Apply 1 application to affected area twice daily. atenolol (TENORMIN) 50 mg tablet Take 1.5 tablets by mouth once daily. triamcinolone acetonide (KENALOG) 0.1 % cream Apply 1 application to affected area three times daily. Apply sparingly to area for rash/itching. gemfibrozil (LOPID) 600 mg tablet Take 1 tablet by mouth twice daily with meals. warfarin (COUMADIN) 3 mg tablet Take 1 tablet by mouth once daily. glipiZIDE XL (GLUCOTROL XL) 5 mg 24 hr tablet Take 1 tablet by mouth once daily. metFORMIN (GLUCOPHAGE) 500 mg tablet Take by mouth. 1 tablet in the morning and 2 in the evening nitroglycerin sublingual (NITROQUICK) 0.4 mg SL tablet Dissolve 1 tablet under the tongue as needed. FOR CHEST PAIN. IF NO RELIEF CALL 911 warfarin (COUMADIN) 4 mg tablet Take 1 tablet by mouth once daily. cyclobenzaprine (FLEXERIL) 5 mg tablet Take 2 tablets by mouth three times daily as needed for Muscle Spasm. Aspirin 81 mg Tab Take 1 tablet by mouth once daily. Zqnpeyiamjqfa-At-Waew-Minerals (ONE-A-DAY WOMENS FORMULA) 27-0.4 mg ORAL Tab Take by mouth once daily. calcium carbonate-Vit D3-minerals (CALTRATE PLUS) 600-400 mg-unit ORAL Tab Take 1 tablet by mouth twice daily. omega-3 fatty acids (FISH OIL CONCENTRATE) 1,000 mg ORAL Cap Take 1 capsule by mouth twice daily. No current facility-administered medications on file prior to visit. Social History Social History Marital status: Spouse name: Years of education: Number of children: Occupational History Occupation Employer Comment [employer]. 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 Social History Main Topics Smoking status: Never Smoker Smokeless tobacco: Never Used Comment: Mother smoked in childhood home. No smokers in home for many years. Alcohol use: No Drug use: No EXAM: BP 98/68 Pulse 66 Resp 16 Wt 88 kg (194 lb) BMI 41.28 kg/m? General Appearance: Well appearing, alert, in no acute distress, well-hydrated, well nourished., Overweight. Lungs: Lungs clear to auscultation. No wheezing, rhonchi, rales. Heart: RRR without murmur, gallop, or rubs. No ectopy. Abdomen: Normal abdominal exam, Abdomen soft, non-tender. Bowel sounds normal. No masses, organomegaly. Health Maintenance List ZOSTER VACCINE (SHINGRIX)(2 of 3) due on 02/28/2012 DTAP,TDAP,TD(1 - Tdap) due on 12/05/2014 HBA1C due on 03/19/2018 MAMMOGRAM due on 03/31/2018 DILATED RETINAL EXAM due on 05/22/2018 DIABETIC FOOT EXAM due on 07/10/2018 FECAL OCCULT BLOOD due on 07/13/2018 URINE ALBUMIN CREATININE RATIO due on 09/19/2018 LDL due on 09/19/2018 BONE DENSITY Completed ADULT PREVNAR-13 Completed INFLUENZA Completed HEPATITIS C SCREENING Completed PNEUMOVAX AGE 65 AND OVER WITH 5YR LOOKBACK Completed Data reviewed Hospital reports from [facility] Hospital ASSESSMENT/PLAN: 1. Hospital discharge follow-up - ICD9: V67.59, ICD10: Z09 (primary diagnosis) Continue to hold the aspirin and coumadin D/C Mobic 2. Gastric ulcer with hemorrhage, unspecified chronicity - ICD9: 531.40, ICD10: K25.[address] Richardson in [place] for follow up EGD Continue with Protonix daily 3. BENIGN HYPERTENSION - ICD9: 401.1, ICD10: I10 - good control - Continue current medication(s) - Recommended regular aerobic exercise. - Recommend home blood pressure monitoring, to bring results in on next visit - Continue to follow with Dr. Mancilla - Goal of BP <130/80 - ATENOLOL 50 MG TABLET 4. Anemia, unspecified type - ICD9: 285.9, ICD10: D64.9 Start Iron 325 mg once daily with Breakfast Check CBC with Diff and BMP Follow up in 1 month. Tanja Rust MD The documentation for this note was completed by Manuela Ge Ma acting as scribe for Tanja Rust MD. January 27, 2018 9:45 AM. Manuela Ge Ma 01/27/2018 10:11 AM Addendum Weight was 214 at office visit on 08/12/17. You may call and schedule an appointment with Dr. Richardson. Address: [facility] [address] Referring Provider: SELF [[id number]] Allergies As of Date: 01/27/2018 Noted Allergy Reaction CLINDAMYCIN 12/04/2008 4 - Hives KLOR-CON (POTASSIUM CHLORIDE) 12/08/2013 4 - Hives LIPITOR (ATORVASTATIN CALCIUM) 07/14/2005 5 - Intolerance Comments: Muscle pain LISINOPRIL 12/08/2013 3 - Cough PENICILLINS 07/14/2005 4 - Hives [id number]-[id number] REDUCTASE INHIBIT*06/07/2014 14 - Other: See Comments Comments: Muscle pain ZOCOR (SIMVASTATIN) 07/14/2005 5 - Intolerance Comments: Muscle pain Date Reviewed: 01/27/2018 Reviewed by: Manuela Ge Ma - Fully Assessed Reason for Visit: Hospital Follow Up [177] Cmt: [facility] Primary Visit Diagnosis:Hospital discharge follow-up [Z09] Other Visit Diagnoses:Gastric ulcer with hemorrhage, unspecified chronicity [K25.4] BENIGN HYPERTENSION [I10] Anemia, unspecified type [D64.9] Atrial fibrillation, unspecified type (HCC) [I48.91] Controlled type 2 diabetes mellitus without complication, without long-term current use of insulin (HCC) [E11.9] Order(s):CBC + DIFF [SQCBCDIF] Order #: [id number] FUTURE BASIC METABOLIC PNL [SQBMP] Order #: [id number] FUTURE CONSULT TO GASTROENTEROLOGY [9010] Order #: [id number]: 1 ferrous sulfate 325 mg (65 mg iron) tabletTake 1 tablet by mouth daily with breakfast.Disp: 30 tabletRfl: 5 Prescriptions as of 01/27/2018 Sig: MECLIZINE 25 MG CHEWABLE TABL* Take 25 mg by mouth as needed. LEVOTHYROXINE 112 MCG TABLET TAKE ONE TABLET BY MOUTH ONCE* CITALOPRAM 40 MG TABLET Take 1 tablet by mouth once d* ROPINIROLE 0.25 MG TABLET Take 2 tablets by mouth daily* FLUTICASONE 50 MCG/ACTUATION * Use 2 Sprays in each nostril * NYSTATIN-TRIAMCINOLONE 100,00* Apply 1 application to affect* TRIAMCINOLONE ACETONIDE 0.1 %* Apply 1 application to affect* GEMFIBROZIL 600 MG TABLET Take 1 tablet by mouth twice * GLIPIZIDE ER 5 MG TABLET, EXT* Take 1 tablet by mouth once d* METFORMIN 500 MG TABLET Take by mouth. 1 tablet in t* NITROGLYCERIN 0.4 MG SUBLINGU* Dissolve 1 tablet under the t* * HAIOSMQQQTYE-CM-IMMB-MINERALS* Take by mouth once daily. * CALCIUM CARB-VIT D3-MINERALS * Take 1 tablet by mouth twice * * OMEGA-3 FATTY ACIDS 1,000 MG * Take 1 capsule by mouth twice* PANTOPRAZOLE 40 MG TABLET,DEL* Take 40 mg by mouth once lana* ATENOLOL 50 MG TABLET Take 1 tablet by mouth once d* FERROUS SULFATE 325 MG (65 MG* Take 1 tablet by mouth daily * WARFARIN 2 MG TABLET 2 mg on Mon and Fri and 3 mg * MELOXICAM 15 MG TABLET Take 1 tablet by mouth once d* WARFARIN 3 MG TABLET Take 1 tablet by mouth once d* WARFARIN 4 MG TABLET Take 1 tablet by mouth once d* CYCLOBENZAPRINE 5 MG TABLET Take 2 tablets by mouth three* ASPIRIN 81 MG TABLET Take 1 tablet by mouth once d* Problem List As Of Date 01/27/2018 Noted Resolved Hypothyroidism [E03.9] Hyperlipidemia [E78.5] BENIGN HYPERTENSION [I10] INVALID FOR* Diabetes mellitus type 2, controlled, without c*INVALID FOR* Depression [F32.9] INVALID FOR* Lumbago [M54.5] INVALID FOR* Spinal stenosis, lumbar region, without neuroge*INVALID FOR* L-S radiculopathy [M54.17] INVALID FOR* Cholelithiasis [K80.20] INVALID FOR* Afib (HCC) [I48.91] INVALID FOR* Obesity, Class III, BMI 40-49.9 (morbid obesity*INVALID FOR* Other instructions from your clinician: Weight was 214 at office visit on 08/12/17. You may call and schedule an appointment with Dr. Richardson. Address: [address] [place] [address] Prescriptions ordered this encounter Disp Refills Start End FERROUS SULFATE 325 MG (65 MG IRON) * 30 t* 5 01/27/2018 Route: ORAL Sig: Take 1 tablet by mouth daily with breakfast. Medications Discontinued During This Encounter atenolol (TENORMIN) 50 mg tablet 135 * 3 07/13/2017 01/27/2018 Route: ORAL Sig: Take 1.5 tablets by mouth once daily. Disc: Reason for discontinue is not on file. Disposition: Return in about 1 month (around 02/26/2018). Follow-up and Disposition History Recorded Encounter Status:Closed by TANJA RUST MD on 01/31/18 PROGRESS Observed: 01/27/2018 Status: COMPLETED Source: [place] 9:41 AM [facility] REPOSITORY HNO ID: [id number] Author: Tanja Rust Service: (none) Author Type: Physician Type: Progress Notes Filed: 01/31/2018 7:33 PM Note Text: Transitional Care Management Progress Note The patients TCM visit was performed within the 14 days of discharge. Patient's Date of discharge: 01/13/18 Date of initial coordinator contact after discharge: 01/14/18 Discharge diagnosis: (1) Symptomatic anemia Status: Acute ? (2) PUD (peptic ulcer disease) Status: Chronic ? (3) Afib Status: Chronic ? (4) DM2 (diabetes mellitus, type 2) Status: Chronic Qualifiers: Diabetes mellitus rat exterminator insulin use: without usp use Diabetes mellitus complication status: with unspecified complications Qualified Code(s): E11.8 - Type 2 diabetes mellitus with unspecified complications ? (5) Hypothyroid Status: Chronic Qualifiers: Hypothyroidism type: acquired Qualified Code(s): E03.9 - Hypothyroidism, unspecified Medication review completed Yes Manuela Ge Ma Provider Documentation: In follow-up of hospitalization, Kyaw Espinoza is a 67 year old female with the chief complaint of hospital follow up I have reviewed the patient?s last hospital course including diagnostic testing performed during this hospitalization, their discharge medications, and my assessment and plan with the patient and any family members present at today?s visit. Provider Action/FYI: Chief Complaint Patient presents with: Hospital Follow Up: TCM 14 day-[facility] Kyaw Espinoza is a 67 year old female who presents here today for Hospital Discharge Follow up.. - Pt states that she is doing ok and feels that nothing has ever happened. Denies any sob currently. Before going to [facility] ER on 01/12/2018 she was having a lot of difficulty with breathing and swelling. ? - Denies any bleeding at this time. ? - Complaint of numbness in her feet. She is able to feel if she pokes her feet but feels like she has socks on (dulled). Did have bilateral feet and ankle swelling. ? - Was given Lasix 40 mg bid in [facility] ER and no longer at home, has minimal swelling currently. ? - Pt was admitted to [facility] on 01/04/18. Started with 4 days of abdominal pain, dizziness and subtherapeutic range INR. Pt was transfused 1 u pRBCs and admitted to [facility] for for further management. GI consulted started on IV PPI and IVF. 01/04/18 EGD showed 2 cm penetrating gastric ulcer. Repeat EGD on 01/08/18 showed no active bleeding. GI recommended holding coumadin/aspirin for at least 4 weeks, daily PPI OV f/u in 3 wks and repeat EGD in 4 wks (demonstrate healing and possibly biopsy for gastric malignancy). Pt received IV Iron and 1u pRBC on 01/06/18. Reported R inner thigh pain and mild nonpitting edema, venous duplex negative for DVT. Pt monitored and stable for d/c on 01/08/18. HHC per PT recommended. Recommended to have labs drawn on 01/12/18, f/u with PCP in 1 week, GI in 3 weeks and Cardiology in 1 mo after seen by GI. ? - Returned to [facility] ER on 01/10/18 for dizziness, lightheadedness and sob. With being just d/c from [place], having negative DVT, Hbg stable from d/c of [place] and stool turning brown in color vs black. [place] symptoms were related to being anemic. 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 No transfusion required. F/u with PCP in 2 days. Impression: Anemia due to GI bleed. GI Bleed resolved. Malaise secondary to #1. ? - Returned to [facility] ER with SOB on 01/12/18 and was admitted and d/c on 01/13/18. ? - Currently on no blood thinners. Pt was told to hold the aspirin, warfarin, and stop taking mobic. She was started on meclizine for dizziness as needed and prescribed protonix for her stomach. Was not started on any iron. She is feeling better, scheduled to follow up with Gastro Dr. Heber Morales in [place] in 4 weeks and is to have repeat EGD in 6 weeks to check for healing. Pt would like to see a gastro provider closer so she does not have to go to [place]. 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 Denies any blood in stool. Had 3 blood transfusions, 3 pints of blood total. Has not had her CBC checked since being discharged. Hemoglobin was 7.4 when admitted and 8.7 at time of discharge. Potassium level was also low while in the hospital. Pt has never had a colonoscopy, would like to get that done. Past medical history, appointments, medications, allergies reviewed. Previous Medical History PAST MEDICAL HISTORY Diagnosis Date - Afib (HCC) 09/22/2016 - Hypertension - Major depressive disorder, single episode, mild (HCC) - Other and unspecified hyperlipidemia - Type I (juvenile type) diabetes mellitus without mention of complication, not stated as uncontrolled - Unspecified hypothyroidism Previous Surgical History PAST SURGICAL HISTORY Procedure Laterality Date - CARPAL TUNNEL 80's? bilateral - LAPAROSCOPIC CHOLEYCYSTECTOMY 09/19/13 - LIGATE FALLOPIAN TUBE 77? Tubal ligation and appendectomy - PAST SURGICAL HISTORY OF 01/26/2017 Heart catherization, [facility] by Dr. Roger Family History FAMILY HISTORY Problem Relation Age of Onset - Diabetes Mother - Heart Mother - Stroke Mother - Cancer Maternal Uncle Unknown primary - Diabetes Father - Diabetes Maternal Aunt - Stroke Maternal Aunt - Cancer Maternal Aunt The female kind. Patient Allergies ALLERGIES Allergen Reactions - Clindamycin Hives - Klor-Con [Potassium* Hives - Lipitor [Atorvastat* Intolerance Muscle pain - Lisinopril Cough - Penicillins Hives - Avetzum-Vmm-Bvm Red* Other: See Comments Muscle pain - Zocor [Simvastatin] Intolerance Muscle pain Current Medications Current Outpatient Prescriptions on File Prior to Visit: levothyroxine (SYNTHROID) 112 mcg tablet TAKE ONE TABLET BY MOUTH ONCE DAILY warfarin (COUMADIN) 2 mg tablet 2 mg on Mon and Fri and 3 mg all other days. meloxicam (MOBIC) 15 mg tablet Take 1 tablet by mouth once daily. citalopram (CELEXA) 40 mg tablet Take 1 tablet by mouth once daily. rOPINIRole (REQUIP) 0.25 mg tablet Take 2 tablets by mouth daily at bedtime. fluticasone (FLONASE) 50 mcg/actuation nasal spray Use 2 Sprays in each nostril once daily. Rinse mouth after use. nystatin-triamcinolone (MYCOLOG II) cream Apply 1 application to affected area twice daily. atenolol (TENORMIN) 50 mg tablet Take 1.5 tablets by mouth once daily. triamcinolone acetonide (KENALOG) 0.1 % cream Apply 1 application to affected area three times daily. Apply sparingly to area for rash/itching. gemfibrozil (LOPID) 600 mg tablet Take 1 tablet by mouth twice daily with meals. warfarin (COUMADIN) 3 mg tablet Take 1 tablet by mouth once daily. glipiZIDE XL (GLUCOTROL XL) 5 mg 24 hr tablet Take 1 tablet by mouth once daily. metFORMIN (GLUCOPHAGE) 500 mg tablet Take by mouth. 1 tablet in the morning and 2 in the evening nitroglycerin sublingual (NITROQUICK) 0.4 mg SL tablet Dissolve 1 tablet under the tongue as needed. FOR CHEST PAIN. IF NO RELIEF CALL 911 warfarin (COUMADIN) 4 mg tablet Take 1 tablet by mouth once daily. cyclobenzaprine (FLEXERIL) 5 mg tablet Take 2 tablets by mouth three times daily as needed for Muscle Spasm. Aspirin 81 mg Tab Take 1 tablet by mouth once daily. Blcggodckcsna-Qo-Whyp-Minerals (ONE-A-DAY WOMENS FORMULA) 27-0.4 mg ORAL Tab Take by mouth once daily. calcium carbonate-Vit D3-minerals (CALTRATE PLUS) 600-400 mg-unit ORAL Tab Take 1 tablet by mouth twice daily. omega-3 fatty acids (FISH OIL CONCENTRATE) 1,000 mg ORAL Cap Take 1 capsule by mouth twice daily. No current facility-administered medications on file prior to visit. Social History Social History Marital status: Spouse name: Years of education: Number of children: Occupational History Occupation Employer Comment [employer]. 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 Social History Main Topics Smoking status: Never Smoker Smokeless tobacco: Never Used Comment: Mother smoked in childhood home. No smokers in home for many years. Alcohol use: No Drug use: No EXAM: BP 98/68 Pulse 66 Resp 16 Wt 88 kg (194 lb) BMI 41.28 kg/m? General Appearance: Well appearing, alert, in no acute distress, well-hydrated, well nourished., Overweight. Lungs: Lungs clear to auscultation. No wheezing, rhonchi, rales. Heart: RRR without murmur, gallop, or rubs. No ectopy. Abdomen: Normal abdominal exam, Abdomen soft, non-tender. Bowel sounds normal. No masses, organomegaly. Health Maintenance List ZOSTER VACCINE (SHINGRIX)(2 of 3) due on 02/28/2012 DTAP,TDAP,TD(1 - Tdap) due on 12/05/2014 HBA1C due on 03/19/2018 MAMMOGRAM due on 03/31/2018 DILATED RETINAL EXAM due on 05/22/2018 DIABETIC FOOT EXAM due on 07/10/2018 FECAL OCCULT BLOOD due on 07/13/2018 URINE ALBUMIN CREATININE RATIO due on 09/19/2018 LDL due on 09/19/2018 BONE DENSITY Completed ADULT PREVNAR-13 Completed INFLUENZA Completed HEPATITIS C SCREENING Completed PNEUMOVAX AGE 65 AND OVER WITH 5YR LOOKBACK Completed Data reviewed Hospital reports from [facility] Hospital ASSESSMENT/PLAN: 1. Hospital discharge follow-up - ICD9: V67.59, ICD10: Z09 (primary diagnosis) Continue to hold the aspirin and coumadin D/C Mobic 2. Gastric ulcer with hemorrhage, unspecified chronicity - ICD9: 531.40, ICD10: K25.[address] Richardson in [place] for follow up EGD Continue with Protonix daily 3. BENIGN HYPERTENSION - ICD9: 401.1, ICD10: I10 - good control - Continue current medication(s) - Recommended regular aerobic exercise. - Recommend home blood pressure monitoring, to bring results in on next visit - Continue to follow with Dr. Mancilla - Goal of BP <130/80 - ATENOLOL 50 MG TABLET 4. Anemia, unspecified type - ICD9: 285.9, ICD10: D64.9 Start Iron 325 mg once daily with Breakfast Check CBC with Diff and BMP Follow up in 1 month. Tanja Rust MD The documentation for this note was completed by Manuela Ge Ma acting as scribe for Tanja Rust MD. January 27, 2018 9:45 AM. PROGRESS Observed: 01/14/2018 Status: COMPLETED Source: [place] 4:50 PM [facility] REPOSITORY HNO ID: [id number] Author: Ariadna Buenrostro Ma Service: (none) Author Type: (none) Type: Progress Notes Filed: 01/18/2018 1:00 PM Note Text: TRANSITION CARE MANAGEMENT (TCM) INITIAL CONTACT [employer] Provider Action/FYI: - Pt states that she is doing ok and feels that nothing has ever happened. Denies any sob currently. Before going to [facility] ER on 01/12/2018 she was having a lot of difficulty with breathing and swelling. - Denies any bleeding at this time. - Complaint of numbness in her feet. She is able to feel if she pokes her feet but feels like she has socks on (dulled). Did have bilateral feet and ankle swelling. - Was given Lasix 40 mg bid in [facility] ER and no longer at home, has minimal swelling currently. - Pt was admitted to [facility] on 01/04/18. Started with 4 days of abdominal pain, dizziness and subtherapeutic range INR. Pt was transfused 1 u pRBCs and admitted to [facility] for for further management. GI consulted started on IV PPI and IVF. 01/04/18 EGD showed 2 cm penetrating gastric ulcer. Repeat EGD on 01/08/18 showed no active bleeding. GI recommended holding coumadin/aspirin for at least 4 weeks, daily PPI OV f/u in 3 wks and repeat EGD in 4 wks (demonstrate healing and possibly biopsy for gastric malignancy). Pt received IV Iron and 1u pRBC on 01/06/18. Reported R inner thigh pain and mild nonpitting edema, venous duplex negative for DVT. Pt monitored and stable for d/c on 01/08/18. HHC per PT recommended. Recommended to have labs drawn on 01/12/18, f/u with PCP in 1 week, GI in 3 weeks and Cardiology in 1 mo after seen by GI. - Returned to [facility] ER on 01/10/18 for dizziness, lightheadedness and sob. With being just d/c from [place], having negative DVT, Hbg stable from d/c of [place] and stool turning brown in color vs black. [place] symptoms were related to being anemic. 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 No transfusion required. F/u with PCP in 2 days. Impression: Anemia due to GI bleed. GI Bleed resolved. Malaise secondary to #1. - Returned to [facility] ER with SOB on 01/12/18 and was admitted and d/c on 01/13/18. - Currently on no blood thinners. Initial contact with patient post discharge 01/14/18 spoke to patient. Patient identified by name and . SUMMARY: -Pt discharged from [facility] on 01/13/2018. -Admitted for: Dyspnea and Symptomatic Anemia Problem List (1) Symptomatic anemia Status: Acute (2) PUD (peptic ulcer disease) Status: Chronic (3) Afib Status: Chronic (4) DM2 (diabetes mellitus, type 2) Status: Chronic Qualifiers: Diabetes mellitus usp insulin use: without usp use Diabetes mellitus complication status: with unspecified complications Qualified Code(s): E11.8 - Type 2 diabetes mellitus with unspecified complications (5) Hypothyroid Status: Chronic Qualifiers: Hypothyroidism type: acquired Qualified Code(s): E03.9 - Hypothyroidism, unspecified History of Present Illness Date of Admission: 01/12/18 Chief Complaint: Shortness of breath The patient is a 67 year old F who was just discharged from [facility] on the with GI bleed. Patient underwent an EGD that showed peptic ulcer disease. Patient was transfused 2 units of packed red blood cells while she was there and also received a copious amount of IV fluids. Since being home, patient has been short of breath with exertion. Patient presented to the emergency room on the underwent a CAT scan that showed no pulmonary embolism though did show some groundglass opacities the patient was sent home. Patient presented to her office her primary care doctors today and was short of breath. Patient was very short of breath but apparently her pulse ox was okay. Patient had chest x-ray shows some questionable pulmonary edema and patient was admitted to the progressive care unit through the emergency room for concern for heart failure though the patient does not have a history of heart failure. Records have been copied from [facility] for review for documentation purposes. Ariadna Buenrostro Ma Do you have a hospital follow up appointment with your PCP? Appointment on 01/27/2018 @ 10:[address] Rust. Yes. Reminded patient of appointment date, time, and location. MEDICATIONS: Many patients have questions or concerns about their medications once they are home. Were you prescribed any new medications? Yes If yes, what are those medications? Protonix 40 mg 1 tab po bid and Meclizine 25 mg 1 tab po TID prn and Iron supplementation to take once daily. Hasn't picked this up from the pharmacy yet. Were you told to hold any medications? If yes, what are those medications? Meloxicam Were any of your medications discontinued? If yes, what are those medications? Coumadin and Baby Aspirin Do you have any questions about getting or taking your medications? No Your discharge instructions/After visit Summary (AVS) are important in guiding you through the recovery process. Is there anything I might help you understand? No. Pt doing well at this time. If problem she will contact office. Received D/C summary from [facility]. Do you have all the necessary equipment and supplies at home? Yes Medical records from recent hospitalization: [facility] ER Records and [place] received DAPHNE Observed: 01/14/2018 Status: COMPLETED Source: BELLE 12:00 AM [facility] REPOSITORY Patient Outreach (FAMPWS) KYAW ESPINOZA ([id number]) 1950 F Date Time Provider Department 01/14/18 TANJA RUST FAMPWS During your visit today, we recorded the following information about you: Ariadna Cayetano Edwards 01/18/2018 1:00 PM Signed TRANSITION CARE MANAGEMENT (TCM) INITIAL CONTACT [employer] [facility] Provider Action/FYI: - Pt states that she is doing ok and feels that nothing has ever happened. Denies any sob currently. Before going to [facility] ER on 01/12/2018 she was having a lot of difficulty with breathing and swelling. - Denies any bleeding at this time. - Complaint of numbness in her feet. She is able to feel if she pokes her feet but feels like she has socks on (dulled). Did have bilateral feet and ankle swelling. - Was given Lasix 40 mg bid in [facility] ER and no longer at home, has minimal swelling currently. - Pt was admitted to [facility] on 01/04/18. Started with 4 days of abdominal pain, dizziness and subtherapeutic range INR. Pt was transfused 1 u pRBCs and admitted to [facility] for for further management. GI consulted started on IV PPI and IVF. 01/04/18 EGD showed 2 cm penetrating gastric ulcer. Repeat EGD on 01/08/18 showed no active bleeding. GI recommended holding coumadin/aspirin for at least 4 weeks, daily PPI OV f/u in 3 wks and repeat EGD in 4 wks (demonstrate healing and possibly biopsy for gastric malignancy). Pt received IV Iron and 1u pRBC on 01/06/18. Reported R inner thigh pain and mild nonpitting edema, venous duplex negative for DVT. Pt monitored and stable for d/c on 01/08/18. HHC per PT recommended. Recommended to have labs drawn on 01/12/18, f/u with PCP in 1 week, GI in 3 weeks and Cardiology in 1 mo after seen by GI. - Returned to [facility] ER on 01/10/18 for dizziness, lightheadedness and sob. With being just d/c from [place], having negative DVT, Hbg stable from d/c of [place] and stool turning brown in color vs black. [place] symptoms were related to being anemic. 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 No transfusion required. F/u with PCP in 2 days. Impression: Anemia due to GI bleed. GI Bleed resolved. Malaise secondary to #1. - Returned to [facility] ER with SOB on 01/12/18 and was admitted and d/c on 01/13/18. - Currently on no blood thinners. Initial contact with patient post discharge 01/14/18 spoke to patient. Patient identified by name and . SUMMARY: -Pt discharged from [facility] on 01/13/2018. -Admitted for: Dyspnea and Symptomatic Anemia Problem List (1) Symptomatic anemia Status: Acute (2) PUD (peptic ulcer disease) Status: Chronic (3) Afib Status: Chronic (4) DM2 (diabetes mellitus, type 2) Status: Chronic Qualifiers: Diabetes mellitus rat exterminator insulin use: without rat exterminator use Diabetes mellitus complication status: with unspecified complications Qualified Code(s): E11.8 - Type 2 diabetes mellitus with unspecified complications (5) Hypothyroid Status: Chronic Qualifiers: Hypothyroidism type: acquired Qualified Code(s): E03.9 - Hypothyroidism, unspecified History of Present Illness Date of Admission: 01/12/18 Chief Complaint: Shortness of breath The patient is a 67 year old F who was just discharged from [facility] on the with GI bleed. Patient underwent an EGD that showed peptic ulcer disease. Patient was transfused 2 units of packed red blood cells while she was there and also received a copious amount of IV fluids. Since being home, patient has been short of breath with exertion. Patient presented to the emergency room on the underwent a CAT scan that showed no pulmonary embolism though did show some groundglass opacities the patient was sent home. Patient presented to her office her primary care doctors today and was short of breath. Patient was very short of breath but apparently her pulse ox was okay. Patient had chest x-ray shows some questionable pulmonary edema and patient was admitted to the progressive care unit through the emergency room for concern for heart failure though the patient does not have a history of heart failure. Records have been copied from [facility] for review for documentation purposes. Ariadna Buenrostro Ma Do you have a hospital follow up appointment with your PCP? Appointment on 01/27/2018 @ 10:[address] Rust. Yes. Reminded patient of appointment date, time, and location. MEDICATIONS: Many patients have questions or concerns about their medications once they are home. Were you prescribed any new medications? Yes If yes, what are those medications? Protonix 40 mg 1 tab po bid and Meclizine 25 mg 1 tab po TID prn and Iron supplementation to take once daily. Hasn't picked this up from the pharmacy yet. Were you told to hold any medications? If yes, what are those medications? Meloxicam Were any of your medications discontinued? If yes, what are those medications? Coumadin and Baby Aspirin Do you have any questions about getting or taking your medications? No Your discharge instructions/After visit Summary (AVS) are important in guiding you through the recovery process. Is there anything I might help you understand? No. Pt doing well at this time. If problem she will contact office. Received D/C summary from [facility]. Do you have all the necessary equipment and supplies at home? Yes Medical records from recent hospitalization: [facility] ER Records and [place] received Allergies As of Date: 01/14/2018 Noted Allergy Reaction CLINDAMYCIN 12/04/2008 4 - Hives KLOR-CON (POTASSIUM CHLORIDE) 12/08/2013 4 - Hives LIPITOR (ATORVASTATIN CALCIUM) 07/14/2005 5 - Intolerance Comments: Muscle pain LISINOPRIL 12/08/2013 3 - Cough PENICILLINS 07/14/2005 4 - Hives [id number] REDUCTASE INHIBIT*06/07/2014 14 - Other: See Comments Comments: Muscle pain ZOCOR (SIMVASTATIN) 07/14/2005 5 - Intolerance Comments: Muscle pain Date Reviewed: 12/29/2017 Reviewed by: Abby (Rn) DEL Stringer - Fully Assessed Reason for Visit: Hospital F/U [57] Cmt: TCM- 14 day D/C Symptomatic anemia (GI bleed) with 2 other Admitting's prior. Reason For Visit History Recorded Prescriptions as of 01/14/2018 Sig: LEVOTHYROXINE 112 MCG TABLET TAKE ONE TABLET BY MOUTH ONCE* WARFARIN 2 MG TABLET 2 mg on Mon and Fri and 3 mg * MELOXICAM 15 MG TABLET Take 1 tablet by mouth once d* CITALOPRAM 40 MG TABLET Take 1 tablet by mouth once d* ROPINIROLE 0.25 MG TABLET Take 2 tablets by mouth daily* FLUTICASONE 50 MCG/ACTUATION * Use 2 Sprays in each nostril * NYSTATIN-TRIAMCINOLONE 100,00* Apply 1 application to affect* ATENOLOL 50 MG TABLET Take 1.5 tablets by mouth onc* TRIAMCINOLONE ACETONIDE 0.1 %* Apply 1 application to affect* GEMFIBROZIL 600 MG TABLET Take 1 tablet by mouth twice * WARFARIN 3 MG TABLET Take 1 tablet by mouth once d* GLIPIZIDE ER 5 MG TABLET, EXT* Take 1 tablet by mouth once d* METFORMIN 500 MG TABLET Take by mouth. 1 tablet in t* NITROGLYCERIN 0.4 MG SUBLINGU* Dissolve 1 tablet under the t* WARFARIN 4 MG TABLET Take 1 tablet by mouth once d* CYCLOBENZAPRINE 5 MG TABLET Take 2 tablets by mouth three* ASPIRIN 81 MG TABLET Take 1 tablet by mouth once d* * UHCNQYWVDROR-DC-LQUL-MINERALS* Take by mouth once daily. * CALCIUM CARB-VIT D3-MINERALS * Take 1 tablet by mouth twice * * OMEGA-3 FATTY ACIDS 1,000 MG * Take 1 capsule by mouth twice* Problem List As Of Date 01/14/2018 Noted Resolved Hypothyroidism [E03.9] Hyperlipidemia [E78.5] BENIGN HYPERTENSION [I10] INVALID FOR* Diabetes mellitus type 2, controlled, without c*INVALID FOR* Depression [F32.9] INVALID FOR* Lumbago [M54.5] INVALID FOR* Spinal stenosis, lumbar region, without neuroge*INVALID FOR* L-S radiculopathy [M54.17] INVALID FOR* Cholelithiasis [K80.20] INVALID FOR* Afib (HCC) [I48.91] INVALID FOR* Obesity, Class III, BMI 40-49.9 (morbid obesity*INVALID FOR* Encounter Status:Closed by ARIADNA BUENROSTRO MA on 01/18/18 12 LEAD ELECTROCARDIOGRAM Observed: 01/13/2018 Status: F Source: [place] 2:[address] [facility] REPOSITORY [facility] Cardiovascular Services [address] [place] [id number] 12 Lead EKG 01/10/18 1535 MR#: [id number] Acct: [id number] Name: KYAW ESPINOZA Rep #: [id number] : 1950 67 From: Giovany Baron MD Attending Dr: Status: DEP Ordering Dr: Harry Rondon MD Date: 01/10/18 Location: ED Sex: F C Admitted: Test Reason : SOB Blood Pressure : / mmHG Vent. Rate : 073 BPM Atrial Rate : 073 BPM P-R Int : 134 ms QRS Dur : 088 ms QT Int : 366 ms P-R-T Axes : 000 048 095 degrees QTc Int : 403 ms Normal sinus rhythm Low voltage QRS Nonspecific T wave abnormality Abnormal ECG Confirmed by JEAN MANCILLA, GIOVANY ([id number]), development editor SATISH DIAZ ([id number]) on 01/13/2018 2:44:15 PM Referred By: KARLEY Confirmed By:GIOVANY BARON MD 01/13/18 1447 Date Giovany Baron MD CC: Harry Rondon MD; Tanja Rust MD Signed BEDSIDE GLUCOSE Collected: 01/13/2018 Status: F Source: [place]HEAL 11:[address] [facility] REPOSITORY TYPE CODE TESTS RESULT OUT OF REFERENCE UNITS RANGE LAB L501.080 70-110 mg/dL High BEDSIDE GLU 133 Result Comment: MANAGEMENT OF PATIENT CARE PER NURSING PROTOCOL Performed By: #### L501.080 #### [facility] Point of Care [address] [facility] [place] [address] DISCHARGE SUMMARY Observed: 01/13/2018 Status: F Source: MICHEAL 11:[address] [facility] REPOSITORY [facility] Medical Records Department [address] [place] [address] Discharge Summary 01/13/18 1103 MR#: [id number] Acct: [id number] Name: KYAW ESPINOZA Rep #: [id number] : 1950 67 From: Dave Hickey DO PCP: Tanja Rust MD Status: ADM ERICA Y Location: [place] [address] Discharge Date and Diagnosis - Problem List Patient Problems: Active and Suspected Problems Heart failure with preserved ejection fraction (Acute) BPPV (benign paroxysmal positional vertigo) (Acute) Symptomatic anemia (Acute) Date of Admission: 01/12/18 Date of Discharge: 01/13/18 - Primary Discharge Diagnosis Active and Suspected Problems Heart failure with preserved ejection fraction (Acute) BPPV (benign paroxysmal positional vertigo) (Acute) Symptomatic anemia (Acute) - Secondary Discharge Diagnosis Chronic Problems PUD (peptic ulcer disease) (Chronic) Afib (Chronic) DM2 (diabetes mellitus, type 2) (Chronic) Hypothyroid (Chronic) Hospital Course and Treatment Imaging Results: Clinical Impression(s) from Imaging Studies Chest X-Ray 01/12/18 09:28 IMPRESSION: Patchy airspace disease in the right mid to lower lung. Electronically Signed: Rudolph Duffy DO at 9:56 EDT Tel , Service support , Operations: None Procedures: 2-D Echocardiogram Summary of Care Provided: The patient is a 67 year old F is with presents with shortness of breath. Shortness of breath was due to anemia plus also a component of heart failure. Patient developed heart failure due to recent hospitalization where she had a GI bleed and received copious amounts of IV fluid plus packed red blood cells. 1. Symptomatic anemia * I am not sure the anemia is enough to explain her shortness of breath but is certainly is a new phenomenon for her. * I will transfuse her 1 unit of packed red blood cells given her symptoms. * Her hemoglobin has remained stable since her most recent discharge on the * Much of this bleeding is due to her peptic ulcer disease but patient also incidentally developed a large ecchymosis in on her right posterior leg * Putting her shortness of breath may also be some underlying heart failure. Patient states that she has been evaluated for sleep apnea in the past and has been told that she does not have it. * Recheck hemoglobin as outpatient 2. Heart failure with preserved ejection fraction * Clinically, I do not feel the patient has pneumonia * EF of 55% * Patient did receive 2 units of packed bloods blood cells plus IV fluids * I will give her a dose of IV Lasix 40 mg followed by oral Lasix 40 mg twice daily * Improved overall * Will discontinue Lasix as I feel that patient developed this due to cups amount of fluids that she received at the outside hospital plus transfusions. * Unable to do BRIGITTE inhibitor given prior allergy history. 3. Atrial fibrillation * Chronic * Rate controlled * Continue with atenolol and aspirin * Patient will not be resuming her Coumadin until around February 08, 30 days after his recent hospitalization for bleeding peptic ulcers. * Follow-up with Dr. Singleton 4. Peptic ulcer disease with GI bleed * Will start the patient on Protonix * Additionally stop her meloxicam * Follow-up with gastroenterology as outpatient. 5. Benign paroxysmal positional vertigo * Meclizine as needed * Physical therapy for vestibular rehab as outpatient.[] Discharge Diet: 1800 Calorie Control Diet, 6 Cup Fluid Restriction, 2000 mg Sodium Diet Discharge Activity: Return to Normal Activity Call your doctor if you observe: Shortness of breath, Chest pain, - - blood in stool/vomit, dark tarry stools Home Medications: Medications to take at Discharge Citalopram [Celexa] 40 mg PO DAILY 09/09/13 Gemfibrozil 600 mg PO BID 09/09/13 Levothyroxine [Synthroid] 112 mcg PO DAILY 09/09/13 Multivitamins,Ther W-Minerals [Multivitamin With Minerals] 1 tablet PO DAILY 09/09/13 glipiZIDE [Glucotrol] 5 mg PO DAILY 09/09/13 Metformin HCl 1,000 mg PO QHS 01/10/18 Metformin HCl 500 mg PO DAILY 01/10/18 Ropinirole HCl [Requip] 0.25 mg PO BID 01/10/18 Atenolol 75 mg PO DAILY 01/12/18 Calcium Carbonate [Calcium] 500 mg PO BID 01/12/18 Vit E/Zn/Lut/Lyco/Bilber/Hb261 [Lipotriad Vision Support Plus] 1 each PO DAILY 01/12/18 Aspirin E.C. [Ecotrin] 81 mg PO DAILY@0800 tablet 01/13/18 Meclizine HCl 25 mg PO TID PRN #20 tab.chew 01/13/18 Pantoprazole Sodium [Protonix] 40 mg PO BID #60 tab 01/13/18 Following Prescrptions Were Given to Patient: Pantoprazole Sodium [Protonix] 40 mg PO BID #60 tab Meclizine HCl 25 mg PO TID PRN #20 tab.chew PRN Reason: Dizziness Other Amb Orders: Physical Therapy Evaluation Location: None Selected Primary Care Physician: Tanja Rust MD [Primary Care Provider] - Within 1 Week Please Follow Up With: Barrett Mancilla MD When: 2 weeks Please Follow Up With: gastroenterology When: 4 weeks Disposition: Home Minutes spent on discharge:: 35 Patient Condition:: Fair Medical Necessity - Tobacco Use Smoking Status: Never smoker Tobacco Use: Non-smoker Meaningful Use Info Meaningful Use Diagnoses (Choose all that apply): None applicable Code Visit OBSV E AND M: 34366 Observation care discharge 01/13/18 1106 <Electronically signed by Dave Hickey DO> Date Dave Hickey DO Cosigner Signature (if applicable): Date CC: Dave Hickey DO; Barrett Mancilla MD; Tanja Rust MD Signed DISCHARGE INSTRUCTION Observed: 01/13/2018 Status: F Source: [place]HEAL 11:[address] [facility] REPOSITORY [facility] Medical Records Department [address] [place] [address] Instructions for Home/Discharge Instructions 01/13/18 1100 MR#: [id number] Acct: [id number] Name: KYAW ESPINOZA Rep #: [id number] : 1950 67 From: Dave Hickey DO PCP: Tanja Rust MD Status: ADM ERICA - Discharge Diagnoses Current Active Problems: Current Active and Chronic Problems Symptomatic anemia (Acute) PUD (peptic ulcer disease) (Chronic) Afib (Chronic) DM2 (diabetes mellitus, type 2) (Chronic) Hypothyroid (Chronic) You will use the following diet at home:: Calorie/Carbohydrate Controlled (specify 1200, 1400, etc) - 1800 kcal/day, Fluid restricted (specify 2000 mls, 1500 mls) - 2 liters/day Your food should be the consistency of: Regular Your liquids should be the consistency of: Regular/Thin Discharge Activity: Return to Normal Activity Call your doctor if you observe: Shortness of breath, Chest pain, - - blood in stool/vomit, dark tarry stools Allergies/Adverse Reactions: Allergies atorvastatin calcium [From Lipitor] Allergy (Verified 01/12/18 09:29) Pain in joints clindamycin Allergy (Verified 01/12/18 09:29) Hives lisinopril Allergy (Verified 01/12/18 09:29) Unknown Penicillins [PCN] Allergy (Verified 01/12/18 09:29) Hives simvastatin [From Zocor] Allergy (Verified 01/12/18 09:29) Pain in joints Medications to take at Discharge Citalopram [Celexa] 40 mg PO DAILY 09/09/13 Gemfibrozil 600 mg PO BID 09/09/13 Levothyroxine [Synthroid] 112 mcg PO DAILY 09/09/13 Multivitamins,Ther W-Minerals [Multivitamin With Minerals] 1 tablet PO DAILY 09/09/13 glipiZIDE [Glucotrol] 5 mg PO DAILY 09/09/13 Metformin HCl 1,000 mg PO QHS 01/10/18 Metformin HCl 500 mg PO DAILY 01/10/18 Ropinirole HCl [Requip] 0.25 mg PO BID 01/10/18 Atenolol 75 mg PO DAILY 01/12/18 Calcium Carbonate [Calcium] 500 mg PO BID 01/12/18 Vit E/Zn/Lut/Lyco/Bilber/Hb261 [Lipotriad Vision Support Plus] 1 each PO DAILY 01/12/18 Aspirin E.C. [Ecotrin] 81 mg PO DAILY@0800 tablet 01/13/18 Meclizine HCl 25 mg PO TID PRN #20 tab.chew 01/13/18 Pantoprazole Sodium [Protonix] 40 mg PO BID #60 tab 01/13/18 The following prescriptions were given: Pantoprazole Sodium [Protonix] 40 mg PO BID #60 tab Meclizine HCl 25 mg PO TID PRN #20 tab.chew PRN Reason: Dizziness Orders to be completed after discharge: Physical Therapy Evaluation Location: None Selected Primary Care Physician: Tanja Rust MD [Primary Care Provider] - Within 1 Week Please Follow Up With: Barrett Mancilla MD When: 2 weeks Please Follow Up With: gastroenterology When: 4 weeks Proposed Discharge Date: 01/13/18 01/13/18 1103 <Electronically signed by Dave Hickey DO> Date Dave Hickey DO CC: Tanja Rust MD BEDSIDE GLUCOSE Collected: 01/13/2018 Status: F Source: [place] 6:[address] [facility] REPOSITORY TYPE CODE TESTS RESULT OUT OF RANGE REFERENCE UNITS LAB L501.080 70-110 mg/dL Normal BEDSIDE GLU 103 Result Comment: MANAGEMENT OF PATIENT CARE PER NURSING PROTOCOL Performed By: #### L501.080 #### [facility] Point of Care [address] [place], [place] [id number] CBC-COMPLETE BLOOD CNT Collected: 01/13/2018 Status: F Source: [place] NO DIFF 5:[address] [facility] REPOSITORY TYPE CODE TESTS RESULT OUT OF RANGE REFERENCE UNITS LAB L100.1000 4.4-11.0 K/mm3 Normal WBC 5.6 LAB L100.1200 4.2-5.4 M/mm3 Low RBC 2.87 LAB L100.1300 12.0-15.0 g/dl Low HGB 8.7 LAB L100.1400 37-47 % Low HCT 26.6 LAB L100.1500 81-99 fL Normal MCV 92.7 LAB L100.1600 27.0-32.0 pg Normal MCH 30.3 LAB L100.1700 32-36 g/gl Normal MCHC 32.7 LAB L100.1810 11.6-14.6 % High RDW CV 15.9 LAB L100.1820 35.1-43.9 fl High RDW SD 48.3 LAB L100.1900 150-450 K/mm3 Normal PLT 283 LAB L100.2000 6.2-12.0 fl Normal MPV 10.2 Performed By: #### L100.0500 #### [facility] [address] [place], [address] BASIC METABOLIC Collected: 01/13/2018 Status: F Source: [place] PROFILE (BMP) 5:[address] [facility] REPOSITORY TYPE CODE TESTS RESULT OUT OF RANGE REFERENCE UNITS LAB L501.0100 74-106 mg/dL Normal GLU 102 Result Comment: Fasting Glucose result from 100 to 125 mg/dL suggests IMPAIRED HOMEOSTASIS per A.D.A. criteria. Please note revised GLUCOSE reference range effective 2017. LAB L501.1000 7-18 mg/dL Normal BUN 10 LAB L501.1100 0.55-1.02 mg/dL Normal CREAT,SERUM 0.63 Result Comment: The validity of the calculated GFR AND GFRAA in patients over 70 years has not been determined. Clinical correlation is essential. LAB L501.1110 >60 mL/min Normal EST GFR 100 Result Comment: Non- GFR Calc LAB L501.1115 >60 mL/min Normal EST GFR - AA 121 Result Comment: GFR Calc LAB L501.1255 ml/min Normal Estimated CRCL 81.47 LAB L501.1300 10-20 RATIO Normal BUN/CRE 15.9 LAB L501.2200 8.5-10 mg/dL Low .1 CA 8.2 LAB L501.5300 136-14 mmol/L Normal 5 NA 142 LAB L501.5600 3.5-5. mmol/L Low 1 K 2.8 LAB L501.5900 98-107 mmol/L Normal CL 101 LAB L501.6100 21.0-3 mmol/L Normal 2.0 CO2 30.0 LAB L501.6200 5-15 Normal GAP 11 Performed By: #### L500.2500 #### [facility] [address] [place], [address] PROTHROMBIN TIME W/INR Collected: 01/13/2018 Status: F Source: [place] 5:[address] [facility] REPOSITORY TYPE CODE TESTS RESULT OUT OF RANGE REFERENCE UNITS LAB L300.4150 11.7-14.9 SECONDS Normal PROTIME 14.4 LAB L300.4200 Normal INR 1.1 Performed By: #### L300.3900 #### [facility] [address] [place], [address] BEDSIDE GLUCOSE Collected: 01/12/2018 Status: F Source: [place] 9:[address] [facility] REPOSITORY TYPE CODE TESTS RESULT OUT OF RANGE REFERENCE UNITS LAB L501.080 70-110 mg/dL Normal BEDSIDE GLU 105 Result Comment: MANAGEMENT OF PATIENT CARE PER NURSING PROTOCOL Performed By: #### L501.080 #### [facility] Point of Care [address] [place] [address] ECHOCARDIOGRAM COMPLETE Observed: 01/12/2018 Status: F Source: [place] 5:[address] [facility] REPOSITORY [facility] Cardiovascular Services [address] [place] [address] Echo Complete 01/12/18 1500 MR#: [id number] Acct: [id number] Name: KYAW ESPINOZA Rep #: [id number] : 1950 67 From: Giovany Baron MD Attending Dr: Dave Hickey DO Status: ADM ERICA Ordering Dr: Dave Hickey DO Date: 01/12/18 Location: [facility] Sex: F C Admitted: 01/12/18 Reason For Study: CHF Procedure This was a 2D Doppler, Color Flow transthoracic echocardiogram. The exam was of fair technical quality due to body habitus. The study was technically difficult. Exam performed portable in patient room. Left Ventricle Normal LV size. Mild concentric left ventricular hypertrophy. Left ventricular systolic function is normal. The estimated ejection fraction is 55 %. No regional wall motion abnormalities noted. Right Ventricle Normal RV size. Normal systolic function. Atria The left atrium is moderately enlarged. Normal right atrium. No doppler evidence for ASD. Mitral Valve There is no mitral annular calcification. Normal mitral valve. Mild (1+) mitral valve insufficiency. Tricuspid Valve Normal tricuspid valve. Mild to moderate (1-2+) tricuspid valve insufficiency. Right ventricular systolic pressure estimated to be 41 mmHg. Aortic Valve Trisinus/trileaflet aortic valve. Moderate focal aortic valve thickening. Pulmonic Valve The pulmonic valve is not well visualized. Great Vessels Normal sized aortic root. Pericardium/Pleural No pericardial effusion. MMode/2D Measurements AND Calculations LVIDd: 4.4 cm IVSd: 1.4 cm LVOT diam: 2.0 cm LVIDs: 3.3 cm LVPWd: 1.4 cm LVOT area: 3.0 cm2 FS: 24.8 % Ao root diam: 2.6 cm LAV(MOD-bp): 63.5 ml LA A4 area: 21.9 cm2 LA dimension: 4.1 cm LAV(MOD-bp) Indexed: 33.9 ml/m2 LAV(MOD-sp2): 56.8 ml LAV(MOD-sp4): 65.6 ml RA A4 area: 12.8 cm2 Time Measurements MV dec time: 0.22 sec Doppler Measurements AND Calculations MV E max krystle: 109.9 cm/sec Lat Peak E' Krystle: 9.6 cm/sec Med Peak E' Krystle: 7.7 cm/sec MV A max krystle: 79.8 cm/sec E/E' lat: 11.5 E/E' med: 14.2 MV E/A: 1.4 MV V2 max: 124.7 cm/sec MV P1/2t max krystle: 124.7 cm/sec Ao V2 max: 209.7 cm/sec MV max P.2 mmHg MV P1/2t: 78.6 msec Ao max P.6 mmHg MV V2 mean: 63.3 cm/sec MV dec slope: 464.3 cm/sec2 Ao V2 mean: 139.3 cm/sec MV mean P.0 mmHg MVA(P1/2t): 2.8 cm2 Ao mean P.8 mmHg MV V2 VTI: 33.4 cm Ao V2 VTI: 31.9 cm MVA(VTI): 2.9 cm2 DEVAUGHN(I,D): 3.1 cm2 DEVAUGHN(V,D): 2.3 cm2 AI max krystle: 418.0 cm/sec LV V1 max: 158.5 cm/sec SV(LVOT): 97.6 ml AI max P.9 mmHg LV V1 max P.1 mmHg AI dec slope: 280.4 cm/sec2 LV V1 mean P.1 mmHg AI P1/2t: 436.6 msec LV V1 mean: 104.0 cm/sec LV V1 VTI: 32.1 cm PA V2 max: 94.7 cm/sec TR max krystle: 307.4 cm/sec TR max P.8 mmHg Interpretation Summary The study was technically difficult. Left ventricular systolic function is normal. The estimated ejection fraction is 55 %. Mild concentric left ventricular hypertrophy. The left atrium is moderately enlarged. Mild (1+) mitral valve insufficiency. Mild to moderate (1-2+) tricuspid valve insufficiency. Moderate focal aortic valve thickening. Right ventricular systolic pressure estimated to be 41 mmHg. Transmitral diastolic flow velocities suggest diastolic dysfunction (pseudonormal pattern). Ordering Physician: Dave Hickey Referring Physician: Tanja Rust Performed By: Spencer Hirsch RCS 01/12/181717 Date Giovany Baron MD CC: Dave Hickey DO; Tanja Rust MD Date Dictated: 01/12/18 1500 Date Transcribed: 01/12/181717 Software Sales Executive: Signed BEDSIDE GLUCOSE Collected: 01/12/2018 Status: F Source: MICHEAL 4:[address] [facility] REPOSITORY TYPE CODE TESTS RESULT OUT OF REFERENCE UNITS RANGE LAB L501.080 70-110 mg/dL High BEDSIDE GLU 174 Result Comment: Dr Perez Followed Insulin Given MANAGEMENT OF PATIENT CARE PER NURSING PROTOCOL Performed By: #### L501.080 #### [facility] Point of Care [address] [place] [address] HISTORY AND PHYSICAL Observed: 01/12/2018 Status: F Source: AURELIA EXAM 2:[address] [facility] REPOSITORY [facility] Medical Records Department [address] [place] [address] History and Physical 01/12/18 1418 MR#: [id number] Acct: [id number] Name: KYAW ESPINOZA Rep #: [id number] : 1950 67 From: Dave Hickey DO PCP: Tanja Rust MD Status: ADM ERICA Y Location: [place] [address] Problem List (1) Symptomatic anemia Status: Acute (2) PUD (peptic ulcer disease) Status: Chronic (3) Afib Status: Chronic (4) DM2 (diabetes mellitus, type 2) Status: Chronic Qualifiers: Diabetes mellitus rat exterminator insulin use: without rat exterminator use Diabetes mellitus complication status: with unspecified complications Qualified Code(s): E11.8 - Type 2 diabetes mellitus with unspecified complications (5) Hypothyroid Status: Chronic Qualifiers: Hypothyroidism type: acquired Qualified Code(s): E03.9 - Hypothyroidism, unspecified History of Present Illness Date of Admission: 01/12/18 Chief Complaint: Shortness of breath The patient is a 67 year old F who was just discharged from [facility] on the with GI bleed. Patient underwent an EGD that showed peptic ulcer disease. Patient was transfused 2 units of packed red blood cells while she was there and also received a copious amount of IV fluids. Since being home, patient has been short of breath with exertion. Patient presented to the emergency room on the underwent a CAT scan that showed no pulmonary embolism though did show some groundglass opacities the patient was sent home. Patient presented to her office her primary care doctors today and was short of breath. Patient was very short of breath but apparently her pulse ox was okay. Patient had chest x-ray shows some questionable pulmonary edema and patient was admitted to the progressive care unit through the emergency room for concern for heart failure though the patient does not have a history of heart failure. [] Past Medical History Past Medical History (Chronic Problems): Chronic Problems PUD (peptic ulcer disease) (Chronic) Afib (Chronic) DM2 (diabetes mellitus, type 2) (Chronic) Hypothyroid (Chronic) Allergies atorvastatin calcium [From Lipitor] Allergy (Verified 01/12/18 09:29) Pain in joints clindamycin Allergy (Verified 01/12/18 09:29) Hives lisinopril Allergy (Verified 01/12/18 09:29) Unknown Penicillins [PCN] Allergy (Verified 01/12/18 09:29) Hives potassium chloride [From Klor-Con] Allergy (Verified 01/12/18 09:29) Unknown simvastatin [From Zocor] Allergy (Verified 01/12/18 09:29) Pain in joints Home Medications: Ambulatory Orders Medication Instructions Recorded Citalopram [Celexa] 40 mg PO DAILY 09/09/13 Surgical History: - - History of tubal ligation, appendectomy, bilateral carpal tunnel surgery. Psychiatric History: No pertinent psych hx BUSINESS OFFICE ASSISTANT History: No pertinent BUSINESS OFFICE ASSISTANT history Smoking Status: Never smoker Tobacco Use: Non-smoker Alcohol: None Drugs: None - *Family History Maternal History Items: Heart Disease Review of Systems Constitutional: Denies: Chills, Fever, Weight Change Eyes: Denies: Blurred vision, Double vision HEENT: Denies: Head Aches, Sinus Congestion, Sinus Drainage Cardiovascular: Denies: Chest Pain, Palpitations Respiratory: Reports: Shortness of breath upon exertion. Denies: Cough, Sputum production Gastrointestinal: Denies: Abdominal Pain, Hematochezia, Nausea, Melena, Vomiting Genitourinary: Denies: Dysuria Musculoskeletal: Denies: Joint Pain, Joint Tenderness Skin: Reports: - - Patient had bruising on her posterior leg. Patient denied any antecedent trauma. Denies: Rash, Wounds Neurological: Denies: Numbness, Tingling, Focal weakness Psychiatric: Denies: Anxiety, Depression Endocrine: Denies: Change in Body Habitus, Heat/ Cold Intolerance Hematologic/ Lymphatic: Reports: Easy Bruising, Easy Bleeding. Denies: Hx of blood clot VTE Information - Inpt Only VTE Present on Admission: No VTE Mechan Device Prophylaxis: SCD's VTE Pharm Prophylaxis ordered?: No Reason prophylaxis not ordered:: Medical Contraindication Patient Problems: Active and Suspected Problems Symptomatic anemia (Acute) - Physical Exam General: Alert, Cooperative, No apparent distress HEENT: Atraumatic, Normocephalic Neck: No Nodes, Thyroid Normal Size and Texture Lungs: Diminished, - - Bibasilar crackles Cardiovascular: Regular rate, Regular Rhythm, Normal S1, Normal S2, No murmurs Abdomen: Bowel Sounds Present, Soft, Non Tender, Non-Distended, No Hepato-splenomegaly Extremities: No edema, No Calf Tenderness Skin: No rashes, No breakdown, - - Him again to light ecchymosis of the right posterior leg Musculoskeletal: No Tenderness to Palpation of Joints or Extremities, No Muscle Wasting Neurological: Neuro grossly intact, Muscle tone normal, Coordination normal Psych/Mental Status: Normal Affect, Appropriate Vital Signs Temp Pulse Resp BP Pulse Ox 37.0 C 77 17 114/61 94 01/12/18 12:12 01/12/18 12:16 01/12/18 12:12 01/12/18 12:12 01/12/18 13:06 Oxygen Flow Rate (L/min) 2 Oxygen Delivery Method Room Air Weight: 97.2 kg Body Mass Index (BMI) 44.8 POC Glucose POC Glucose 119 H Clinical Impression(s) from Imaging Studies Chest X-Ray 01/12/18 09:28 IMPRESSION: Patchy airspace disease in the right mid to lower lung. Electronically Signed: Rudolph Duffy DO at 9:56 EDT Tel , Service support , Assessment/Plan Active and Suspected Problems Symptomatic anemia (Acute) 1. Symptomatic anemia * I am not sure the anemia is enough to explain her shortness of breath but is certainly is a new phenomenon for her. * I will transfuse her 1 unit of packed red blood cells given her symptoms. * Her hemoglobin has remained stable since her most recent discharge on the * Much of this bleeding is due to her peptic ulcer disease but patient also incidentally developed a large ecchymosis in on her right posterior leg * Putting her shortness of breath may also be some underlying heart failure. Patient states that she has been evaluated for sleep apnea in the past and has been told that she does not have it. 2. Possible pulmonary edema * Clinically, I do not feel the patient has pneumonia * Patient did receive 2 units of packed bloods blood cells plus IV fluids * I will give her a dose of IV Lasix 40 mg followed by oral Lasix 40 mg twice daily * Check an echocardiogram to evaluate her cardiac function 3. Atrial fibrillation * Chronic * Rate controlled * Continue with atenolol and aspirin * Patient will not be resuming her Coumadin until around February 08, 30 days after his recent hospitalization for bleeding peptic ulcers. 4. Peptic ulcer disease with GI bleed * Will start the patient on Protonix * Additionally stop her meloxicam 5. DVT prophylaxis with SCDs as chemical prophylaxis contraindicated in light of her recent GI bleed. Code Visit Inpatient E AND M: [id number] Init Hosp L3 01/12/18 1427 <Electronically signed by Dave Hickey DO> Date Dave Hickey DO Cosigner Signature: Date (if applicable) CC: Dave Hickey DO; Tanja Rust MD Signed BEDSIDE GLUCOSE Collected: 01/12/2018 Status: F Source: AURELIA 1:[address] [facility] REPOSITORY TYPE CODE TESTS RESULT OUT OF REFERENCE UNITS RANGE LAB L501.080 70-110 mg/dL High BEDSIDE GLU 119 Result Comment: Dr Perez Followed MANAGEMENT OF PATIENT CARE PER NURSING PROTOCOL Performed By: #### L501.080 #### [facility] Point of Care [address] [place] [address] EMERGENCY DEPARTMENT Observed: 01/12/2018 Status: F Source: AURELIA SUMMARY 12:[address] [facility] REPOSITORY [facility] [place] Medical Records Department [address] [place] [address] Emergency Department Summary 01/12/18 1104 MR#: [id number] Acct: [id number] Name: KYAW ESPINOZA Rep #: [id number] : 1950 67 From: Abigail Franklin MD PCP: Tanja Rust MD Status: ADM ERICA - ER Visit Summary Date of Service: 01/12/18 Chief Complaint: Shortness of breath History of Present Illness: The patient is a 67 F presenting with shortness of breath since yesterday. Patient had an admission to [facility] last week. She was discharged on Thursday. She was admitted for an upper GI bleed. She had an endoscopy performed during that admission. She states when she was admitted she had black stool. She did receive a blood transfusion. She states her stool has now been brown for several days. She has been short of breath. She has had intermittent left-sided chest pain. She is unable to lay flat without being very short of breath. Shortness of breath is also worsened with exertion. She was seen in the emergency department 2 days ago for pain in her right knee and concern for DVT. She states she noted shortness breath at that time and CT of the chest was obtained which was unremarkable. Today she went to her primary care physician's office and they sent her to the ED for low pulse ox. The pulse ox was not documented. She has been off Coumadin for the past week. Physical Examination: Vitals are stable. Patient is afebrile. Alert no acute distress. HEENT exam is unremarkable. Pale conjunctivae Neck is supple. Lungs are clear and equal bilaterally. Heart is regular rate and rhythm. Abdomen is soft nontender nondistended. Extremities are unremarkable. Skin is warm and dry. No focal neurologic deficit. Remainder of exam is unremarkable. Emergency Department Course and Treatment: EKG is sinus rate of 83. Chest x-ray shows patchy airspace disease right mid and low lower lung. CBC shows a hemoglobin of 7.4. Chemistries show potassium 3.2, glucose 203. INR is 1.2. Troponin is negative. Stool is guaiac negative. I feel her shortness of breath is likely related to her anemia and patchy airspace disease right mid and lower lung which appears like pulmonary congestion. She has no cough or fever. Discussed with the hospitalist for admission. Disposition: Admission Impression: Dyspnea, symptomatic anemia This note was generated with Celsenseation software. It may contain incorrect words, spelling, and punctuation that were not noted in review of the chart prior to signing ED Disposition - Plan for ED Patient: Disposition: Acute Care Hospital [facility] Chief Complaint: Shortness of Breath What to do if you have Problems For any increased pain, shortness of breath, bleeding, nausea or vomiting, chest pain, or any unexpected problems, contact your Primary Care Provider. Call [facility] ([phone]) or report to the closest Emergency Room. Call 911 if necessary. 01/12/18 1233 <Electronically signed by Abigail Franklin MD> Date Abigail Franklin MD Cosigner Signature (If Indicated): Date CC: Tanja Rust MD Observed: 01/12/2018 Status: F Source: AURELIA STOOL OCCULT BLOOD 10:[address] [facility] IFOB REPOSITORY Order Date: 01/12/18 Has pt arrived? Y STOB iFOB Occult Blood Negative Performed By: #### M100.7900 #### [facility] [address] [place], [address] PROTHROMBIN TIME W/INR Collected: 01/12/2018 Status: F Source: AURELIA 9:[address] [facility] REPOSITORY TYPE CODE TESTS RESULT OUT OF RANGE REFERENCE UNITS LAB L300.4150 11.7-14.9 SECONDS High PROTIME 15.2 LAB L300.4200 Normal INR 1.2 Performed By: #### L300.3900 #### [facility] [address] [place], [address] CBC W/DIFF, AUTOMATED Collected: 01/12/2018 Status: F Source: AURELIA 9:[address] [facility] REPOSITORY TYPE CODE TESTS RESULT OUT OF RANGE REFERENCE UNITS LAB L100.1000 4.4-11.0 K/mm3 Normal WBC 8.4 LAB L100.1200 4.2-5.4 M/mm3 Low RBC 2.57 LAB L100.1300 12.0-15.0 g/dl Low HGB 7.4 LAB L100.1400 37-47 % Low HCT 23.3 LAB L100.1500 81-99 fL Normal MCV 90.7 LAB L100.1600 27.0-32.0 pg Normal MCH 28.8 LAB L100.1700 32-36 g/gl Low MCHC 31.8 LAB L100.1810 11.6-14.6 % High RDW CV 16.6 LAB L100.1820 35.1-43.9 fl High RDW SD 51.4 LAB L100.1900 150-450 K/mm3 Normal PLT 273 LAB L100.2000 6.2-12.0 fl Normal MPV 9.8 LAB L100.2100 47-70 % High NEUT% 85.3 LAB L100.2200 19-41 % Low LY% 6.9 LAB L100.2300 0-10 % Normal MONO% 7.1 LAB L100.2400 0-5 % Normal EO% 0.4 LAB L100.2500 0-1 % Normal BASO% 0.1 LAB L100.2550 0.0-0.9 % Normal IM GRAN % 0.200 Result Comment: IG% - Immature Granulocytes (promyelocytes, myelocytes and metamyelocytes) > 1% indicates that a LEFT SHIFT is Present. LAB L100.2620 2.0-7.7 X10 3/uL Absolute Normal Neut 7.2 LAB L100.2720 0.83-4.51 X10 3/ul Low Absolute Lymph 0.58 LAB L100.4500 SMEAR Normal COMMENT SCANNED LAB L100.7300 ANISO Normal 2+ LAB L100.7700 Normal MICROCYTES 1+ LAB L100.7800 Normal MACROCYTE 1+ Performed By: #### L100.0100 #### [facility] [address] [place], [place], [id number] BASIC METABOLIC Collected: 01/12/2018 Status: F Source: AURELIA PROFILE ([facility]) 9:[address] [facility] REPOSITORY TYPE CODE TESTS RESULT OUT OF RANGE REFERENCE UNITS LAB L501.0100 74-106 mg/dL High GLU 203 Result Comment: Glucose result greater than or equal to 200 mg/dL suggests DIABETES MELLITUS per A.D.A. criteria. Please note revised GLUCOSE reference range effective 2017. LAB L501.1000 7-18 mg/dL Normal BUN 14 LAB L501.1100 0.55-1.02 mg/dL Normal CREAT,SERUM 0.64 Result Comment: The validity of the calculated GFR AND GFRAA in patients over 70 years has not been determined. Clinical correlation is essential. LAB L501.1110 >60 mL/min Normal EST GFR 97 Result Comment: Non- GFR Calc LAB L501.1115 >60 mL/min Normal EST GFR - AA 117 Result Comment: GFR Calc LAB L501.1255 ml/min Normal Estimated CRCL 81.36 LAB L501.1300 10-20 RATIO High BUN/CRE 21.7 LAB L501.2200 8.5-10 mg/dL Normal .1 CA 8.5 LAB L501.5300 136-14 mmol/L Normal 5 NA 138 LAB L501.5600 3.5-5. mmol/L Low 1 K 3.2 LAB L501.5900 98-107 mmol/L Normal CL 103 LAB L501.6100 21.0-3 mmol/L Normal 2.0 CO2 26.0 LAB L501.6200 5-15 Normal GAP 9 Performed By: #### L500.2500, L501.4010 #### [facility] [address] [place], [address] TROPONIN-I Collected: 01/12/2018 Status: F Source: AURELIA 9:[address] [facility] REPOSITORY TYPE CODE TESTS RESULT OUT OF RANGE REFERENCE UNITS LAB L501.4010 <0.045 ng/mL Normal < 0.015 TROPONIN-I Result Comment: TROPONIN-I EXPECTED VALUES <0.045 Negative 0.045 - 0.590 Consistent with Cardiac Damage > OR = 0.600 Critical Value Not every elevated troponin is indicative of VT. These values should be used with clinical judgement in examining the patient's clinical picture for diagnosis. To establish a diagnosis of VT versus myocardial injury, there must be a demonstrated rise and/or fall in the troponin values, in addition to ischemic symptoms, EKG changes, new regional wall motion abnormality, and/or angiographical evidence. PLEASE NOTE: REFERENCE RANGES EDITED 17 Performed By: #### L500.2500, L501.4010 #### [facility] [address] [place], [address] TYPE AND SCREEN Collected: 01/12/2018 Status: F Source: MICHEAL 9:[address] [facility] REPOSITORY Order Comment: CMV NEG? N Number of units to transfuse: 1 Reason for Ordering Blood: Chronic Is there symptomatic anemia? Y Are the blood/blood products to be transfused? Y Is the patient having/had surgery? N CMV NEG?* N Give When? When Ready Irradiated? N Leukodepleted? Y Reason for Type AND Screen/Red Cells: ANEMIA TYPE CODE TESTS RESULT OUT OF RANGE REFERENCE UNITS LAB B10.0800 AB Normal BLOOD TYPE GEL POSITIVE LAB B100.4000 Normal Antibody NEGATIVE Screen Performed By: #### B101.7450 #### [facility] [place], [place], [address] BNP,B-TYPE NATRIURETIC Collected: 01/12/2018 Status: F Source: AURELIA PEPTIDE 9:[address] [facility] REPOSITORY TYPE CODE TESTS RESULT OUT OF RANGE REFERENCE UNITS LAB L503.6620 0-100 pg/mL High B-TYPE 396.3 CLARISSA PEP Performed By: #### L503.6620 #### [facility] [address] [place] [address], [address] RC Collected: 01/12/2018 Status: F Source: MICHEAL 9:[address] [facility] REPOSITORY TYPE CODE TESTS RESULT OUT OF REFERENCE UNITS RANGE LAB U100.0000 [id number] TRANSFUSED PRODUCT: T AND S with Crossmatch, Red Cells COUNT: 1 Performed By: #### U100.0000 #### [facility] - refer to report for specific site CHEST 1 VIEW Observed: 01/12/2018 Status: F Source: MICHEAL (PORTABLE) 9:[address] [facility] REPOSITORY [facility] Imaging Services [address] [place] [address] Chest 1 View (Portable) MR#: [id number] Acct: [id number] Name: KYAW ESPINOZA Rep #: [id number] : 1950 F 67 From: Rudolph Duffy DO PCP: Tanja Rust MD Status: REG ER Study: Chest 1 View (Portable) Date of Exam: 01/12/18 Exam# [id number] Ordering Dr: Abigail Franklin MD STUDY: X-RAY CHEST REASON FOR EXAM: Female, 67 years old. Shortness of breath, atrial fibrillation TECHNIQUE: Single AP portable view of the chest. COMPARISON: 01/10/2018 FINDINGS: Cardiac monitoring leads overlie the chest. There is patchy airspace disease in the right mid and lower lung. There is no demonstrated pleural abnormality. There is borderline cardiomegaly. Normal mediastinum and dorinda. Normal visualized pulmonary arteries. Normal visualized aortic arch and descending thoracic aorta. Normal visualized thoracic spine. Normal visualized ribs, clavicles, and shoulders. There is no demonstrated abnormality of the visualized soft tissue structures of the upper abdomen. RAD/Chest 1 View (Portable) IMPRESSION: Patchy airspace disease in the right mid to lower lung. Electronically Signed: Rudolph Duffy DO at 9:56 EDT Tel , Service support , CC: Abigail Franklin MD; Tanja Rust MD Software Sales Executive: Signed DISCHARGE INSTRUCTION Observed: 01/10/2018 Status: F Source: AURELIA 7:[address] [facility] REPOSITORY [facility] Medical Records Department [address] [place] [address] Discharge Instruction 01/10/18 1904 MR#: [id number] Acct: [id number] Name: KYAW ESPINOZA Rep #: [id number] : 1950 67 From: Harry Rondon MD PCP: Tanja Rust MD Status: REG ER ED Disposition - Plan for ED Patient: Disposition: Home or Assisted Living Chief Complaint: Shortness of Breath Instructions: ED Anemia Type Not Specified Referrals: Tanja Rust MD [Primary Care Provider] - What to do if you have Problems For any increased pain, shortness of breath, bleeding, nausea or vomiting, chest pain, or any unexpected problems, contact your Primary Care Provider. Call [facility] ([phone]) or report to the closest Emergency Room. Call 911 if necessary. 01/10/181903 <Electronically signed by Harry Rondon MD> Date Harry Rondon MD Cosigner Signature (If Indicated): Date CC: Tanja Rust MD EMERGENCY DEPARTMENT Observed: 01/10/2018 Status: F Source: A[place]LIA SUMMARY 7:[address] [facility] REPOSITORY [facility] [place] Medical Records Department [address] [place] [address] Emergency Department Summary 01/10/181900 MR#: [id number] Acct: [id number] Name: KYAW ESPINOZA Rep #: [id number] : 1950 67 From: Harry Rondon MD PCP: Tanja Rust MD Status: REG ER - ER Visit Summary Date of Service: 01/10/18 Chief Complaint: Dizzy, lightheaded, shortness of breath History of Present Illness: The patient is a 67 F who presents with the above symptoms. Symptoms started today. Patient was admitted to [facility] on Thursday. She had a bleeding ulcer and was given multiple blood transfusions. She was on Plavix and Coumadin but she is not on these currently. She was feeling palpitations and was having lightheadedness and dizziness. She has a history of paroxysmal atrial fibrillation. She also noted some bruising on her leg. She is concerned about a blood clot however they did do an ultrasound in the hospital and it did not show any DVT. She denies any cough or chest pain. Physical Examination: Vital signs reviewed. HEENT exam unremarkable. Heart is regular rate and rhythm without murmurs. Lungs clear to auscultation. Abdomen is soft nontender. Back is nontender. Extremity exam reveals scattered ecchymosis on the arms and legs. The right inner thigh does have a large area of ecchymosis. Her peripheral pulses are intact. Her neurologic exam is normal Test Results: EKG is normal sinus rhythm with rate of 73. Hemoglobin 7.7, glucose 240, INR 1.1 BNP 860. Troponin is normal. Chest x-ray reveals no acute findings. CTA of the chest reveals chronic changes with no PE or dissection Emergency Department Course and Treatment: The patient was concerned about DVT in the right leg. She told me she had a normal ultrasound earlier this week. I think the ecchymosis may be from the pressure that was applied during the ultrasound. She has good pulses in both legs. She states that her stools were black but they are now brown. Her hemoglobin is 7.7 which she states is around what she left the hospital with. I feel that her symptoms may be due to being anemic. 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 I do not feel she requires transfusion. Patient has a follow-up appointment in 2 days with her primary care physician Treatment Plan: [] Disposition: Discharge Impression: Anemia secondary to GI bleed, GI bleed resolved, malaise secondary to #1 This note was generated with [employer] dictation software. It may contain incorrect words, spelling, and punctuation that were not noted in review of the chart prior to signing ED Disposition - Plan for ED Patient: Chief Complaint: Shortness of Breath Referrals: Tanja Rust MD [Primary Care Provider] - What to do if you have Problems For any increased pain, shortness of breath, bleeding, nausea or vomiting, chest pain, or any unexpected problems, contact your Primary Care Provider. Call [facility] ([phone]) or report to the closest Emergency Room. Call 911 if necessary. 01/10/18 5454 <Electronically signed by Harry Rondon MD> Date Harry Rondon MD Cosigner Signature (If Indicated): Date CC: Tanja Rust MD CTA CHEST W/WO Observed: 01/10/2018 Status: F Source: [place] CONTRAST 4:[address] [facility] REPOSITORY [facility] Imaging Services [address] [place] [address] CTA Chest W/WO Contrast MR#: [id number] Acct: [id number] Name: KYAW ESPINOZA Rep #: [id number] : 1950 F 67 From: Catherine Burton MD PCP: Tanja Rust MD Status: REG ER Study: CTA Chest W/WO Contrast Date of Exam: 01/10/18 Exam# [id number] Ordering Dr: Harry Rondon MD STUDY: CTA CHEST REASON FOR EXAM: Female, 67 years old. SOB and right leg redness/swelling x today. Hx diabetes, hypertension, afib. RADIATION DOSAGE (If Supplied By Facility): CTDIvol = ( 18.06 ) mGy, DLP = ( 609.30 ) mGycm TECHNIQUE: The examination was performed with the intravenous administration of 100mL ml of Isovue 370 contrast material. Post-processing of the angiographic images was performed, with multiplanar reformation and 3D reconstruction. Individualized dose optimization techniques were used for this CT. COMPARISON: None. FINDINGS: Normal enhancement of the main pulmonary artery and right and left pulmonary arteries. Normal enhancement of the bilateral peripheral pulmonary arteries. There is no demonstrated pulmonary embolism. Normal thoracic aorta and visualized great vessels. There is no demonstrated aortic dissection. There is borderline cardiomegaly. There is prominent lymphoid tissue of the subcarinal region. Normal visualized trachea and bronchi. There is a small right pleural effusion. There is a trace left pleural effusion. There are multiple groundglass and nodular opacities of the lower lungs. There is mild left upper lobe and right upper and middle lobe atelectasis/scarring. Normal chest wall structures. There are degenerative changes of thoracic spine. There is diffuse heterogeneous density of the vertebrae and metastatic disease is not excluded. There is a small hiatal hernia. CT/CTA Chest W/WO Contrast IMPRESSION: No demonstrated pulmonary embolism or aortic dissection. There are multiple groundglass and nodular opacities of the lower lungs. There is mild left upper lobe and right upper and middle lobe atelectasis/scarring. There is a small right pleural effusion. There is a trace left pleural effusion. There is borderline cardiomegaly. There is prominent lymphoid tissue of the subcarinal region. There is diffuse heterogeneous density of the vertebrae and metastatic disease is not excluded. There is a small hiatal hernia. Electronically Signed: Catherine Burton MD at 18:31 EDT cf, Service support , CC: Harry Rondon MD; Tanja Rust MD Software Sales Executive: Signed CBC W/DIFF, AUTOMATED Collected: 01/10/2018 Status: F Source: [place] 3:[address] [facility] REPOSITORY TYPE CODE TESTS RESULT OUT OF RANGE REFERENCE UNITS LAB L100.1000 4.4-11.0 K/mm3 Normal WBC 8.4 LAB L100.1200 4.2-5.4 M/mm3 Low RBC 2.59 LAB L100.1300 12.0-15.0 g/dl Low HGB 7.7 LAB L100.1400 37-47 % Low HCT 23.5 LAB L100.1500 81-99 fL Normal MCV 90.7 LAB L100.1600 27.0-32.0 pg Normal MCH 29.7 LAB L100.1700 32-36 g/gl Normal MCHC 32.8 LAB L100.1810 11.6-14.6 % High RDW CV 17.0 LAB L100.1820 35.1-43.9 fl High RDW SD 49.8 LAB L100.1900 150-450 K/mm3 Normal PLT 268 LAB L100.2000 6.2-12.0 fl Normal MPV 10.4 LAB L100.2100 47-70 % High NEUT% 76.8 LAB L100.2200 19-41 % Low LY% 11.6 LAB L100.2300 0-10 % Normal MONO% 8.9 LAB L100.2400 0-5 % Normal EO% 1.9 LAB L100.2500 0-1 % Normal BASO% 0.4 LAB L100.2550 0.0-0.9 % Normal IM GRAN % 0.400 Result Comment: IG% - Immature Granulocytes (promyelocytes, myelocytes and metamyelocytes) > 1% indicates that a LEFT SHIFT is Present. LAB L100.2620 2.0-7.7 X10 3/uL Normal Absolute Neut 6.5 LAB L100.2720 0.83-4.51 X10 3/ul Normal Absolute Lymph 0.98 Performed By: #### L100.0100 #### [facility] [address] [place], [address] COMPREHENSIVE METABOLIC Collected: 01/10/2018 Status: F Source: [facility] 3:[address] [facility] REPOSITORY TYPE CODE TESTS RESULT OUT OF RANGE REFERENCE UNITS LAB L501.0100 74-106 mg/dL High GLU 240 Result Comment: Glucose result greater than or equal to 200 mg/dL suggests DIABETES MELLITUS per A.D.A. criteria. Please note revised GLUCOSE reference range effective 2017. LAB L501.1000 7-18 mg/dL Normal BUN 15 LAB L501.1100 0.55-1.02 mg/dL Normal CREAT,SERUM 0.84 Result Comment: The validity of the calculated GFR AND GFRAA in patients over 70 years has not been determined. Clinical correlation is essential. LAB L501.1110 >60 mL/min Normal EST GFR 71 Result Comment: Non- GFR Calc LAB L501.1115 >60 mL/min Normal EST GFR - AA 86 Result Comment: GFR Calc LAB L501.1255 ml/min Normal Estimated CRCL 97.29 LAB L501.1300 10-20 RATIO Normal BUN/CRE 17.8 LAB L501.1500 6.4-8. g/dL Normal 2 T PROT 6.4 LAB L501.1800 3.2-5. g/dL Low 0 ALB 2.9 LAB L501.1950 2.2-4. g/dL Normal 2 GLOB 3.5 LAB L501.2000 0.9-2. RATIO Low 4 A/G 0.8 LAB L501.2200 8.5-10 mg/dL Normal .1 CA 8.5 LAB L501.4100 15-37 U/L Normal AST 21 LAB L501.4305 45-117 U/L Normal ALK P 78 LAB L501.4405 13-56 U/L Normal ALT 46 LAB L501.4600 0.20-1 mg/dL Normal .00 T BILI 0.30 LAB L501.5300 136-14 mmol/L Normal 5 NA 140 LAB L501.5600 3.5-5. mmol/L Normal 1 K 3.5 LAB L501.5900 98-107 mmol/L Normal CL 107 LAB L501.6100 21.0-3 mmol/L Normal 2.0 CO2 25.0 LAB L501.6200 5-15 Normal GAP 8 Performed By: #### L500.4050, L501.4010, L300.3900 #### [facility] [address] [facility]. [place], [place], [id number] TROPONIN-I Collected: 01/10/2018 Status: F Source: [place] 3:[address] [facility] REPOSITORY TYPE CODE TESTS RESULT OUT OF RANGE REFERENCE UNITS LAB L501.4010 <0.045 ng/mL Normal < 0.015 TROPONIN-I Result Comment: TROPONIN-I EXPECTED VALUES <0.045 Negative 0.045 - 0.590 Consistent with Cardiac Damage > OR = 0.600 Critical Value Not every elevated troponin is indicative of VT. These values should be used with clinical judgement in examining the patient's clinical picture for diagnosis. To establish a diagnosis of VT versus myocardial injury, there must be a demonstrated rise and/or fall in the troponin values, in addition to ischemic symptoms, EKG changes, new regional wall motion abnormality, and/or angiographical evidence. PLEASE NOTE: REFERENCE RANGES EDITED 17 Performed By: #### L500.4050, L501.4010, L300.3900 #### [facility] [address] [facility] [place], [address] PROTHROMBIN TIME W/INR Collected: 01/10/2018 Status: F Source: [place] 3:[address] [facility] REPOSITORY TYPE CODE TESTS RESULT OUT OF RANGE REFERENCE UNITS LAB L300.4150 11.7-14.9 SECONDS Normal PROTIME 14.1 LAB L300.4200 Normal INR 1.1 Performed By: #### L500.4050, L501.4010, L300.3900 #### [facility] [address] [place], [address] BNP,B-TYPE NATRIURETIC Collected: 01/10/2018 Status: F Source: [place] 3:[address] [facility] REPOSITORY TYPE CODE TESTS RESULT OUT OF RANGE REFERENCE UNITS LAB L503.6620 0-100 pg/mL High B-TYPE 860.9 CLARISSA PEP Performed By: #### L503.6620 #### [facility] [address] [place], [address] TYPE AND SCREEN Collected: 01/10/2018 Status: F Source: [place] 3:[address] [facility] REPOSITORY Order Comment: Reason for Type AND Screen/Red Cells: HEMORRHAGE, GI BLEED TYPE CODE TESTS RESULT OUT OF RANGE REFERENCE UNITS LAB B10.0800 AB Normal BLOOD TYPE GEL POSITIVE LAB B100.4000 Normal Antibody NEGATIVE Screen Performed By: #### B101.7450 #### [facility] [address] [facility] [place], [address] CHEST 1 VIEW Observed: 01/10/2018 Status: F Source: [place] (PORTABLE) 3:[address] [facility] REPOSITORY [facility] Imaging Services [address] [place] [id number] Chest 1 View (Portable) MR#: [id number] Acct: [id number] Name: KYAW ESPINOZA Rep #: [id number] : 1950 F 67 From: Catherine Burton MD PCP: Yocasta MANCILLA,Tanja Status: PRE ER Study: Chest 1 View (Portable) Date of Exam: 01/10/18 Exam# [id number] Ordering Dr: Harry Rondon MD STUDY: X-RAY CHEST REASON FOR EXAM: Female, 67 years old. sob, leg redness and swelling TECHNIQUE: Single AP portable view of the chest. COMPARISON: February 01, 2017 FINDINGS: The lungs are clear and expanded. There is no demonstrated pleural abnormality. There is stable borderline cardiomegaly. Normal mediastinum and dorinda. Normal visualized pulmonary arteries. Normal visualized aortic arch and descending thoracic aorta. Normal visualized thoracic spine. Normal visualized ribs, clavicles, and shoulders. There is no demonstrated abnormality of the visualized soft tissue structures of the upper abdomen. RAD/Chest 1 View (Portable) IMPRESSION: No acute disease is demonstrated. Electronically Signed: Catherine Burton MD at 16:07 EDT cf, Service support , CC: Harry Rondon MD; Tanja Rust MD Software Sales Executive: Signed GASTROINTESTINAL ENDOSCOPY Observed: 01/08/2018 Status: F Source: [place] 1:30 PM [facility] Dept: Diagnostic Att. Dr.: Jojo Light MD Gastrointestinal Endoscopy Loc: 8W 852-1 Report #: [id number] Adm Dt: 01/04/18 Dis Dt: Patient Name: Kyaw Espinoza Procedure Date: 01/08/2018 7:53 AM Date of : 1950 Admit Type: Inpatient Ethnicity: Race: Unknown Attending MD: Heber Morales MD Procedure: Upper GI endoscopy Indications: Melena patient is continuing to have black stools and become more anemic while on therapy Comorbidities: Atrial fibrillation Providers: Heber Morales MD (Doctor) , Steffany Thomas RN (Nurse) , Iliana Lucero, Cheesemaker Referring: Tanja Rust Medicines: Total IV Anesthesia (TIVA), Monitored Anesthesia Care Complications: No immediate complications. Procedure: Pre-Anesthesia Assessment: - Prior to the procedure, a History and Physical was performed, and patient medications and allergies were reviewed. The patient's tolerance of previous anesthesia was also reviewed. The risks and benefits of the procedure and the sedation options and risks were discussed with the patient. All questions were answered, and informed consent was obtained. Prior Anticoagulants: The patient has taken Coumadin (warfarin), last dose was 5 days prior to procedure. After reviewing the risks and benefits, the patient was deemed in satisfactory condition to undergo the procedure. After obtaining informed consent, the endoscope was passed under direct vision. Throughout the procedure, the patient's blood pressure, pulse, and oxygen saturations were monitored continuously. The endoscope was introduced through the mouth, and advanced to the second part of duodenum. The upper GI endoscopy was accomplished without difficulty. The patient tolerated the procedure well. Findings: The examined esophagus was normal. One non-bleeding cratered gastric ulcer with no stigmata of bleeding was found in the prepyloric region of the stomach. The lesion was 20 mm in largest dimension. Biopsies were taken with a cold forceps for Helicobacter pylori testing using CLOtest. There was no evidence of visible vessel adherent clot coronary sinus of active bleeding. There were no endoscopic stigmata of hemorrhage that was targeted therapy endoscopically The examined duodenum was normal. Impression: - Normal esophagus. - Non-bleeding gastric ulcer with no stigmata of bleeding. Biopsied. For H. pylori - Normal examined duodenum. Recommendation: - Await pathology results. - Repeat upper endoscopy in 6 weeks to check healing. - Return to my office in 3 weeks. Procedure Code(s): --- Professional --- 50186, Esophagogastroduodenoscopy, flexible, transoral; with biopsy, single or multiple Diagnosis Code(s): --- Professional --- K25.9, Gastric ulcer, unspecified as acute or chronic, without hemorrhage or perforation K92.1, Melena (includes Hematochezia) CPT copyright 2016 [employer]. All rights reserved. The codes documented in this report are preliminary and upon prize jacker review may be revised to meet current compliance requirements. Heber Morales MD 01/08/2018 1:30:01 PM This report has been signed electronically. Number of Addenda: 0 Note Initiated On: 01/08/2018 7:53 AM Total Procedure Duration Time 0 hours 5 minutes 35 seconds 1201 DISCHARGE SUMMARY Observed: 01/08/2018 Status: F Source: [place] 12:41 PM [facility] Patient: KYAW ESPINOZA [address] [facility] MR#: [id number] [place], [place] [address] : 1950 OrdYamila Tang: Dept: PDOC Loc: 8W 852-1 Discharge Summary Service Dt: 01/08/18 Report#: [id number] Adm Dt: 01/04/18 Dis Dt: Discharge Summary - Principal/Other Diagnoses (1) Upper gastrointestinal bleeding Status: Acute Plan: 01/08/18 12:44 -EGD showed 2 cm gastric ulcer, repeat EGD 01/08/18 showed no active bleeding. To follow up with Dr Morales in 3 weeks, needs repeat upper endoscopy 4 weeks as outpatient -Symptoms improved, occasional lightheadness, + orthostatic bp. 1 liter LR infused 01/08/18. Explained to change positions slowly. 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 Tolerating GI soft diet well. -Transfused with 2 units PRBC total since admission. -Plan to hold aspirin and Coumadin for at least 4 weeks per GI -Protonix 40 mg daily after discharge. (2) Acute blood loss anemia Status: Acute Plan: 01/08/18 12:49 -Transfused with 2 units total PRBC since admission -Venofer 300 mg IV given 01/07/18 -H H stable overall, today 8.2/25.8. -Repeat EGD showed no active bleeding (3) Right leg pain Status: Acute Plan: 01/08/18 12:49 -Right medial thigh pain with bed mobility and toileting, mild nonpitting edema -Venous US 01/07/18 right leg negative for DVT 01/08/18 13:03 (4) Atrial fibrillation Status: Chronic Qualifiers: Atrial fibrillation type: chronic Qualified Code(s): I48.2 - Chronic atrial fibrillation Plan: 01/08/18 12:50 -Continue to hold Coumadin and aspirin for at least 4 weeks per GI -Atenolol 50 mg by mouth daily -To follow-up with paediatrician Dr. Singleton in [place] -SR rate 70's currently (5) Diabetes Status: Chronic Qualifiers: Diabetes mellitus type: type 2 Plan: 01/08/18 12:50 -Humalog mild SSI, accuchecks ac hs while inpatient -Fasting blood sugar 158 this am, tolerating GI soft diet -Resume home meds after discharge (6) HTN (hypertension) Status: Chronic Qualifiers: Hypertension type: essential hypertension Qualified Code(s): I10 - Essential (primary) hypertension Plan: 01/08/18 12:51 -Orthostatic VS positive, valsartan discontinued, IV LR 1 liter infused. -Mild lightheadedness and dizziness with movement -Encouraged to change positions slowly -Monitor vital signs (7) Hypokalemia Status: Acute Plan: 01/08/18 12:52 -Potassium level this am was 3.2 -40 meq K mitchell ordered - Consultations Consulting Specialty: Cardiology (Dr Barrett Mancilla), General Medicine (Dr Tanja Rust), GI (Dr Morales) - Narrative Summary Hospital Course: 67 yoF with PMHx afib on OAC presented to [facility] from [facility] ED on 2017 for melena x 4d, lower abdominal pain, and dizziness in the setting of supratherapeutic INR. Pt was transfused 1u pRBCs and admitted to [facility] for further management. GI (Carmen) was consulted and started on IV PPI and IVFs (HoTN). Pt had EGD on 01/04/2018 and showed a 2 cm penetrating gastric ulcer, repeat EGD 01/08/18 showed no active bleeding. GI recommended holding Coumadin and aspirin for at least 4 weeks, daily PPI, office follow up in 3 weeks, and repeat EGD in 4 weeks (demonstrate healing and possible biopsy for gastric malignancy). Pt also received IV iron and 1u pRBCs on 01/06/2018. Reported Rt inner thigh pain and mild nonpitting edema, venous duplex negative for DVT. Patient was monitored and stable for discharge on 01/08/18, home health care per PT recommendation. Repeat labs to be drawn 01/12/18 and reviewed by PCP. She was discharged home, and instructed to follow up with PCP in 1 week, GI in 3 weeks, and cardiology in 4 weeks (after seen by GI). - Vital Signs Vitals: Vital Signs (last response) Temperature 97.7 F 01/08/18 10:54 Pulse/Heart Rate 79 01/08/18 10:54 Respiratory Rate 16 01/08/18 10:54 Blood Pressure 106/55 L 01/08/18 10:54 O2 Sat by Pulse Oximetry 95 01/08/18 10:54 - Disposition Disposition: TO HOME WITH [facility] - Other Patient Information Activity: Activity Ordered Activity as Tolerated Diet: Diet Regular Diet - Consistency Start ThuJanuary 08 Lunch Referrals: Tanja Rust MD [Nonstaff] - 01/14/18 SANTOS Morales MD [Active] - - Discharge Medications Meds: Home Medications Medication Instructions Recorded Atenolol 50 mg PO DAILY 01/04/18 Calcium Carbonate/Vitamin D3 1 tab PO BID 01/04/18 [Calcium 600 + Vit D 400 Tablet] Gemfibrozil 600 mg PO DAILY 01/04/18 Levothyroxine Sodium [Synthroid] 112 mcg PO QDSYNTH 01/04/18 Metformin HCl 1,000 mg PO DAILY 01/04/18 Metformin HCl 500 mg PO DAILY 01/04/18 glipiZIDE [Glucotrol] 5 mg PO DAILY 01/04/18 rOPINIRole HYDROCHLORIDE [Requip] 0.5 mg PO QHS 01/04/18 traMADol HCL PO 01/05/18 Pantoprazole Sodium 40 mg PO DAILY 30 Days #30 01/08/18 tablet.dr - Time Spent with Patient Time with Patient: 45 minutes spent with pt GLUCOSE, POINT OF Collected: 01/08/2018 Status: F Source: [place] CARE 11:47 AM [facility] REPOSITORY TYPE CODE TESTS RESULT OUT OF REFERENCE UNITS RANGE LAB POCGLU 80-110 mg/dL High Glucose, 163 Point of Care Performed By: #### POCGLU #### [address] [place] [address] PROGRESS NOTES Observed: 01/08/2018 Status: F Source: [place] 10:47 AM [facility] REPOSITORY [facility] Patient: KYAW ESPINOZA [address] [facility] [facility] MR#: [id number] [place], [place] [address] : 1950 Ord. Tang: Dept: PDOC Loc: 8W 852-1 Physician Progress Note Service Dt: 01/08/18 Report#: [id number] Adm Dt: 01/04/18 Dis Dt: Note - Patient Note Observation: 01/08/18 10:47 * Endoscopy shows 2 cm gastric ulcer. No signs of bleeding. Could be discharged today. Should not go back on Coumudin until Ulcer has been endoscopically reevaluared in 4 weks. To follow on my office 3 weeks.. Observed: 01/08/2018 Status: F Source: [facility] 10:43 AM [facility] REPOSITORY RUN DATE: 01/09/18 [facility] LAB LIVE PAGE 1 RUN TIME: 1326 Specimen Inquiry PATIENT: KYAW ESPINOZA ACCT: [id number] LOC: 8W U: [id number] AGE/SX: 67/F ROOM: 2 RE01/04/[address]: Jojo Light MD : 1950 BED: 1 DIS: 01/08/18 STATUS: DIS IN TLOC: SPEC #: [id number] ZACARIAS: 01/08/18-1042 STATUS: COMP REQ #: [id number] RECD: 01/08/18-[address] [facility] [address]: Jojo Light MD SOURCE: Gastric Bi ENTR: 01/09/18-[address]: Nilesh Pickett MD [facility]: Jose Enrique Cole MD ORDERED: RANI Procedure Result > RANI Final RESULT NEGATIVE END OF REPORT Performed By: #### RANI #### [facility] [address] [place] [address] GENERAL MEDICAL Observed: 01/08/2018 Status: F Source: [place] PROGRESS NOTE 8:39 AM [facility] REPOSITORY [facility] Patient: KYAW ESPINOZA [address] [facility] MR#: [id number] [place], [place] [address] : 1950 Ord. .: Dept: PDOC Loc: 8 852-1 General Medical Progress Note Service Dt: 01/08/18 Report#: [id number] Adm Dt: 01/04/18 Dis Dt: 01/08/18 General-Medical Progress Note - Patient Visit Reason Visit Reason: GI BLEED - Subjective Narrative HPI/ROS: Patient is a 67-year-old female admitted 01/04/18 with GI bleed. EGD 01/04/18 showed 2 cm gastric ulcer. SOB with exertion have resolved, reports occasional palpitations. Reports feeling lightheaded, episode of nausea this am, no vomiting. manager monitoring showing sinus rhythm rate 70, orthostatic vs showed SBP 20 mmhg drop. No BM today, no abdominal pain. Transfused with total of 2 unit PRBCs (1 unit 01/04/18 and 1 unit 01/07/18). Tolerating GI soft diet well. Plan to hold Coumadin and aspirin for at least 2 weeks, follow-up appointment with GI and repeat endoscopy in 4 weeks. Sodium 141. IV 1/2 NS rate 80. Potassium 3.2 today, replace with 40 meq KCL. Accucheck 151, SSI with humalog mild coverage. Pt reports right leg pain improving, worst is 5/10. Pain occurs with moving right leg laterally in bed and sitting on toilet, pain resolves with laying still and standing up. No pain with ambulation. Venous duplex right leg (-) for DVT. Afib is managed by paediatrician Dr Mancilla in [place]. Takes coumadin 2 mg Thursday and Thursday, 3 mg all other days; also aspirin 81 mg daily. INR checked several times monthly. Coumadin and aspirin are being held, last dose was 01/02/18. Did not discharge yesterday due to continued lightheadness and episode of hypotension. Repeat H H 8.2/25.8. Ordered 1 liter LR for today. Per GI, to have EGD this morning. PT/OT consult ordered, assess for need for HHC. Reassess for possible discharge later today. - Review of Systems Constitutional: Reports: fatigue Eyes: Reports: no symptoms ENT: Reports: no symptoms Respiratory: Denies: cough, shortness of breath Cardiovascular: Reports: palpitations. Denies: chest pain Gastrointestinal: Reports: abdominal pain (mild epigastric) Genitourinary: Reports: no symptoms. Denies: urgency Musculoskeletal: Reports: other (right inner thigh discomfort) Integumentary: Reports: no symptoms Neurological: Reports: lightheadedness. Denies: headache Psychiatric: Reports: no symptoms Endocrine: Reports: no symptoms reported Hematological/Lymphatic: Reports: no symptoms Allergic/Immunologic: Reports: no symptoms - I O/Vital Signs I O/VS: Vital Signs Temp 96.8 F L 01/08/18 06:00 Pulse 86 01/08/18 06:00 Resp 20 01/08/18 06:00 BP 127/78 01/08/18 06:00 Pulse Ox 99 01/08/18 06:00 Intake Output 01/07/18 01/07/18 01/08/18 11:59 23:59 11:59 Intake Total 1260 1740 Balance 1260 1740 Intake: Intake 900 1000 Sodium Chloride 0.45% 1, 900 1000 000 ML @ 80 mls/hr IV . [id number] [facility] Rx#:[id number] Oral 360 740 - Patient Exam General appearance: alert, in no apparent distress, obese Limitations: Positive: no limitations Head: Positive: normal inspection Eyes: Positive: normal appearance ENT: Positive: normal exam, normal oropharynx Respiratory: Positive: normal lung sounds bilaterally Cardiovascular: Positive: regular rate, normal rhythm GI/Abdominal: Positive: soft, nondistended, normal bowel sounds, tenderness ( mild with palpation of epigastric area) Extremities: Positive: no edema, bilateral pulses positive, other (small amount nonpitting edema right inner thigh, no ecchymosis, no erythema) Neurological: Positive: alert, oriented X3 Integumentary: Positive: warm, dry, intact - Lab Diagnostic Data Diagrams: 01/08/18 06:00 01/08/18 06:00 Chemistry: Chemistry (Last 24hrs) 01/08/18 01/08/18 01/07/18 07:22 06:00 19:20 Sodium 141 Potassium 3.2 L Chloride 110 H Carbon Dioxide 24 Anion Gap 10.2 BUN 9 Creatinine 0.64 Estim Creat Clear Calc 48 L Est GFR ( Amer) >60 Est GFR (Non-Af Amer) >60 POC Glucose 158 H 151 H Fasting Glucose 167 H Calcium 8.1 L 01/07/18 01/07/18 01/07/18 16:29 11:19 09:02 Sodium 139 Potassium 3.7 Chloride 110 H Carbon Dioxide 21 Anion Gap 11.7 BUN 9 Creatinine 0.66 Estim Creat Clear Calc 48 L Est GFR ( Amer) >60 Est GFR (Non-Af Amer) >60 POC Glucose 197 H 253 H Fasting Glucose 258 H Calcium 8.2 L - Medications Meds: Current Medications Acetaminophen (Tylenol) 650 mg PO Q6 PRN PRN Reason: Pain (mild)/temp above 37.8 C Last Admin: 01/07/18 21:48 Dose: 650 mg Atenolol (Tenormin) 50 mg PO DAILY [facility] Last Admin: 01/07/18 09:14 Dose: Not Given Dextrose (Dextrose Syringe) 25 ml IV Q15M PRN PRN Reason: Hypoglycemia Dextrose (Dextrose Syringe) 50 ml IV Q15M PRN PRN Reason: Hypoglycemia Dextrose (Instant Glucose) 37.5 g PO Q15M PRN PRN Reason: Hypoglycemia Glucagon (Glucagon) 1 mg IM Q15M PRN PRN Reason: Hypoglycemia Pantoprazole Sodium 40 mg/ (Sodium Chloride) 10 mls @ 300 mls/hr IV PUSH BID [facility] PRN Reason: Protocol Last Admin: 01/07/18 17:04 Dose: 300 mls/hr Sodium Chloride (Sodium Chloride 0.45%) 1,000 mls @ 80 mls/hr IV .[id number] [facility] Last Admin: 01/08/18 03:50 Dose: 80 mls/hr Insulin Human Lispro (Humalog (Bkc)) 0 units SC ACHS (HUMALOG) [facility] PRN Reason: Protocol Last Admin: 01/08/18 08:19 Dose: Not Given Levothyroxine Sodium (Synthroid) 112 mcg PO QDSYNTH [facility] Last Admin: 01/08/18 05:43 Dose: Not Given Ondansetron HCl (Zofran) 4 mg IV Q6 PRN PRN Reason: Nausea Last Admin: 01/08/18 05:12 Dose: 4 mg Ropinirole Hydrochloride 0.25 Mg Tab 0 each PO QHS [facility] Last Admin: 01/07/18 21:49 Dose: 1 each Potassium Chloride (K-Mitchell) 40 meq PO STAT STA Stop: 01/08/18 08:37 Allergies/Adv: Allergies Allergy/AdvReac Type Severity Reaction Status Date / Time atorvastatin [From Lipitor] Allergy Hives Verified 01/04/18 01:26 Penicillins Allergy Hives Verified 01/04/18 01:26 simvastatin [From Zocor] Allergy Hives Verified 01/04/18 15:28 Sulfa (Sulfonamide Allergy Unknown Verified 01/04/18 15:27 Antibiotics) - Assessment/Plan (1) Upper gastrointestinal bleeding Status: Acute Plan: 01/08/18 08:54 -EGD showed 2 cm gastric ulcer, to follow up with Dr Morales for repeat upper endoscopy 4 weeks as outpatient -Per GI, for EGD this morning -Symptoms improved , occasional palpitations but 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 Tolerating GI soft diet well. -Transfused with 2 units PRBC total since admission. -Plan to hold aspirin and Coumadin for at least 2 weeks, follow up with GI in 4 weeks for repeat endoscopy, continue PPI, Protonix 40 mg daily after discharge. (2) Acute blood loss anemia Status: Acute Plan: 01/08/18 08:57 -Transfused with 2 units total PRBC since admission -Venofer 300 mg IV given 01/07/18 -H H stable overall, today 8.2/25.8. -Positive orthostatic VS, 1 liter LR infusion ordered (3) Right leg pain Status: Acute Plan: 01/08/18 08:59 -Right media thigh pain with bed mobility and toileting, mild nonpitting edema -Venous US right leg negative for DVT (4) Atrial fibrillation Status: Chronic Qualifiers: Atrial fibrillation type: chronic Qualified Code(s): I48.2 - Chronic atrial fibrillation Plan: 01/07/18 09:16 -Continue to hold Coumadin and aspirin for at least 2 weeks per GI -Atenolol 50 mg by mouth daily -To follow-up with paediatrician Dr. Singleton in [place] after discharge -SR rate 70's currently (5) Diabetes Status: Chronic Qualifiers: Diabetes mellitus type: type 2 Plan: 01/08/18 08:59 -Humalog mild SSI, accuchecks ac hs while inpatient -Fasting blood sugar 158 this am, tolerating GI soft diet (6) HTN (hypertension) Status: Chronic Qualifiers: Hypertension type: essential hypertension Qualified Code(s): I10 - Essential (primary) hypertension Plan: 01/08/18 09:00 -Orthostatic VS positive, valsartan being held, IV LR 1 liter ordered. -Mild lightheadedness and dizziness with movement -Encouraged to change positions slowly -Monitor vital signs (7) Hypokalemia Status: Acute Plan: 01/08/18 09:02 -Potassium level this am was 3.2 -40 meq K mitchell ordered GLUCOSE, POINT OF Collected: 01/08/2018 Status: F Source: [facility] 7:22 AM [facility] REPOSITORY TYPE CODE TESTS RESULT OUT OF REFERENCE UNITS RANGE LAB POCGLU 80-110 mg/dL High Glucose, 158 Point of Care Performed By: #### POCGLU #### [facility] [address] [place] [address] COMPLETE BLOOD COUNT Collected: 01/08/2018 Status: F Source: [facility] W/DIFF $$ 6:00 AM [facility] REPOSITORY TYPE CODE TESTS RESULT OUT OF REFERENCE UNITS RANGE LAB WBC 4.0-11.0 10 3/uL White Blood Count 6.7 LAB RBC 4.2-5.4 10 6/uL Low Red Blood Count 2.71 LAB HGB 12.0-16.0 g/dL Low Hemoglobin 8.2 LAB HCT 35-47 % Low Hematocrit 25.8 LAB MCV 80-100 fL Mean Corpuscular Volume 95.2 LAB MCH 27-34 pg Mean Corpuscular 30.3 Hemoglobin LAB MCHC 33-37 g/dL Low Mean Corpuscular Hgb 31.8 Conc LAB RDW 11.5-14.5 % Red Cell High Distribution Width 16.4 LAB PLT 150-400 10 3/uL Platelet Count 213 LAB MPV 7.4-10.4 fL Mean Platelet High Volume 11.2 LAB NE% 42-76 % Neutrophils (Auto) 70 LAB LY% 24-44 % Low Lymphocytes (Auto) 17 LAB MO% 1-8 % Monocytes (Auto) 7 LAB EO% 0-3 % Eosinophils High (Auto) 4 LAB BA% 0-1 % Basophils (Auto) 1 LAB IG% 0.0-0.9 % Immature High Granulocytes 1.7 (Auto) LAB NRBC% 0.0-0.0 % Nucleated RBC High 0.3 LAB NE# 1.8-7.0 10 3/uL Neutrophils # (Auto) 4.6 LAB LY# 1-3.5 10 3/uL Lymphocytes # (Auto) 1.1 LAB MO# 0.04-0.9 10 3/uL Monocytes # (Auto) 0.5 LAB EO# 0.03-0.6 10 3/uL Eosinophils # (Auto) 0.3 LAB BA# 0.04-0.9 10 /uL Low Basophils # (Auto) 0.0 LAB IG# 10 3/uL Immature Gran# (Auto) 0.1 Performed By: #### LYLE, HILARIO #### [facility] [address] [place] [address] BASIC METABOLIC PANEL Collected: 01/08/2018 Status: F Source: [facility] $$$ 6:00 AM [facility] REPOSITORY TYPE CODE TESTS RESULT OUT OF REFERENCE UNITS RANGE LAB NA 136-145 mmol/L Sodium 141 LAB K 3.5-5.3 mmol/L Low Potassium 3.2 LAB CL 98-107 mmol/L High Chloride $ 110 LAB CO2 21-32 mmol/L Carbon Dioxide 24 $ LAB AGAP 10-20 mmol/L Anion Gap 10.2 LAB BUN 6-23 mg/dL Blood Urea Nitrogen 9 Result Comment: Please note new reference range as of December. LAB CRET 0.50-1.05 mg/dL Creatinine 0.64 Result Comment: Please note new reference range as of December. LAB GFRAA GFR () >60 LAB GFRNAA GFR (Non ) >60 Result Comment: eGFR Units of measure: mL/min/1.73 m 2 LAB ECRCL 75-115 mL/min Low Estimated Creatinine Clearance 48 LAB GLUF 74-99 mg/dL Glucose, High Fasting 167 LAB CA 8.6-10.3 mg/dL Low Calcium $ 8.1 Result Comment: Please note new reference range as of December. Performed By: #### LYLE, HILARIO #### [facility] [address] [place] [address] Observed: 01/07/2018 Status: F Source: [facility] BLOOD BANK REPORT 11:40 PM [facility] REPOSITORY RUN DATE: 01/11/18 [facility] LAB LIVE PAGE 1 RUN TIME: 0000 Specimen Inquiry PATIENT: KYAW ESPINOZA ACCT: [id number] LOC: 8W U: [id number] AGE/SX: 67/F ROOM: 2 RE01/04/[address]: Jojo Light MD : 1950 BED: 1 DIS: 01/08/18 STATUS: DIS IN TLOC: SPEC #: [id number] ZACARIAS: 01/07/18 STATUS: COMP REQ #: [id number] RECD: 01/08/[address] [facility] [address]: Jojo Light MD ENTERED: 01/07/[address] [facility] [address]: Nilesh Pickett MD, Unni MD ORD PRODS: PC/KACY/ ORD TESTS: TS, IS XM Test Result Flag Reference ABO/Rh Type > Blood Type AB POS > Antibody Screen NEGATIVE IS Crossmatch > PC/LRC [id number] A POS Compatible? Y <N/A> END OF REPORT Performed By: #### BLB #### [address] [id number] HEMOGLOBIN AND Collected: 01/07/2018 Status: F Source: [facility] HEMATOCRIT 11:35 PM [facility] REPOSITORY TYPE CODE TESTS RESULT OUT OF REFERENCE UNITS RANGE LAB HGB 12.0-16.0 g/dL Low Hemoglobin 8.0 LAB HCT 35-47 % Low Hematocrit 25.4 Performed By: #### HH #### [address] [address] GLUCOSE, POINT OF Collected: 01/07/2018 Status: F Source: [facility] 7:20 PM [facility] REPOSITORY TYPE CODE TESTS RESULT OUT OF REFERENCE UNITS RANGE LAB POCGLU 80-110 mg/dL High Glucose, 151 Point of Care Performed By: #### POCGLU #### [address] [address] HEMOGLOBIN AND Collected: 01/07/2018 Status: F Source: [facility] HEMATOCRIT 4:55 PM [facility] REPOSITORY Order Comment: Add on to today's blood, if available? N TYPE CODE TESTS RESULT OUT OF REFERENCE UNITS RANGE LAB HGB 12.0-16.0 g/dL Low Hemoglobin 7.7 LAB HCT 35-47 % Low Hematocrit 24.2 Performed By: #### HH #### [address] [address] GLUCOSE, POINT OF Collected: 01/07/2018 Status: F Source: [facility] 4:29 PM [facility] REPOSITORY TYPE CODE TESTS RESULT OUT OF REFERENCE UNITS RANGE LAB POCGLU 80-110 mg/dL High Glucose, 197 Point of Care Performed By: #### POCGLU #### [address] [address] HEMOGLOBIN AND Collected: 01/07/2018 Status: F Source: [facility] HEMATOCRIT 1:15 PM [facility] REPOSITORY TYPE CODE TESTS RESULT OUT OF REFERENCE UNITS RANGE LAB HGB 12.0-16.0 g/dL Low Hemoglobin 7.9 LAB HCT 35-47 % Low Hematocrit 24.7 Performed By: #### HH #### [address] [address] GLUCOSE, POINT OF Collected: 01/07/2018 Status: F Source: [facility] 11:19 AM [facility] TYPE CODE TESTS RESULT OUT OF REFERENCE UNITS RANGE LAB POCGLU 80-110 mg/dL High Glucose, 253 Point of Care Performed By: #### POCGLU #### [address] [address] VENOUS DUPL EXTREMITY Observed: 01/07/2018 Status: F Source: [facility] LOWER-RT 11:12 AM [facility] REPOSITORY [facility] Patient: KYAW ESPINOZA [address] [facility] MR#: [id number] [place], [place] [address] : 1950 Ord. : Lashawn Chang APRN-POORNIMA Dept: Diagnostic Imaging Loc: 8W 852-1 DI REPORT Service Dt:01/07/18 Report#: [id number] Adm Dt: 01/04/18 Dis Dt: Comments: STUDY: US Venous Dupl Extremity Lower-Rt 01/07/2018 11:10 am INDICATION: 67 y/o F with right medial thigh pain and edema. LMP: Unknown. COMPARISON: None. ACCESSION NUMBER(S): [id number] ORDERING CLINICIAN: Lashawn Chang TECHNIQUE: Routine ultrasound of the right lower extremity was performed with duplex Doppler (color and spectral) evaluation. Static images were obtained for remote interpretation. FINDINGS: THIGH VEINS: The common femoral, femoral, popliteal, proximal medial saphenous, and deep femoral veins are patent and free of thrombus. The veins are normally compressible. They demonstrate normal phasic flow and augmentation response. CALF VEINS: The paired peroneal and posterior tibial calf veins are patent. IMPRESSION: No deep venous thrombosis of the right lower extremity. Dictated by: Nicole Reese Electronically Signed by: Nicole Reese 01/07/2018 11:13 AM COMPLETE BLOOD COUNT Collected: 01/07/2018 Status: F Source: [facility] W/DIFF $$ 9:02 AM [facility] REPOSITORY TYPE CODE TESTS RESULT OUT OF REFERENCE UNITS RANGE LAB WBC 4.0-11.0 10 3/uL White Blood Count 7.3 LAB RBC 4.2-5.4 10 6/uL Low Red Blood Count 2.83 LAB HGB 12.0-16.0 g/dL Low Hemoglobin 8.5 LAB HCT 35-47 % Low Hematocrit 26.5 LAB MCV 80-100 fL Mean Corpuscular Volume 93.6 LAB MCH 27-34 pg Mean Corpuscular 30.0 Hemoglobin LAB MCHC 33-37 g/dL Low Mean Corpuscular Hgb 32.1 Conc LAB RDW 11.5-14.5 % Red Cell High Distribution Width 15.6 LAB PLT 150-400 10 3/uL Platelet Count 217 LAB MPV 7.4-10.4 fL Mean Platelet High Volume 11.4 LAB NE% 42-76 % Neutrophils (Auto) 72 LAB LY% 24-44 % Low Lymphocytes (Auto) 15 LAB MO% 1-8 % Monocytes (Auto) 7 LAB EO% 0-3 % Eosinophils High (Auto) 4 LAB BA% 0-1 % Basophils (Auto) 1 LAB IG% 0.0-0.9 % Immature High Granulocytes 1.1 (Auto) LAB NRBC% 0.0-0.0 % Nucleated RBC High 0.3 LAB NE# 1.8-7.0 10 3/uL Neutrophils # (Auto) 5.3 LAB LY# 1-3.5 10 3/uL Lymphocytes # (Auto) 1.1 LAB MO# 0.04-0.9 10 3/uL Monocytes # (Auto) 0.5 LAB EO# 0.03-0.6 10 3/uL Eosinophils # (Auto) 0.3 LAB BA# 0.04-0.9 10 /uL Low Basophils # (Auto) 0.0 LAB IG# 10 3/uL Immature Gran# (Auto) 0.1 Performed By: #### CBC, BMP #### [address] [address] BASIC METABOLIC PANEL Collected: 01/07/2018 Status: F Source: [facility] $$$ 9:02 AM [facility] REPOSITORY TYPE CODE TESTS RESULT OUT OF REFERENCE UNITS RANGE LAB NA 136-145 mmol/L Sodium 139 LAB K 3.5-5.3 mmol/L Potassium 3.7 LAB CL 98-107 mmol/L High Chloride $ 110 LAB CO2 21-32 mmol/L Carbon Dioxide 21 $ LAB AGAP 10-20 mmol/L Anion Gap 11.7 LAB BUN 6-23 mg/dL Blood Urea Nitrogen 9 Result Comment: Please note new reference range as of December. LAB CRET 0.50-1.05 mg/dL Creatinine 0.66 Result Comment: Please note new reference range as of December. LAB GFRAA GFR () >60 LAB GFRNAA GFR (Non ) >60 Result Comment: eGFR Units of measure: mL/min/1.73 m 2 LAB ECRCL 75-115 mL/min Low Estimated Creatinine Clearance 48 LAB GLUF 74-99 mg/dL Glucose, High Fasting 258 LAB CA 8.6-10.3 mg/dL Low Calcium $ 8.2 Result Comment: Please note new reference range as of December. Performed By: #### CBC, BMP #### [address] [address] GENERAL MEDICAL Observed: 01/07/2018 Status: F Source: [facility] PROGRESS NOTE 8:58 AM [facility] REPOSITORY [facility] Patient: KYAW ESPINOZA [address] [facility] MR#: [id number] [place], [place] [address] : 1950 Ord. : Dept: PDOC Loc: 8W 852-1 General Medical Progress Note Service Dt: 01/07/18 Report#: [id number] Adm Dt: 01/04/18 Dis Dt: Addendum entered by Lashawn Chang on 01/07/18 1244 Addendum Note: Notified by RN that pt is feeling lighteaded, bp 76/52, rechecked and 99/65. Pt examined, she does feel lightheaded and appears pale. Ordered NS 1 liter IV and stat hemoglobin and hematocrit. Discussed with Dr Light. <Electronically signed by Lashawn GREER> 01/07/18 1244 <Electronically signed by Jojo Light MD> 01/07/18 5953 End of Addendum Addendum entered and electronically signed by Lashanw Chang APRN-CNP 12:44: Addendum Note: Notified by RN that pt is feeling lighteaded, bp 76/52, rechecked and 99/65. Pt examined, she does feel lightheaded and appears pale. Ordered NS 1 liter IV and stat hemoglobin and hematocrit. Discussed with Dr Light. Original Note: General-Medical Progress Note - Patient Visit Reason Visit Reason: GI BLEED <Lashawn Chang - 01/07/18 09:22> - Subjective Narrative HPI/ROS: Patient is a 67-year-old female admitted 01/04/18 with GI bleed. EGD showed 2 cm gastric ulcer. Lightheadedness and SOB with exertion have resolved, reports occasional palpitations. 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 Had 2 BM's yesterday, first was black and second was brown. No nausea or abdominal pain. Hemoglobin and hematocrit levels pending. Transfused with total of 2 unit PRBCs (1 unit 01/04/18 and 1 unit ). Pt reports sharp, episodic right inner thigh pain that is 10/10 on pain scale. Pain occurs with moving right leg laterally in bed and sitting on toilet, pain resolves with laying still and standing up. No pain with ambulation. She has OA bilateral knees and had been receiving PT twice weekly. Does not recall any injury or trauma, no ecchymosis. She is concerned she has a blood clot. Tolerating GI soft well. Received 300 mg IV iron 01/06/18. Plan to hold Coumadin and aspirin for at least 2 weeks, follow-up appointment with GI and repeat endoscopy in 4 weeks. Possible discharge later today. Received KCL 40 meq IV 01/06/18 for potassium 3.3, this am rechecked 3.7. Accucheck 151. IV 08/18 NS rate 80. Afib is managed by paediatrician Dr Mancilla in [place]. Takes coumadin 2 mg Thursday and Thursday, 3 mg all other days; also aspirin 81 mg daily. INR checked several times monthly. Coumadin and aspirin are being held, last dose was 01/02/18. Plan to discharge today, venous duplex negative. <Lashawn Chang 01/07/18 12:41> - Review of Systems Constitutional: Denies: weakness, fatigue <Lashawn Chang 01/07/18 09:22> Eyes: Reports: no symptoms <Lashawn Chang 01/07/18 09:22> ENT: Reports: no symptoms <Lashawn Chang 01/07/18 09:22> Respiratory: Reports: no symptoms reported. Denies: cough, shortness of breath <Lashawn Chang 01/07/18 09:22> Cardiovascular: Reports: palpitations (occasional). Denies: chest pain < Lashawn Chang 01/07/18 09:22> Gastrointestinal: Reports: melena (2 BM's yesterday. First was black, second was brown). Denies: abdominal pain, nausea, vomiting <Lashawn Chang 09:22> Genitourinary: Reports: no symptoms <Lashawn Chang 01/07/18 09:22> Musculoskeletal: Reports: no symptoms, other (mild right inner thigh edema and pain) <Lashawn Chang - 01/07/18 09:22> Integumentary: Reports: no symptoms <Lashawn Chang 01/07/18 09:22> Neurological: Reports: no symptoms <Lashawn Chang 01/07/18 09:22> Psychiatric: Reports: no symptoms <Lashawn Chang 01/07/18 09:22> Endocrine: Reports: no symptoms reported <Lashawn Chang 01/07/18 09:22> Hematological/Lymphatic: Reports: no symptoms <Lashawn Chang 01/07/18 09: 22> Allergic/Immunologic: Reports: no symptoms <Lashawn Chang 01/07/18 09:22> - I O/Vital Signs I O/VS: Vital Signs Temp 36.3 C L 01/07/18 13:44 Pulse 91 H 01/07/18 13:44 Resp 01/07/18 13:44 BP 99/65 01/07/18 13:44 Pulse Ox 96 01/07/18 13:44 Intake Output 01/06/18 01/07/18 01/07/18 23:59 11:59 23:59 Intake Total 480 1260 380 Balance 480 1260 380 Intake: Intake 900 Sodium Chloride 0.45% 1, 900 000 ML @ 80 mls/hr IV . [id number] [facility] Rx#:[id number] Oral 480 360 380 Other: Continent of Bowel Yes Stool Characteristics Mushy Brown Stool Size Large <Jojo Light - 01/07/18 14:53> Vital Signs Temp 97.5 F L 01/07/18 06:00 Pulse 73 01/07/18 06:00 Resp 20 01/07/18 06:00 BP 115/66 01/07/18 06:00 Pulse Ox 96 01/07/18 06:00 Intake Output 01/06/18 01/06/18 01/07/18 11:59 23:59 11:59 Intake Total 1150.667 480 900 Balance 1150.667 480 900 Intake: Intake 950.667 900 Dextrose 5%/Sodium 950.667 Chloride 0.9% 1,000 ml @ 80 mls/hr IV .[id number] [facility] Rx#:[id number] Sodium Chloride 0.45% 1, 900 000 ML @ 80 mls/hr IV . [id number] [facility] Rx#:[id number] Oral 200 480 Other: Incontinent Voided Amount Moderate Continent of Bowel Yes Stool Characteristics Mushy Brown Stool Size Large <Lashawn Chang 01/07/18 09:22> - Patient Exam General appearance: alert, in no apparent distress <NiranjanedenLashawn hillman 09:22> Limitations: Positive: no limitations <BernardoLashawn 01/07/18 09:22> Head: Positive: normal inspection <BernardoLashawn 01/07/18 09:22> Eyes: Positive: normal appearance <NiranjanedenrafyLashawn 01/07/18 09:22> Pupils: Positive: equal and reactive <BernardoLashawn 01/07/18 09:22> ENT: Positive: normal exam, mucous membranes moist <NiranjanedenrafyLashawn 09:22> Respiratory: Positive: normal lung sounds bilaterally. Negative: rales, rhonchi , wheezes <BernardoLashawn 01/07/18 09:22> Cardiovascular: Positive: regular rate, normal rhythm <BernardoLashawn 09:22> GI/Abdominal: Positive: soft, nontender, nondistended, normal bowel sounds < BernardoLashawn 01/07/18 09:22> Extremities: Positive: bilateral pulses positive, leg edema (mild right inner thigh) <NiranjanedenrafyLashawn 01/07/18 09:22> Neurological: Positive: alert, oriented X3 <BernardoLashawn 01/07/18 09:22> Integumentary: Positive: warm, dry, intact <NiranjanedenrafyLashawn 01/07/18 09:22> - Lab Diagnostic Data Diagrams: 01/07/18 13:15 01/07/18 09:02 <Jojo Light - 01/07/18 14:53> Chemistry: Chemistry (Last 24hrs) 01/07/18 01/07/18 01/07/18 11:19 09:02 07:28 Sodium 139 Potassium 3.7 Chloride 110 H Carbon Dioxide 21 Anion Gap 11.7 BUN 9 Creatinine 0.66 Estim Creat Clear Calc 48 L Est GFR ( Amer) >60 Est GFR (Non-Af Amer) >60 POC Glucose 253 H 151 H Fasting Glucose 258 H Calcium 8.2 L 01/06/18 01/06/18 19:42 16:11 Sodium Potassium Chloride Carbon Dioxide Anion Gap BUN Creatinine Estim Creat Clear Calc Est GFR ( Amer) Est GFR (Non-Af Amer) POC Glucose 161 H 119 H Fasting Glucose Calcium <Jojo Light - 01/07/18 14:53> Chemistry (Last 24hrs) 01/07/18 01/06/18 01/06/18 07:28 19:42 16:11 POC Glucose 151 H 161 H 119 H 01/06/18 11:17 POC Glucose 276 H <Lashawn Chang - 01/07/18 09:22> - Medications Meds: Current Medications Atenolol (Tenormin) 50 mg PO DAILY [facility] Last Admin: 01/07/18 09:14 Dose: Not Given Dextrose (Dextrose Syringe) 25 ml IV Q15M PRN PRN Reason: Hypoglycemia Dextrose (Dextrose Syringe) 50 ml IV Q15M PRN PRN Reason: Hypoglycemia Dextrose (Instant Glucose) 37.5 g PO Q15M PRN PRN Reason: Hypoglycemia Glucagon (Glucagon) 1 mg IM Q15M PRN PRN Reason: Hypoglycemia Pantoprazole Sodium 40 mg/ (Sodium Chloride) 10 mls @ 300 mls/hr IV PUSH BID [facility] PRN Reason: Protocol Last Admin: 01/07/18 09:12 Dose: 300 mls/hr Sodium Chloride (Sodium Chloride 0.45%) 1,000 mls @ 80 mls/hr IV .[id number] [facility] Last Admin: 01/07/18 12:30 Dose: Not Given Insulin Human Lispro (Humalog (Bkc)) 0 units SC ACHS (HUMALOG) [facility] PRN Reason: Protocol Last Admin: 01/07/18 11:56 Dose: 6 units Levothyroxine Sodium (Synthroid) 112 mcg PO QDSYNTH [facility] Last Admin: 01/07/18 05:29 Dose: 112 mcg Ropinirole Hydrochloride 0.25 Mg Tab 0 each PO QHS [facility] Last Admin: 01/06/18 22:08 Dose: 1 each <Jojo Light - 01/07/18 14:53> Current Medications Atenolol (Tenormin) 50 mg PO DAILY [facility] Last Admin: 01/06/18 09:48 Dose: 50 mg Dextrose (Dextrose Syringe) 25 ml IV Q15M PRN PRN Reason: Hypoglycemia Dextrose (Dextrose Syringe) 50 ml IV Q15M PRN PRN Reason: Hypoglycemia Dextrose (Instant Glucose) 37.5 g PO Q15M PRN PRN Reason: Hypoglycemia Glucagon (Glucagon) 1 mg IM Q15M PRN PRN Reason: Hypoglycemia Pantoprazole Sodium 40 mg/ (Sodium Chloride) 10 mls @ 300 mls/hr IV PUSH BID [facility] PRN Reason: Protocol Last Admin: 01/06/18 18:22 Dose: 300 mls/hr Sodium Chloride (Sodium Chloride 0.45%) 1,000 mls @ 80 mls/hr IV .[id number] [facility] Last Admin: 01/07/18 00:21 Dose: 80 mls/hr Insulin Human Lispro (Humalog (Bkc)) 0 units SC ACHS (HUMALOG) [facility] PRN Reason: Protocol Last Admin: 01/06/18 20:27 Dose: 2 units Levothyroxine Sodium (Synthroid) 112 mcg PO QDSYNTH [facility] Last Admin: 01/07/18 05:29 Dose: 112 mcg Ropinirole Hydrochloride 0.25 Mg Tab 0 each PO QHS [facility] Last Admin: 01/06/18 22:08 Dose: 1 each <Lashawn Chang - 01/07/18 09:22> Allergies/Adv: Allergies Allergy/AdvReac Type Severity Reaction Status Date / Time atorvastatin [From Lipitor] Allergy Hives Verified 01/04/18 01:26 Penicillins Allergy Hives Verified 01/04/18 01:26 simvastatin [From Zocor] Allergy Hives Verified 01/04/18 15:28 Sulfa (Sulfonamide Allergy Unknown Verified 01/04/18 15:27 Antibiotics) <Jojo Light - 01/07/18 14:53> - Assessment/Plan (1) Upper gastrointestinal bleeding Status: Acute Plan: 01/07/18 09:12 -EGD showed 2 cm gastric ulcer, to follow up with Dr Morales for repeat upper endoscopy 4 weeks -Symptoms improved , 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 Diet advanced to GI soft, tolerating well. -Transfused with 2 units PRBC total since admission. -Plan to hold aspirin and Coumadin for at least 2 weeks, follow up with GI in 4 weeks for repeat endoscopy, continue PPI, Protonix 40 mg daily after discharge. (2) Acute blood loss anemia Status: Acute Plan: 01/07/18 09:14 -Transfused with 2 units total PRBC since admission -Venofer 300 mg IV given 01/07/18 -H H (3) Right leg pain Status: Acute Plan: 01/07/18 09:20 -Pt is concerned that she has a blood clot -Right media thigh pain with bed mobility and toileting, mild nonpitting edema -Venous US right leg ordered (4) Atrial fibrillation Status: Chronic QualifierTitle: Atrial fibrillation type: chronic Qualified Code(s): I48.2 - Chronic atrial fibrillation Plan: 01/07/18 09:16 -Continue to hold Coumadin and aspirin for at least 2 weeks per GI -Atenolol 50 mg by mouth daily -To follow-up with paediatrician Dr. Singleton in [place] after discharge -SR rate 70's currently (5) Diabetes Status: Chronic QualifierTitle: Diabetes mellitus type: type 2 Plan: 01/07/18 09:16 -Humalog mild SSI, accuchecks ac hs while inpatient -Fasting blood sugar 151 this am, tolerating GI soft diet, IV fluids to1/2 NS rate 80 (6) HTN (hypertension) Status: Chronic QualifierTitle: Hypertension type: essential hypertension Qualified Code( s): I10 - Essential (primary) hypertension Plan: 01/07/18 09:18 -BP 95/57 this am, rechecked at 119/68. -Lightheadedness and dizziness with movement has resolved -Continue to hold valsartan -Monitor vital signs (7) Hypokalemia Status: Acute Plan: 01/07/18 09:19 -Potassium replaced 01/06/18, KCl 40 mEq IV for potassium 3.3 -Potassium level this am <Lashawn Chang - 01/07/18 12:41> Progress Note Co-Signature - Attestation Attestation: Saw Patient Agree <Jojo Light 01/07/18 14:53> Additionally: I have seen and evaluated this patient <Jojo Light 14:53> Patient evaluation date: 01/07/18 <Jojo Light R - 01/07/18 14:53> Comments: 01/07/18 14:50 Pt concerned about RLE DVT. US done and negative. [employer] spent extensive time reviewing med list and needs to be corrected. Pt became hypotensive and repeat BP 99/65 mmHg. Pt symptomatic (+dizziness). Will repeat H H and give 1L NS. Repeat H H at 5PM. Patient prefers monitoring overnight and plan for DC tomorrow if HGB stable. Pt asymptomatic currently upon re-evaluation. <Jojo Light R - 01/07/18 14:53> GLUCOSE, POINT OF Collected: 01/07/2018 Status: F Source: [facility] [address] 7:28 AM [facility] REPOSITORY TYPE CODE TESTS RESULT OUT OF REFERENCE UNITS RANGE LAB POCGLU 80-110 mg/dL High Glucose, 151 Point of Care Performed By: #### POCGLU #### [address] [address] GLUCOSE, POINT OF Collected: 01/06/2018 Status: F Source: [facility] 7:42 PM [facility] REPOSITORY TYPE CODE TESTS RESULT OUT OF REFERENCE UNITS RANGE LAB POCGLU 80-110 mg/dL High Glucose, 161 Point of Care Performed By: #### POCGLU #### [address] [address] GI PROGRESS NOTE Observed: 01/06/2018 Status: F Source: [facility] 4:37 PM [facility] REPOSITORY [facility] Patient: KYAW ESPINOZA [address] [facility] MR#: [id number] [place], [place] [address] : 1950 Ord. : Dept: PDOC Loc: 8W 852-1 GI Progress Note Service Dt: 01/06/18 Report#: [id number] Adm Dt: 01/04/18 Dis Dt: GI Progress Note - Patient Visit Reason Visit Reason: GI BLEED - Subjective Narrative HPI/ROS: You have black stools still feeling weak hemoglobin 8.9 g. Received IV iron today - Review of Systems Constitutional: Reports: weakness Respiratory: Reports: SOB with exertion Cardiovascular: Reports: dyspnea on exertion Gastrointestinal: Reports: melena Neurological: Reports: no symptoms - I O/Vital Signs I O/VS: Intake/Output/Wt 01/03/18 01/04/18 01/05/18 01/06/18 23:59 23:59 23:59 23:59 Intake Total 1500 3180.667 1390.667 Balance 1500 3180.667 1390.667 Weight 88.2 kg Intake: Intake 1500 1550.667 950.667 Dextrose 5%/Sodium 1000 1550.667 950.667 Chloride 0.9% 1,000 ml @ 80 mls/hr IV .[id number] [facility] Rx#:[id number] Sodium Chloride 0.9% 500 500 ML @ 999 mls/hr IV .Q31M [facility] Rx#:[id number] Oral 1280 440 Blood Product 300 Lrc2/Leukoreduced Packed 300 Cells Unit [id number] Other 50 Other: Height 1.47 m Incontinent Voided Amount Moderate Moderate Continent of Bowel Yes Stool Characteristics Mushy Brown Stool Size Large Vital Signs (last 24 hrs) Temp Pulse Resp BP Pulse Ox 01/06/18 14:00 36.0 C L 99 H 18 109/62 99 01/06/18 10:00 36.4 C L 99 H 18 119/68 99 01/06/18 09:48 94 H 119/68 01/06/18 06:00 36.3 C L 97 H 19 95/57 L 97 01/06/18 02:00 36.2 C L 87 18 109/49 L 98 01/05/18 22:00 36.2 C L 91 H 16 95/56 L 100 01/05/18 21:30 89 01/05/18 17:53 35.9 C L 81 18 92/63 99 Bowel Movements Number of Continent Bowel 1 Movements - Patient Exam General appearance: Positive: alert, obese Eye exam: Positive: normal appearance Respiratory: Positive: normal lung sounds bilaterally Cardiovascular: Positive: regular rate, normal rhythm, normal heart sounds GI/Abdominal: Positive: soft, nontender, nondistended, no organomegaly palpable Extremities: Positive: normal inspection Neurological: Positive: alert, oriented X3 Integumentary: Positive: pallor - Lab Diagnostic Data Diagrams: 01/06/18 06:30 01/06/18 06:30 Labs: CBC w/diff (last 24 hrs) 01/06/18 01/05/18 06:30 18:45 WBC 6.9 RBC 2.87 L Hgb 8.6 L 8.4 L Hct 26.1 L 25.8 L MCV 90.9 MCH 30.0 MCHC 33.0 RDW 15.1 H Plt Count 192 Neut % (Auto) 65 Lymph % (Auto) 22 L [place] % (Auto) 7 Eos % (Auto) 4 H Baso % (Auto) 1 Lymph # (Auto) 1.5 [place] # (Auto) 0.5 Eos # (Auto) 0.3 Baso # (Auto) 0.1 CMP (last 24 hrs) 01/06/18 06:30 Sodium 146 H Potassium 3.3 L Chloride 116 H Carbon Dioxide 21 Anion Gap 12.3 BUN 12 Creatinine 0.70 Estim Creat Clear Calc 48 L Calcium 8.0 L PT/INR (last 24 hrs) 01/06/18 10:27 PT 12.5 INR 1.1 - Medications Meds: Current Medications Atenolol (Tenormin) 50 mg PO DAILY [facility] Last Admin: 01/06/18 09:48 Dose: 50 mg Dextrose (Dextrose Syringe) 25 ml IV Q15M PRN PRN Reason: Hypoglycemia Dextrose (Dextrose Syringe) 50 ml IV Q15M PRN PRN Reason: Hypoglycemia Dextrose (Instant Glucose) 37.5 g PO Q15M PRN PRN Reason: Hypoglycemia Glucagon (Glucagon) 1 mg IM Q15M PRN PRN Reason: Hypoglycemia Pantoprazole Sodium 40 mg/ (Sodium Chloride) 10 mls @ 300 mls/hr IV PUSH BID [facility] PRN Reason: Protocol Last Admin: 01/06/18 09:38 Dose: 300 mls/hr Sodium Chloride (Sodium Chloride 0.45%) 1,000 mls @ 80 mls/hr IV .[id number] [facility] Last Admin: 01/06/18 13:06 Dose: 80 mls/hr Insulin Human Lispro (Humalog (Bkc)) 0 units SC ACHS (HUMALOG) [facility] PRN Reason: Protocol Last Admin: 01/06/18 13:07 Dose: 6 units Levothyroxine Sodium (Synthroid) 112 mcg PO QDSYNTH [facility] Last Admin: 01/06/18 05:23 Dose: 112 mcg Ropinirole Hydrochloride 0.25 Mg Tab 0 each PO QHS [facility] Last Admin: 01/05/18 21:12 Dose: 1 each Allergies/Adv: Allergies Allergy/AdvReac Type Severity Reaction Status Date / Time atorvastatin [From Lipitor] Allergy Hives Verified 01/04/18 01:26 Penicillins Allergy Hives Verified 01/04/18 01:26 simvastatin [From Zocor] Allergy Hives Verified 01/04/18 15:28 Sulfa (Sulfonamide Allergy Unknown Verified 01/04/18 15:27 Antibiotics) - Assessment/Plan (1) Upper gastrointestinal bleeding Status: Acute (2) Atrial fibrillation Status: Chronic Qualifiers: Atrial fibrillation type: chronic Qualified Code(s): I48.2 - Chronic atrial fibrillation (3) Acute blood loss anemia Status: Acute (4) Gastric ulcer Status: Acute - Comments Impression Comments: 0 Severe anemia and black and tarry stool anticoagulation therapy most likely this lady is upper GI bleeding. She has no prior gastrointestinal symptoms. Possibility of vascular malformation in the stomach gastritis or ulcer disease or considerations she has no stigmata of any portal hypertension to suspect any variances. I would recommend an upper GI endoscopic examination her last the Coumadin dose WAS on Thursday01/04/18 15:01 discussed with the patient and informed consent was obtained. 01/05/18 16:11 Hemoglobin is still 7.7 patient still feels very short of breath on minimal exertion she is getting another unit of packed cells continue IV iron she should be continued on Protonix by mouth 40 mg daily Coumadin should be withheld for at least 2 weeks in addition to aspirin. Patient has a large penetrating gastric ulcer this gastric ulcers should be followed to complete healing by endoscopy in 4-6 weeks to rule out malignancy I will ask her to follow-up in my office after 4 weeks 01/06/18 16:39 Patient is stable hemoglobin of 8.9 g we will see her IV iron. Patient as well as melenic stools or the patient had a large gastric ulcer in the prepyloric area should be followed to complete healing after 4-6 weeks by endoscopy. She is now ready for discharge today INR is normal today and U blood urea nitrogen has normalized. 01/06/18 16:40 01/06/18 16:40 GLUCOSE, POINT OF Collected: 01/06/2018 Status: F Source: [facility] 4:11 PM [facility] REPOSITORY TYPE CODE TESTS RESULT OUT OF REFERENCE UNITS RANGE LAB POCGLU 80-110 mg/dL High Glucose, 119 Point of Care Performed By: #### POCGLU #### [facility] [address] [place] [address] GLUCOSE, POINT OF Collected: 01/06/2018 Status: F Source: [facility] 11:17 AM [facility] REPOSITORY TYPE CODE TESTS RESULT OUT OF REFERENCE UNITS RANGE LAB POCGLU 80-110 mg/dL High Glucose, 276 Point of Care Performed By: #### POCGLU #### [facility] [address] [place] [address] GENERAL MEDICAL Observed: 01/06/2018 Status: F Source: [facility] PROGRESS NOTE 10:41 AM [facility] REPOSITORY [facility] Patient: KYAW ESPINOZA [address] [facility] MR#: [id number] [place], [place] [address] : 1950 Ord. : Dept: PDOC Loc: 8 852-1 General Medical Progress Note Service Dt: 01/06/18 Report#: [id number] Adm Dt: 01/04/18 Dis Dt: Addendum entered by Bea Gerardo MD on 01/06/18 1308 Addendum Note: - Agree with above. Discussed plan with Lashawn GREER 1. Acute blood loss anemia secondary to gastrointestinal bleed 2. GI bleed secondary to gastric ulcers 3. Atrial fibrillation 4. Supratherapeutic INR 5. Hypokalemia 6. Hypertension <Electronically signed by Bea Gerardo MD> 01/06/18 1308 End of Addendum Addendum entered by Lashawn Chang on 01/06/18 1239 Addendum Note: Pt examined, discussed assessment and plan of care with Dr. Gerardo. <Electronically signed by aLshawn GREER> 01/06/18 1239 End of Addendum General-Medical Progress Note - Patient Visit Reason Visit Reason: GI BLEED - Subjective Narrative HPI/ROS: Patient is a 67-year-old female admitted 01/04/18 with GI bleed. EGD 01/04/18 showed 2 cm gastric ulcer. Patient still feels slightly dizzy and lightheaded with with movement, mild shortness of breath with exertion, and occasional palpitations but these has improved since yesterday. 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 She has been up to the bathroom, has not had a bowel movement since admission. Reported nausea this morning and received Zofran IV, no vomiting. Mild epigastric pain on palpation. Hemoglobin and hematocrit levels stable x 2, last was 8.6/26.1. Transfused with total of 2 unit PRBCs (1 unit 01/04/18 and 1 unit 01/07/18). Spoke with Dr. Morales. Will advance diet to GI soft. Patient to receive 300 mg IV iron today. Plan to hold Coumadin and aspirin for at least 2 weeks, follow-up appointment with GI and repeat endoscopy in 4 weeks. Possible discharge later today or tomorrow if patient remains stable and tolerates soft diet. Potassium 3.3 this morning, KCl 40 mEq IV ordered. Diet advanced, Accu-Cheks elevated, sodium 146. IV fluids changed from D5NS to 1/2 NS at 80 ml/hr. Afib is managed by paediatrician Dr Mancilla in [place]. Takes coumadin 2 mg Thursday and Thursday, 3 mg all other days; also aspirin 81 mg daily. INR checked several times monthly. Coumadin and aspirin are being held, last dose was 01/02/18. - Review of Systems Constitutional: Reports: weakness Eyes: Reports: no symptoms ENT: Reports: no symptoms Respiratory: Reports: SOB with exertion. Denies: cough Cardiovascular: Reports: palpitations (sr rate 70 on tele) Gastrointestinal: Reports: abdominal pain (Epigastric, only to palpation), nausea, other (No BM since admission) Genitourinary: Reports: no symptoms Musculoskeletal: Reports: no symptoms Integumentary: Reports: no symptoms Neurological: Reports: weakness, lightheadedness. Denies: headache, paresthesias Psychiatric: Reports: no symptoms Endocrine: Reports: no symptoms reported Hematological/Lymphatic: Reports: no symptoms Allergic/Immunologic: Reports: no symptoms - I O/Vital Signs I O/VS: Vital Signs Temp 97.3 F L 01/06/18 06:00 Pulse 94 H 01/06/18 09:48 Resp 19 01/06/18 06:00 BP 119/68 01/06/18 09:48 Pulse Ox 97 01/06/18 06:00 Intake Output 01/05/18 01/05/18 01/06/18 11:59 23:59 11:59 Intake Total 8657.201 1103 950.667 Balance 8985.231 8469 950.667 Intake: Intake 480.236 1581 950.667 Dextrose 5%/Sodium 572.861 6596 950.667 Chloride 0.9% 1,000 ml @ 80 mls/hr IV .[id number] [facility] Rx#:[id number] Oral 480 800 Blood Product 300 Lrc2/Leukoreduced Packed 300 Cells Unit [id number] Other 50 Other: Incontinent Voided Amount Moderate Moderate - Patient Exam General appearance: alert, in no apparent distress Limitations: Positive: no limitations Head: Positive: normal inspection Eyes: Positive: normal appearance ENT: Positive: normal exam Neck: Positive: normal inspection Respiratory: Positive: normal lung sounds bilaterally. Negative: rales, rhonchi , wheezes Cardiovascular: Positive: regular rate, normal rhythm GI/Abdominal: Positive: soft, nondistended, tenderness (to epigastric on palpation) Extremities: Positive: normal inspection, no edema Neurological: Positive: alert, oriented X3 Integumentary: Positive: warm, dry, intact, pallor (improved from yesterday) - Lab Diagnostic Data Diagrams: 01/06/18 06:30 01/06/18 06:30 Chemistry: Chemistry (Last 24hrs) 01/06/18 01/06/18 01/05/18 07:23 06:30 20:15 Sodium 146 H Potassium 3.3 L Chloride 116 H Carbon Dioxide 21 Anion Gap 12.3 BUN 12 Creatinine 0.70 Estim Creat Clear Calc 48 L Est GFR ( Amer) >60 Est GFR (Non-Af Amer) >60 POC Glucose 186 H 182 H Fasting Glucose 205 H Calcium 8.0 L 01/05/18 01/05/18 16:37 11:22 Sodium Potassium Chloride Carbon Dioxide Anion Gap BUN Creatinine Estim Creat Clear Calc Est GFR ( Amer) Est GFR (Non-Af Amer) POC Glucose 90 259 H Fasting Glucose Calcium - Medications Meds: Current Medications Atenolol (Tenormin) 50 mg PO DAILY [facility] Last Admin: 01/06/18 09:48 Dose: 50 mg Dextrose (Dextrose Syringe) 25 ml IV Q15M PRN PRN Reason: Hypoglycemia Dextrose (Dextrose Syringe) 50 ml IV Q15M PRN PRN Reason: Hypoglycemia Dextrose (Instant Glucose) 37.5 g PO Q15M PRN PRN Reason: Hypoglycemia Glucagon (Glucagon) 1 mg IM Q15M PRN PRN Reason: Hypoglycemia Dextrose/Sodium Chloride (Dextrose 5%/Sodium Chloride 0.9%) 1,000 mls @ 80 mls/ hr IV .[id number] [facility] Last Admin: 01/06/18 04:11 Dose: 80 mls/hr Pantoprazole Sodium 40 mg/ (Sodium Chloride) 10 mls @ 300 mls/hr IV PUSH BID [facility] PRN Reason: Protocol Last Admin: 01/06/18 09:38 Dose: 300 mls/hr Potassium Chloride 40 meq/ (Sodium Chloride) 270 mls @ 62.5 mls/hr IVPB .Q4H20M ONE Stop: 01/06/18 16:19 Iron Sucrose 300 mg/ Sodium (Chloride) 115 mls @ 66.66 mls/hr IVPB ONCE ONE Stop: 01/06/18 12:16 Insulin Human Lispro (Humalog (Bkc)) 0 units SC ACHS (HUMALOG) [facility] PRN Reason: Protocol Last Admin: 01/06/18 09:30 Dose: Not Given Levothyroxine Sodium (Synthroid) 112 mcg PO QDSYNTH [facility] Last Admin: 01/06/18 05:23 Dose: 112 mcg Ropinirole Hydrochloride 0.25 Mg Tab 0 each PO QHS [facility] Last Admin: 01/05/18 21:12 Dose: 1 each Allergies/Adv: Allergies Allergy/AdvReac Type Severity Reaction Status Date / Time atorvastatin [From Lipitor] Allergy Hives Verified 01/04/18 01:26 Penicillins Allergy Hives Verified 01/04/18 01:26 simvastatin [From Zocor] Allergy Hives Verified 01/04/18 15:28 Sulfa (Sulfonamide Allergy Unknown Verified 01/04/18 15:27 Antibiotics) - Assessment/Plan (1) Atrial fibrillation Status: Chronic Qualifiers: Atrial fibrillation type: chronic Qualified Code(s): I48.2 - Chronic atrial fibrillation Plan: 01/06/18 11:02 -Continue to hold Coumadin and aspirin for at least 2 weeks per GI -Atenolol 50 mg by mouth daily -To follow-up with paediatrician Dr. Singleton in [place] after discharge -SR rate 70's currently (2) Diabetes Status: Chronic Qualifiers: Diabetes mellitus type: type 2 Plan: 01/06/18 11:03 -Humalog mild SSI, accuchecks ac hs while inpatient -Blood sugars elevated, diet advanced to GI soft, change IV fluids to1/2 NS rate 80 (3) HTN (hypertension) Status: Chronic Qualifiers: Hypertension type: essential hypertension Qualified Code(s): I10 - Essential (primary) hypertension Plan: 01/06/18 11:04 -BP 95/57 this am, rechecked at 119/68. 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 H H stable x 2 8.6/26.1. -Spoke with Dr. Choudhary. Plan to hold aspirin and Coumadin for at least 2 weeks, follow up with GI in 4 weeks for repeat endoscopy, continue PPI, Protonix 40 mg daily after discharge (5) Hypokalemia Status: Acute Plan: 01/06/18 11:09 -KCl 40 mEq IV for potassium 3.3 PROTIME INR Collected: 01/06/2018 Status: F Source: [facility] 10:27 AM [facility] REPOSITORY TYPE CODE TESTS RESULT OUT OF REFERENCE UNITS RANGE LAB PT 9.8-12.7 sec Prothrombin Time $$ 12.5 Result Comment: Please note new reference range OF 09/15/2017 LAB INR 0.9-1.1 INR 1.1 Result Comment: Please note new reference range OF 09/15/2017 Performed By: #### PTINR #### [facility] [address] [place] [address] GLUCOSE, POINT OF Collected: 01/06/2018 Status: F Source: [facility] 7:23 AM [facility] REPOSITORY TYPE CODE TESTS RESULT OUT OF REFERENCE UNITS RANGE LAB POCGLU 80-110 mg/dL High Glucose, 186 Point of Care Performed By: #### POCGLU #### [facility] [address] [place] [address] COMPLETE BLOOD COUNT Collected: 01/06/2018 Status: F Source: [facility] W/DIFF $$ 6:30 AM [facility] REPOSITORY TYPE CODE TESTS RESULT OUT OF REFERENCE UNITS RANGE LAB WBC 4.0-11.0 10 3/uL White Blood Count 6.9 LAB RBC 4.2-5.4 10 6/uL Low Red Blood Count 2.87 LAB HGB 12.0-16.0 g/dL Low Hemoglobin 8.6 LAB HCT 35-47 % Low Hematocrit 26.1 LAB MCV 80-100 fL Mean Corpuscular Volume 90.9 LAB MCH 27-34 pg Mean Corpuscular 30.0 Hemoglobin LAB MCHC 33-37 g/dL Mean Corpuscular Hgb 33.0 Conc LAB RDW 11.5-14.5 % Red Cell High Distribution Width 15.1 LAB PLT 150-400 10 3/uL Platelet Count 192 LAB MPV 7.4-10.4 fL Mean Platelet High Volume 11.9 LAB NE% 42-76 % Neutrophils (Auto) 65 LAB LY% 24-44 % Low Lymphocytes (Auto) 22 LAB MO% 1-8 % Monocytes (Auto) 7 LAB EO% 0-3 % Eosinophils High (Auto) 4 LAB BA% 0-1 % Basophils (Auto) 1 LAB IG% 0.0-0.9 % Immature High Granulocytes 1.2 (Auto) LAB NRBC% 0.0-0.0 % Nucleated RBC High 0.4 LAB NE# 1.8-7.0 10 3/uL Neutrophils # (Auto) 4.5 LAB LY# 1-3.5 10 3/uL Lymphocytes # (Auto) 1.5 LAB MO# 0.04-0.9 10 3/uL Monocytes # (Auto) 0.5 LAB EO# 0.03-0.6 10 3/uL Eosinophils # (Auto) 0.3 LAB BA# 0.04-0.9 10 /uL Basophils # (Auto) 0.1 LAB IG# 10 3/uL Immature Gran# (Auto) 0.1 Performed By: #### CBC, BMP #### [facility] [address] [place] [address] BASIC METABOLIC PANEL Collected: 01/06/2018 Status: F Source: [facility] $$$ 6:30 AM [facility] REPOSITORY TYPE CODE TESTS RESULT OUT OF REFERENCE UNITS RANGE LAB NA 136-145 mmol/L High Sodium 146 LAB K 3.5-5.3 mmol/L Low Potassium 3.3 LAB CL 98-107 mmol/L High Chloride $ 116 LAB CO2 21-32 mmol/L Carbon Dioxide 21 $ LAB AGAP 10-20 mmol/L Anion Gap 12.3 LAB BUN 6-23 mg/dL Blood Urea Nitrogen 12 Result Comment: Please note new reference range as of December. LAB CRET 0.50-1.05 mg/dL Creatinine 0.70 Result Comment: Please note new reference range as of December. LAB GFRAA GFR () >60 LAB GFRNAA GFR (Non ) >60 Result Comment: eGFR Units of measure: mL/min/1.73 m 2 LAB ECRCL 75-115 mL/min Low Estimated Creatinine Clearance 48 LAB GLUF 74-99 mg/dL Glucose, High Fasting 205 LAB CA 8.6-10.3 mg/dL Low Calcium $ 8.0 Result Comment: Please note new reference range as of December. Performed By: #### CBC, BMP #### [address] [address] GLUCOSE, POINT OF Collected: 01/05/2018 Status: F Source: [facility] 8:15 PM [facility] REPOSITORY TYPE CODE TESTS RESULT OUT OF REFERENCE UNITS RANGE LAB POCGLU 80-110 mg/dL High Glucose, 182 Point of Care Performed By: #### POCGLU #### [address] [address] HEMOGLOBIN AND Collected: 01/05/2018 Status: F Source: [facility] HEMATOCRIT 6:45 PM [facility] REPOSITORY TYPE CODE TESTS RESULT OUT OF REFERENCE UNITS RANGE LAB HGB 12.0-16.0 g/dL Low Hemoglobin 8.4 LAB HCT 35-47 % Low Hematocrit 25.8 Performed By: #### HH #### [facility] [address] [place] [address] GLUCOSE, POINT OF Collected: 01/05/2018 Status: F Source: [facility] 4:37 PM [facility] REPOSITORY TYPE CODE TESTS RESULT OUT OF REFERENCE UNITS RANGE LAB POCGLU 80-110 mg/dL Glucose, 90 Point of Care Performed By: #### POCGLU #### [address] [address] GI PROGRESS NOTE Observed: 01/05/2018 Status: F Source: [facility] 4:09 PM [facility] REPOSITORY [facility] Patient: KYAW ESPINOZA [address] [facility] MR#: [id number] [place], [place] [address] : 1950 Ord[birth year] : Dept: PDOC Loc: 8W 852-1 GI Progress Note Service Dt: 01/05/18 Report#: [id number] Adm Dt: 01/04/18 Dis Dt: GI Progress Note - Patient Visit Reason Visit Reason: GI BLEED - Subjective Narrative HPI/ROS: Large bleeding gastric ulcer and severe anemia in the background of Coumadin therapy and supra therapeutic INR - Review of Systems Constitutional: Reports: weakness Respiratory: Reports: SOB with exertion Cardiovascular: Reports: other (History of atrial fibrillation) Gastrointestinal: Reports: melena Neurological: Reports: no symptoms - I O/Vital Signs I O/VS: Intake/Output/Wt 01/02/18 01/03/18 01/04/18 01/05/18 23:59 23:59 23:59 23:59 Intake Total 1500 1630.667 Balance 1500 1630.667 Weight 88.2 kg Intake: Intake 1500 550.667 Dextrose 5%/Sodium 1000 550.667 Chloride 0.9% 1,000 ml @ 100 mls/hr IV .Q10H [facility] Rx#:[id number] Sodium Chloride 0.9% 500 500 ML @ 999 mls/hr IV .Q31M [facility] Rx#:[id number] Oral 1080 Blood Product 0 Lrc2/Leukoreduced Packed 0 Cells Unit [id number] Other: Height 1.47 m Incontinent Voided Amount Moderate Vital Signs (last 24 hrs) Temp Pulse Resp BP Pulse Ox 01/05/18 14:06 36.6 C 78 20 100/57 L 96 01/05/18 13:03 36.5 C 86 16 90/62 01/05/18 12:02 82 97/58 L 01/05/18 10:50 36.8 C 82 20 97/58 L 98 01/05/18 10:00 82 01/05/18 06:00 36.2 C L 66 22 128/66 99 01/05/18 02:00 35.8 C L 80 16 93/54 L 96 01/04/18 22:30 75 01/04/18 22:00 36.2 C L 75 18 102/58 L 100 01/04/18 17:25 36.3 C L 66 16 85/49 L 100 - Patient Exam General appearance: Positive: alert, obese Eye exam: Positive: normal appearance Respiratory: Positive: normal lung sounds bilaterally Cardiovascular: Positive: regular rate GI/Abdominal: Positive: soft, nontender, nondistended, no organomegaly palpable , normal bowel sounds Extremities: Positive: normal inspection Neurological: Positive: alert, oriented X3 Integumentary: Positive: pallor - Lab Diagnostic Data Diagrams: 01/05/18 09:24 01/05/18 07:00 Labs: CBC w/diff (last 24 hrs) 01/05/18 01/04/18 09:24 19:53 WBC 6.4 RBC 2.59 L Hgb 7.7 L 7.9 L Hct 24.4 L 25.4 L MCV 94.2 MCH 29.7 MCHC 31.6 L RDW 14.7 H Plt Count 170 Neut % (Auto) 72 Lymph % (Auto) 17 L [place] % (Auto) 6 Eos % (Auto) 4 H Baso % (Auto) 1 Lymph # (Auto) 1.1 [place] # (Auto) 0.4 Eos # (Auto) 0.2 Baso # (Auto) 0.0 L CMP (last 24 hrs) 01/05/18 07:00 Sodium 147 H Potassium 3.7 Chloride 114 H Carbon Dioxide 22 Anion Gap 14.7 BUN 20 H Creatinine 0.6 Estim Creat Clear Calc 48 L Calcium 7.9 L Total Bilirubin 0.3 Alkaline Phosphatase 46 L Total Protein 5.6 L Albumin 2.9 L AST/ALT (last 24 hrs) 01/05/18 07:00 AST 11 L ALT 14 PT/INR (last 24 hrs) 01/05/18 09:24 PT 13.8 H INR 1.2 H - Medications Meds: Current Medications Atenolol (Tenormin) 50 mg PO DAILY [facility] Last Admin: 01/05/18 12:02 Dose: Not Given Dextrose (Dextrose Syringe) 25 ml IV Q15M PRN PRN Reason: Hypoglycemia Dextrose (Dextrose Syringe) 50 ml IV Q15M PRN PRN Reason: Hypoglycemia Dextrose (Instant Glucose) 37.5 g PO Q15M PRN PRN Reason: Hypoglycemia Glucagon (Glucagon) 1 mg IM Q15M PRN PRN Reason: Hypoglycemia Dextrose/Sodium Chloride (Dextrose 5%/Sodium Chloride 0.9%) 1,000 mls @ 100 mls /hr IV .Q10H [facility] Last Admin: 01/05/18 01:33 Dose: 80 mls/hr Pantoprazole Sodium 40 mg/ (Sodium Chloride) 10 mls @ 300 mls/hr IV PUSH BID [facility] PRN Reason: Protocol Last Admin: 01/05/18 10:00 Dose: 300 mls/hr Insulin Human Lispro (Humalog (Bkc)) 0 units SC ACHS (HUMALOG) [facility] PRN Reason: Protocol Last Admin: 01/05/18 13:05 Dose: 6 units Levothyroxine Sodium (Synthroid) 112 mcg PO QDSYNTH [facility] Last Admin: 01/05/18 05:31 Dose: 112 mcg Ropinirole Hydrochloride 0.25 Mg Tab 0 each PO QHS [facility] Last Admin: 01/04/18 22:18 Dose: 1 each Valsartan (Diovan) 40 mg PO DAILY [facility] Allergies/Adv: Allergies Allergy/AdvReac Type Severity Reaction Status Date / Time atorvastatin [From Lipitor] Allergy Hives Verified 01/04/18 01:26 Penicillins Allergy Hives Verified 01/04/18 01:26 simvastatin [From Zocor] Allergy Hives Verified 01/04/18 15:28 Sulfa (Sulfonamide Allergy Unknown Verified 01/04/18 15:27 Antibiotics) - Assessment/Plan (1) Upper gastrointestinal bleeding Status: Acute (2) Atrial fibrillation Status: Chronic Qualifiers: Atrial fibrillation type: chronic Qualified Code(s): I48.2 - Chronic atrial fibrillation (3) Acute blood loss anemia Status: Acute - Comments Impression Comments: 0 Severe anemia and black and tarry stool anticoagulation therapy most likely this lady is upper GI bleeding. She has no prior gastrointestinal symptoms. Possibility of vascular malformation in the stomach gastritis or ulcer disease or considerations she has no stigmata of any portal hypertension to suspect any variances. I would recommend an upper GI endoscopic examination her last the Coumadin dose WAS on Thursday01/04/18 15:01 discussed with the patient and informed consent was obtained. 01/05/18 16:11 Hemoglobin is still 7.7 patient still feels very short of breath on minimal exertion she is getting another unit of packed cells continue IV iron she should be continued on Protonix by mouth 40 mg daily Coumadin should be withheld for at least 2 weeks in addition to aspirin. Patient has a large penetrating gastric ulcer this gastric ulcers should be followed to complete healing by endoscopy in 4-6 weeks to rule out malignancy I will ask her to follow-up in my office after 4 weeks GLUCOSE, POINT OF Collected: 01/05/2018 Status: F Source: [facility] CARE 11:22 AM [facility] REPOSITORY TYPE CODE TESTS RESULT OUT OF REFERENCE UNITS RANGE LAB POCGLU 80-110 mg/dL High Glucose, 259 Point of Care Performed By: #### POCGLU #### [facility] [address] [place] [address] COMPLETE BLOOD COUNT Collected: 01/05/2018 Status: F Source: [place]IN W/DIFF $$ 9:24 AM [facility] REPOSITORY TYPE CODE TESTS RESULT OUT OF REFERENCE UNITS RANGE LAB WBC 4.0-11.0 10 3/uL White Blood Count 6.4 LAB RBC 4.2-5.4 10 6/uL Low Red Blood Count 2.59 LAB HGB 12.0-16.0 g/dL Low Hemoglobin 7.7 LAB HCT 35-47 % Low Hematocrit 24.4 LAB MCV 80-100 fL Mean Corpuscular Volume 94.2 LAB MCH 27-34 pg Mean Corpuscular 29.7 Hemoglobin LAB MCHC 33-37 g/dL Low Mean Corpuscular Hgb 31.6 Conc LAB RDW 11.5-14.5 % Red Cell High Distribution Width 14.7 LAB PLT 150-400 10 3/uL Platelet Count 170 LAB MPV 7.4-10.4 fL Mean Platelet High Volume 11.8 LAB NE% 42-76 % Neutrophils (Auto) 72 LAB LY% 24-44 % Low Lymphocytes (Auto) 17 LAB MO% 1-8 % Monocytes (Auto) 6 LAB EO% 0-3 % Eosinophils High (Auto) 4 LAB BA% 0-1 % Basophils (Auto) 1 LAB IG% 0.0-0.9 % Immature Granulocytes 0.9 (Auto) LAB NRBC% 0.0-0.0 % Nucleated RBC 0.0 LAB NE# 1.8-7.0 10 3/uL Neutrophils # (Auto) 4.6 LAB LY# 1-3.5 10 3/uL Lymphocytes # (Auto) 1.1 LAB MO# 0.04-0.9 10 3/uL Monocytes # (Auto) 0.4 LAB EO# 0.03-0.6 10 3/uL Eosinophils # (Auto) 0.2 LAB BA# 0.04-0.9 10 /uL Low Basophils # (Auto) 0.0 LAB IG# 10 3/uL Immature Gran# (Auto) 0.1 Performed By: #### CBC, PTINR #### [facility] [address] [place] [address] PROTIME INR Collected: 01/05/2018 Status: F Source: [place] 9:24 AM [facility] REPOSITORY TYPE CODE TESTS RESULT OUT OF REFERENCE UNITS RANGE LAB PT 9.8-12.7 sec Prothrombin High Time $$ 13.8 Result Comment: Please note new reference range OF 09/15/2017 LAB INR 0.9-1.1 High INR 1.2 Result Comment: Please note new reference range OF 09/15/2017 Performed By: #### CBC, PTINR #### [facility] [address] [place] [address] GLUCOSE, POINT OF Collected: 01/05/2018 Status: F Source: [facility] CARE 8:23 AM [facility] REPOSITORY TYPE CODE TESTS RESULT OUT OF REFERENCE UNITS RANGE LAB POCGLU 80-110 mg/dL High Glucose, 170 Point of Care Performed By: #### POCGLU #### [facility] [address] [place] [address] GENERAL MEDICAL Observed: 01/05/2018 Status: F Source: [facility] PROGRESS NOTE 8:12 AM [facility] REPOSITORY [facility] Patient: KYAW ESPINOZA [address] [facility] MR#: [id number] [place], [place] [address] : 1950 Ord. : Dept: PDOC Loc: 8W 852-1 General Medical Progress Note Service Dt: 01/05/18 Report#: [id number] Adm Dt: 01/04/18 Dis Dt: General-Medical Progress Note - Patient Visit Reason Visit Reason: GI BLEED <Lashawn Chang - 01/05/18 08:38> - Subjective Narrative HPI/ROS: Pt is a 67 year old female admitted with GI bleed 01/04/18. Melena started , no red or maroon BM's. Dry heaves and vomited food 01/03/18, no hematemesis. Dizziness and orthostasis 01/03/18 which prompted her to go to the ED in [place] where she lives. Reported epigastric pain worse with empty stomach and improved after eating. Has been transfused with total of 1 unit PRBCs (01/04/18). No history of PUD, GERD, or GI bleed. No prior EGD or colonoscopy. EGD done yesterday showed a 2 cm gastric ulcer. Patient still feels dizzy and lightheaded with minimal movement. Reports shortness of breath with ambulation and palpitations. 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 BP 128/66. She has been up to the bathroom, has not had a bowel movement since admission. No further nausea or vomiting. No abdominal pain . CBC ordered for this morning. History of diabetes, takes oral medication at home, does not check blood sugars at home. Humalog mild SSI and D5NS at 100 ml/hr infusing. Accuchecks 160-200. Was NPO until EGD yesterday, clear liquid breakfast ordered for this morning. History of Afib, takes coumadin 2 mg Thursday and Thursday, 3 mg all other days; also aspirin 81 mg daily. Afib is managed by paediatrician Dr Mancilla in [place] who also monitors INR. INR checked several times monthly. Coumadin and aspirin are being held, last dose was 01/02/18. Repeat INR ordered for this morning. <Lashawn Chang 01/05/18 08:38> - Review of Systems Constitutional: Reports: weakness, fatigue <Lashawn Chang 01/05/18 08:38> Eyes: Reports: no symptoms <Lashawn Chang 01/05/18 08:38> ENT: Reports: no symptoms <Lashawn Chang 01/05/18 08:38> Respiratory: Reports: SOB with exertion <Lashawn Chang 01/05/18 08:38> Cardiovascular: Reports: palpitations <Lashawn Chang 01/05/18 08:38> Gastrointestinal: Denies: abdominal pain, nausea, vomiting <Lashawn Chang 01/05/18 08:38> Genitourinary: Reports: no symptoms <Lashawn Chang 01/05/18 08:38> Integumentary: Reports: no symptoms <Lashawn Chang 01/05/18 08:38> Neurological: Reports: no symptoms. Denies: headache <Lashawn Chang 08:38> Psychiatric: Reports: no symptoms <Lashawn Chang 01/05/18 08:38> Endocrine: Reports: no symptoms reported <Lashawn Chang 01/05/18 08:38> Allergic/Immunologic: Reports: no symptoms <Lashawn Chang 01/05/18 08:38> - I O/Vital Signs I O/VS: Vital Signs Temp 36.6 C 01/05/18 14:06 Pulse 78 01/05/18 14:06 Resp 20 01/05/18 14:06 BP 100/57 L 05/22/18 14:06 Pulse Ox 96 01/05/18 14:06 Intake Output 01/04/18 01/05/18 01/05/18 23:59 11:59 23:59 Intake Total 1000 6611.205 4300 Balance 1000 9350.266 0310 Intake: Intake 1000 539.176 1597 Dextrose 5%/Sodium 1000 556.611 6132 Chloride 0.9% 1,000 ml @ 100 mls/hr IV .Q10H [facility] Rx#:[id number] Oral 480 600 Blood Product 300 Lrc2/Leukoreduced Packed 300 Cells Unit [id number] Other 50 Other: Incontinent Voided Amount Moderate <Dante Hidalgo MD - 01/05/18 16:22> Vital Signs Temp 97.2 F L 01/05/18 06:00 Pulse 66 01/05/18 06:00 Resp 22 01/05/18 06:00 BP 128/66 01/05/18 06:00 Pulse Ox 99 01/05/18 06:00 Intake Output 01/04/18 01/04/18 01/05/18 11:59 23:59 11:59 Intake Total 500 1000 550.667 Balance 500 1000 550.667 Weight 194 lb 7.163 oz Intake: Intake 500 1000 550.667 Dextrose 5%/Sodium 1000 550.667 Chloride 0.9% 1,000 ml @ 100 mls/hr IV .Q10H [facility] Rx#:[id number] Sodium Chloride 0.9% 500 500 ML @ 999 mls/hr IV .Q31M [facility] Rx#:[id number] Other: Height 4 ft 10 in <Lashawn Chang 01/05/18 08:38> - Patient Exam General appearance: alert, in no apparent distress, obese <Lashawn Chang 01/05/18 08:38> Limitations: Positive: no limitations <Lashawn Chang 01/05/18 08:38> Head: Positive: normal inspection <Lashawn Chang 01/05/18 08:38> Eyes: Positive: normal appearance <Lashawn Chang 01/05/18 08:38> Pupils: Positive: equal and reactive <Lashawn Chang 01/05/18 08:38> ENT: Positive: mucous membranes dry <Lashawn Chang 01/05/18 08:38> Neck: Positive: normal inspection <Lashawn Chang 01/05/18 08:38> Respiratory: Positive: normal lung sounds bilaterally. Negative: rales, rhonchi , wheezes <Lashawn Chang 01/05/18 08:38> Cardiovascular: Positive: regular rate, normal rhythm <NiranjanedenLashawn hillman 08:38> GI/Abdominal: Positive: soft, nontender (No tenderness on palpation to epigastric area), normal bowel sounds. Negative: tenderness <Niranjannoellepoli Lashawn 01/05/18 08:38> Extremities: Positive: normal inspection, no edema, bilateral pulses positive <NiranjanbasimLashawn 01/05/18 08:38> Neurological: Positive: alert, oriented X3 <NiranjanedenLashawn hillman 01/05/18 08:38> Integumentary: Positive: warm, dry, intact, pallor <KandacepoliLashawn 08:38> - Lab Diagnostic Data Diagrams: 01/05/18 09:24 01/05/18 07:00 <Dante Hidalgo MD - 01/05/18 16:22> Chemistry: Chemistry (Last 24hrs) 01/05/18 01/05/18 01/05/18 11:22 08:23 07:00 Sodium 147 H Potassium 3.7 Chloride 114 H Carbon Dioxide 22 Anion Gap 14.7 BUN 20 H Creatinine 0.6 Estim Creat Clear Calc 48 L Est GFR ( Amer) >60 Est GFR (Non-Af Amer) >60 POC Glucose 259 H 170 H Fasting Glucose 161 H Calcium 7.9 L Total Bilirubin 0.3 AST 11 L ALT 14 Alkaline Phosphatase 46 L Total Protein 5.6 L Albumin 2.9 L 01/04/18 01/04/18 19:54 16:36 Sodium Potassium Chloride Carbon Dioxide Anion Gap BUN Creatinine Estim Creat Clear Calc Est GFR ( Amer) Est GFR (Non-Af Amer) POC Glucose 258 H 172 H Fasting Glucose Calcium Total Bilirubin AST ALT Alkaline Phosphatase Total Protein Albumin <Dante Hidalgo MD - 01/05/18 16:22> Chemistry (Last 24hrs) 01/05/18 01/04/18 01/04/18 07:00 19:54 16:36 Sodium 147 H Potassium 3.7 Chloride 114 H Carbon Dioxide 22 Anion Gap 14.7 BUN 20 H Creatinine 0.6 Estim Creat Clear Calc 48 L Est GFR ( Amer) >60 Est GFR (Non-Af Amer) >60 POC Glucose 258 H 172 H Fasting Glucose 161 H Calcium 7.9 L Total Bilirubin 0.3 AST 11 L ALT 14 Alkaline Phosphatase 46 L Total Protein 5.6 L Albumin 2.9 L 01/04/18 10:34 Sodium Potassium Chloride Carbon Dioxide Anion Gap BUN Creatinine Estim Creat Clear Calc Est GFR ( Amer) Est GFR (Non-Af Amer) POC Glucose 150 H Fasting Glucose Calcium Total Bilirubin AST ALT Alkaline Phosphatase Total Protein Albumin <Lashawn Chang - 01/05/18 08:38> - Medications Meds: Current Medications Atenolol (Tenormin) 50 mg PO DAILY [facility] Last Admin: 01/05/18 12:02 Dose: Not Given Dextrose (Dextrose Syringe) 25 ml IV Q15M PRN PRN Reason: Hypoglycemia Dextrose (Dextrose Syringe) 50 ml IV Q15M PRN PRN Reason: Hypoglycemia Dextrose (Instant Glucose) 37.5 g PO Q15M PRN PRN Reason: Hypoglycemia Glucagon (Glucagon) 1 mg IM Q15M PRN PRN Reason: Hypoglycemia Dextrose/Sodium Chloride (Dextrose 5%/Sodium Chloride 0.9%) 1,000 mls @ 100 mls /hr IV .Q10H [facility] Last Admin: 01/05/18 16:18 Dose: 80 mls/hr Pantoprazole Sodium 40 mg/ (Sodium Chloride) 10 mls @ 300 mls/hr IV PUSH BID [facility] PRN Reason: Protocol Last Admin: 01/05/18 10:00 Dose: 300 mls/hr Insulin Human Lispro (Humalog (Bkc)) 0 units SC ACHS (HUMALOG) [facility] PRN Reason: Protocol Last Admin: 01/05/18 13:05 Dose: 6 units Levothyroxine Sodium (Synthroid) 112 mcg PO QDSYNTH [facility] Last Admin: 01/05/18 05:31 Dose: 112 mcg Ropinirole Hydrochloride 0.25 Mg Tab 0 each PO QHS [facility] Last Admin: 01/04/18 22:18 Dose: 1 each Valsartan (Diovan) 40 mg PO DAILY [facility] <Dante Hidalgo MD - 01/05/18 16:22> Current Medications Atenolol (Tenormin) 50 mg PO DAILY [facility] Last Admin: 01/04/18 10:58 Dose: Not Given Dextrose (Dextrose Syringe) 25 ml IV Q15M PRN PRN Reason: Hypoglycemia Dextrose (Dextrose Syringe) 50 ml IV Q15M PRN PRN Reason: Hypoglycemia Dextrose (Instant Glucose) 37.5 g PO Q15M PRN PRN Reason: Hypoglycemia Glucagon (Glucagon) 1 mg IM Q15M PRN PRN Reason: Hypoglycemia Dextrose/Sodium Chloride (Dextrose 5%/Sodium Chloride 0.9%) 1,000 mls @ 100 mls /hr IV .Q10H [facility] Last Admin: 01/05/18 01:33 Dose: 80 mls/hr Pantoprazole Sodium 40 mg/ (Sodium Chloride) 10 mls @ 300 mls/hr IV PUSH BID [facility] PRN Reason: Protocol Last Admin: 01/04/18 18:38 Dose: 300 mls/hr Insulin Human Lispro (Humalog (Bkc)) 0 units SC ACHS (HUMALOG) [facility] PRN Reason: Protocol Last Admin: 01/04/18 22:19 Dose: 6 units Levothyroxine Sodium (Synthroid) 112 mcg PO QDSYNTH [facility] Last Admin: 01/05/18 05:31 Dose: 112 mcg Ropinirole Hydrochloride 0.25 Mg Tab 0 each PO QHS [facility] Last Admin: 01/04/18 22:18 Dose: 1 each Valsartan (Diovan) 40 mg PO DAILY [facility] Last Admin: 01/04/18 10:58 Dose: Not Given <Lashawn Chang - 01/05/18 08:38> Allergies/Adv: Allergies Allergy/AdvReac Type Severity Reaction Status Date / Time atorvastatin [From Lipitor] Allergy Hives Verified 01/04/18 01:26 Penicillins Allergy Hives Verified 01/04/18 01:26 simvastatin [From Zocor] Allergy Hives Verified 01/04/18 15:28 Sulfa (Sulfonamide Allergy Unknown Verified 01/04/18 15:27 Antibiotics) <Dante Hidalgo MD - 01/05/18 16:22> - Assessment/Plan (1) Atrial fibrillation Status: Chronic QualifierTitle: Atrial fibrillation type: chronic Qualified Code(s): I48.2 - Chronic atrial fibrillation Plan: 01/04/18 11:22 -Coumadin and aspirin on hold for active GI bleed -Atenolol 50 mg po daily -Currently SR rate 70 (2) Diabetes Status: Chronic QualifierTitle: Diabetes mellitus type: type 2 Plan: 01/05/18 08:28 -Humalog mild SSI, accuchecks ac hs -D5NS rate 100 ml/hr -Clear liquid diet ordered for breakfast (3) HTN (hypertension) Status: Chronic QualifierTitle: Hypertension type: essential hypertension Qualified Code( s): I10 - Essential (primary) hypertension Plan: 01/05/18 08:29 -Hypotensive yesterday, valsartan was held. 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 Determine need for further transfusion -Continue to hold asa and coumadin --H H decreased to 7.7/24.4, transfuse with 1 unit PRBC ordered. PT 13.8/INR 1.2. <Lashawn Chang - 01/05/18 10:54> Progress Note Co-Signature - Attestation Attestation: Saw Patient Agree <Dante Hidalgo MD - 01/05/18 16:22> Additionally: I have seen and evaluated this patient <Dante Hidalgo MD - 01/05 16:22> Patient evaluation date: 01/05/18 <Dante Hidalgo MD - 01/05/18 16:22> Comments: 01/05/18 16:21 Case reviewed in depth with the nurse practitioner. The patient is awake alert pleasant man in no distress. She has no epigastric pain on palpation. Tolerating transfusion. I've explained the nature of the bowel the use of proton pump inhibitors to advance healing, she was concerned that she might need surgery. Gastroenterology assistance is much appreciated. <Dante Hidalgo MD - 01/05/18 16:22> COMPREHENSIVE METABOLIC Collected: 01/05/2018 Status: F Source: [facility] PANEL 7:00 AM [facility] REPOSITORY TYPE CODE TESTS RESULT OUT OF REFERENCE UNITS RANGE LAB NA 136-145 mmol/L Sodium High 147 LAB K 3.5-5.1 mmol/L Potassium 3.7 LAB CL 98-107 mmol/L Chloride High $ 114 LAB CO2 21-32 mmol/L Carbon Dioxide $ 22 LAB AGAP Anion Gap 14.7 LAB BUN 7-18 mg/dL Blood High Urea Nitrogen 20 LAB CRET 0.6-1.3 mg/dL Creatinine 0.6 LAB GFRAA GFR ( >60 [place]) LAB GFRNAA GFR (Non >60 [place]) Result Comment: eGFR Units of measure: mL/min/1.73 m 2 LAB ECRCL 75-115 mL/min Estimated Creatinine Low Clearance 48 LAB GLUF 74-106 mg/dL Glucose, Fasting High 161 LAB CA 8.5-10.1 mg/dL Calcium $ Low 7.9 LAB TBIL 0.2-1.0 mg/dL Total Bilirubin 0.3 LAB AST 15-37 U/L Aspartate Amino Low Transferase $ 11 LAB ALT 12-78 U/L Alanine Aminotransferase $ 14 LAB TP 6.4-8.2 g/dL Total Protein Low 5.6 LAB ALB 3.4-5.0 g/dL Albumin, Serum $ Low 2.9 LAB ALKP 50-136 U/L Alkaline Phosphatase $ Low 46 Performed By: #### [id number] #### [facility] [address] [place] [address] Observed: 01/05/2018 Status: CANCELLED Source: [facility] BLOOD BANK REPORT 12:00 AM [facility] REPOSITORY Order Comment: Added by laboratory to previous specimen. RUN DATE: 01/05/18 [facility] LAB LIVE PAGE 1 RUN TIME: 1107 Specimen Inquiry PATIENT: KYAW ESPINOZA ACCT: [id number] LOC: 8W U: [id number] AGE/SX: 67/F ROOM: 852 RE01/04/[address]: Jojo Light MD : 1950 BED: 1 DIS: STATUS: ADM IN TLOC: SPEC #: [id number] ZACARIAS: 01/05/18-UNK STATUS: CAN REQ #: [id number] RECD: - DOREEN DR: Lashawn Chang APRN.PRODUCTION OR PLANT ENGINEER ENTERED: 01/05/18-[address]: Nilesh Pickett MD, Elise R MD Kumar,Jose Enrique MANCILLA ORD PRODS: PC/LRC ORD TESTS: TS, IS XM Test Result Flag Reference CANCELLED Added by laboratory to previous specimen. END OF REPORT Performed By: #### BLB #### [place] [id number] GLUCOSE, POINT OF Collected: 01/04/2018 Status: F Source: [facility] CARE 7:54 PM [facility] REPOSITORY TYPE CODE TESTS RESULT OUT OF REFERENCE UNITS RANGE LAB POCGLU 80-110 mg/dL High Glucose, 258 Point of Care Performed By: #### POCGLU #### [place] [id number] HEMOGLOBIN AND Collected: 01/04/2018 Status: F Source: [facility] HEMATOCRIT 7:53 PM [facility] TYPE CODE TESTS RESULT OUT OF REFERENCE UNITS RANGE LAB HGB 12.0-16.0 g/dL Low Hemoglobin 7.9 LAB HCT 35-47 % Low Hematocrit 25.4 Performed By: #### HH #### [place] [id number] GASTROINTESTINAL ENDOSCOPY Observed: 01/04/2018 Status: F Source: [place] 7:13 PM [facility] Dept: Diagnostic Att. : Raghu Guerrero DO Gastrointestinal Endoscopy Loc: 8W 852-1 Report #: [id number] Adm Dt: 01/04/18 Dis Dt: Patient Name: Kyaw Espinoza Procedure Date: 01/04/2018 3:01 PM Date of : 1950 Admit Type: Inpatient Ethnicity: Race: Unknown Attending MD: Heber Morales MD Procedure: Upper GI endoscopy Indications: Melena Comorbidities: Atrial fibrillation prolonged INR from Coumadin therapy Providers: Heber Morales MD (Doctor) , Susan Swanson RN (Nurse) , Lashawn Mahajan LPN (Nurse) Referring: Medicines: Monitored Anesthesia Care Complications: No immediate complications. Procedure: Pre-Anesthesia Assessment: - Prior to the procedure, a History and Physical was performed, and patient medications and allergies were reviewed. The patient's tolerance of previous anesthesia was also reviewed. The risks and benefits of the procedure and the sedation options and risks were discussed with the patient. All questions were answered, and informed consent was obtained. Prior Anticoagulants: The patient has taken Coumadin (warfarin), last dose was 2 days prior to procedure. After reviewing the risks and benefits, the patient was deemed in satisfactory condition to undergo the procedure. After obtaining informed consent, the endoscope was passed under direct vision. Throughout the procedure, the patient's blood pressure, pulse, and oxygen saturations were monitored continuously. The endoscope was introduced through the mouth, and advanced to the second part of duodenum. The upper GI endoscopy was accomplished without difficulty. The patient tolerated the procedure well. Findings: The upper third of the esophagus was normal. The middle third of the esophagus was normal. The lower third of the esophagus was normal. One non-obstructing non-bleeding cratered gastric ulcer with no stigmata of bleeding was found in the stomach. The lesion was 20 mm in largest dimension. The ulcer was located along the lesser curvature aspect of the distal stomach and was deepened penetrating careful inspection did not show visible vessel or a different products. The margins of the ulcer were sharp and clear-cut and did not have the appearance is of a malignant gastric ulcer but this should be followed to complete healing by endoscopy in 4-6 weeks to rule out underlying malignancy The ampulla, first portion of the duodenum, second portion of the duodenum and examined duodenum were normal. Impression: - Normal upper third of esophagus. - Normal middle third of esophagus. - Normal lower third of esophagus. - Non-obstructing non-bleeding gastric ulcer with no stigmata of bleeding. His ulcerations large and penetrating and appears grossly benign not biopsied because of the prolonged INR. This also should be followed to complete healing in 4-6 weeks to rule out underlying malignancy - Normal ampulla, first portion of the duodenum, second portion of the duodenum and examined duodenum. - No specimens collected. Recommendation: - Return patient to hospital [facility] for ongoing care. - Clear liquid diet. - Continue present medications. Procedure Code(s): --- Professional --- 76156, Esophagogastroduodenoscopy, flexible, transoral; diagnostic, including collection of specimen(s) by brushing or washing, when performed (separate procedure) Diagnosis Code(s): --- Professional --- K25.9, Gastric ulcer, unspecified as acute or chronic, without hemorrhage or perforation K92.1, Melena (includes Hematochezia) CPT copyright 2016 [place] [employer]. All rights reserved. The codes documented in this report are preliminary and upon prize jacker review may be revised to meet current compliance requirements. Heber Morales MD 01/04/2018 7:12:45 PM This report has been signed electronically. Number of Addenda: 0 Note Initiated On: 01/04/2018 3:01 PM 1913 GLUCOSE, POINT OF Collected: 01/04/2018 Status: F Source: [facility] CARE 4:36 PM [facility] REPOSITORY TYPE CODE TESTS RESULT OUT OF REFERENCE UNITS RANGE LAB POCGLU 80-110 mg/dL High Glucose, 172 Point of Care Performed By: #### POCGLU #### [address] [address] PROGRESS NOTES Observed: 01/04/2018 Status: F Source: [place] 3:50 PM [facility] REPOSITORY [facility] Patient: KYAW ESPINOZA [address] [facility] MR#: [id number] [place], [place] [address] : 1950 Ord. Tang: Dept: PDOC Loc: 8W 852-1 Physician Progress Note Service Dt: 01/04/18 Report#: [id number] Adm Dt: 01/04/18 Dis Dt: Note - Patient Note Observation: 01/04/18 15:50 This patient has a large penetrating 2 cm gastric ulceration this should be followed complete healing by repeat endoscopy and if necessary biopsies to rule out gastric malignancy POST PROCEDURE Observed: 01/04/2018 Status: F Source: [place] PROGRESS NOTE 3:49 PM [facility] Patient: KYAW ESPINOZA MR#: [id number] [place] [address] : 1950 Ord[address] Tang: Dept: PDOC Loc: 852- Post Procedure Progress Note Service Dt: 01/04/18 Report#: [id number] Adm Dt: 01/04/18 Dis Dt: Endo Immediate Post-Procedure - Progress Note Indications: Upper GI bleeding Procedure Description: EGD Type of Anesthesia: IV Sedation Post-Op Dx (findings): Large 2 cm penetrating gastric ulcer Condition of Patient: Stable CONSULTATION REPORT Observed: 01/04/2018 Status: F Source: [place] 2:57 PM [facility] Patient: KYAW ESPINOZA MR#: [id number] [place] [address] : 1950 OrdYamila Tang: Dept: PDOC Loc: 852- Consultation Service Dt: 01/04/18 Report#: [id number] Adm Dt: 01/04/18 Dis Dt: Initial Physician Consultation - Consulting Specialty Consulting Specialty: GI - History of Present Illness HPI: This patient started having black tarry stools on Thursday but this lady that Thursday she has become so dizzy that she is lethargic. SHE went to the hospital she was transfused one unit of packed cells she was transferred here for further evaluation she has been on Coumadin for atrial fibrillation for the last one year she is currently history exogenous obesity diabetes hypothyroidism and restless leg syndrome she has not been taking aspirins or anti-inflammatory drugs she has no prior history of liver disease or peptic ulcer disease. - Past Medical History Cardiac: A-Fib, High Cholesterol, HTN GI: Gall Bladder Removed , Female: UTI Musculoskeletal: Arthritis Endocrine: Diabetes, Hypothyroidism - Social History Smoking Status: Never smoker Does Patient Dip or Chew Tobacco: No Alcohol Use: No Use of Substances/Recreational Drugs: No - Family Health History Father Family Member Hx: Unknown Mother Family Member Hx: Unknown - Allergies Allergies/Adverse Reactions: Allergies atorvastatin [From Lipitor] Allergy (Verified 01/04/18 01:26) Hives Penicillins Allergy (Verified 01/04/18 01:26) Hives - Medications Home Medications: Aspirin 81 mg PO DAILY 01/04/18 [History Last Taken Unknown] Atenolol 50 mg PO DAILY 01/04/18 [History Last Taken Unknown] Calcium Carbonate/Vitamin D3 [Calcium Carbonate/Vitamin D 600 mg-400 Iu] 1 tab PO BID 01/04/18 [History Last Taken Unknown] Gemfibrozil 600 mg PO DAILY 01/04/18 [History Last Taken Unknown] Levothyroxine Sodium [Synthroid] 112 mcg PO QDSYNTH 01/04/18 [History Last Taken Unknown] Metformin HCl 1,000 mg PO DAILY 01/04/18 [History Last Taken Unknown] Metformin HCl 500 mg PO DAILY 01/04/18 [History Last Taken Unknown] Valsartan [Diovan] 40 mg PO DAILY 01/04/18 [History Last Taken Unknown] glipiZIDE [Glucotrol] 5 mg PO DAILY 01/04/18 [History Last Taken Unknown] rOPINIRole HYDROCHLORIDE [Requip] 0.5 mg PO QHS 01/04/18 [History Last Taken Unknown] Current Medications: Current Medications Atenolol (Tenormin) 50 mg PO DAILY [facility] Last Admin: 01/04/18 10:58 Dose: Not Given Dextrose (Dextrose Syringe) 25 ml IV Q15M PRN PRN Reason: Hypoglycemia Dextrose (Dextrose Syringe) 50 ml IV Q15M PRN PRN Reason: Hypoglycemia Dextrose (Instant Glucose) 37.5 g PO Q15M PRN PRN Reason: Hypoglycemia Glucagon (Glucagon) 1 mg IM Q15M PRN PRN Reason: Hypoglycemia Dextrose/Sodium Chloride (Dextrose 5%/Sodium Chloride 0.9%) 1,000 mls @ 100 mls /hr IV .Q10H [facility] Last Admin: 01/04/18 03:45 Dose: 80 mls/hr Pantoprazole Sodium 40 mg/ (Sodium Chloride) 10 mls @ 300 mls/hr IV PUSH BID [facility] PRN Reason: Protocol Insulin Human Lispro (Humalog (Bkc)) 0 units SC Q6 [facility] PRN Reason: Protocol Last Admin: 01/04/18 13:15 Dose: Not Given Levothyroxine Sodium (Synthroid) 112 mcg PO QDSYNTH [facility] Last Admin: 01/04/18 03:54 Dose: 112 mcg Valsartan (Diovan) 40 mg PO DAILY [facility] Last Admin: 01/04/18 10:58 Dose: Not Given - Diagnostic Studies Lab Data: Labs (last 24 hrs) 01/04/18 01/04/18 01/04/18 11:25 10:34 06:18 WBC RBC Hgb 8.2 L Hct 24.7 L MCV MCH MCHC RDW Plt Count MPV Immature Gran % (Auto) Neut % (Auto) Lymph % (Auto) [place] % (Auto) Eos % (Auto) Baso % (Auto) Nucleat RBC Rel Count Immature Gran # (Auto) Neut # (Auto) Lymph # (Auto) [place] # (Auto) Eos # (Auto) Baso # (Auto) POC Glucose 150 H 155 H 01/04/18 02:27 WBC 8.3 RBC 2.81 L Hgb 8.3 L Hct 25.6 L MCV 91.1 MCH 29.5 MCHC 32.4 L RDW 13.9 Plt Count 218 MPV 11.3 H Immature Gran % (Auto) 0.7 Neut % (Auto) 64 Lymph % (Auto) 25 [place] % (Auto) 8 Eos % (Auto) 1 Baso % (Auto) 1 Nucleat RBC Rel Count 0.0 Immature Gran # (Auto) 0.1 Neut # (Auto) 5.3 Lymph # (Auto) 2.1 [place] # (Auto) 0.7 Eos # (Auto) 0.1 Baso # (Auto) 0.1 POC Glucose - Subjective Narrative ROS: Review of Systems completed. - Review of Systems Constitutional: Reports: weakness Eyes: Reports: no symptoms ENT: Reports: no symptoms Respiratory: Reports: SOB with exertion Cardiovascular: Reports: other (Atrial fibrillation short of breath on exertion) Gastrointestinal: Reports: melena Genitourinary Exam M/F: Reports: no symptoms Musculoskeletal: Reports: no symptoms Integumentary: Reports: no symptoms Neurological: Reports: no symptoms, other (Restless leg syndrome) Endocrine: Reports: other (Diabetes hypothyroidism) - I O/Vital Signs I O/VS: Intake/Output/Wt 01/01/18 01/02/18 01/03/18 01/04/18 23:59 23:59 23:59 23:59 Intake Total 500 Balance 500 Weight 88.2 kg Intake: Intake 500 Sodium Chloride 0.9% 500 500 ML @ 999 mls/hr IV .Q31M [facility] Rx#:[id number] Other: Height 1.47 m Vital Signs (last 24 hrs) Temp Pulse Resp BP Pulse Ox 01/04/18 13:18 36.3 C L 67 19 108/57 L 99 01/04/18 10:58 76 88/52 L 01/04/18 10:00 72 01/04/18 09:48 36.3 C L 67 20 114/64 100 01/04/18 06:00 36.2 C L 70 20 122/64 100 01/04/18 01:07 36.8 C 75 22 98 Oxygen: Oxygen O2 Sat by Pulse Oximetry 99 Oxygen Delivery Method Room Air - Physical Exam Constitutional: Positive: alert, obese HEENT: Positive: head normal inspection, mucous membranes moist Neck: Positive: Supple, +2 carotid pulse wo bruit, no JVD, JVD Adenopathy: Positive: No Regional Adenopathy Respiratory: Positive: normal lung sounds bilaterally Cardiovascular: Positive: regular rate, normal rhythm GI/Abdominal: Positive: soft, nontender, nondistended, no organomegaly palpable , normal bowel sounds : Positive: deferred Extremities: Positive: normal inspection, normal capillary refill, no edema, no cellulitis Neurological: Positive: alert, oriented X3, CN II-XII intact Integumentary: Positive: warm, dry, no rash, pallor Psychiatric: Positive: normal affect - Assessment and Plan (1) Upper gastrointestinal bleeding Status: Acute (2) Atrial fibrillation Status: Chronic Qualifiers: Atrial fibrillation type: chronic Qualified Code(s): I48.2 - Chronic atrial fibrillation (3) Acute blood loss anemia Status: Acute - Comments Impression Comments: 0 Severe anemia and black and tarry stool anticoagulation therapy most likely this lady is upper GI bleeding. She has no prior gastrointestinal symptoms. Possibility of vascular malformation in the stomach gastritis or ulcer disease or considerations she has no stigmata of any portal hypertension to suspect any variances. I would recommend an upper GI endoscopic examination her last the Coumadin dose WAS on Thursday01/04/18 15:01 discussed with the patient and informed consent was obtained. Observed: 01/04/2018 Status: F Source: [facility] BLOOD BANK REPORT 2:20 PM [facility] REPOSITORY RUN DATE: 01/05/18 [facility] LAB LIVE PAGE 1 RUN TIME: 3 Specimen Inquiry PATIENT: KYAW ESPINOZA ACCT: [id number] LOC: 8W U: [id number] AGE/SX: 67/F ROOM: 852 RE01/04/[address]: Jojo Light MD : 1950 BED: 1 DIS: STATUS: ADM IN TLOC: SPEC #: [id number] ZACARIAS: 01/04/18 STATUS: SERINA REQ #: [id number] RECD: 01/04/[address]: Lashawn Chang APRN.PRODUCTION OR PLANT ENGINEER ENTERED: 01/04/18-[address]: Nilesh Pickett MD, Unni MD Luong,Raghu Colleen DO ORD PRODS: PC/LRC ORD TESTS: TS, ABO/Rh (RPT), IS XM LRC2/Leukoreduced Packed Cells -------- Issue --------- Unit # Bld Type Product Status Date Time User Rsrvd [id number] A NEG LRC2 TRANSFUSED 01/05/18 1245 GILVA Volume: 300 mL TX Begin: 01/05/18 By [email or web address] TX End: 01/05/18 By [email or web address] Occurred Date/Time: 01/05/18 130 Dereje Blankenship (RN) Entered by: 01/05/18 130 Dereje Blankenship (RN) Blood Pressure: 90/62 Pulse/Heart Rate: 86 Respiratory Rate: 16 Temperature: 36.5 C Occurred Date/Time: 01/05/18 1318 Isabela Murphy ([employer] FARMWORKER) Entered by: 01/05/18 1406 Isabela Murphy (BULB FARMWORKER) Blood Pressure: 99/61 Blood Pressure: 100/57 Pulse: 86 Pulse: 78 Respiratory Rate: 20 Respiratory Rate: 20 Temperature: 36.4 C Temperature: 36.6 C Occurred Date/Time: 01/05/18 1550 Mariana Whitaker ([employer] FARMWORKER) Entered by: 01/05/18 164Mariana Barrett ([facility]) Blood Pressure: 116/63 Pulse: 82 Respiratory Rate: 20 Temperature: 36.5 C Test Result Flag Reference ABO/Rh Type > Blood Type AB POS ABO/Rh (RPT) > Repeat ABO/Rh AB POS > Antibody Screen NEGATIVE IS Crossmatch > /[facility] [id number] A NEG Compatible? Y END OF REPORT Performed By: #### BLB #### [facility] [address] [place] [address] HEMOGLOBIN AND Collected: 01/04/2018 Status: CANCELLED Source: [place] HEMATOCRIT 2:00 PM [facility] REPOSITORY Order Comment: Cancelled via OM: Physician Order TYPE CODE TESTS RESULT OUT OF REFERENCE UNITS RANGE LAB HGB 12.0-16.0 Hemoglobin LAB HCT 35-47 Hematocrit Performed By: #### HH #### [facility] [address] [place] [address] GENERAL MEDICAL Observed: 01/04/2018 Status: F Source: [place] PROGRESS NOTE 1:15 PM [facility] Patient: KYAW ESPINOZA [address] MR#: [id number] [place] [address] : 1950 Ord. Tang: Dept: PDOC Loc: 852-1 General Medical Progress Note Service Dt: 01/04/18 Report#: [id number] Adm Dt: 01/04/18 Dis Dt: General-Medical Progress Note - Patient Visit Reason Visit Reason: GI BLEED - Subjective Narrative HPI/ROS: Pt seen and examined. She is feeling lightheaded and dizzy this morning, easily gets short of breath and fatigued with minimal exertion. Black stools started 01/01/18, dizziness and nausea started 01/03/18. She denies any chest pain. - I O/Vital Signs I O/VS: Vital Signs Temp 36.3 C L 01/04/18 09:48 Pulse 76 01/04/18 10:58 Resp 20 01/04/18 09:48 BP 88/52 L 01/04/18 10:58 Pulse Ox 100 01/04/18 09:48 Intake Output 01/03/18 01/04/18 01/04/18 23:59 11:59 23:59 Weight 88.2 kg Other: Height 1.47 m - Patient Exam General appearance: alert, in no apparent distress, obese Head: Positive: normal inspection Eyes: Positive: PERRL, EOMI Pupils: Positive: equal and reactive ENT: Positive: normal exam, mucous membranes moist Neck: Positive: trachea midline, supple Respiratory: Positive: normal lung sounds bilaterally Cardiovascular: Positive: irregular rhythm, irregular rate GI/Abdominal: Positive: soft, nontender, nondistended, normal bowel sounds Extremities: Positive: no edema, no cellulitis Neurological: Positive: alert, oriented X3 Integumentary: Positive: warm, intact, pallor - Lab Diagnostic Data Diagrams: 01/04/18 11:25 Chemistry: Chemistry (Last 24hrs) 01/04/18 01/04/18 10:34 06:18 POC Glucose 150 H 155 H - Medications Meds: Current Medications Atenolol (Tenormin) 50 mg PO DAILY [facility] Last Admin: 01/04/18 10:58 Dose: Not Given Dextrose (Dextrose Syringe) 25 ml IV Q15M PRN PRN Reason: Hypoglycemia Dextrose (Dextrose Syringe) 50 ml IV Q15M PRN PRN Reason: Hypoglycemia Dextrose (Instant Glucose) 37.5 g PO Q15M PRN PRN Reason: Hypoglycemia Glucagon (Glucagon) 1 mg IM Q15M PRN PRN Reason: Hypoglycemia Dextrose/Sodium Chloride (Dextrose 5%/Sodium Chloride 0.9%) 1,000 mls @ 100 mls /hr IV .Q10H [facility] Last Admin: 01/04/18 03:45 Dose: 80 mls/hr Pantoprazole Sodium 40 mg/ (Sodium Chloride) 10 mls @ 5 mls/min IV PUSH DAILY [facility] Last Admin: 01/04/18 11:20 Dose: 5 mls/min Insulin Human Lispro (Humalog (Bkc)) 0 units SC Q6 [facility] PRN Reason: Protocol Last Admin: 01/04/18 06:27 Dose: Not Given Levothyroxine Sodium (Synthroid) 112 mcg PO QDSYNTH [facility] Last Admin: 01/04/18 03:54 Dose: 112 mcg Valsartan (Diovan) 40 mg PO DAILY [facility] Last Admin: 01/04/18 10:58 Dose: Not Given Allergies/Adv: Allergies Allergy/AdvReac Type Severity Reaction Status Date / Time atorvastatin [From Lipitor] Allergy Hives Verified 01/04/18 01:26 Penicillins Allergy Hives Verified 01/04/18 01:26 - Assessment/Plan (1) Acute blood loss anemia Status: Acute (2) Hypotension Status: Acute (3) GI bleed Status: Acute (4) Melena Status: Acute (5) Atrial fibrillation Status: Chronic Qualifiers: Atrial fibrillation type: chronic Qualified Code(s): I48.2 - Chronic atrial fibrillation (6) Diabetes Status: Chronic Qualifiers: Diabetes mellitus type: type 2 (7) HTN (hypertension) Status: Chronic Qualifiers: Hypertension type: essential hypertension Qualified Code(s): I10 - Essential (primary) hypertension (8) DVT prophylaxis Status: Acute - Comments Impression: 01/04/18 13:18 67 y/o female PMHx HTN, A-fib on coumadin, DM, hypothyroidism presented to OSH ED for black stools. Found to be anemic and transferred to [facility]. 1) Acute blood loss anemia 2) Hypotension 3) GI bleed, suspect upper 4) A-fib on coumadin 5) DM 6) Hypothyroidism She is hypotensive this morning, bolus 500ml NS and increase rate of IVF. Holding all her ant-hypertensives. She appears pale. Keep NPO, PPI IVP BID, GI consulted. Holding coumadin and heparin products, INR 3.0. No episodes of black stools since admission. Monitoring H/H closely. She received 1U PRBCs transfusion so far. ISS q6 while NPO. FEN: D5NS @100ml/hr, NPO GI/DVT: PPI BID, holding AC Dispo: awaiting GI evaluation, medical management as above. - Patient Time (minutes) Time Spent w/Patient: 32 HEMOGLOBIN AND Collected: 01/04/2018 Status: F Source: [place] HEMATOCRIT 11:25 AM [facility] REPOSITORY TYPE CODE TESTS RESULT OUT OF REFERENCE UNITS RANGE LAB HGB 12.0-16.0 g/dL Low Hemoglobin 8.2 LAB HCT 35-47 % Low Hematocrit 24.7 Performed By: #### HH #### [address] [address] GLUCOSE, POINT OF Collected: 01/04/2018 Status: F Source: [place] CARE 10:34 AM [facility] REPOSITORY TYPE CODE TESTS RESULT OUT OF REFERENCE UNITS RANGE LAB POCGLU 80-110 mg/dL High Glucose, 150 Point of Care Performed By: #### POCGLU #### [address] [address] GENERAL MEDICAL Observed: 01/04/2018 Status: F Source: [place] PROGRESS NOTE 10:18 AM [facility] REPOSITORY [facility] Patient: KYAW ESPINOZA [address] MR#: [id number] [place], [place] [address] : 1950 Ord. Tang: Dept: PDOC Loc: 8W 852-1 General Medical Progress Note Service Dt: 01/04/18 Report#: [id number] Adm Dt: 01/04/18 Dis Dt: General-Medical Progress Note - Patient Visit Reason Visit Reason: GI BLEED - Subjective Narrative HPI/ROS: Pt is a 67 year old female admitted with GI bleed. Noted black stools starting , no red or maroon BM's. Dry heaves and vomited food 01/03/18, no coffee ground or bloody emesis. Dizziness and orthostasis started yesterday which prompted her to go to the ED in [place] where she lives. Reports epigastric pain worse with empty stomach and improves after eating. Received 1 unit PRBC's prior to transfer to [facility]. No history of PUD, GERD, or GI bleed. No prior EGD or colonoscopy. Dr Cole consulted for GI. History of Afib, takes coumadin 2 mg Thursday and Thursday, 3 mg all other days. Afib is managed by paediatrician Dr Mancilla in [place] who also monitors INR. Pt has required adjustments in dose, INR checked several times monthly. Also takes aspirin 81 mg daily. History of diabetes, controlled per pt. Does not check blood sugars at home. Takes glipizide 5 mg po daily, metformin 500 mg daily in am and 1000 mg daily in pm. Currently NPO, humalog mild SSI and D5NS at 80 ml/hr infusing. - Review of Systems Constitutional: Reports: weakness, fatigue Eyes: Reports: no symptoms ENT: Reports: no symptoms Respiratory: Reports: no symptoms reported. Denies: cough Cardiovascular: Reports: no symptoms Gastrointestinal: Reports: abdominal pain (epigastric area on palpation) Genitourinary: Reports: no symptoms Musculoskeletal: Reports: no symptoms Integumentary: Reports: no symptoms Neurological: Reports: weakness, lightheadedness Psychiatric: Reports: no symptoms Endocrine: Reports: no symptoms reported Hematological/Lymphatic: Reports: no symptoms Allergic/Immunologic: Reports: no symptoms - I O/Vital Signs I O/VS: Vital Signs Temp 97.3 F L 01/04/18 09:48 Pulse 67 01/04/18 09:48 Resp 20 01/04/18 09:48 BP 114/64 01/04/18 09:48 Pulse Ox 100 01/04/18 09:48 Intake Output 01/03/18 01/03/18 01/04/18 11:59 23:59 11:59 Weight 194 lb 7.163 oz Other: Height 4 ft 10 in - Patient Exam General appearance: alert, in no apparent distress Limitations: Positive: no limitations Head: Positive: normal inspection Eyes: Positive: normal appearance ENT: Positive: mucous membranes dry Respiratory: Positive: normal lung sounds bilaterally. Negative: rales, rhonchi , wheezes Cardiovascular: Positive: regular rate, normal rhythm GI/Abdominal: Positive: soft, nondistended, normal bowel sounds, tenderness ( epigastric) Extremities: Positive: normal inspection, normal capillary refill, no edema Neurological: Positive: alert, oriented X3 Integumentary: Positive: warm, dry, intact, pallor. Negative: rash - Lab Diagnostic Data Diagrams: 01/04/18 02:27 Chemistry: Chemistry (Last 24hrs) 01/04/18 06:18 POC Glucose 155 H - Medications Meds: Current Medications Atenolol (Tenormin) 50 mg PO DAILY [facility] Dextrose (Dextrose Syringe) 25 ml IV Q15M PRN PRN Reason: Hypoglycemia Dextrose (Dextrose Syringe) 50 ml IV Q15M PRN PRN Reason: Hypoglycemia Dextrose (Instant Glucose) 37.5 g PO Q15M PRN PRN Reason: Hypoglycemia Glucagon (Glucagon) 1 mg IM Q15M PRN PRN Reason: Hypoglycemia Dextrose/Sodium Chloride (Dextrose 5%/Sodium Chloride 0.9%) 1,000 mls @ 80 mls/ hr IV .[id number] [facility] Last Admin: 01/04/18 03:45 Dose: 80 mls/hr Insulin Human Lispro (Humalog (Bkc)) 0 units SC Q6 [facility] PRN Reason: Protocol Last Admin: 01/04/18 06:27 Dose: Not Given Levothyroxine Sodium (Synthroid) 112 mcg PO QDSYNTH [facility] Last Admin: 01/04/18 03:54 Dose: 112 mcg Pantoprazole Sodium (Protonix) 40 mg PO DAILY [facility] Valsartan (Diovan) 40 mg PO DAILY [facility] Allergies/Adv: Allergies Allergy/AdvReac Type Severity Reaction Status Date / Time atorvastatin [From Lipitor] Allergy Hives Verified 01/04/18 01:26 Penicillins Allergy Hives Verified 01/04/18 01:26 - Assessment/Plan (1) Melena Status: Acute Plan: 01/04/18 11:21 -Dr Cole consulted for GI -No BM since admission, episodic nausea but no emesis -NPO -Monitor serial H H -Hold asa and coumadin (2) Atrial fibrillation Status: Chronic Qualifiers: Atrial fibrillation type: chronic Qualified Code(s): I48.2 - Chronic atrial fibrillation Plan: 01/04/18 11:22 -Coumadin on hold for active GI bleed -Atenolol 50 mg po daily -Currently SR rate 70 (3) Diabetes Status: Chronic Qualifiers: Diabetes mellitus type: type 2 Plan: 01/04/18 11:23 -Humalog mild SSI, accuchecks ac hs -D5NS rate 80 ml/hr (4) HTN (hypertension) Status: Chronic Qualifiers: Hypertension type: essential hypertension Qualified Code(s): I10 - Essential (primary) hypertension Plan: 01/04/18 11:26 -Valsartan 40 mg daily (held today for low bp reading) - Patient Time (minutes) Time Spent w/Patient: 45 GLUCOSE, POINT OF Collected: 01/04/2018 Status: F Source: [facility] [address] 6:18 AM [facility] TYPE CODE TESTS RESULT OUT OF REFERENCE UNITS RANGE LAB POCGLU 80-110 mg/dL High Glucose, 155 Point of Care Performed By: #### POCGLU #### [facility] [address] [place] [address] PROTIME INR Collected: 01/04/2018 Status: F Source: [place] 6:00 AM [facility] REPOSITORY TYPE CODE TESTS RESULT OUT OF REFERENCE UNITS RANGE LAB PT 9.8-12.7 sec Prothrombin High Time $$ 34.1 Result Comment: Please note new reference range OF 09/15/2017 LAB INR 0.9-1.1 High INR 3.0 Result Comment: Please note new reference range OF 09/15/2017 Performed By: #### PTINR #### [facility] [address] [place] [id number] HISTORY AND PHYSICAL Observed: 01/04/2018 Status: F Source: [place] 3:02 AM [facility] REPOSITORY [facility] Patient: KYAW ESPINOZA [address] [facility] MR#: [id number] [place], [place] [address] : 1950 Ord. Tang: Dept: PDOC Loc: 8W 852-1 History Physical Service Dt: 01/04/18 Report#: [id number] Adm Dt: 01/04/18 Dis Dt: Addendum entered by Lashawn Chang on 01/04/18 113 Addendum Note: Pt had episode of lightheadedness while getting up from bathroom. BP 88/52. NS 500 mg bolus and stat H H ordered. No BM, no emesis, but episode of nausea that has resolved. <Electronically signed by Lashawn GREER> 01/04/181131 End of Addendum History and Physical - Admit Order Information Status/Length of Stay: Observation <2 Midnights, Place Pt in Routine Location: Telemetry Floor - Date of Service Date of Service: 01/04/18 Narrative: 67 yrs old wf admitted from [facility] where she presented with c/o passing black tarry stools lower abdominal pain dull at times burning getting releif after eating pt felt dizziy and light headed denies syncope or wekaness felt shob on exertion .she has ho caf and is on warfatrin with inr3 she got vitamin k and ffp ordered but per reviwe of chart it seem she did not receive t she was given one unit prbxc as well. she deneis cp palpiation denies h/o gerd pud denies egd or colonoscpy done in past denies using nsaids she is also on asa.as well. Cardiac: A-Fib, High Cholesterol, HTN GI: Gall Bladder Removed , Female: UTI Musculoskeletal: Arthritis Endocrine: Diabetes, Hypothyroidism - Social History Smoking Status: Never smoker Does Patient Dip or Chew Tobacco: No Alcohol Use: No Use of Substances/Recreational Drugs: No - Family Health History Father Family Member Hx: Unknown Mother Family Member Hx: Unknown - Allergies Allergies/Adverse Reactions: Allergies atorvastatin [From Lipitor] Allergy (Verified 01/04/18 01:26) Hives Penicillins Allergy (Verified 01/04/18 01:26) Hives - Medications Home Medications: Aspirin 81 mg PO DAILY 01/04/18 [History Last Taken Unknown] Atenolol 50 mg PO DAILY 01/04/18 [History Last Taken Unknown] Calcium Carbonate/Vitamin D3 [Calcium Carbonate/Vitamin D 600 mg-400 Iu] 1 tab PO BID 01/04/18 [History Last Taken Unknown] Gemfibrozil 600 mg PO DAILY 01/04/18 [History Last Taken Unknown] Levothyroxine Sodium [Synthroid] 112 mcg PO QDSYNTH 01/04/18 [History Last Taken Unknown] Metformin HCl 1,000 mg PO DAILY 01/04/18 [History Last Taken Unknown] Metformin HCl 500 mg PO DAILY 01/04/18 [History Last Taken Unknown] Valsartan [Diovan] 40 mg PO DAILY 01/04/18 [History Last Taken Unknown] glipiZIDE [Glucotrol] 5 mg PO DAILY 01/04/18 [History Last Taken Unknown] - Diagnostic Studies Lab Data: Labs (last 24 hrs) 01/04/18 02:27 WBC 8.3 RBC 2.81 L Hgb 8.3 L Hct 25.6 L MCV 91.1 MCH 29.5 MCHC 32.4 L RDW 13.9 Plt Count 218 MPV 11.3 H Immature Gran % (Auto) 0.7 Neut % (Auto) 64 Lymph % (Auto) 25 [place] % (Auto) 8 Eos % (Auto) 1 Baso % (Auto) 1 Nucleat RBC Rel Count 0.0 Immature Gran # (Auto) 0.1 Neut # (Auto) 5.3 Lymph # (Auto) 2.1 [place] # (Auto) 0.7 Eos # (Auto) 0.1 Baso # (Auto) 0.1 - Subjective Narrative ROS: Review of Systems completed. - Review of Systems Constitutional: Reports: fatigue. Denies: chills, diaphoresis, fever, malaise, weakness Eyes: Reports: no symptoms ENT: Reports: no symptoms Respiratory: Reports: no symptoms reported Cardiovascular: Reports: no symptoms Gastrointestinal: Reports: abdominal pain, nausea, melena, hematochezia. Denies : diarrhea, constipation, hematemesis Genitourinary Exam M/F: Reports: no symptoms Musculoskeletal: Reports: no symptoms Integumentary: Reports: no symptoms Neurological: Reports: no symptoms Psychiatric: Reports: no symptoms Endocrine: Reports: no symptoms reported Hematological/Lymphatic: Reports: no symptoms Allergic/Immunologic: Reports: no symptoms - Vital Signs Vitals: Vital Signs (last response) Temperature 36.8 C 01/04/18 01:07 Pulse/Heart Rate 75 01/04/18 01:07 Respiratory Rate 22 01/04/18 01:07 Blood Pressure O2 Sat by Pulse Oximetry 98 01/04/18 01:07 - Physical Exam Constitutional: Positive: alert, in no apparent distress HEENT: Positive: head normal inspection, PERRL, EOMI, normal external ear exam Neck: Positive: Supple, +2 carotid pulse wo bruit, no JVD, no thyromegaly, no lymphadenopathy, no bruit Adenopathy: Positive: No Regional Adenopathy Respiratory: Positive: normal lung sounds bilaterally Cardiovascular: Positive: regular rate, normal rhythm, normal heart sounds GI/Abdominal: Positive: soft, nontender, nondistended, no organomegaly palpable , normal bowel sounds : Positive: deferred Extremities: Positive: normal inspection, full ROM, normal capillary refill, no edema, no cellulitis Neurological: Positive: alert, oriented X3 Integumentary: Positive: warm, dry, intact, normal color, no rash Psychiatric: Positive: normal affect, normal mood - Assessment and Plan (1) Melena Status: Acute Plan: 01/04/18 03:07 hold asa warfarin recheck inr ,iv ppi npo gi consult serial hgb/hct did receive one unit prbc will check hgb and follow (2) Anemia Status: Acute Qualifiers: Anemia type: unspecified type Qualified Code(s): D64.9 - Anemia, unspecified Narrative Support Text: post hemorhagic anemia Plan: 01/04/18 03:09 as above (3) Atrial fibrillation Status: Chronic Qualifiers: Atrial fibrillation type: chronic Qualified Code(s): I48.2 - Chronic atrial fibrillation Plan: 01/04/18 03:09 hold asa warfarin on bb on telemetry (4) Diabetes Status: Chronic Qualifiers: Diabetes mellitus type: type 2 Plan: 01/04/18 03:10 hold oral agents iss bs since npo so iv d5ns monitor i.os (5) HTN (hypertension) Status: Chronic Qualifiers: Hypertension type: essential hypertension Qualified Code(s): I10 - Essential (primary) hypertension Plan: 01/04/18 03:11 meds Review and update is required if H P is greater than twenty- four hours. The patient was examined, the H P was reviewed. __ No Changes __ Changes noted below: Date/Time Attending Physician COMPLETE BLOOD COUNT Collected: 01/04/2018 Status: F Source: [place] W/DIFF $$ 2:27 AM [facility] REPOSITORY TYPE CODE TESTS RESULT OUT OF REFERENCE UNITS RANGE LAB WBC 4.0-11.0 10 3/uL White Blood Count 8.3 LAB RBC 4.2-5.4 10 6/uL Low Red Blood Count 2.81 LAB HGB 12.0-16.0 g/dL Low Hemoglobin 8.3 LAB HCT 35-47 % Low Hematocrit 25.6 LAB MCV 80-100 fL Mean Corpuscular Volume 91.1 LAB MCH 27-34 pg Mean Corpuscular 29.5 Hemoglobin LAB MCHC 33-37 g/dL Low Mean Corpuscular Hgb 32.4 Conc LAB RDW 11.5-14.5 % Red Cell Distribution Width 13.9 LAB PLT 150-400 10 3/uL Platelet Count 218 LAB MPV 7.4-10.4 fL Mean Platelet High Volume 11.3 LAB NE% 42-76 % Neutrophils (Auto) 64 LAB LY% 24-44 % Lymphocytes (Auto) 25 LAB MO% 1-8 % Monocytes (Auto) 8 LAB EO% 0-3 % Eosinophils (Auto) 1 LAB BA% 0-1 % Basophils (Auto) 1 LAB IG% 0.0-0.9 % Immature Granulocytes 0.7 (Auto) LAB NRBC% 0.0-0.0 % Nucleated RBC 0.0 LAB NE# 1.8-7.0 10 3/uL Neutrophils # (Auto) 5.3 LAB LY# 1-3.5 10 3/uL Lymphocytes # (Auto) 2.1 LAB MO# 0.04-0.9 10 3/uL Monocytes # (Auto) 0.7 LAB EO# 0.03-0.6 10 3/uL Eosinophils # (Auto) 0.1 LAB BA# 0.04-0.9 10 /uL Basophils # (Auto) 0.1 LAB IG# 10 3/uL Immature Gran# (Auto) 0.1 Performed By: #### CBC #### [facility] [address] [place] [address] HCT & HGB Collected: 01/03/2018 Status: F Source: EPISCOPAL 10:35 PM [facility] REPOSITORY TYPE CODE TESTS RESULT OUT OF RANGE REFERENCE UNITS LAB [id number](LO 12.0-16.0 G/DL INC) Low Hgb 7.6 LAB [id number](LO 36.0-48.0 % INC) Low Hct 22.3 Performed By: #### [id number] #### YARITZA [facility] [place] [address] UA COMPLETE Collected: 01/03/2018 Status: F Source: EPISCOPAL 9:31 PM [facility] REPOSITORY TYPE CODE TESTS RESULT OUT OF RANGE REFERENCE UNITS LAB [id number]( Yellow LOINC) Normal UA Color Yellow LAB [id number]( Clear LOINC) UA Clarity Abnormal SltCloudy LAB [id number]( Negative LOINC) Normal UA Glucose Negative LAB 19466081( Negative LOINC) Normal UA Bili Negative LAB [id number]( Negative LOINC) Normal UA Ketones Negative LAB [id number]( 1.003-1.030 LOINC) High UA Spec Grav 1.044 LAB [id number]( 4.6-8.0 LOINC) Normal UA pH 6.0 LAB 46458210( Negative LOINC) Normal UA Protein Negative LAB 49006990( LOINC) Normal UA Urobilinogen Negative LAB 82888397( Negative LOINC) Normal UA Nitrite Negative LAB 75270712( Negative LOINC) Normal UA Blood 3+ LAB 53160156( Negative LOINC) UA Leuk Est 2+ Abnormal LAB 82668566( 0-3 /HPF LOINC) UA RBC Abnormal 5-10 LAB [id number]( 0-5 /HPF LOINC) Normal UA WBC 0-5 LAB 11026911( 0-5 /HPF LOINC) Normal UA Squam Epithelial 0-5 LAB [id number]( None /HPF LOINC) UA Bacteria Abnormal Trace LAB [id number]( Trace /LPF LOINC) UA Mucous Abnormal Trace Performed By: #### [id number] #### YARITZA Urinalysis Automated Subsection [facility] [place] [address] XR CHEST AP PORTABLE Observed: 01/03/2018 Status: F Source: EPISCOPAL 9:30 PM [facility] REPOSITORY Exam Date/Time: 01/03/2018 21:33 EDT Reason for Exam: Difficulty breathing Report SINGLE AP CHEST CLINICAL HISTORY: Difficulty breathing. COMPARISON: None. FINDINGS: Single AP upright view is submitted.. Elevation of the right hemidiaphragm is noted. The cardiomediastinal silhouette, lungs, pulmonary vasculature, and pleural spaces are normal. No acute osseous lesion is present. IMPRESSION: No acute cardiopulmonary abnormality. FINAL REPORT Dictated: 01/03/2018 10:16 pm Lolly Brown MD Signed (Electronic Signature): 01/03/2018 10:16 pm Signed by: Lolly Brown MD Technologist: AMISHA, CT ABDOMEN/PELVIS W/ Observed: 01/03/2018 Status: F Source: EPISCOPAL CONTRAST 8:43 PM [facility] REPOSITORY Exam Date/Time: 01/03/2018 20:59 EDT Reason for Exam: Pain Report CT ABDOMEN AND PELVIS WITH CONTRAST: CLINICAL STATEMENT: Pain. COMPARISON: None. TECHNIQUE: CT examination of the abdomen and pelvis following the administration of 100 mL of Omnipaque 350 intravenous contrast. Coronal and sagittal reformations were performed. Dose reduction techniques were achieved by using automated exposure control and/or adjustment of mA and/or kV according to patient size and/or use of iterative reconstruction technique. FINDINGS: Lower thorax: Lung bases are clear. There are no effusions. Liver: Hypodense. Spleen: Normal. Stomach: Normal. Gallbladder: Absent. No dilated biliary ducts. Bowel: No obstruction, free air, or ascites. There is no mucosal thickening. Appendix: Not visualized. Kidneys: Normal. Adrenal glands: Normal. Pancreas: Normal. Retroperitoneum: Normal aorta. No adenopathy. CT PELVIS: Normal bladder. There are no adnexal or uterine masses. No pelvic adenopathy or ascites. Skeletal: Degenerative disc disease from L3 to L5 and L1-L2. Grade 1 spondylolisthesis of L4-L5. Exam Date/Time: 01/03/2018 20:59 EDT Report IMPRESSION: 1. Fatty replacement of the liver. 2. Presumed cholecystectomy. 3. Diffuse degenerative disc disease. FINAL REPORT Dictated: 01/03/2018 11:02 pm John Paul Davis MD Signed (Electronic Signature): 01/03/2018 11:02 pm Signed by: John Paul Davis MD Technologist: AMISHA CBC W/ AUTO DIFF Collected: 01/03/2018 Status: F Source: EPISCOPAL 7:59 [facility] REPOSITORY TYPE CODE TESTS RESULT OUT OF RANGE REFERENCE UNITS LAB [id number](L 3.6-11.0 E3/mcL OINC) Normal WBC 8.9 LAB [id number](L 3.90-5.40 E6/mcL OINC) Low RBC 2.86 LAB [id number](L 12.0-16.0 G/DL OINC) Low Hgb 8.6 LAB 62806301(L 36.0-48.0 % OINC) Low Hct 25.1 LAB 01402533(L 11.5-14.5 % OINC) Normal RDW 13.9 LAB [id number](L 27.0-31.0 pg OINC) Normal MCH 30.0 LAB [id number](L 33.0-37.0 G/DL OINC) Normal MCHC 34.1 LAB [id number](L 78.0-100.0 fL OINC) Normal MCV 88.0 LAB [id number](L 7.4-11.0 fL OINC) Normal MPV 9.8 LAB [id number](L 130-400 E3/mcL OINC) Normal Platelet 293 Performed By: #### [id number] #### [place] [address] AUTO DIFF Collected: 01/03/2018 Status: F Source: EPISCOPAL 7:59 [facility] REPOSITORY Order Comment: Order Added by Discern Expert. TYPE CODE TESTS RESULT OUT OF RANGE REFERENCE UNITS LAB [id number](L 37.0-75.0 % OINC) Normal Neutro Auto 64.8 LAB [id number](L 20.0-55.0 % OINC) Normal Lymph Auto 25.3 LAB 76541386(L 0.0-10.0 % OINC) Normal [place] Auto 7.9 LAB 73650757(L 0.0-11.0 % OINC) Normal Eos Auto 1.0 LAB 11252505(L 0.0-2.0 % OINC) Normal Basophil Auto 1.0 LAB [id number](L 1.4-6.5 E3/mcL OINC) Normal Neutro 5.8 Absolute LAB [id number](L 1.2-3.4 E3/mcL OINC) Normal Lymph Absolute 2.2 LAB 67890403(L 0.0-0.7 E3/mcL OINC) Normal [place] Absolute 0.7 LAB 88813107(L 0.0-0.7 E3/mcL OINC) Normal Eos Absolute 0.1 LAB [id number](L 0.0-0.2 E3/mcL OINC) Normal Basophil 0.1 Absolute Performed By: #### [id number] #### YARITZA [facility] [address] [place] [address] PTT Collected: 01/03/2018 Status: F Source: EPISCOPAL 7:59 PM [facility] REPOSITORY TYPE CODE TESTS RESULT OUT OF RANGE REFERENCE UNITS LAB [id number](LO 23.2-36.4 second(s) INC) Normal PTT 33.5 Performed By: #### [id number] #### YARITZA Hematology Automated Subsection [address] [place] [address] PTT CONTROL RATIO Collected: 01/03/2018 Status: F Source: EPISCOPAL 7:59 PM [facility] REPOSITORY Order Comment: Order added by Discern Expert. TYPE CODE TESTS RESULT OUT OF RANGE REFERENCE UNITS LAB [id number](LO 0.8-1.2 ratio INC) Normal PTT Ratio 1.1 Performed By: #### [id number] #### YARITZA Hematology [facility] [address] [place] [address] PT Collected: 01/03/2018 Status: F Source: EPISCOPAL 7:59 PM [facility] REPOSITORY TYPE CODE TESTS RESULT OUT OF RANGE REFERENCE UNITS LAB [id number](LO 1.0-1.2 INC) High INR 3.0 Result Comment: INR Recommended Therapeuptic Ranges: Prophylaxis/treatment of DVT and PE?2.0-3.0 Prevention of systemic embolism?.2.0-3.0 Mechanical prosthetic values?2.5-3.5 CRITICAL VALUES?.>4.0 LAB [id number](LOINC) 11.6-14.6 second(s) High PT 29.0 Performed By: #### [id number] #### YARITZA Hematology Automated Subsection [address] [place] [address] CMP Collected: 01/03/2018 Status: F Source: EPISCOPAL 7:59 PM [facility] REPOSITORY TYPE CODE TESTS RESULT OUT OF RANGE REFERENCE UNITS LAB [id number](L 70-99 mg/dL OINC) High Glucose Lvl 247 LAB 96061692(L 8.4-10.2 mg/dL OINC) Calcium Normal Lvl 9.2 LAB 50331156(L 136-145 mEq/L OINC) Low Sodium Lvl 134 LAB 44275966(L 3.5-5.1 mEq/L OINC) Normal Potassium Lvl 4.1 LAB 64967597(L 98-107 mEq/L OINC) Chloride Normal 103 LAB [id number](L 24.0-30.0 mEq/L OINC) Low CO2 20.1 LAB 19692309(L 7-18 mg/dL OINC) High BUN 56 LAB [id number](LO 0.6-1.3 mg/dL INC) Normal Creatinine 0.8 LAB 07624193(L 42-121 Int._Unit/ OINC) Low L Alk Phos 41 LAB [id number](L 0.2-1.0 mg/dL OINC) Bili Normal Total 0.4 LAB 69641510(L 3.2-5.0 G/DL OINC) Albumin Normal Lvl 3.4 LAB 30570756(L 6.4-8.3 G/DL OINC) Total Normal Protein 6.5 LAB 22995309(L 10-40 Int._Unit/ OINC) L ALT Normal 12 LAB 13963365(L 10-42 Int._Unit/ OINC) L AST Normal 16 LAB [id number](L 5.4-30.0 ratio OINC) High BUN/Creat Ratio 70.0 LAB 00721801(L 2.0-4.0 G/DL OINC) Globulin Normal 3.1 LAB 89223410(L 1.1-1.9 ratio OINC) A/G Normal Ratio 1.1 Performed By: #### [id number] #### YARITZA [facility] [address] [place] [address] TROPONIN-I Collected: 01/03/2018 Status: F Source: EPISCOPAL 7:59 PM [facility] REPOSITORY TYPE CODE TESTS RESULT OUT OF RANGE REFERENCE UNITS LAB [id number](LO .00-.03 ng/mL INC) Normal <.01 Troponin-I Performed By: #### [id number] #### YARITZA [facility] [address] [place] [address] EGFR Collected: 01/03/2018 Status: F Source: EPISCOPAL 7:59 [facility] REPOSITORY Order Comment: Order added by Discern Expert. TYPE CODE TESTS RESULT OUT OF RANGE REFERENCE UNITS LAB [id number](LO mL/min/1.73 INC) m2 Normal eGFR >60 LAB [id number](LO mL/min/1.73 INC) m2 Normal eGFR AA >60 Performed By: #### [id number] #### [place] [address] LIPASE LEVEL Collected: 01/03/2018 Status: F Source: EPISCOPAL 7:59 [facility] REPOSITORY TYPE CODE TESTS RESULT OUT OF RANGE REFERENCE UNITS LAB [id number](LO 8-57 U/L INC) Normal Lipase Lvl 29 Performed By: #### [id number] #### YARITZA [facility] [address] [place] [address] MAGNESIUM Collected: 01/03/2018 Status: F Source: EPISCOPAL 7:59 [facility] REPOSITORY TYPE CODE TESTS RESULT OUT OF REFERENCE UNITS RANGE LAB [id number](L 1.7-2.8 mg/dL OINC) Low Magnesium 1.4 Performed By: #### [id number] #### YARITZA [facility] [place] [address] BNP. Collected: 01/03/2018 Status: F Source: EPISCOPAL 7:59 [facility] REPOSITORY TYPE CODE TESTS RESULT OUT OF RANGE REFERENCE UNITS LAB CD:[id number] <=100 pg/mL 67(LOINC) High BNP. 214 Result Comment: Notice: Effective 01/28/2017 the methodology for BNP testing has changed. BNP values less than or equal to 100 pg/mL is considered normal for patients without CHF.The decision threshold was determined by the 95% confidence limit of BNP concentration in the non-CHF population age 55 and older.It is recommended that a new baseline value be established using the new method if monitoring patient's BNP level. Performed By: #### [id number] #### YARITZA [facility] [address] [place] [address] ABO/RH ECHO Collected: 01/03/2018 Status: F Source: EPISCOPAL 7:59 PM [facility] REPOSITORY TYPE CODE TESTS RESULT OUT OF RANGE REFERENCE UNITS LAB [id number](LO INC) ABO/Rh E AB POS Interp... Performed By: #### [id number] #### YARITZA [facility] [address] [place] [address] ANTIBODY SCREEN Collected: 01/03/2018 Status: F Source: EPISCOPAL CAP... 7:59 PM [facility] REPOSITORY TYPE CODE TESTS RESULT OUT OF RANGE REFERENCE UNITS LAB [id number](L OINC) Normal Screen Negative Interp... Performed By: #### [id number] #### YARITZA [facility] [address] [place] [address] CBC Collected: 01/01/2018 Status: F Source: BELLE 9:02 AM [facility] REPOSITORY TYPE CODE TESTS RESULT OUT OF REFERENCE UNITS RANGE LAB WBC 3.70-11.00 k/uL WBC 8.00 LAB RBC 3.90-5.20 m/uL RBC 3.99 LAB HGB 11.5-15.5 g/dL Hemoglobin 11.7 LAB HCT 36.0-46.0 % Hematocrit 36.8 LAB MCV 80.0-100.0 fL MCV 92.2 LAB MCH 26.0-34.0 pG MCH 29.3 LAB MCHC 30.5-36.0 g/dL MCHC 31.8 LAB RDWCV 11.5-15.0 % RDW-CV 13.6 LAB PLTCT 150-400 k/uL Platelet Count 292 LAB MPV 9.0-12.7 fL MPV 12.1 LAB ABSNUC <0.01 k/uL Absolute nRBC <0.01 Performed By: #### CBC #### [facility] [address] [place], [place] [address] PROGRESS Observed: 12/29/2017 Status: COMPLETED Source: BELLE 2:30 PM [facility] REPOSITORY HNO ID: [id number] Author: Barrett Mancilla Service: (none) Author Type: Physician Type: Progress Notes Filed: 12/29/2017 2:39 PM Note Text: PERTINENT CARDIAC HISTORY LOCO - equivocal stress tests, cath minimal ASHD PAF HTN - BRIGITTE-I intolerance HL - statin intolerant, try zetia? DM CHARO? - RLS on sleep study ADHERENCE TO GUIDELINES BRIGITTE-I or ARB for HF with prior LVEF<40 (NQF 0081) - N/A ASA or Plavix for ASHD (NQF 0067) - met Beta dorcas for ASHD with prior VT or prior LVEF<40 (NQF 0070) - N/A Beta dorcas for HF with prior LVEF<40 (NQF 0083) - N/A BRIGITTE-I or ARB for ASHD with DM or prior LVEF<40 (NQF 0066) - intolerant Statin therapy for ASHD or FHL or DM - intolerant BMI documented and plan if >25 (NQF 0421) - lifestyle recommendation form Tobacco use screening and referral (NQF 0028) - lifestyle recommendation form Recommendation for whole food, plant based diet - lifestyle recommendation form CLINICAL IMPRESSION/PLAN: Kyaw Espinoza has improved exercise tolerance. She has no significant coronary disease by cath last year. Her blood pressure is well-controlled. She was advised to have CBC for follow-up of her warfarin therapy. INR is being checked in primary care. She's had no recurrent PAF. She will continue warfarin There is no contraindication to surgery as planned. No further cardiac assessment is recommended. Surgery can proceed at low to intermediate cardiac risk. Following surgery, we will get back together. I would like to get her lipids under better control. She is a candidate to begin an ARB, given her hypertension and diabetes. I will see her in 6 months. Written and verbal health teaching given to patient, patient verbalizes understanding and agrees with treatment plan. DIAGNOSIS FOR VISIT: Preoperative cardiac risk assessment Hypertension HISTORY OF PRESENT ILLNESS Kyaw Espinoza returns for preoperative risk assessment and follow-up of shortness of breath and hypertension. She reports that she will be undergoing bilateral knee replacement surgery. Her exercise tolerance has been better than last year. She's had no exertional chest tightness or shortness of breath. She's had no orthopnea. She's had minimal edema. She has occasional epigastric discomfort which is relieved by eating. This lasts only a couple minutes. She's had no edema, syncope, palpitations, TIAs, amaurosis or claudication . ALLERGIES: ALLERGIES Allergen Reactions - Clindamycin Hives - Klor-Con [Potassium* Hives - Lipitor [Atorvastat* Intolerance Muscle pain - Lisinopril Cough - Penicillins Hives - Vlavuyc-Sbv-Bhm Red* Other: See Comments Muscle pain - Zocor [Simvastatin] Intolerance Muscle pain CURRENT OUTPATIENT MEDICATIONS: levothyroxine (SYNTHROID) 112 mcg tablet TAKE ONE TABLET BY MOUTH ONCE DAILY warfarin (COUMADIN) 2 mg tablet 2 mg on Mon and Fri and 3 mg all other days. meloxicam (MOBIC) 15 mg tablet Take 1 tablet by mouth once daily. citalopram (CELEXA) 40 mg tablet Take 1 tablet by mouth once daily. rOPINIRole (REQUIP) 0.25 mg tablet Take 2 tablets by mouth daily at bedtime. fluticasone (FLONASE) 50 mcg/actuation nasal spray Use 2 Sprays in each nostril once daily. Rinse mouth after use. nystatin-triamcinolone (MYCOLOG II) cream Apply 1 application to affected area twice daily. atenolol (TENORMIN) 50 mg tablet Take 1.5 tablets by mouth once daily. triamcinolone acetonide (KENALOG) 0.1 % cream Apply 1 application to affected area three times daily. Apply sparingly to area for rash/itching. gemfibrozil (LOPID) 600 mg tablet Take 1 tablet by mouth twice daily with meals. warfarin (COUMADIN) 3 mg tablet Take 1 tablet by mouth once daily. glipiZIDE XL (GLUCOTROL XL) 5 mg 24 hr tablet Take 1 tablet by mouth once daily. metFORMIN (GLUCOPHAGE) 500 mg tablet Take by mouth. 1 tablet in the morning and 2 in the evening nitroglycerin sublingual (NITROQUICK) 0.4 mg SL tablet Dissolve 1 tablet under the tongue as needed. FOR CHEST PAIN. IF NO RELIEF CALL 911 warfarin (COUMADIN) 4 mg tablet Take 1 tablet by mouth once daily. cyclobenzaprine (FLEXERIL) 5 mg tablet Take 2 tablets by mouth three times daily as needed for Muscle Spasm. Aspirin 81 mg Tab Take 1 tablet by mouth once daily. calcium carbonate-Vit D3-minerals (CALTRATE PLUS) 600-400 mg-unit ORAL Tab Take 1 tablet by mouth twice daily. omega-3 fatty acids (FISH OIL CONCENTRATE) 1,000 mg ORAL Cap Take 1 capsule by mouth twice daily. Xeszlzpzrprxo-Di-Vvgf-Minerals (ONE-A-DAY WOMENS FORMULA) 27-0.4 mg ORAL Tab Take by mouth once daily. PAST MEDICAL HISTORY Diagnosis Date - Afib (HCC) 09/22/2016 - Hypertension - Major depressive disorder, single episode, mild (HCC) - Other and unspecified hyperlipidemia - Type I (juvenile type) diabetes mellitus without mention of complication, not stated as uncontrolled - Unspecified hypothyroidism PAST SURGICAL HISTORY Procedure Laterality Date - CARPAL TUNNEL 80's? bilateral - LAPAROSCOPIC CHOLEYCYSTECTOMY 09/19/13 - LIGATE FALLOPIAN TUBE 77? Tubal ligation and appendectomy - PAST SURGICAL HISTORY OF 01/26/2017 Heart catherization, [facility] by Dr. Roger FAMILY HISTORY Problem Relation Age of Onset - Diabetes Mother - Heart Mother - Stroke Mother - Cancer Maternal Uncle Unknown primary - Diabetes Father - Diabetes Maternal Aunt - Stroke Maternal Aunt - Cancer Maternal Aunt The female kind. Social History Marital status: Spouse name: Years of education: Number of children: Occupational History Occupation Employer Comment [employer]. 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 Social History Main Topics Smoking status: Never Smoker Smokeless tobacco: Never Used Comment: Mother smoked in childhood home. No smokers in home for many years. Alcohol use: No Drug use: No REVIEW OF SYSTEMS: General: No chills, fever, weight loss, night sweats. Respiratory: No productive cough. Cardiac: As noted above. GI: No melena. : No dysuria. Musculoskeletal: No myalgias. PHYSICAL EXAMINATION: S/he is alert and in no distress.She appears somewhat pale. VITAL SIGNS: BP 125/65 Pulse 63 Wt 200 lb 1.6 oz (90.8kg) SHEENT: Skin is warm and dry. No xanthelasmas appreciated. Pharynx is benign. There is no oral cyanosis. Neck: supple. No adenopathy or thyroid enlargement. Chest: Clear to percussion and auscultation. Trachea is midline. Air entry is equal. There is no chest wall tenderness. Cardiac: Regular rhythm. S1 and S2 are normal. PMI is nondisplaced.There is a soft systolic ejection murmur. No click is heard. Carotids are brisk without bruits. JVP is less than 10 cm. Abdomen: Soft and nontender. Obesity limits examination. There are no pulsatile masses or bruits. No liver enlargement. Bowel sounds are active. Extremities: trace edema. Pulses are intact and symmetrical. No clubbing or cyanosis. No femoral bruits. Neurologic: Grossly normal motor and sensory. S/he is alert and oriented x4. EKG shows sinus rhythm and is within normal limits. There is no significant change. Recent labs were reviewed. Renal function is normal. LDL was 161. TSH is normal. No CBC has been performed recently. Electronically Signed: Barrett Mancilla MD December 29, 2017 2:30 PM CC:Tanja Rust MD CNOV Observed: 12/29/2017 Status: COMPLETED Source: BELLE 1:00 PM [facility] REPOSITORY Office Visit (AGCARDWST) KYAW ESPINOZA ([id number]) 1950 F Date Time Provider Department 12/29/17 1:00 PM BARRETT MANCILLA AGCARDWS[facility]ino During your visit today, we recorded the following information about you: Pulse Blood pressure Weight 63/minute 125/65 90.8 kg Barrett Mancilla MD 12/29/2017 2:39 PM Signed PERTINENT CARDIAC HISTORY LOCO - equivocal stress tests, cath minimal ASHD PAF HTN - BRIGITTE-I intolerance HL - statin intolerant, try zetia? DM CHARO? - RLS on sleep study ADHERENCE TO GUIDELINES BRIGITTE-I or ARB for HF with prior LVEF<40 (NQF 0081) - N/A ASA or Plavix for ASHD (NQF 0067) - met Beta dorcas for ASHD with prior VT or prior LVEF<40 (NQF 0070) - N/A Beta dorcas for HF with prior LVEF<40 (NQF 0083) - N/A BRIGITTE-I or ARB for ASHD with DM or prior LVEF<40 (NQF 0066) - intolerant Statin therapy for ASHD or FHL or DM - intolerant BMI documented and plan if >25 (NQF 0421) - lifestyle recommendation form Tobacco use screening and referral (NQF 0028) - lifestyle recommendation form Recommendation for whole food, plant based diet - lifestyle recommendation form CLINICAL IMPRESSION/PLAN: Kyaw Espinoza has improved exercise tolerance. She has no significant coronary disease by cath last year. Her blood pressure is well-controlled. She was advised to have CBC for follow-up of her warfarin therapy. INR is being checked in primary care. She's had no recurrent PAF. She will continue warfarin There is no contraindication to surgery as planned. No further cardiac assessment is recommended. Surgery can proceed at low to intermediate cardiac risk. Following surgery, we will get back together. I would like to get her lipids under better control. She is a candidate to begin an ARB, given her hypertension and diabetes. I will see her in 6 months. Written and verbal health teaching given to patient, patient verbalizes understanding and agrees with treatment plan. DIAGNOSIS FOR VISIT: Preoperative cardiac risk assessment Hypertension HISTORY OF PRESENT ILLNESS Kyaw Espinoza returns for preoperative risk assessment and follow-up of shortness of breath and hypertension. She reports that she will be undergoing bilateral knee replacement surgery. Her exercise tolerance has been better than last year. She's had no exertional chest tightness or shortness of breath. She's had no orthopnea. She's had minimal edema. She has occasional epigastric discomfort which is relieved by eating. This lasts only a couple minutes. She's had no edema, syncope, palpitations, TIAs, amaurosis or claudication . ALLERGIES: ALLERGIES Allergen Reactions - Clindamycin Hives - Klor-Con [Potassium* Hives - Lipitor [Atorvastat* Intolerance Muscle pain - Lisinopril Cough - Penicillins Hives - Dgmysnz-Bqr-Imo Red* Other: See Comments Muscle pain - Zocor [Simvastatin] Intolerance Muscle pain CURRENT OUTPATIENT MEDICATIONS: levothyroxine (SYNTHROID) 112 mcg tablet TAKE ONE TABLET BY MOUTH ONCE DAILY warfarin (COUMADIN) 2 mg tablet 2 mg on Mon and Fri and 3 mg all other days. meloxicam (MOBIC) 15 mg tablet Take 1 tablet by mouth once daily. citalopram (CELEXA) 40 mg tablet Take 1 tablet by mouth once daily. rOPINIRole (REQUIP) 0.25 mg tablet Take 2 tablets by mouth daily at bedtime. fluticasone (FLONASE) 50 mcg/actuation nasal spray Use 2 Sprays in each nostril once daily. Rinse mouth after use. nystatin-triamcinolone (MYCOLOG II) cream Apply 1 application to affected area twice daily. atenolol (TENORMIN) 50 mg tablet Take 1.5 tablets by mouth once daily. triamcinolone acetonide (KENALOG) 0.1 % cream Apply 1 application to affected area three times daily. Apply sparingly to area for rash/itching. gemfibrozil (LOPID) 600 mg tablet Take 1 tablet by mouth twice daily with meals. warfarin (COUMADIN) 3 mg tablet Take 1 tablet by mouth once daily. glipiZIDE XL (GLUCOTROL XL) 5 mg 24 hr tablet Take 1 tablet by mouth once daily. metFORMIN (GLUCOPHAGE) 500 mg tablet Take by mouth. 1 tablet in the morning and 2 in the evening nitroglycerin sublingual (NITROQUICK) 0.4 mg SL tablet Dissolve 1 tablet under the tongue as needed. FOR CHEST PAIN. IF NO RELIEF CALL 911 warfarin (COUMADIN) 4 mg tablet Take 1 tablet by mouth once daily. cyclobenzaprine (FLEXERIL) 5 mg tablet Take 2 tablets by mouth three times daily as needed for Muscle Spasm. Aspirin 81 mg Tab Take 1 tablet by mouth once daily. calcium carbonate-Vit D3-minerals (CALTRATE PLUS) 600-400 mg-unit ORAL Tab Take 1 tablet by mouth twice daily. omega-3 fatty acids (FISH OIL CONCENTRATE) 1,000 mg ORAL Cap Take 1 capsule by mouth twice daily. Yptogmolqiggp-Fj-Wowv-Minerals (ONE-A-DAY WOMENS FORMULA) 27-0.4 mg ORAL Tab Take by mouth once daily. PAST MEDICAL HISTORY Diagnosis Date - Afib (HCC) 09/22/2016 - Hypertension - Major depressive disorder, single episode, mild (HCC) - Other and unspecified hyperlipidemia - Type I (juvenile type) diabetes mellitus without mention of complication, not stated as uncontrolled - Unspecified hypothyroidism PAST SURGICAL HISTORY Procedure Laterality Date - CARPAL TUNNEL 80's? bilateral - LAPAROSCOPIC CHOLEYCYSTECTOMY 09/19/13 - LIGATE FALLOPIAN TUBE 77? Tubal ligation and appendectomy - PAST SURGICAL HISTORY OF 01/26/2017 Heart catherization, [facility] by Dr. Roger FAMILY HISTORY Problem Relation Age of Onset - Diabetes Mother - Heart Mother - Stroke Mother - Cancer Maternal Uncle Unknown primary - Diabetes Father - Diabetes Maternal Aunt - Stroke Maternal Aunt - Cancer Maternal Aunt The female kind. Social History Marital status: Spouse name: Years of education: Number of children: Occupational History Occupation Employer Comment [employer]. 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 Social History Main Topics Smoking status: Never Smoker Smokeless tobacco: Never Used Comment: Mother smoked in childhood home. No smokers in home for many years. Alcohol use: No Drug use: No REVIEW OF SYSTEMS: General: No chills, fever, weight loss, night sweats. Respiratory: No productive cough. Cardiac: As noted above. GI: No melena. : No dysuria. Musculoskeletal: No myalgias. PHYSICAL EXAMINATION: S/he is alert and in no distress.She appears somewhat pale. VITAL SIGNS: BP 125/65 Pulse 63 Wt 200 lb 1.6 oz (90.8kg) SHEENT: Skin is warm and dry. No xanthelasmas appreciated. Pharynx is benign. There is no oral cyanosis. Neck: supple. No adenopathy or thyroid enlargement. Chest: Clear to percussion and auscultation. Trachea is midline. Air entry is equal. There is no chest wall tenderness. Cardiac: Regular rhythm. S1 and S2 are normal. PMI is nondisplaced.There is a soft systolic ejection murmur. No click is heard. Carotids are brisk without bruits. JVP is less than 10 cm. Abdomen: Soft and nontender. Obesity limits examination. There are no pulsatile masses or bruits. No liver enlargement. Bowel sounds are active. Extremities: trace edema. Pulses are intact and symmetrical. No clubbing or cyanosis. No femoral bruits. Neurologic: Grossly normal motor and sensory. S/he is alert and oriented x4. EKG shows sinus rhythm and is within normal limits. There is no significant change. Recent labs were reviewed. Renal function is normal. LDL was 161. TSH is normal. No CBC has been performed recently. Electronically Signed: Barrett Mancilla MD December 29, 2017 2:30 PM CC:MD Barrett Espana MD 12/29/2017 2:31 PM Signed LIFESTYLE CHANGE A healthy lifestyle is the most important component of your overall treatment plan. Please give serious thought to the following areas and commit to making usp changes. EAT A WHOLE FOOD, PLANT BASED DIET The nutrition your body gets is more important than the medicine you take. What matters most is the overall way you eat. We encourage you to minimize the use of animal products (which include dairy and all meats except fatty fish) and use whole, unprocessed plant foods to provide your protein, vitamins and other nutrients. We have a lot of information to share with you on this topic. This is not a diet. It is a way of life that you will keep with you. EXERCISE REGULARLY It is not important to spend hours in the gym, lifting weights and perspiring heavily. A total of 2-3 hours per week of aerobic (causing you to be moderately short of breath) exercise is sufficient to improve your health. Talk to us before you begin a new exercise program, if you have heart disease or experience shortness of breath or chest pain. REDUCE STRESS Chronic emotional and physical stress leads to disease. Ways of reducing stress include meditation, visualization, prayer, yoga and other forms of relaxation therapy. Consistency is the wyatt. Find a technique that works for you and do it every day. CULTIVATE RELATIONSHIPS Loneliness and isolation have a major negative impact on health. Seek out others who can love, care for and nurture you. Avoid hurtful relationships. MAINTAIN IDEAL BODY WEIGHT The best way to do this is to do all the things above. Our bodies naturally find the right weight if we keep moving and feed ourselves the right food. If your BMI is greater than 25, we strongly recommend a referral to a weight management program. Please speak to us or your family physician about available programs. AVOID NICOTINE IN ALL FORMS This includes all tobacco products, whether chewed, smoked, vaped, or rubbed on the skin. Smoking cessation programs, which can make use of tobacco substitutes, medications to suppress cravings and behavior management, are available. Please contact your family physician about programs in your area. Referring Provider: BARRETT MANCILLA [[id number]] Allergies As of Date: 12/29/2017 Noted Allergy Reaction CLINDAMYCIN 12/04/2008 4 - Hives KLOR-CON (POTASSIUM CHLORIDE) 12/08/2013 4 - Hives LIPITOR (ATORVASTATIN CALCIUM) 07/14/2005 5 - Intolerance Comments: Muscle pain LISINOPRIL 12/08/2013 3 - Cough PENICILLINS 07/14/2005 4 - Hives [id number] REDUCTASE INHIBIT*06/07/2014 14 - Other: See Comments Comments: Muscle pain FERCOR (SIMVASTATIN) 07/14/2005 5 - Intolerance Comments: Muscle pain Date Reviewed: 12/29/2017 Reviewed by: Abby (Rn) DEL Stringer - Fully Assessed Reason for Visit: Established Patient [175] Primary Visit Diagnosis:Preop cardiovascular exam [Z01.810] Other Visit Diagnosis:ASHD (arteriosclerotic heart disease) [I25.10] [facility] Order #: [id number] FUTURE Prescriptions as of 12/29/2017 Sig: LEVOTHYROXINE 112 MCG TABLET TAKE ONE TABLET BY MOUTH ONCE* WARFARIN 2 MG TABLET 2 mg on Mon and Fri and 3 mg * MELOXICAM 15 MG TABLET Take 1 tablet by mouth once d* CITALOPRAM 40 MG TABLET Take 1 tablet by mouth once d* ROPINIROLE 0.25 MG TABLET Take 2 tablets by mouth daily* FLUTICASONE 50 MCG/ACTUATION * Use 2 Sprays in each nostril * NYSTATIN-TRIAMCINOLONE 100,00* Apply 1 application to affect* ATENOLOL 50 MG TABLET Take 1.5 tablets by mouth onc* TRIAMCINOLONE ACETONIDE 0.1 %* Apply 1 application to affect* GEMFIBROZIL 600 MG TABLET Take 1 tablet by mouth twice * WARFARIN 3 MG TABLET Take 1 tablet by mouth once d* GLIPIZIDE ER 5 MG TABLET, EXT* Take 1 tablet by mouth once d* METFORMIN 500 MG TABLET Take by mouth. 1 tablet in t* NITROGLYCERIN 0.4 MG SUBLINGU* Dissolve 1 tablet under the t* WARFARIN 4 MG TABLET Take 1 tablet by mouth once d* CYCLOBENZAPRINE 5 MG TABLET Take 2 tablets by mouth three* ASPIRIN 81 MG TABLET Take 1 tablet by mouth once d* * CALCIUM CARB-VIT D3-MINERALS * Take 1 tablet by mouth twice * * OMEGA-3 FATTY ACIDS 1,000 MG * Take 1 capsule by mouth twice* * OLKYMIHVKVUK-LM-RMZL-MINERALS* Take by mouth once daily. Problem List As Of Date 12/29/2017 Noted Resolved Hypothyroidism [E03.9] Hyperlipidemia [E78.5] BENIGN HYPERTENSION [I10] INVALID FOR* Diabetes mellitus type 2, controlled, without c*INVALID FOR* Depression [F32.9] INVALID FOR* Lumbago [M54.5] INVALID FOR* Spinal stenosis, lumbar region, without neuroge*INVALID FOR* L-S radiculopathy [M54.17] INVALID FOR* Cholelithiasis [K80.20] INVALID FOR* Afib (HCC) [I48.91] INVALID FOR* Obesity, Class III, BMI 40-49.9 (morbid obesity*INVALID FOR* Other instructions from your clinician: LIFESTYLE CHANGE A healthy lifestyle is the most important component of your overall treatment plan. 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 EAT A WHOLE FOOD, PLANT BASED DIET The nutrition your body gets is more important than the medicine you take. What matters most is the overall way you eat. We encourage you to minimize the use of animal products (which include dairy and all meats except fatty fish) and use whole, unprocessed plant foods to provide your protein, vitamins and other nutrients. We have a lot of information to share with you on this topic. This is not a diet. It is a way of life that you will keep with you. EXERCISE REGULARLY It is not important to spend hours in the gym, lifting weights and perspiring heavily. A total of 2-3 hours per week of aerobic (causing you to be moderately short of breath) exercise is sufficient to improve your health. Talk to us before you begin a new exercise program, if you have heart disease or experience shortness of breath or chest pain. REDUCE STRESS Chronic emotional and physical stress leads to disease. Ways of reducing stress include meditation, visualization, prayer, yoga and other forms of relaxation therapy. Consistency is the wyatt. Find a technique that works for you and do it every day. CULTIVATE RELATIONSHIPS Loneliness and isolation have a major negative impact on health. Seek out others who can love, care for and nurture you. Avoid hurtful relationships. MAINTAIN IDEAL BODY WEIGHT The best way to do this is to do all the things above. Our bodies naturally find the right weight if we keep moving and feed ourselves the right food. If your BMI is greater than 25, we strongly recommend a referral to a weight management program. Please speak to us or your family physician about available programs. AVOID NICOTINE IN ALL FORMS This includes all tobacco products, whether chewed, smoked, vaped, or rubbed on the skin. Smoking cessation programs, which can make use of tobacco substitutes, medications to suppress cravings and behavior management, are available. Please contact your family physician about programs in your area. Follow-up and Disposition History Recorded Encounter Status:Closed by BARRETT MANCILLA MD on 12/29/17 PT/INR POC ORDER Collected: 12/29/2017 Status: F Source: EPISCOPAL 11:39 AM [facility] REPOSITORY TYPE CODE TESTS RESULT OUT OF RANGE REFERENCE UNITS LAB CD:[id number](LOINC) Normal Collected PT/INR POC Order Performed By: #### [id number] #### YARITZA POC Subsection [address] [place] [address] PT/INR CAPILLARY Collected: 12/29/2017 Status: F Source: EPISCOPAL 11:38 AM [facility] REPOSITORY TYPE CODE TESTS RESULT OUT OF RANGE REFERENCE UNITS LAB [id number](LO 8.0-11.0 second(s) INC) High PT POC 23.0 LAB [id number](LO 1.0-1.2 INC) High INR POC 2.0 Result Comment: Source Capillary Performed By: #### [id number] #### YARITZA POC Subsection [facility] [place] [address] XR KNEES BILATERAL 4+ Observed: 12/15/2017 Status: F Source: [facility] (SPECIFY VIEWS 12:00 AM THREE REPOSITORY IN COMMENTS) 4 views each knee reveals severe degenerative arthritis with bone against bone medially and lateral osteophytes Dictated by: BECK REYES on ThuDecember 15, 2017 11:32:29 AM EDT Transcribed by: BECK REYES on ThuDecember 15, 2017 11:32:29 AM EDT Finalized by: BECK REYES on ThuDecember 15, 2017 11:32:29 AM EDT PT/INR CAPILLARY Collected: 12/14/2017 Status: F Source: EPISCOPAL 12:40 PM [facility] REPOSITORY TYPE CODE TESTS RESULT OUT OF RANGE REFERENCE UNITS LAB [id number](LO 8.0-11.0 second(s) INC) High PT POC 40.0 LAB [id number](LO 1.0-1.2 INC) High INR POC 3.5 Result Comment: Source Capillary Performed By: #### [id number] #### YARITZA POC Subsection [facility] [place] [address] PT/INR POC ORDER Collected: 12/14/2017 Status: F Source: EPISCOPAL 12:36 PM [facility] REPOSITORY TYPE CODE TESTS RESULT OUT OF RANGE REFERENCE UNITS LAB CD:[id number](LOINC) Normal Collected PT/INR POC Order Performed By: #### [id number] #### YARITZA POC Subsection [address] [place] [address] PT/INR CAPILLARY Collected: 11/03/2017 Status: F Source: EPISCOPAL 3:12 PM [facility] REPOSITORY TYPE CODE TESTS RESULT OUT OF RANGE REFERENCE UNITS LAB [id number](LO 8.0-11.0 second(s) INC) High PT POC 29.0 LAB [id number](LO 1.0-1.2 INC) High INR POC 2.5 Result Comment: Source Capillary Performed By: #### [id number] #### YARITZA POC Subsection [address] [place] [address] PT/INR POC ORDER Collected: 11/03/2017 Status: F Source: EPISCOPAL 3:08 PM [facility] REPOSITORY TYPE CODE TESTS RESULT OUT OF RANGE REFERENCE UNITS LAB CD:[id number](LOINC) Normal Collected PT/INR POC Order Performed By: #### [id number] #### YARITZA POC Subsection [address] [place] [address] PT/INR CAPILLARY Collected: 10/13/2017 Status: F Source: EPISCOPAL 1:58 PM [facility] REPOSITORY TYPE CODE TESTS RESULT OUT OF RANGE REFERENCE UNITS LAB [id number](LO 8.0-11.0 second(s) INC) High PT POC 33.0 LAB [id number](LO 1.0-1.2 INC) High INR POC 2.9 Result Comment: Source Capillary Performed By: #### [id number] #### YARITZA POC Subsection [address] [place] [address] PT/INR POC ORDER Collected: 10/13/2017 Status: F Source: EPISCOPAL 1:57 PM [facility] REPOSITORY TYPE CODE TESTS RESULT OUT OF RANGE REFERENCE UNITS LAB CD:[id number] 673(LOINC) Normal Collected PT/INR POC Order Performed By: #### [id number] #### YARITZA POC Subsection [address] [place] [address] COMP METABOLIC PANEL Collected: 09/19/2017 Status: F Source: BELLE 9:36 AM [facility] REPOSITORY TYPE CODE TESTS RESULT OUT OF REFERENCE UNITS RANGE LAB TP 6.3-8.0 g/dL Protein, Total 7.5 LAB ALB 3.9-4.9 g/dL Albumin 4.3 LAB CA 8.5-10.2 mg/dL Calcium, Total 9.4 LAB TBIL 0.2-1.3 mg/dL Bilirubin, Total 0.3 LAB ALKP 32-117 U/L Alkaline Phosphatase 59 LAB AST 13-35 U/L AST 16 LAB GLU 74-99 mg/dL Glucose High 194 Result Comment: The [place] Diabetes Association (ADA) provides guidance for cutoff values for fasting glucose and random glucose. The ADA defines fasting as no caloric intake for at least 8 hours. Fas ting plasma glucose results between 100 to 125 mg/dL indicate increased risk for diabetes (prediabetes). Fasting plasma glucose results greater than or equal to 126 mg/dL meet the criteria for diagnosis of diabetes. In the absence of unequivocal hyperglycemia, results should be confirmed by repeat testing. In a patient with classic symptoms of hyperglycemia or hyperglycemic crisis, random plasma glucose results greater than or equal to 200 mg/dL meet the criteria for diagnosis of diabetes. Reference: Standards of Medical Care in Diabetes 2016, [place] Diabetes Association. Diabetes Care. 2016.39(Suppl 1). LAB BUN 7-21 mg/dL BUN 21 LAB CRET 0.58-0.96 mg/dL Creatinine 0.76 LAB NA 136-144 mmol/L Sodium 138 LAB K 3.7-5.1 mmol/L Potassium 4.8 LAB CL 97-105 mmol/L Chloride 100 LAB CO2 22-30 mmol/L CO2 24 LAB AGAP 9-18 mmol/L Anion Gap 14 LAB ALT 7-38 U/L ALT 13 LAB GFRAA eGFR- Amer. >60 LAB GFRNAA . eGFR-All Other Races >60 Result Comment: eGFR (Estimated GFR) Units of measure: mL/min/1.73 meters squared eGFR is derived from the reexpressed MDRD Study equation using the following parameters: serum creatinine, age, gender and race. The creatinine assay has been calibrated to be traceable to IDMS. An eGFR <60 mL/min/1.73m2 for >3 months is consistent with chronic kidney disease. Refer to KDOQI guidelines for clinical interpretation. In patients with unstable renal function, e.g. those with acute kidney injury, the eGFR may not accurately reflect actual GFR. Performed By: #### CMP, LIPB, TSH, HBA1C #### [facility] [address] [place], [place] [address] LIPID PANEL, BASIC Collected: 09/19/2017 Status: F Source: BELLE 9:36 AM [facility] REPOSITORY TYPE CODE TESTS RESULT OUT OF REFERENCE UNITS RANGE LAB CHOL <200 mg/dL Cholesterol High 234 Result Comment: <200 mg/dL, Desirable 200-239 mg/dL, Borderline high >239 mg/dL, High LAB TRIGLY <150 mg/dL Triglyceride High 163 Result Comment: <150 mg/dL, Normal 150-199 mg/dL, Borderline high 200-499 mg/dL, High >499 mg/dL, Very high LAB HDL >39 mg/dL HDL-Cholesterol 40 Result Comment: 40-59 mg/dL, Acceptable >59 mg/dL, High: Negative risk factor for coronary heart disease <40 mg/dL, Low: Positive risk factor for coronary heart disease LAB LDL <100 mg/dL LDL-Cholesterol High 161 Result Comment: <100 mg/dL, Optimal 100-129 mg/dL, Near optimal/above optimal 130-159 mg/dL, Borderline high 160-189 mg/dL, High >189 mg/dL, Very high Secondary prevention optimal LDL Cholesterol levels are recommended to be < 70 mg/dL LAB NONHDL <130 mg/dL Non HDL High Cholesterol 194 Result Comment: <130 mg/dL, Optimal 130-159 mg/dL, Near optimal/above optimal 160-189 mg/dL, Borderline high 190-219 mg/dL, High >219 mg/dL, Very high Secondary prevention optimal non HDL Cholesterol levels are recommended to be < 100 mg/dL LAB FT hrs Fasting Time 15 LAB VLDL <30 mg/dL High VLDL Cholesterol 33 LAB TCHDL <5.10 High TC:HDL Ratio 5.85 LAB LDLHDL <2.54 High LDL:HDL Ratio 4.03 Result Comment: Reference: 1. National Cholesterol Education Program ATP III Guideline At-A-Glance Quick Desk Reference: National Heart, Lung, and Blood [place]. National Institutes of Health. 2001: NIH Publication No. 01-3305. 2. An International Atherosclerosis Society position paper: global recommendations for the management of dyslipidemia: executive summary, Atherosclerosis. 2014: 232(2):410-413. Performed By: #### CMP, LIPB, TSH, HBA1C #### [facility] [address] [place], [place] [address] TSH Collected: 09/19/2017 Status: F Source: BELLE 9:36 AM [facility] REPOSITORY TYPE CODE TESTS RESULT OUT OF RANGE REFERENCE UNITS LAB TSH 0.400-5.500 uU/mL TSH 4.080 Performed By: #### CMP, LIPB, TSH, HBA1C #### [facility] [address] [place], [place] [address] HEMOGLOBIN A1C Collected: 09/19/2017 Status: F Source: BELLE 9:36 AM [facility] REPOSITORY TYPE CODE TESTS RESULT OUT OF REFERENCE UNITS RANGE LAB HGBA1C 4.3-5.6 % High Hemoglobin A1c 6.9 LAB HBA0 mg/dL Est. Average Glucose 151 Result Comment: eAG: (Estimated average glucose) is a calculated value from HgbA1c and is access service representative of the average blood glucose level in the last 2-3 month period. Performed By: #### CMP, LIPB, TSH, HBA1C #### [facility] [address] [place], [place] [address] ALBUMIN/CREAT RATIO Collected: 09/19/2017 Status: F Source: BELLE 9:36 AM [facility] REPOSITORY TYPE CODE TESTS RESULT OUT OF REFERENCE UNITS RANGE LAB UCRR 20-300 mg/dL Creatinine,Ur 128.8 ine,Ran LAB UALBR 0.0-23.0 mg/L High Albumin Urine 30.0 Random LAB UALBCR 0-30 mg/g Albumin/Creat 23 Ratio Result Comment: 30 to 300 mg/g indicates an increased risk for diabetic nephropathy. Greater than 300 mg/g is consistent with clinical nephropathy. (Am J Kidney Disease 1995, 25:107) Performed By: #### UACR #### [facility] [address] [place], [place] [address] PT/INR POC Collected: 09/09/2017 Status: F Source: EPISCOPAL 11:43 AM [facility] REPOSITORY TYPE CODE TESTS RESULT OUT OF RANGE REFERENCE UNITS LAB [id number](LO 8.0-11.0 second(s) INC) High PT POC 23.0 LAB [id number](LO 1.0-1.2 INC) High INR POC 2.0 Performed By: #### [id number] #### YARITZA POC Subsection [address] [place] [address] PT/INR POC ORDER Collected: 09/09/2017 Status: F Source: EPISCOPAL 11:37 AM [facility] REPOSITORY TYPE CODE TESTS RESULT OUT OF RANGE REFERENCE UNITS LAB CD:[id number](LOINC) Normal Collected PT/INR POC Order Performed By: #### [id number] #### YARITZA POC Subsection [facility] [place] [address] OBSOLETE Observed: 08/31/2017 Status: COMPLETED Source: BELLE 12:00 AM [facility] REPOSITORY Refill (FAMPWS) KYAW ESPINOZA ([id number]) 1950 F Date Time Provider Department 08/31/17 TANJA RUST FAMPWS During your visit today, we recorded the following information about you: Sraika Roth LPN 08/31/2017 9:44 AM Signed Patient has been identified by name and date of : Yes Patient phones for refill(s): Pending Prescriptions Disp Refills FLUTICASONE 50 MCG/ACTUATION NASAL SPRAY,SUSPENSION 1 Bottle 11 Sig: Use 2 Sprays in each nostril once daily. Rinse mouth after use. ASHU: No Date of last office visit in primary care: 07/08/2017, has appt 09/24/2017 Last 2 Encounter Wt Readings: Date: Wt: 08/12/2017 97.1 kg (214 lb) 07/08/2017 95.3 kg (210 lb) Previous labs/tests for medication: Not applicable Please advise. Thank you. Sarika Roth LPN Patient has nasal congestion and asking for this rx Ryder Alberts POORNIMA MELVIN 08/31/2017 9:45 AM Signed The following approved medication requests have been transmitted electronically. Signed Prescriptions Disp Refills fluticasone (FLONASE) 50 mcg/actuation nasal spray 1 Bottle 11 Sig: Use 2 Sprays in each nostril once daily. Rinse mouth after use. ASHU: No Authorizing Provider: RYDER ALBERTS (POORNIMA) Ryder Alberts CNP Allergies As of Date: 08/31/2017 Noted Allergy Reaction CLINDAMYCIN 12/04/2008 4 - Hives KLOR-CON (POTASSIUM CHLORIDE) 12/08/2013 4 - Hives LIPITOR (ATORVASTATIN CALCIUM) 07/14/2005 5 - Intolerance Comments: Muscle pain LISINOPRIL 12/08/2013 3 - Cough PENICILLINS 07/14/2005 4 - Hives [id number] REDUCTASE INHIBIT*06/07/2014 14 - Other: See Comments Comments: Muscle pain ZOCOR (SIMVASTATIN) 07/14/2005 5 - Intolerance Comments: Muscle pain Date Reviewed: 08/12/2017 Reviewed by: Ryder Sinha) POORNIMA Alberts - Fully Assessed Reason for Visit: Refill Request [94] Visit Diagnosis:Nasal congestion [R09.81] Order(s):fluticasone (FLONASE) 50 mcg/actuation nasal sprayUse 2 Sprays in each nostril once daily. Rinse mouth after use.Disp: 1 BottleRfl: 11 Prescriptions as of 08/31/2017 Sig: FLUTICASONE 50 MCG/ACTUATION * Use 2 Sprays in each nostril * NYSTATIN-TRIAMCINOLONE 100,00* Apply 1 application to affect* ATENOLOL 50 MG TABLET Take 1.5 tablets by mouth onc* TRIAMCINOLONE ACETONIDE 0.1 %* Apply 1 application to affect* WARFARIN 2 MG TABLET Take 1 tablet by mouth daily * MELOXICAM 15 MG TABLET Take 1 tablet by mouth once d* ROPINIROLE 0.25 MG TABLET Take 2 tablets by mouth daily* GEMFIBROZIL 600 MG TABLET Take 1 tablet by mouth twice * CITALOPRAM 40 MG TABLET Take 1 tablet by mouth once d* WARFARIN 3 MG TABLET Take 1 tablet by mouth once d* GLIPIZIDE ER 5 MG TABLET, EXT* Take 1 tablet by mouth once d* METFORMIN 500 MG TABLET Take by mouth. 1 tablet in t* NITROGLYCERIN 0.4 MG SUBLINGU* Dissolve 1 tablet under the t* LEVOTHYROXINE 112 MCG TABLET Take 1 tablet by mouth once d* WARFARIN 4 MG TABLET Take 1 tablet by mouth once d* CYCLOBENZAPRINE 5 MG TABLET Take 2 tablets by mouth three* ASPIRIN 81 MG TABLET Take 1 tablet by mouth once d* * OWCOBEVHRHEF-ZU-GJUE-MINERALS* Take by mouth once daily. * CALCIUM CARB-VIT D3-MINERALS * Take 1 tablet by mouth twice * * OMEGA-3 FATTY ACIDS 1,000 MG * Take 1 capsule by mouth twice* Problem List As Of Date 08/31/2017 Noted Resolved Hypothyroidism [E03.9] Hyperlipidemia [E78.5] BENIGN HYPERTENSION [I10] INVALID FOR* Diabetes mellitus type 2, controlled, without c*INVALID FOR* Depression [F32.9] INVALID FOR* Lumbago [M54.5] INVALID FOR* Spinal stenosis, lumbar region, without neuroge*INVALID FOR* L-S radiculopathy [M54.17] INVALID FOR* Cholelithiasis [K80.20] INVALID FOR* Afib (HCC) [I48.91] INVALID FOR* Prescriptions ordered this encounter Disp Refills Start End FLUTICASONE 50 MCG/ACTUATION NASAL S* 1 Erik* 11 08/31/2017 Route: EACH NOSTRIL Sig: Use 2 Sprays in each nostril once daily. Rinse mouth after use. Encounter Status:Closed by RYDER ALBERTS CNP on 08/31/17 CNOV Observed: 08/12/2017 Status: COMPLETED Source: [place] 1:00 PM [facility] REPOSITORY Office Visit (FAMPWS) KYAW ESPINOZA ([id number]) 1950 F Date Time Provider Department 08/12/17 1:00 PM RYDER ALBERTS) FAMPWS During your visit today, we recorded the following information about you: Temperature Pulse Blood pressure Weight 98.3 degrees 70/minute 118/70 97.1 kg Ryder Duke, PRODUCTION OR PLANT ENGINEER, PRODUCTION OR PLANT ENGINEER 08/12/2017 1:19 PM Addendum Chief Complaint Patient presents with: rash under breasts: x 2 weeks, itches, redness, cracking. HPI Kyaw Espinoza is a 66 year old female who presents here today for Above Complaints.. Presents to the office with complaints of a rash present under bilateral breasts. Has been present for almost one month. Gotten worse in the past 2 weeks. No pain. Complaints of pruritis. Skin is cracking and red. Has tried to use neosporin, which caused a burning sensation. She also has tried to apply OTC hydrocortisone cream, which has not assisted with symptom relief. States that at times, it feels as if the area is moist. No odor complaints. No fevers, chills or other rashes. No contact with any other sick individuals. Past medical history, appointments, medications, allergies reviewed. Previous Medical History PAST MEDICAL HISTORY Diagnosis Date - Afib (HCC) 09/22/2016 - Hypertension - Major depressive disorder, single episode, mild (HCC) - Other and unspecified hyperlipidemia - Type I (juvenile type) diabetes mellitus without mention of complication, not stated as uncontrolled - Unspecified hypothyroidism Previous Surgical History PAST SURGICAL HISTORY Procedure Laterality Date - CARPAL TUNNEL 80's? bilateral - LAPAROSCOPIC CHOLEYCYSTECTOMY 09/19/13 - LIGATE FALLOPIAN TUBE 77? Tubal ligation and appendectomy - PAST SURGICAL HISTORY OF 01/26/2017 Heart catherization, [facility] by Dr. Roger Family History FAMILY HISTORY Problem Relation Age of Onset - Diabetes Mother - Heart Mother - Stroke Mother - Cancer Maternal Uncle Unknown primary - Diabetes Father - Diabetes Maternal Aunt - Stroke Maternal Aunt - Cancer Maternal Aunt ANDquot;The female kind.ANDquot; Patient Allergies ALLERGIES Allergen Reactions - Clindamycin Hives - Klor-Con [Potassium* Hives - Lipitor [Atorvastat* Intolerance Muscle pain - Lisinopril Cough - Penicillins Hives - Gbpiymb-Ssb-Hno Red* Other: See Comments Muscle pain - Zocor [Simvastatin] Intolerance Muscle pain Current Medications Current Outpatient Prescriptions on File Prior to Visit: atenolol (TENORMIN) 50 mg tablet Take 1.5 tablets by mouth once daily. triamcinolone acetonide (KENALOG) 0.1 % cream Apply 1 application to affected area three times daily. Apply sparingly to area for rash/itching. warfarin (COUMADIN) 2 mg tablet Take 1 tablet by mouth daily as directed. meloxicam (MOBIC) 15 mg tablet Take 1 tablet by mouth once daily. rOPINIRole (REQUIP) 0.25 mg tablet Take 2 tablets by mouth daily at bedtime. gemfibrozil (LOPID) 600 mg tablet Take 1 tablet by mouth twice daily with meals. citalopram (CELEXA) 40 mg tablet Take 1 tablet by mouth once daily. warfarin (COUMADIN) 3 mg tablet Take 1 tablet by mouth once daily. glipiZIDE XL (GLUCOTROL XL) 5 mg 24 hr tablet Take 1 tablet by mouth once daily. nitroglycerin sublingual (NITROQUICK) 0.4 mg SL tablet Dissolve 1 tablet under the tongue as needed. FOR CHEST PAIN. IF NO RELIEF CALL 911 levothyroxine (SYNTHROID) 112 mcg tablet Take 1 tablet by mouth once daily. warfarin (COUMADIN) 4 mg tablet Take 1 tablet by mouth once daily. cyclobenzaprine (FLEXERIL) 5 mg tablet Take 2 tablets by mouth three times daily as needed for Muscle Spasm. Aspirin 81 mg Tab Take 1 tablet by mouth once daily. Waujvnawfroch-Ia-Ofdk-Minerals (ONE-A-DAY WOMENS FORMULA) 27-0.4 mg ORAL Tab Take by mouth once daily. calcium carbonate-Vit D3-minerals (CALTRATE PLUS) 600-400 mg-unit ORAL Tab Take 1 tablet by mouth twice daily. omega-3 fatty acids (FISH OIL CONCENTRATE) 1,000 mg ORAL Cap Take 1 capsule by mouth twice daily. metFORMIN (GLUCOPHAGE) 500 mg tablet Take by mouth. 1 tablet in the morning and 2 in the evening No current facility-administered medications on file prior to visit. Social History Social History Marital status: Spouse name: Years of education: Number of children: Occupational History Occupation Employer Comment [employer]. 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 Social History Main Topics Smoking status: Never Smoker Smokeless status: Never Used Comment: Mother smoked in childhood home. No smokers in home for many years. Alcohol use: No Drug use: No REVIEW OF SYSTEMS: as above ? Reviewed relevant PMHx, PSHx, Social Hx, current medications and allergies. EXAM: BP 118/70 Pulse 70 Temp 36.8 ?C (98.3 ?F) (Tympanic) Wt 97.1 kg (214 lb) LMP (Exact Date) BMI 45.54 kg/m2 General Appearance: Well appearing, alert, in no acute distress, well-hydrated, well nourished.. Skin: Area below both breasts have large area of erythema without drainage or discharge. Excoriated from patient scratching. Video Game Script Writer was present during this part of the encounter; SASHA Solares. Lungs: Lungs clear to auscultation. No wheezing, rhonchi, rales. Heart: RRR without murmur, gallop, or rubs. No ectopy. Health Maintenance List URINE ALBUMIN CREATININE RATIO due on 05/28/2017 HBA1C due on 09/27/2017 LDL due on 03/27/2018 MAMMOGRAM due on 03/31/2018 DILATED RETINAL EXAM due on 05/22/2018 DIABETIC FOOT EXAM due on 07/10/2018 FECAL OCCULT BLOOD due on 07/13/2018 TETANUS due on 12/04/2024 BONE DENSITY Completed ADULT PREVNAR-13 Completed INFLUENZA Completed HEPATITIS C SCREENING Completed PNEUMOVAX AGE 65 AND OVER WITH 5YR LOOKBACK Completed Data reviewed None recent or relevant. ASSESSMENT/PLAN: 1. Intertrigo - ICD9: 695.89, ICD10: L30.4 - Advised patient to keep area under breasts dry. - NYSTATIN-TRIAMCINOLONE 100,000 UNIT/G-0.1 % TOPICAL CREAM - Follow up if not improving. POORNIMA Carmona CNP, CNP 08/12/2017 1:18 PM Signed Addended by: RYDER ALBERTS CNP on: 08/12/2017 01:18 PM Modules accepted: Orders Referring Provider: SELF [[id number]] Allergies As of Date: 08/12/2017 Noted Allergy Reaction CLINDAMYCIN 12/04/2008 4 - Hives KLOR-CON (POTASSIUM CHLORIDE) 12/08/2013 4 - Hives LIPITOR (ATORVASTATIN CALCIUM) 07/14/2005 5 - Intolerance Comments: Muscle pain LISINOPRIL 12/08/2013 3 - Cough PENICILLINS 07/14/2005 4 - Hives ERCCZSY-SLA-GER REDUCTASE INHIBIT*06/07/2014 14 - Other: See Comments Comments: Muscle pain ZOCOR (SIMVASTATIN) 07/14/2005 5 - Intolerance Comments: Muscle pain Date Reviewed: 08/12/2017 Reviewed by: Ryder ([facility]) POORNIMA Alberts - Fully Assessed Reason for Visit: rash under breasts [Other] Cmt: x 2 weeks, itches, redness, cracking. Primary Visit Diagnosis:Intertrigo [L30.4] Order(s):nystatin-triamcinolone (MYCOLOG II) creamApply 1 application to affected area twice daily.Disp: 30 gRfl: 2 Prescriptions as of 08/12/2017 Sig: ATENOLOL 50 MG TABLET Take 1.5 tablets by mouth onc* TRIAMCINOLONE ACETONIDE 0.1 %* Apply 1 application to affect* WARFARIN 2 MG TABLET Take 1 tablet by mouth daily * MELOXICAM 15 MG TABLET Take 1 tablet by mouth once d* ROPINIROLE 0.25 MG TABLET Take 2 tablets by mouth daily* GEMFIBROZIL 600 MG TABLET Take 1 tablet by mouth twice * CITALOPRAM 40 MG TABLET Take 1 tablet by mouth once d* WARFARIN 3 MG TABLET Take 1 tablet by mouth once d* GLIPIZIDE ER 5 MG TABLET, EXT* Take 1 tablet by mouth once d* NITROGLYCERIN 0.4 MG SUBLINGU* Dissolve 1 tablet under the t* LEVOTHYROXINE 112 MCG TABLET Take 1 tablet by mouth once d* WARFARIN 4 MG TABLET Take 1 tablet by mouth once d* CYCLOBENZAPRINE 5 MG TABLET Take 2 tablets by mouth three* ASPIRIN 81 MG TABLET Take 1 tablet by mouth once d* * MGQUMQALPJNV-EN-YGHC-MINERALS* Take by mouth once daily. * CALCIUM CARB-VIT D3-MINERALS * Take 1 tablet by mouth twice * * OMEGA-3 FATTY ACIDS 1,000 MG * Take 1 capsule by mouth twice* NYSTATIN-TRIAMCINOLONE 100,00* Apply 1 application to affect* METFORMIN 500 MG TABLET Take by mouth. 1 tablet in t* Problem List As Of Date 08/12/2017 Noted Resolved Hypothyroidism [E03.9] Hyperlipidemia [E78.5] BENIGN HYPERTENSION [I10] INVALID FOR* Diabetes mellitus type 2, controlled, without c*INVALID FOR* Depression [F32.9] INVALID FOR* Lumbago [M54.5] INVALID FOR* Spinal stenosis, lumbar region, without neuroge*INVALID FOR* L-S radiculopathy [M54.17] INVALID FOR* Cholelithiasis [K80.20] INVALID FOR* Afib (HCC) [I48.91] INVALID FOR* Prescriptions ordered this encounter Disp Refills Start End NYSTATIN-TRIAMCINOLONE 100,000 UNIT/* 30 g 2 08/12/2017 08/12/2017 Route: TOPICAL Sig: Apply 1 application to affected area twice daily. Apply to area under breasts twice a day. NYSTATIN-TRIAMCINOLONE 100,000 UNIT/* 30 g 2 08/12/2017 Route: TOPICAL Sig: Apply 1 application to affected area twice daily. Medications Discontinued During This Encounter nystatin-triamcinolone (MYCOLOG) oin* 30 g 2 08/12/2017 08/12/2017 Route: TOPICAL Sig: Apply 1 application to affected area twice daily. Apply to area under breasts twice a day. Disc: Reason for discontinue is not on file. Disposition: Return if symptoms worsen or fail to improve. Follow-up and Disposition History Recorded Encounter Status:Closed by RYDER ALBERTS CNP on 08/12/17 PROGRESS Observed: 08/12/2017 Status: COMPLETED Source: [place] 12:44 PM [facility] [place] REPOSITORY HNO ID: [id number] Author: Ryder Sinha) POORNIMA Alberts Service: (none) Author Type: Nurse Practitioner Type: Progress Notes Filed: 08/12/2017 1:19 PM Note Text: Chief Complaint Patient presents with: rash under breasts: x 2 weeks, itches, redness, cracking. HPI Kyaw Espinoza is a 66 year old female who presents here today for Above Complaints.. Presents to the office with complaints of a rash present under bilateral breasts. Has been present for almost one month. Gotten worse in the past 2 weeks. No pain. Complaints of pruritis. Skin is cracking and red. Has tried to use neosporin, which caused a burning sensation. She also has tried to apply OTC hydrocortisone cream, which has not assisted with symptom relief. States that at times, it feels as if the area is moist. No odor complaints. No fevers, chills or other rashes. No contact with any other sick individuals. Past medical history, appointments, medications, allergies reviewed. Previous Medical History PAST MEDICAL HISTORY Diagnosis Date - Afib (HCC) 09/22/2016 - Hypertension - Major depressive disorder, single episode, mild (HCC) - Other and unspecified hyperlipidemia - Type I (juvenile type) diabetes mellitus without mention of complication, not stated as uncontrolled - Unspecified hypothyroidism Previous Surgical History PAST SURGICAL HISTORY Procedure Laterality Date - CARPAL TUNNEL 80's? bilateral - LAPAROSCOPIC CHOLEYCYSTECTOMY 09/19/13 - LIGATE FALLOPIAN TUBE 77? Tubal ligation and appendectomy - PAST SURGICAL HISTORY OF 01/26/2017 Heart catherization, [facility] by Dr. Roger Family History FAMILY HISTORY Problem Relation Age of Onset - Diabetes Mother - Heart Mother - Stroke Mother - Cancer Maternal Uncle Unknown primary - Diabetes Father - Diabetes Maternal Aunt - Stroke Maternal Aunt - Cancer Maternal Aunt The female kind. Patient Allergies ALLERGIES Allergen Reactions - Clindamycin Hives - Klor-Con [Potassium* Hives - Lipitor [Atorvastat* Intolerance Muscle pain - Lisinopril Cough - Penicillins Hives - Hppobsi-Cln-Tep Red* Other: See Comments Muscle pain - Zocor [Simvastatin] Intolerance Muscle pain Current Medications Current Outpatient Prescriptions on File Prior to Visit: atenolol (TENORMIN) 50 mg tablet Take 1.5 tablets by mouth once daily. triamcinolone acetonide (KENALOG) 0.1 % cream Apply 1 application to affected area three times daily. Apply sparingly to area for rash/itching. warfarin (COUMADIN) 2 mg tablet Take 1 tablet by mouth daily as directed. meloxicam (MOBIC) 15 mg tablet Take 1 tablet by mouth once daily. rOPINIRole (REQUIP) 0.25 mg tablet Take 2 tablets by mouth daily at bedtime. gemfibrozil (LOPID) 600 mg tablet Take 1 tablet by mouth twice daily with meals. citalopram (CELEXA) 40 mg tablet Take 1 tablet by mouth once daily. warfarin (COUMADIN) 3 mg tablet Take 1 tablet by mouth once daily. glipiZIDE XL (GLUCOTROL XL) 5 mg 24 hr tablet Take 1 tablet by mouth once daily. nitroglycerin sublingual (NITROQUICK) 0.4 mg SL tablet Dissolve 1 tablet under the tongue as needed. FOR CHEST PAIN. IF NO RELIEF CALL 911 levothyroxine (SYNTHROID) 112 mcg tablet Take 1 tablet by mouth once daily. warfarin (COUMADIN) 4 mg tablet Take 1 tablet by mouth once daily. cyclobenzaprine (FLEXERIL) 5 mg tablet Take 2 tablets by mouth three times daily as needed for Muscle Spasm. Aspirin 81 mg Tab Take 1 tablet by mouth once daily. Xtcodelmrfclf-Vp-Ttuk-Minerals (ONE-A-DAY WOMENS FORMULA) 27-0.4 mg ORAL Tab Take by mouth once daily. calcium carbonate-Vit D3-minerals (CALTRATE PLUS) 600-400 mg-unit ORAL Tab Take 1 tablet by mouth twice daily. omega-3 fatty acids (FISH OIL CONCENTRATE) 1,000 mg ORAL Cap Take 1 capsule by mouth twice daily. metFORMIN (GLUCOPHAGE) 500 mg tablet Take by mouth. 1 tablet in the morning and 2 in the evening No current facility-administered medications on file prior to visit. Social History Social History Marital status: Spouse name: Years of education: Number of children: Occupational History Occupation Employer Comment [employer]. 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 Social History Main Topics Smoking status: Never Smoker Smokeless status: Never Used Comment: Mother smoked in childhood home. No smokers in home for many years. Alcohol use: No Drug use: No REVIEW OF SYSTEMS: as above ? Reviewed relevant PMHx, PSHx, Social Hx, current medications and allergies. EXAM: BP 118/70 Pulse 70 Temp 36.8 ?C (98.3 ?F) (Tympanic) Wt 97.1 kg (214 lb) LMP (Exact Date) BMI 45.54 kg/m2 General Appearance: Well appearing, alert, in no acute distress, well-hydrated, well nourished.. Skin: Area below both breasts have large area of erythema without drainage or discharge. Excoriated from patient scratching. Video Game Script Writer was present during this part of the encounter; SASHA Solares. Lungs: Lungs clear to auscultation. No wheezing, rhonchi, rales. Heart: RRR without murmur, gallop, or rubs. No ectopy. Health Maintenance List URINE ALBUMIN CREATININE RATIO due on 05/28/2017 HBA1C due on 09/27/2017 LDL due on 03/27/2018 MAMMOGRAM due on 03/31/2018 DILATED RETINAL EXAM due on 05/22/2018 DIABETIC FOOT EXAM due on 07/10/2018 FECAL OCCULT BLOOD due on 07/13/2018 TETANUS due on 12/04/2024 BONE DENSITY Completed ADULT PREVNAR-13 Completed INFLUENZA Completed HEPATITIS C SCREENING Completed PNEUMOVAX AGE 65 AND OVER WITH 5YR LOOKBACK Completed Data reviewed None recent or relevant. ASSESSMENT/PLAN: 1. Intertrigo - ICD9: 695.89, ICD10: L30.4 - Advised patient to keep area under breasts dry. - NYSTATIN-TRIAMCINOLONE 100,000 UNIT/G-0.1 % TOPICAL CREAM - Follow up if not improving. Ryder Alberts CNP PT/INR POC Collected: 08/08/2017 Status: F Source: EPISCOPAL 7:46 AM [facility] REPOSITORY TYPE CODE TESTS RESULT OUT OF RANGE REFERENCE UNITS LAB [id number](LO 8.0-11.0 second(s) INC) High PT POC 23.0 LAB [id number](LO 1.0-1.2 INC) High INR POC 2.0 Performed By: #### [id number] #### YARITZA POC Subsection [facility] [place] [id number] PT/INR POC ORDER Collected: 08/08/2017 Status: F Source: EPISCOPAL 7:43 [facility] REPOSITORY TYPE CODE TESTS RESULT OUT OF RANGE REFERENCE UNITS LAB CD:[id number](LOINC) Normal Collected PT/INR POC Order Performed By: #### [id number] #### YARITZA POC Subsection [facility] [place] [address] ALLERGIES ALLERGIES DATE TYPE / NAME / CODE REACTION SEVERITY SOURCE CODE 07/15/2018 Drug atorvastatin Pain in joints Unknown [place] Allergy/41 calcium/[id number] [facility] [id number]( (RXNORM) [facility]) Repository 07/15/2018 Drug Penicillins/O40851 Hives Unknown [place] Allergy/41 0476(RXNORM) [facility] [id number]([place]) Repository 07/15/2018 Drug lisinopril/F085545 Unknown Unknown [place] Allergy/41 658(RXNORM) [facility] [id number]([facility]) Repository 07/15/2018 Drug clindamycin/A94701 Hives Unknown [place] Allergy/41 2794(RXNORM) [facility] [id number]([facility]) Repository 07/15/2018 Drug simvastatin/F80807 Pain in joints Unknown [place] Allergy/41 3621(RXNORM) [facility] [id number]([facility]) Repository 01/12/2018 Drug potassium Unknown Unknown [place] Allergy/41 chloride/[id number] [facility] 0518242(SN 7(RXNORM) [facility] O[facility]) Repository 01/04/2018 Drug Sulfa (Sulfonamide UNKNOWN Unknown [place] [facility] Allergy/41 Antibiotics)/F0010 [facility] 9729282(SN 91847(RXNORM) Repository OMED CT) 01/04/2018 Drug atorvastatin/F0060 Hives Unknown [place] [facility] Allergy/41 22493(RXNORM) [facility] 3143709(SN Repository OMED CT) 12/15/2017 DRUG ATORVASTATIN [facility] INGREDI/41 Three Repository [id number](SN OMED CT) 01/21/2017 DRUG LISINOPRIL High [facility] INGREDI/41 Three Repository [id number](SN OMED CT) 01/21/2017 DRUG POTASSIUM CHLORIDE [facility] INGREDI/41 Three Repository 5798251(SN OMED CT) 01/21/2017 DRUG SIMVASTATIN High [facility] INGREDI/ Three Repository 5844684(SN OMED CT) 06/07/2014 Drug [id number] OTHER: SEE C [facility] Class/4195 REDUCTASE Other [place] [address](SNOM INHIBITORS Repository ED CT) 12/08/2013 DRUG POTASSIUM CHLORIDE HIVES [facility] INGREDI/41 Other [place] 4037521(SN Repository OMED CT) 12/08/2013 DRUG LISINOPRIL COUGH [facility] INGREDI/41 Other [place] 8391048(SN Repository OMED CT) 09/09/2013 DRUG ATORVASTATIN [facility] INGREDI/ CALCIUM Three Repository 8599402(SN OMED CT) 09/09/2013 DRUG CLINDAMYCIN [facility] INGREDI/ Three Repository 0713874(SN OMED CT) 09/09/2013 Drug PENICILLINS [facility] Class/4195 Three Repository 38733(SNOM ED CT) 12/04/2008 DRUG CLINDAMYCIN HIVES [facility] INGREDI/41 Other [place] 4949751(SN Repository OMED CT) 07/14/2005 DRUG ATORVASTATIN INTOLERANCE [facility] INGREDI/41 CALCIUM Other [place] 3007578(SN Repository OMED CT) 07/14/2005 Drug PENICILLINS HIVES [facility] Class/4195 Other [place] 21011(SNOM Repository ED CT) 07/14/2005 DRUG SIMVASTATIN INTOLERANCE [facility] INGREDI/41 Other [place] 8234970(SN Repository OMED CT) Drug/77290 statins . Severe [facility] 1003([facility] System Repository Drug/00383 penicillins Severe [facility] 1003([facility]) System Repository Drug/50002 Zocor HIVES Severe [facility] 1003([facility] D [facility]) System Repository Drug/66297 Klor-Con HIVES Severe [facility] 1003([facility] D [facility]) System Repository Drug/39978 Lipitor HIVES Severe [facility] 1003([facility] D [facility]) System Repository Drug [id number] [facility] Class/4195 REDUCTASE Three Repository 27574([facility] INHIBITORS ED CT) Drug/92267 Zocor HIVES [facility] 1003([facility] D [facility]) System Repository Drug/10676 Klor-Con HIVES [facility] 1003([facility] D [facility]) System Repository Drug/05040 Lipitor HIVES [facility] 1003([facility] D [facility]) System Repository Drug/69591 statins . [facility] 1003([facility]) System Repository NG/9110980 POTASSIUM CHLORIDE [facility] 06(SNOMED Health System [facility]) Repository NG/9134362 LISINOPRIL [facility] 06(SNOMED Health System [facility]) Repository NG/1528617 SIMVASTATIN [facility] 06([facility] System CT) Repository Drug/42825 penicillins [facility] 1003([facility] D [facility]) System Repository ENCOUNTERS ENCOUNTERS ADMIT/DISCHARGE ACCOUNT NUMBER ADMITTING ENCOUNTER LOCATION SOURCE CLASS 07/30/2018 [id number] Ambulatory Building:[facility] SPORTSMEDSTU Three MBO Repository 07/29/2018/07/30/20 [id number] Ambulatory [address] Repository 07/28/2018/07/28/20 [id number] Ambulatory Building:[place] [address] SPORTSMEDAMB Three ER Repository 07/21/2018 [id number] Ambulatory [facility] ding:LAB Repository 07/15/2018/07/18/20 [id number] Agyepong, Inpatient [address] ding:[id number] Repository : EJ912Efl: 1 07/15/2018 [id number] Agyepong, Ambulatory BMSBuilding: [place] [place] [facility] Repository 07/15/2018 [id number] Agyepong, Ambulatory BMSBuilding: [place] [facility] Repository 07/15/2018 [id number] Agyepong, Ambulatory BMSBuilding: [place] [facility] Repository 07/15/2018 [id number] Agyepong, Ambulatory BMSBuilding: [place] [facility] Repository 07/14/2018 [id number] [facility] 07/12/2018/07/15/20 [id number] [facility] [address] [facility] 07/12/2018/07/14/20 [id number] Rufina[facility] Regional ding:[facility] ERoom: Repository 0305Bed: 07/12/2018 [id number] Ambulatory [address] [place] [address] Repository 07/10/2018/07/10/20 [id number] Laurent, [address] Regional ding:[facility] Repository 07/10/2018 [id number] Ambulatory [address] [place] [address] Repository 07/06/2018/07/06/20 [id number] Ambulatory Building:[address] Three ER Repository 07/01/2018 [id number] Ambulatory [facility] MEDICAL Repository CENTERBuildi ng:CAGWS 06/25/2018/06/29/20 [id number] Ambulatory [address] Repository 06/15/2018/06/15/20 [id number] Rufina, Ambulatory [facility] Regional ding:[facility] DEP Repository 06/15/2018 [id number] Ambulatory [address] [place] [address] Repository 06/14/2018/06/14/20 [id number] Mervin, [place] [address] [address] Sergio [facility] Repository 06/05/2018/06/05/20 [id number] Ambulatory [address] Repository 05/27/2018/05/27/20 [id number] Ambulatory Building:[place] [address] SPORTSMEDAMB Three ER Repository 04/20/2018/04/20/20 [id number] Milton Richardson Ambulatory Pent[facility]ostal Pent[facility]ostal [facility] ding:SH[facility] AC Repository 04/20/2018 [id number] Ambulatory [address] [place] [address] Repository 04/14/2018/04/16/20 [id number] Ambulatory [address] [place] Repository 04/06/2018/04/06/20 [id number] Ambulatory [address] [place] Repository 04/06/2018/04/09/20 [id number] Ambulatory [address] [place] Repository 03/29/2018/03/29/20 [id number] Ambulatory [address] [place] Repository 03/25/2018/03/25/20 [id number] Milton Richardson Ambulatory Milton Richardson, Pentecostal 18 R DOBuilding:T Regional homaeRoom: [facility] Room 3 Repository 03/10/2018/03/10/20 [id number] Ambulatory [address] [place] Repository 03/10/2018/04/02/20 [id number] Ambulatory [address] [place] Repository 03/10/2018/03/10/20 [id number] Ambulatory [address] [place] Repository 02/26/2018/03/01/20 [id number] Ambulatory [address] [place] Repository 01/27/2018 [id number] Ambulatory [facility] [place] Repository 01/27/2018/02/02/20 [id number] Ambulatory [address] [place] Repository 01/12/2018/01/14/20 [id number] Kelton Hickey Micheal [address] ding:PCURoom Repository : [id number]: 1 01/12/2018 [id number] [place] Ambulatory BMSBuilding: Acme Dave BMS.[facility] Repository 01/12/2018 [id number] [place] Ambulatory BMSBuilding: Micheal Dave BMS.[facility] Repository 01/12/2018/01/14/20 [id number] Ambulatory BMSBuilding: Micheal [address] [place] [address] Repository 01/10/2018/01/11/20 [id number] [facility] ding:ED Repository 01/08/2018 [id number] Ambulatory [facility] Repository 01/07/2018 [id number] Ambulatory 31 [facility] Repository 01/07/2018 [id number] Ambulatory 31 [facility] Repository 01/06/2018 [id number] Ambulatory 31 [facility] Repository 01/05/2018 [id number] Ambulatory 31 [facility] Repository 01/04/2018/01/09/20 [id number] [facility], Inpatient PCGBuilding: [place] 18 Nilesh Encounter 8WRoom: Community 852Bed: 1 [facility] Repository 01/04/2018 [id number] Ambulatory [address] [place] [address] Repository 01/04/2018 [id number] Ambulatory [address] [place] [address] Repository 01/04/2018 [id number] Ambulatory [address] [place] [address] Repository 01/03/2018/01/04/20 [id number] [facility], Emergency [address] Regional ding:[facility] EDRoom: WR Repository 01/01/2018/01/02/20 [id number] Ambulatory [address] [place] Repository 12/31/2017/01/01/20 [id number] Ambulatory Building:OPG [place] [address] SPORTSMEDAMB Three ER Repository 12/31/2017/01/01/[id number] Rufina Ambulatory [address] Repository 12/29/2017/12/30/19 [id number] Ambulatory [address] Other [place] Repository 12/29/2017/12/30/19 [id number] Ambulatory [address] MEDICAL Repository CENTERBuildi ng:CAGWS 12/15/2017/12/16/19 [id number] Ambulatory Building:OPG [place] [address] SPORTSMEDAMB Three ER Repository 09/19/2017/09/19/19 [id number] Ambulatory [address] [place] Repository 08/12/2017/08/12/20 [id number] Ambulatory [address] [place] Repository 08/08/2017/02/13/20 [id number] [facility], [address] Regional ding:[facility] Repository PAYERS PAYERS ENCOUNTER GUARANTOR PAYER SUBSCRIBER SOURCE 07/30/2018 KYAW CARD [facility] ALEIXSDOB: Insurance:JUAREZ ESPINOZADOB: Three Repository MANAGED [id number] [place] [address], Number: [address] [address]Oel: [id number] Date:5839-77-81XX BOX () 629672EBFDSDM, [place] [address]VC: 07/30/2018 Secondary KYAW [facility] Insurance:MEDICAIDPol HARRISDOB: Three Repository icy Number: [id number] [address] Date:4709-38-14GA [address] [place] [address], 264[facility] [place], [place] [address]Ius: [address]GB: [phone] (HP) 07/28/2018 KYAW [facility] KYAW [facility] ALEXISDOB: Insurance:JUAREZ VASQUEZB: Three Repository MANAGED [id number] MED[address], Number: [place] [address]Gou: [id number] Date:3715-14-21JM [address]OX () 084308ULQZNXO, [place] [address]FE: 07/28/2018 Secondary KYAW [facility] Insurance:MEDICAIDPol HARRISDOB: Three Repository icy Number: [id number] Date:7085-05-97OA [address] [place] [address], [place], [place] [address]Bqb: [address]TE: [phone] (HP) 07/21/2018 KYAW Primary KYAW [place] [id number] CENTER Insurance:JUAREZ GIORDANO: Community [address] MEDICARE SENIOR [id number] ADVANTAPolicy Number: Repository [id number]: 419 [id number] [phone] (HP) Date:2980-74-92CQ [address] [place] [address]DS: 07/21/2018 Secondary KYWA Rodriguezoster Insurance:MEDICAIDPol HARRISDOB: Community icy Number: [id number] Hospital [id number] Repository Date:2018-07-21 07/21/2018 Tertiary NOT GIVENUNK Ac[place] Insurance:SELF PAY [facility] Number: Effective Repository Date:2018-07-21 07/15/2018 KYAW S Primary KYAW Burton [id number] CENTER Insurance:JUAREZ VASQUEZB: Community [employer]AP[place] MEDICARE SENIOR [id number] ADVANTAPolicy Number: Repository [id number]: 419 [id number] [phone] (HP) Date:3839-02-33SW [address] [place] [address]CQ: 07/15/2018 Secondary KYAW [place] Micheal Insurance:MEDICAIDPol HARRISDOB: Community icy Number: [id number] Hospital [id number] Repository Date:2018-07-15 07/15/2018 Tertiary NOT GIVENUNK Acme Insurance:SELF PAY [facility] Number: Effective Repository Date:2018-07-15 07/15/2018 Kyaw S Primary Kyaw Burton [id number] Center Insurance:JUAREZ VasquezB: Community StA[address] MEDICARE SENIOR [id number] ADVANTAPolicy Number: Repository [id number]: 419 [id number] [phone] (HP) Date:7464-60-54HD [address]MHQFNYL [place] [address]IM: 07/15/2018 Secondary Kyaw [place] Micheal Insurance:MEDICAIDPol HarrisDOB: Community icy Number: [id number] Hospital [id number] Repository Date:2018-07-15 07/15/2018 Tertiary NOT GIVENUNK Micheal Insurance:SELF PAY Community [facility] Number: Effective Repository Date:2018-07-15 07/15/2018 KYAW [place] Primary KYAW [place] Micheal [id number] CENTER Insurance:JUAREZ VASQUEZB: Community STAPT MEDICARE [facility] [id number] Wright StreetAPoly Number: Repository [id number]: 419 [id number] [phone] (HP) Date:4035-41-97MT [address]16ZLMQPDD [place] [address]PU: 07/15/2018 Secondary KYAW [place] Acme Insurance:MEDICAIDPol ELGINDOB: [facility] icy Number: [id number] Hospital [id number] Repository Date:2018-07-15 07/15/2018 Tertiary NOT GIVENUNK Micheal Insurance:SELF PAY [facility] Number: Effective Repository Date:2018-07-15 07/15/2018 KYAW S Primary KYAW Burton [id number] CENTER Insurance:JUAREZ VASQUEZB: Community STAPT MEDICARE [facility] [id number] Number: Repository [id number]: 419 [id number] [phone] (HP) Date:5654-59-99IB [address] [place] [address] [place] [address]QA: 07/15/2018 Secondary KYAW Burton Insurance:MEDICAIDPol HARRISDOB: Community icy Number: [id number] Hospital [id number] Repository Date:2018-07-15 07/15/2018 Tertiary NOT GIVENUNK Micheal Insurance:SELF PAY [facility] Number: Effective Repository Date:2018-07-15 07/15/2018 KYAW S Primary KYAW [place] Acme [id number] CENTER Insurance:JUAREZ VASQUEZB: Community STAPT MEDICARE [facility] [id number] ADVANTAPoly Number: Repository [id number]: 419 [id number] [phone] (HP) Date:5448-70-10YS [address]OLD [place] [address]DU: 07/15/2018 Secondary KYAW Rodriguezoster Insurance:MEDICAIDPol HARRISDOB: Community icy Number: [id number] Hospital [id number] Repository Date:2018-07-15 07/15/2018 Tertiary NOT GIVENUNK Acme Insurance:SELF PAY [facility] Number: Effective Repository Date:2018-07-15 07/14/2018 KYAW [facility] HARRISDOB: Insurance:ANTHEM HARRISDOB: Three Repository MANAGED [id number] MED[address]Policy [address], Number: [address] [address]Pny: [id number] Date:9748-71-09KP BOX () [address] [place] [address]GO: 07/14/[address] [facility] Health Insurance:MEDICAIDPol HARRISDOB: Three Repository icy Number: [id number] [address] Date:3874-21-94WB [address], [place], [place] [address]Lqu: [address]AR: [phone] (UI) 07/12/2018 [facility] HARRISDOB: Insurance:ANTHEM HARRISDOB: Three Repository [id number] MANAGED [id number] MED[address]Policy [address], Number: [address] [address]Sqg: [id number] Date:0504-52-44ZA [address]OX () 95[address]78BZYLBPW[address] [place] [address]JG: 07/12/[address] [facility] Health Insurance:MEDICAIDPol HARRISDOB: Three Repository icy Number: [id number] Date:8912-31-60GE [address], [place], [place] [address]Rlm: [address]ES: [phone] (HP) 07/12/2018 [facility]: Insurance:ANTHEMPolic ELGINDOB: [facility] y Number: Effective [id number] Date:2018-05-28 - [address] Repository [address] [place] [address] 4621-86-92Oxuq [address] [place] [address] [id number]: Name:CD:[id number] [id number]: 7345[address]JOAELDD, [place] (HP) [address]IT: [phone] (HP) [phone] (WP) 07/12/2018 Secondary KYAW Rosetan Insurance:MedicaidPol [facility] icy Number: Effective [id number] System Date:2018-05-28 - [address] Repository 7514-53-02Xqtr [address] [place] [address] Name:CD:[id number]: [facility] 32ND FLOORCONORTHROP, [place] (HP)Tel: [phone]: (WP) [phone] 07/12/2018 [facility]sonDOB: Insurance:AnthemPDoctors HospitalB: [facility] y Number: [id number] [id number] [address] [place] [address] Date:Plan Name:Health [address] [place] [address] [id number]: [phone]: (HP) (HP) 07/12/2018 Secondary [facility] Insurance:MedicaidPol ELGINDOB: Hospitals icy Number: [id number] Repository [id number] [address] Date:Plan [address] [place] [address] Name:[facility] Box [id number]: [address], [place] [address]WP: [phone] ([phone] 07/10/2018 [facility] PeachDOB: Insurance:ANTHEMPolic [facility]: [facility] y Number: Effective [id number] Date:2018-07-10 - [address]T Repository [address] [place] [address] 3021-29-69Oqzq [address] [place] [address] [id number]: Name:CD:[id number] [id number]: [address]2267SZNBXLV, [place] (HP) [address]OK: [phone]) (HP) [phone] (WP) 07/10/2018 Secondary [facility] Insurance:MedicaidPol [facility]: [facility] icy Number: Effective [id number] System Date:2018-07-10 - [address]T Repository 9271-84-17Kqqn [address] [place] [address] Name:CD:[id number] E [id number]: [facility] [address] FLO[place]OUNT [place], [place] (HP)Tel: [phone]: (WP) [phone] 07/10/2018 [facility] AnsonDOB: Insurance:[facility] CenteremPDoctors HospitalB: [facility] y Number: [id number] [id number] [address] Date:Plan Name:Health [address] [place] [address] [id number]: [id number]: (HP) (HP) 07/10/2018 Secondary [facility] Insurance:MedicaidPol ELGINDOB: Hospitals icy Number: [id number] Repository [id number] [address] Date:Plan [address] [place] [address] Name:Health [id number]: [address], [place] [address]RW: [phone]) (HP) [phone] 07/06/2018 KYAW Primary KYAW [facility] HARRISDOB: Insurance:ANTHEM HARRISDOB: Three Repository MANAGED [id number] [place] [address], Number: 312[facility] [address]Wig: [id number] [address]60 Date:7592-00-52XD BOX (HP) 038547ROEGPTL[address] [place] [address]ZN: 07/06/2018 Secondary KYAW [facility] Insurance:MEDICAIDPol HARRISDOB: Three Repository icy Number: [id number] [facility] Date:0273-68-47SL [address] [place] [address], 2645[facility] [address]Aos: [address]YZ: [phone] (HP) 07/01/2018 KYAW S Primary KYAW S [facility] HARRISDOB: Insurance:ANTHEM ELGINDOB: Health System [facility] [id number] Number: [address]Xxg: 419 [id number] [phone] (HP) Date: 07/01/2018 Secondary KYAW S [facility] Insurance:[facility]ITAL[facility]: Health System MEDICAIDPolicy [id number] Repository Number: [id number] Date: 06/15/2018 KYAW S Primary KYAW S Pentecostal HARRISDOB: Insurance:[facility] HARRISDOB: [facility] y Number: Effective [id number] [facility] APT Date:2018-05-28 - [facility] APT Repository [address] [place] [address] [id number] [id number]: Name:CD:[id number] [id number]: [address] [place] [address] (HP) [phone]: ([phone]) (HP) [phone] (WP) 06/15/2018 Secondary KYAW Lehman Insurance:MedicaidPol [facility] icy Number: Effective [id number] System Date:2018-05-28 - [address]T Repository 6136-47-39Haon [address] [place] [address] Name::[id number] E [id number]: [facility] [address] [place] [place], [place] (HP)Tel: [phone]: (WP) [phone] 06/15/2018 Community HealthB: Insurance:AnthemPDoctors HospitalB: [facility] [id number] y Number: [id number] Repository CENTER [facility] [id number] CENTER [address] Date:Plan Name:[address] [id number]: [id number]: (HP) (HP) 06/15/2018 [facility] Insurance:MedicaidPol [facility]: [facility] icy Number: [id number] Repository [id number] [address] Date:[address] Name:[facility] [id number]: [place], [place] [address]VP: [phone]) (HP) [phone] 06/14/2018 Primary KYAW [place] [facility] Insurance:Blue Cross HARRISDOB: [place] Number: [id number] [facility] [id number] CENTER [place] Repository Date:[facility] [address] [place] [address], Name:[facility] [address]Uph: [facility] [place] [address]EO: (163) (HP) [phone] 06/14/2018 Secondary KYAW [facility] Insurance:MedicaidPol ELGINDOB: Jessica Number: [id number] [facility] [id number] [address] Repository Date:Plan Name:Health [address] [place] [address]Yjn: (HP) 05/27/2018 KYAW [facility] KYAW [facility] HARRISDOB: Insurance:ANTHEM [facility]: Three Repository MANAGED [id number] MED[address]Policy [address] [place] [address], Number: [address] [place] [address] 46[address]Gal: [id number] [phone] Date:6594-22-09WO BOX (HP) [place]198[place]QJJJFOAK[place], [place] [address]TC: 05/27/2018 Secondary KYAW [facility] Insurance:MEDICAIDPol [facility] Repository icy Number: [id number] Date:0655-85-67EL [address] [place] [address], [address] [place] [address]Cyw: [address]GO: [phone] (HP) 04/20/2018 KYAW [place] [facility] KYAW Lehman HARRISDOB: Insurance:ANTHEMPolic ELGINDOB: [facility] y Number: Effective [id number] Date:2018-04-01 - [address]T Repository [address] [place] [address] 6552-02-02Otcu [address] [place] [address] [id number]: Name:CD:[id number] [address]OX [address]2572Xcl: 951644LTIUUPX, [place] (HP) [address]DL: ([phone]) (HP) [phone] () 04/20/2018 Secondary KYAW Lehman Insurance:MedicaidPol [facility]: [facility] icy Number: Effective [id number] System Date:2018-04-01 - [address]T Repository 7291-90-30Xycj [address] [place] [address] Name:CD:[id number]: [facility] [address] FLO[place]COLUARV[place], [place] (HP)Tel: [phone]) [phone]: (WP) [phone] 04/20/2018 [facility]: Insurance:AnthBaptist Medical CenterB: [facility] y Number: [id number] [address] [id number] [address] [place] [address] Date:Plan Name:[address] [id number]: [id number]: (HP) (HP) 04/20/2018 [facility] Insurance:[facility]icaidSaline Memorial HospitalB: [facility] icy Number: [id number] Repository [id number] [address] Date:Plan [address] [place] [address] Name:[facility] Box [id number]: [place]645[place], [place] [address]RR: [phone]) (HP) [phone] 03/25/2018 [facility]: Insurance:[facility]: [facility] [id number] MEDIC[address]Policy [address] Repository [address] [place] [address] Number: [address] [id number]: Date:2018-03-25 [id number]: 3194-19-88Bqbm (HP) Name:CD:[id number] ()Tel: 000) [address]Xzeivlq, [place] 000-0000 WP) [address]CY: 03/25/2018 Secondary KYAW Angelic RosePentecostal Insurance:[address] [place], [place] [address]DOB: [facility] MEDICAID [id number] System PRIMARYPolicy Number: [address]ENTER [address] Repository Effective [address] [place] [address] Date:2018-03-25 [id number]: 6185-64-16Anzf Name:CD:[id number] O ()Tel: 000) [address] [place] [address] 000-0000 () [address]HR: 01/12/2018 Kyaw [place] Primary Kyaw Burton [id number] Center Insurance:ANTHEM HarrisDOB: Community StApt MEDICARE [facility] [id number] ADVANTAPolicy Number: Repository [id number]: 419 [id number] [phone] () Date:7854-74-45CL [address] [place] [address]SX: 01/12/2018 Secondary Kyaw [place] [employer] Insurance:MEDICAIDPol HarrisDOB: Community icy Number: [id number] Hospital [id number] Repository Date:2018-01-12 01/12/2018 Tertiary NOT GIVENUNK Ac[place] Insurance:SELF PAY [facility] Number: Effective Repository Date:2018-01-12 01/12/2018 Kyaw S Primary Kyaw Burton [id number] Center Insurance:ANTHEM AlexisDOB: Community StApt MEDICARE [facility] [id number] ADVANTAPolicy Number: Repository [id number]: 419 [id number] [phone] () Date:6432-10-70BY [address] [place] [address]VG: 01/12/2018 Secondary Kyaw S Micheal Insurance:MEDICAIDPol HarrisDOB: Community icy Number: [id number] Hospital [id number] Repository Date:2018-01-12 01/12/2018 Tertiary NOT GIVENUNK Micheal Insurance:SELF PAY [facility] Number: Effective Repository Date:2018-01-12 01/12/2018 Kyaw S Primary Kyaw Burton [id number] Center Insurance:ANTHEM HarrisDOB: Community StApt MEDICARE [facility] [id number] ADVANTAPolicy Number: Repository [id number]: 419 [id number] [phone] (HP) Date:1399-18-20EN [address]WELFFQO[address] [place] [address]ZI: 01/12/2018 Secondary Kyaw Burton Insurance:MEDICAIDPol HarrisDOB: Community icy Number: [id number] [id number] Repository Date:2018-01-12 01/12/2018 Tertiary NOT GIVENUNK Acme Insurance:SELF PAY [facility] Number: Effective Repository Date:2018-01-12 01/12/2018 Kyaw [place] Primary Kyaw Burton [id number] Center Insurance:ANTHEM HarrisDOB: Community StApt MEDICARE [facility] [id number] ADVANTAPolicy Number: Repository [id number]: 419 [id number] [phone] (HP) Date:4975-79-21TL [address]HGSABYL[address] [place] [address] 12[address]YD: 01/12/2018 Secondary Kyaw Rodriguezoster Insurance:MEDICAIDPol HarrisDOB: Community icy Number: [id number] [facility] [id number] Repository Date:2018-01-12 01/12/2018 Tertiary NOT GIVENUNK Micheal Insurance:SELF PAY [facility] Number: Effective Repository Date:2018-01-12 01/10/2018 Kyaw At[place] Primary Kyaw Burton [id number] Center Insurance:ANTHEM HarrisDOB: Community StApt MEDICARE [facility] [id number] ADVANTAPolicy Number: Repository [id number]: 419 [id number] [phone] (HP) Date:4202-15-66WE [address]HOQMULG[address] [place] [address]GJ: 01/10/2018 Secondary Kyaw Burton Insurance:MEDICAIDPol HarrisDOB: Community icy Number: [id number] Hospital [id number] Repository Date:2018-01-10 01/10/2018 Tertiary NOT GIVENUNK [place] Insurance:SELF PAY [facility] Number: Effective Repository Date:2018-01-10 01/08/2018 KYAW ESPINOZADOB: Insurance:AnthemPolic HARRISDOB: Hospitals y Number: [id number] Repository CENTER [id number] [place], [place] Date:Plan Name:[place], [place] [address]Gbq: [phone]: (HP) [phone] (HP) 01/08/2018 Secondary [facility] Insurance:MedicaidPol HARRISDOB: Hospitals icy Number: [id number] Repository [id number] CENTER Date:[place], [place] Name:[facility] [address] [address]Vgy: [phone], [place] [phone] (HP) [phone]: 01/07/2018 [facility]:AnthemPolic ELGINDOB: [facility] y Number: [id number] Repository CENTER [id number] [place], [place] Date:Plan Name:[place], [place] [address]Kgb: [phone]: (HP) [phone] (HP) 01/07/2018 [facility] Insurance:MedicaidPol HARRISDOB: Hospitals icy Number: [id number] Repository [id number] CENTER Date:[place], [place] Name:[facility] [address] [address]Zxx: [phone], [place] [phone] (HP) [phone]: 01/07/2018 [facility] Insurance:AnthemPolic HARRISDOB: Hospitals y Number: [id number] Repository CENTER [id number], [place] Date:Plan Name:[place], [place] [address]Vuh: [phone]: (HP) [phone] (HP) 01/07/2018 Secondary [facility] Insurance:MedicaidPol HARRISDOB: Hospitals icy Number: [id number] Repository [id number] CENTER Date:Plan [place], [place] Name:[facility] [address] [address]Dve: [phone], [place] [phone] (HP) [phone]: 01/06/2018 [facility] HARRISDOB: Insurance:AnthemPolic HARRISDOB: Hospitals y Number: [id number] [id number] [place] [address], [place] Date:Plan [place], [place] [address]Ujo: (419) Name:[address] [address]Wwq: (HP) [phone], [place] [phone] (HP) 69017CA: 01/06/2018 [facility] Insurance:MedicaidPol HARRISDOB: Hospitals icy Number: [id number] Repository [id number] [address] Date:Plan [place], [place] Name:[address] [address]Vzc: [phone], [place] [phone] (HP) 49562PY: 01/05/2018 [facility] Insurance:AnthemPolic HARRISDOB: [facility] y Number: [id number] [id number] [address] [place] [address], [place] Date:Plan Name:Health [address] [place] [address] 94852Nyh: [phone]: (HP) [phone] (HP) 01/05/2018 [facility] Insurance:AnthemPolic HARRISDOB: Hospitals y Number: [id number] Repository [id number] [address] Date:Plan [place], [place] Name:[address] [address]Zno: [phone], [place] [phone] (HP) 45[address]YQ: 01/05/2018 [facility] Insurance:MedicaidPol ELGINDOB: Hospitals icy Number: [id number] Repository [id number] Center [facility] Date:Plan [address] [place] [address] Name:[address] [address]Zmi: [phone] 2645[place], [place] [phone] (HP) 70702MR: 01/04/2018 [place] [address] CENTER Insurance[facility]T MEDICAREPolicy [id number] [address] [place] [address] Number: [facility] [address]Wfp: (238) [id number] [address] [place] [address] [phone] (HP) Date: 42925Pri: (HP) 01/04/2018 Secondary [facility]: [facility] [id number] Repository Number: [facility] [id number] [place], [place] Date:[address] [address]You: [phone] [place]645[place], [place] [phone] (HP) [phone]: 01/04/2018 [facility] y Number: [id number] Repository CENTER [id number] CENTER [place], [place] Date:Plan Name:[place], [place] [address]Jxw: [phone]: (HP) [phone] (HP) 01/04/2018 [facility] Insurance:MedicaidPol [facility] icy Number: [id number] Repository [id number] CENTER Date:Plan [place], [place] Name:[address] [address]Jvr: [phone], [place] [phone] (HP) 480[address]QI: 01/04/2018 [facility] HARRISDOB: Insurance:AnthemPolic HARRISDOB: Hospitals y Number: [id number] [id number] [address] [place] [address] Date:Plan [place], [place] [address]Qss: (419) Name:HealthP [address] [address]Cul: (HP) [phone] [place] 6067400 (HP) 28[address]VG: 01/04/2018 Secondary [facility] Insurance:MedicaidPol HARRISDOB: Hospitals icy Number: [id number] Repository [id number] [address] Date:Plan [facility], [place] Name:Health[address] [address]Bua: [phone] 2645[place], [place] [phone] (HP) 57[address]WE: 01/04/2018 [facility] Insurance:AnthemPolic HARRISDOB: [facility] y Number: [id number] [id number] Center [address] [place] [address], [place] Date:Plan Name:Health [address] [place] [address] 388[address]Dhc: [phone]: (HP) [phone] (HP) 01/04/2018 [facility] Insurance:AnthemPolic HARRISDOB: Hospitals y Number: [id number] Repository [id number] [address] Date:Plan [facility], [place] Name:HealthP [address] [address]Plg: [phone] 820307Dscxrao, [place] [phone] (HP) [phone]: 01/04/2018 [facility] Insurance:MedicaidPol HARRISDOB: Hospitals icy Number: [id number] Repository [id number] [address] Date:Plan [facility], [place] Name:Health[address] [address]Elz: [phone] [phone], [place] [phone] (HP) 205[address]WA: 01/03/2018 [facility] KYAW Lehman ELGINDOB: Insurance:ANTHEMPolic ELGINDOB: [facility] y Number: Effective [id number] [facility] Date:2018-01-03 - [facility] APT Repository [address] [place] [address] [id number] [address] [place] [address] [id number]: Name:CD:[id number] [facility] [id number]: [address] [place] [address] (HP) [phone]: [phone] (WP) 01/03/2018 Secondary KYAW Lehman Insurance:MedicaidPol [facility] icy Number: Effective [id number] System Date:2018-01-03 - [facility] APT Repository [id number] [address] [place] [address] Name:CD:[id number] E [id number]: [facility] [address] [place], [place] (HP)Tel: [phone]: [phone] 12/31/2017 KYAW [facility] HARRISDOB: Insurance:[facility]: Three Repository MANAGED [id number] [place] [address], Number: [address] [place] [address]Uik: [id number] Date:8718-03-09TU BOX (HP) 108265[place], [place] [address]VJ: 12/31/2017 [facility] Insurance:MEDICAIDPol ELGINDOB: Three Repository icy Number: [id number] Date:[id number] [address] [place] [address], [address] [place] [address] 211[address]Qso: [phone]: [phone] (HP) 12/31/2017 Primary [facility] Cross H[facility]ISDOB[facility] Number: [id number] [facility] [id number] [address] Repository Date:Plan [address] [place] [address], Name:HealthElectronic [place] [address]Udr: [facility] Medical Centerleni [place] [address]TF: [phone] 12/31/2017 Secondary [facility] [place] [facility] Insurance:[facility]icaidGeising[facility] HospitalDOB: [place] Number: [id number] [facility] [id number] [facility] Repository Date:Plan Name:Health [address] [place] [address]Ssn: (HP) 12/29/2017 KYAW S Primary [facility] HARRISDOB: Insurance:ANTHEM HARRISDOB: Health System MEDIBLUE [id number] Repository CENTER [address] Number: [id number]: [phone] [id number] [phone] (HP) Date: 12/29/2017 Secondary [facility] System MEDICAIDPolicy [id number] Repository Number: [id number] Date: 12/15/2017 KYAW Primary [facility] HARRISDOB: Insurance:ANTHEM HARRISDOB: Three Repository MANAGED [id number] [facility] APT MEDICAREPolicy [address] [place] [address] Number: [address] [place] [address]Diq: [phone] [id number] (HP) Date:4195-71-53ZS [place] 722905EARGVNT, [place] [address]YY: 12/15/2017 Secondary [facility] Insurance:MEDICAIDPol HARRISDOB: Three Repository icy Number: [id number] [address] Date:3373-94-31NZ [address] [place] [address] 2[address], [place] [address]Bvy: [phone]: (HP) [phone] 08/08/2017 KYAW S Primary KYAW Lehman HARRISDOB: Insurance:ANTHEMPolic [facility]: [facility] y Number: Effective [id number] Date:2017-08-08 - [address] Repository [address] [place] [address] [id number] [address] [place] [address] [id number]: Name:CD:[id number]: 097156RR[place], [place] (HP) [phone]: [phone] ([phone] (WP) 08/08/2017 Secondary KYAW Lehman Insurance:MedicaidPol [facility]: [facility] icy Number: Effective [id number] System Date:2017-08-[address] - [address] Repository [id number] [address] [place] [address] Name:CD:[id number]: [facility] [address] [place], [place] (HP)Tel: [phone]: [phone]
== END 2018-07-18 13:05 | disposition home or self-care (01) | DRG 291 ==
LOC: ED 20:07 → MS3 21:59
PROVIDERS: Admitting Provider Hospitalist; Emergency Provider Emergency Medicine; Family Provider Family Medicine; PCP Family Medicine; Visit Provider Internal Medicine
DX: I11.0 Hypertensive heart disease with heart failure (principal); J96.01 Acute respiratory failure with hypoxia; J18.9 Pneumonia, unspecified organism; I50.33 Acute on chronic diastolic (congestive) heart failure; Y95 Nosocomial condition; E87.6 Hypokalemia; E11.65 Type 2 diabetes mellitus with hyperglycemia; E03.9 Hypothyroidism, unspecified; Z96.651 Presence of right artificial knee joint; K21.9 Gastro-esophageal reflux disease without esophagitis; G25.81 Restless legs syndrome; I48.2 Chronic atrial fibrillation; Z87.891 Personal history of nicotine dependence; Z87.11 Personal history of peptic ulcer disease; Z79.84 Long term (current) use of oral hypoglycemic drugs; E66.01 Morbid (severe) obesity due to excess calories; Z68.35 Body mass index [BMI] 35.0-35.9, adult
CPT/HCPCS: 36415; 71045; 80048; 80053; 82962; 83036; 83605; 83735; 83880; 84484; 85025; 85610; 87040; 87449; 93005; 94640; 94667; 94668; 97110; 97162; 97165; 99251; 99285; J7050; A4216; G0463; J1940

== ENCOUNTER → 2018-07-21 14:06 | Outpatient (CLI) | payer MEDICARE, MEDICAID, SELFPAY ==
[2018-07-15 23:20] VITALS: BMI 45.6
[2018-07-21 15:21] LABS: International Normalized Ratio 2.7; Prothrombin Time (Protime)PT. 29.1 SECONDS (11.7-14.9)
[2018-07-21 15:31] LABS: Anion Gap 10 (5-15); BUN 12 mg/dL (7-18); Calcium,Total 8.6 mg/dL (8.5-10.1); Chloride 99 mmol/L (98-107); Creatinine, Serum 0.66 mg/dL (0.55-1.02); EST Glomerular Filtration Rate 93 mL/min (>60); Est Glom Filt Rate - Afr Amer 113 mL/min (>60); Glucose 200 mg/dL (74-106); Sodium Level 139 mmol/L (136-145)
== END ==
PROVIDERS: Family Provider Family Medicine; PCP Family Medicine; Referring Provider Internal Medicine; Visit Provider Internal Medicine
DX: E87.6 Hypokalemia (principal); I11.0 Hypertensive heart disease with heart failure; I50.33 Acute on chronic diastolic (congestive) heart failure
CPT/HCPCS: 36415; 80048; 85610

== ENCOUNTER 2018-10-04 05:38 | Inpatient (IN) | payer MEDICARE, MEDICAID, SELFPAY ==
[2018-07-15 23:20] VITALS: BMI 45.6
[2018-09-23 15:29] VITALS: BP 119/65; PULSE 65; RESP 16; TEMP 36.3; O2SAT 96; BMI 44.1
--- NOTE | 2018-09-23 15:35 | SDCEKG_ITS ---
Test Reason : Blood Pressure : / mmHG Vent. Rate : 061 BPM Atrial Rate : 061 BPM P-R Int : 140 ms QRS Dur : 086 ms QT Int : 434 ms P-R-T Axes : 000 044 046 degrees QTc Int : 436 ms Normal sinus rhythm Low voltage QRS Borderline ECG Confirmed by DULCE MANCILLA, YANI ([id number]), manuscript editor SATISH DIAZ ([id number]) on 09/27/2018 11:19:09 AM Referred By: Mark Street Confirmed By:YANI CARDONA MD
[2018-09-23 16:13] LABS: Hematocrit 37.9 % (37-47); Hemoglobin 12.1 g/dl (12.0-15.0); Mean Corp Hgb Conc 31.9 g/gl (32-36); Mean Corpuscular Hgb 28.9 pg (27.0-32.0); Mean Corpuscular Volume 90.7 fL (81-99); Mean Platelet Vol. 10.3 fl (6.2-12.0); Platelet Count 198 K/mm3 (150-450); RBC Distribution Width CV 14.5 % (11.6-14.6); RBC Distribution Width SD 47.3 fl (35.1-43.9); Red Blood Count 4.18 M/mm3 (4.2-5.4); White Blood Count 5.1 K/mm3 (4.4-11.0)
[2018-09-23 16:19] LABS: Scan Indicated on CBC? Y/N NO
[2018-09-23 16:23] LABS: International Normalized Ratio 0.9; Partial Thromboplast Time 25.5 Seconds (24.1-36.2)
[2018-09-23 16:32] LABS: Anion Gap 7 (5-15); BUN 20 mg/dL (7-18); BUN/Creat Ratio 28.8 RATIO (10-20); Calcium,Total 8.6 mg/dL (8.5-10.1); Chloride 105 mmol/L (98-107); EST Glomerular Filtration Rate 89 mL/min (>60); Est Glom Filt Rate - Afr Amer 107 mL/min (>60); Estimated Creatinine Clearance 79.17 ml/min; Glucose 137 mg/dL (74-106); Potassium 3.4 mmol/L (3.5-5.1); Sodium Level 139 mmol/L (136-145)
[2018-09-23 20:31] LABS: Hemoglobin A1c 7.9 % (4.2-6.3)
--- NOTE | 2018-09-30 15:13 | CASEMGMT ---
Call placed to patient to discuss discharge needs after upcoming surgery. Patient plans to go to a friends home. Patient plans on having home health for outpatient therapy, is unsure of agency. Patient has a walker with a seat, no toilet riser or shower seat, there are grab bars in the bathroom at friends home. There is a bedroom and bathroom on the 1st level of the home. There are approximately 4 steps to enter friends home. Informed patient that RN-CM will likely follow up after surgery. Zenobia Christine LPN Clinical Support
[2018-10-04] VITALS (14 sets, daily range): BP systolic 89–144; BP diastolic 49–79; PULSE 59–84; RESP 14–17; TEMP 36.3–36.6; O2SAT 93–100; BMI 44.1
[2018-10-04 06:37] LABS: Bedside Glucose 226 mg/dL (70-110)
[2018-10-04] MEDS: Acetaminophen 500 MG Tablet 1000 MG PO ×3 (06:43→21:00)
[2018-10-04] MEDS: oxyCODONE HCl Cr 10 MG Tablet PO (06:44)
[2018-10-04] MEDS: Lactated Ringers 1,000 ML 999 ML IV (06:45)
[2018-10-04] MEDS: Doxycycline 100 MG CAPSULE PO (07:06)
--- NOTE | 2018-10-04 07:15 | KNEE_PTH ---
PATIENT: KYAW NASCIMENTO LOC: MS3 U#:[id number] AGE/SX: 68/F ROOM: VA323 RE10/04/[address]: Dr. Mark Street DO : 1950 BED: 1 DIS: 10/05/2018 SPEC #: [id number] RECD: 10/04/18 10:56 STATUS: PARKER REQ #: [id number] ZACARIAS: 10/04/18 07:[address]: Mark Street DEPT: SURGICAL PATHOLOGY RECD BY: Ernie Farrar ENTERED: 10/04/18 13:00 SP TYPE: TOTAL KNEE OTHR DR: Dr. Stephon Rust MD Tissues: Knee, NOS Procedures: Decalcification bone/plaque Surgery Specimen Level IV HEADER OPERATION: Total knee replacement PRE-OP DIAGNOSIS: Osteoarthritis left knee TISSUE SUBMITTED: Bone and soft tissue MICROSCOPIC DIAGNOSIS Bone and soft tissue, left knee, total knee replacement/resection: Pieces of bone with degenerative osteoarthritic changes. Fibroadipose tissue, fibroconnective tissue and reactive synovial tissue. SCOTT:bishop 10/07/18 MICROSCOPIC DESCRIPTION Slides are reviewed. GROSS DESCRIPTION Received is one container designated bone and soft tissue left knee. The specimen consists of multiple fragments of george-yellow bone measuring in aggregate 10 x 7 x 1.5 cm. Also in the specimen container are multiple fragments of yellow-white soft tissue measuring in aggregate 12 x 8 x 1.5 cm. A number of bony fragments contain articular surfaces consistent with tibial plateau and femoral condyle and displaying prominent osteophyte formation, eburnation, and bone erosion. Asphalt Heater Tender sections are submitted in two cassettes as follows: 1 - soft tissue, 2 - bone after decalcification. / AM:bishop 10/04/18 TC:5 [facility]: [id number], [id number]
--- NOTE | 2018-10-04 09:24 | PCM.OPRPT ---
Report of Operation Date of Procedure: 10/04/18 Pre-Operative Diagnosis: OA Left knee Post-Operative Diagnosis: same Surgery/Procedure Performed:: Left TKR Description of Surgical Findings:: See op note tailer in: Mike Romero Type of Anesthesia:: Spinal Anesthesiologist: Cristóbal Blanco Specimen's removed: bone Drains: none Estimated Blood Loss (mL): 50 cc Description of Procedure: Primary Surgeon/Physician: Mark Street tailer in: KASANDRA Vega tailer in: Pre-Operative Diagnosis: OA Left knee Post-Operative Diagnosis: same Surgery/Procedure Performed: Left TKR Estimated Blood Loss: 50 cc Specimen's Removed: bone Type of Anesthesia: spinal ASA Class: 3 Implants: [Alisa size 3 CR femur, size 3 tibia, 9 mm CS poly spacer, 32 mm patella (all components cemented) ] Indications: Patient has severe end-stage osteoarthritis diagnosed via x-rays in the knee. They have failed all forms of conservative measures including activity modification, injections, anti-inflammatories, use of assistive device. The patient has pain that affects on a daily basis and prevents him from doing things that they enjoyed. They have elected to undergo the above procedure. The risks of the procedure were discussed at length and their questions were answered. Procedure Description: The patient was greeted in the preoperative area. The [left ] knee was then marked with a surgical marker. Patient was then taken to or [address]. They were administered a dose of antibiotics as well as tranexamic acid. Once adequate anesthesia was obtained and airway was secured to placed in supine position on the operating room table. A well-padded tourniquet was placed on the affected extremity. Leg was then prepped and draped in the usual sterile fashion from the knee down. Ioban was used on the skin. Surgical timeout was then performed and confirmed with all present. Six-inch Esmarch was used to examine the limb and tourniquet was then inflated to 300 mmHg. A longitudinal incision was then planned and carried out in the anterior aspect of the knee. The dissection was then carried the length of the incision the extensor mechanism was identified. Standard medial parapatellar arthrotomy was then performed revealing severe eburnation of bone and periarticular osteophytes. There is complete loss of cartilage especially in the medial compartment with varus alignment. Anterior fat pad was removed for visualization purposes and the anterior medial aspect of the tibia was skeletonized for exposure to the knee. The knee was then flexed the patella was inverted. Opening reamer was then used in the femur approximately 1 cm anterior to the attachment of the PCL. The intramedullary valgus wand was then placed in the femur set at 5? of valgus. The distal femoral cutting jig was then applied to the femur with anticipated resection of approximately 8 mm. This was then made with a oscillating saw. The sizing guide was then placed referencing off the posterior condyles and also reference off the epicondylar axis. This was measured and the appropriate size 4-in-1 cutting jig was then applied to the distal femur. Anterior posterior cuts were made followed by the anterior and posterior chamfer cuts. These bony pieces and fragments were removed and placed on the back table. Posterior retractor was then utilized and the tibia was subluxed anteriorly. Extramedullary tibial alignment jig was then applied to the tibia referencing off the medial one third of the tibial tubercle the anterior tibial spine the middle aspect of the tibiotalar joint. Also reference off patient's rappahannock slope. The tibial cutting jig was then pinned with anticipated resection of 2 mm off of the deficient medial tibial condyle. This cut was made with the oscillating saw. Once this was complete a laminar human resources file clerk was utilized in both medial lateral meniscus were removed and a posterior capsular osteophytes were also removed. Posterior capsule release was performed in the posterior capsule as well as the geniculate arteries are treated with the aqua Soham. The tibia was incised and the appropriate sized tibial tray was then pinned. The femoral trial was then placed and the knee was trialed. Full flexion-extension were easily achieved. The knee seemed to balance quite nicely. Any remaining osteophytes were removed at this time. Once this was complete the patella was everted and the Anthony patella reaming device was then utilized the patella was then placed in the appropriate jig and reamer was then used to remove approximately 9 mm of the undersurface of the patella. A soft tissue remaining was in the way was removed and patella trial was then placed listed maintain excellent tracking using the no thumbs technique. The tibial tray at this point was punched to accommodate the fins of the final implant. At this point cement was mixed on the back table. The trial components were removed and the knee was copiously irrigated. Did use a cocktail of injection for postoperative pain control. The final components were then cemented in the standard fashion and excess cement was removed with cement removal tools and patellar clamp is placed in the patella. As the cement had cured in full extension tourniquet was deflated and hemostasis was perfect with Bovie cautery as well as the aqua Manus. Needle is once again trialed with different size polyethylenes to ensure the full range of motion was achieved as well as excellent balancing ligamentously was achieved. At this point the knee was copiously irrigated. Final implant was then inserted locking mechanism was engaged and confirmed to be locked. The arthrotomy was then closed with #1 Vicryl aggravate type fashion interrupted. Subcutaneous tissue was closed with 0 Vicryl and surgical abbey were placed in the skin. A occlusive silver impregnated dressing was then applied followed by well-padded sterile dressing secured with an Severiano wrap. The patient was taken to the PACU in stable condition. No complications known at this time. Postoperatively we will maintain standard total knee postoperative protocol. The use of the SENIOR UI DESIGNER was integral during this procedure. They assisted with positioning placement of the tourniquet retracting closure and placement of the dressing. The procedure would have been much more difficult without their expertise and assistance - Admit VTE Documentation VTE Present on Admission: No VTE Mechan Device Prophylaxis: SCD's, Thigh High KEON Hose VTE Pharm Prophylaxis ordered?: Yes
--- NOTE | 2018-10-04 09:30 | OP.PCM_ITS ---
Report of Operation Date of Procedure: 10/04/18 Pre-Operative Diagnosis: OA Left knee Post-Operative Diagnosis: same Surgery/Procedure Performed:: Left TKR Description of Surgical Findings:: See op note corporate security officer: Mike Romero Type of Anesthesia:: Spinal Anesthesiologist: Cristóbal Blanco Specimen's removed: bone Drains: none Estimated Blood Loss (mL): 50 cc Description of Procedure: Primary Surgeon/Physician: Mark Street corporate security officer: KASANDRA Vega corporate security officer: Pre-Operative Diagnosis: OA Left knee Post-Operative Diagnosis: same Surgery/Procedure Performed: Left TKR Estimated Blood Loss: 50 cc Specimen's Removed: bone Type of Anesthesia: spinal ASA Class: 3 Implants: [Alisa size 3 CR femur, size 3 tibia, 9 mm CS poly spacer, 32 mm patella (all components cemented) ] Indications: Patient has severe end-stage osteoarthritis diagnosed via x-rays in the knee. They have failed all forms of conservative measures including activity modification, injections, anti-inflammatories, use of assistive device. The patient has pain that affects on a daily basis and prevents him from doing things that they enjoyed. They have elected to undergo the above procedure. The risks of the procedure were discussed at length and their questions were answered. Procedure Description: The patient was greeted in the preoperative area. The [left ] knee was then marked with a surgical marker. Patient was then taken to or [address]. They were administered a dose of antibiotics as well as tranexamic acid. Once adequate anesthesia was obtained and airway was secured to placed in supine position on the operating room table. A well-padded tourniquet was placed on the affected extremity. Leg was then prepped and draped in the usual sterile fashion from the knee down. Ioban was used on the skin. Surgical timeout was then performed and confirmed with all present. Six-inch Esmarch was used to examine the limb and tourniquet was then inflated to 300 mmHg. A longitudinal incision was then planned and carried out in the anterior aspect of the knee. The dissection was then carried the length of the incision the ex tensor mechanism was identified. Standard medial parapatellar arthrotomy was then performed revealing severe eburnation of bone and periarticular osteophytes. There is complete loss of cartilage especially in the medial compartment with varus alignment. Anterior fat pad was removed for visualization purposes and the anterior medial aspect of the tibia was skeletonized for exposure to the knee. The knee was then flexed the patella was inverted. Opening reamer was then used in the femur approximately 1 cm anterior to the attachment of the PCL. The intramedullary valgus wand was then placed in the femur set at 5? of valgus. The distal femoral cutting jig was then applied to the femur with anticipated resection of approximately 8 mm. This was then made with a oscillating saw. The sizing guide was then placed referencing off the posterior condyles and also reference off the epicondylar axis. This was measured and the appropriate size 4-in-1 cutting jig was then applied to the distal femur. Anterior posterior cuts were made followed by the anterior and posterior chamfer cuts. These bony pieces and fragments were removed and placed on the back table. Posterior retractor was then utilized and the tibia was subluxed anteriorly. Extramedullary tibial alignment jig was then applied to the tibia referencing off the medial one third of the tibial tubercle the anterior tibial spine the middle aspect of the tibiotalar joint. Also reference off patient's apache slope. The tibial cutting jig was then pinned with anticipated resection of 2 mm off of the deficient medial tibial condyle. This cut was made with the oscillating saw. Once this was complete a laminar certified ethical hacker was utilized in both medial lateral meniscus were removed and a posterior capsular osteophytes were also removed. Posterior capsule release was performed in the posterior capsule as well as the geniculate arteries are treated with the aqua Soham. The tibia was incised and the appropriate sized tibial tray was then pinned. The femoral trial was then placed and the knee was trialed. Full flexion-extension were easily achieved. The knee seemed to balance quite nicely. Any remaining osteophytes were removed at this time. Once this was complete the patella was everted and the Anthony patella reaming device was then utilized the patella was then placed in the appropriate jig and reamer was then used to remove approximately 9 mm of the undersurface of the patella. A soft tissue remaining was in the way was removed and patella trial was then placed listed maintain excellent tracking using the no thumbs technique. The tibial tray at this point was punched to accommodate the fins of the final implant. At this point cement was mixed on the back table. The trial components were removed and the knee was copiously irrigated. Did use a cocktail of injection for postoperative pain control. The final components were then cemented in the standard fashion and excess cement was removed with cement removal tools and patellar clamp is placed in the patella. As the cement had cured in full extension tourniquet was deflated and hemostasis was perfect with Bovie cautery as well as the aqua Manus. Needle is once again trialed with different size polyethylenes to ensure the full range of motion was achieved as well as excellent balancing ligamentously was achieved. At this point the knee was copiously irrigated. Final implant was then inserted locking mechanism was engaged and confirmed to be locked. The arthrotomy was then closed with #1 Vicryl aggravate type fashion interrupted. Subcutaneous tissue was closed with 0 Vicryl and surgical abbey were placed in the skin. A occlusive silver impregnated dressing was then applied followed by well-padded sterile dressing secured with an Severiano wrap. The patient was taken to the PACU in stable condition. No complications known at this time. Postoperatively we will maintain standard total knee postoperative protocol. The use of the CASKET ASSEMBLER METAL was integral during this procedure. They assisted with positioning placement of the tourniquet retracting closure and placement of the dressing. The procedure would have been much more difficult without their expertise and assistance - Admit VTE Documentation VTE Present on Admission: No VTE Mechan Device Prophylaxis: SCD's, Thigh High KEON Hose VTE Pharm Prophylaxis ordered?: Yes
[2018-10-04 10:02] LABS: Bedside Glucose 212 mg/dL (70-110)
[2018-10-04] MEDS: Lactated Ringers 1,000 ML 125 ML IV (11:21)
[2018-10-04] MEDS: glipiZIDE 5 MG Tablet PO (14:00)
[2018-10-04] MEDS: Citalopram 20 MG Tablet PO (14:00)
[2018-10-04] MEDS: Atenolol 50 MG Tablet PO (14:01)
[2018-10-04] MEDS: Ezetimibe 10 MG Tablet PO (14:01)
[2018-10-04] MEDS: Multivitamins,Ther W-Minerals Tablet 1 TABLET PO (14:01)
--- NOTE | 2018-10-04 14:10 | CASEMGMT ---
DEL MOSQUERA Face to Face with patient for initial transition planning/care coordination assessment. DEL MOSQUERA introduced self and role at [facility]. Patient lying in bed, alert and oriented. Patient willing to participate in assessment and is able to answer all questions appropriately. Care providers, pharmacy, and demographics verified. Patient wishes to discharge to [facility] in [place] for 2 week with C and then transition to own home in [place] October 15 with continued HHC. Patient states she has no further needs or concerns at this time. CM to follow for discharge planning needs that may arise. PCP: Yocasta Specialists: Walter professor of psychology Preferred Pharmacy:[facility] Insurance: [facility] Prescription Benefit: yes Living Will/HPOA: None LNOK: Daughter in law Living Arrangements: Patient lives alone in 3rd floor apartment with elevator to enter to home. Patient states she is independent at home. Transportation: [facility] DME/HHC: Patient states she has cane and walker at home. Denies oxygen, bipap, cpap, or nebulizer at Home. Patient states [facility] the [facility]. DEL MOSQUERA sent referral to [facility] and they are able to see patient at [facility] in [place] and follow to home in [place]. Friends address is [address] [place] [address]. Disposition Plan: Patient to discharge to friend's home with HHC, support, and follow-up plans in place. Aliza BECKFORD, RN, CM
[2018-10-04 16:01] LABS: Bedside Glucose 200 mg/dL (70-110)
[2018-10-04] MEDS: Pramipexole Di-HCl 0.25 MG Tablet PO (21:01)
[2018-10-04] MEDS: Calcium Carbonate 500 MG Tablet PO (21:01)
[2018-10-05 04:11] VITALS: BP 126/70; PULSE 79; RESP 18; TEMP 36.4; O2SAT 97
[2018-10-05] MEDS: Levothyroxine 112 MCG Tablet PO (05:05)
[2018-10-05] MEDS: Acetaminophen 500 MG Tablet 1000 MG PO ×2 (05:05→14:39)
[2018-10-05 07:02] LABS: Anion Gap 5 (5-15); BUN 17 mg/dL (7-18); Calcium,Total 7.9 mg/dL (8.5-10.1); Chloride 106 mmol/L (98-107); Creatinine, Serum 0.61 mg/dL (0.55-1.02); EST Glomerular Filtration Rate 104 mL/min (>60); Est Glom Filt Rate - Afr Amer 125 mL/min (>60); Estimated Creatinine Clearance 79.17 ml/min; Glucose 182 mg/dL (74-106); Potassium 4.3 mmol/L (3.5-5.1); Sodium Level 137 mmol/L (136-145)
[2018-10-05 07:09] LABS: Hematocrit 33.7 % (37-47); Hemoglobin 10.6 g/dl (12.0-15.0); Mean Corp Hgb Conc 31.5 g/gl (32-36); Mean Corpuscular Hgb 28.9 pg (27.0-32.0); Mean Corpuscular Volume 91.8 fL (81-99); Mean Platelet Vol. 10.5 fl (6.2-12.0); Platelet Count 178 K/mm3 (150-450); RBC Distribution Width CV 14.4 % (11.6-14.6); RBC Distribution Width SD 48.5 fl (35.1-43.9); Red Blood Count 3.67 M/mm3 (4.2-5.4); White Blood Count 5.7 K/mm3 (4.4-11.0)
[2018-10-05 07:17] LABS: Scan Indicated on CBC? Y/N NO
--- NOTE | 2018-10-05 07:23 | PCM.PN.ORT ---
Subjective: Patient doing well this morning. Up eating breakfast and awaiting PT. - Physical Exam General: Alert, Oriented x3, No apparent distress Extremities: No clubbing, No cyanosis, No edema, Capillary Refill Less than 3 Seconds, No Calf Tenderness Skin: Incision - stable Neurological: Neuro grossly intact Vital Signs Temp Pulse Resp BP Pulse Ox 97.6 F L 79 18 126/70 H 97 10/05/18 04:11 10/05/18 04:11 10/05/18 04:11 10/05/18 04:11 10/05/18 04:11 Oxygen Delivery Method Room Air Weight: 211 lb 3.245 oz Body Mass Index (BMI) 44.1 Finger Stick Blood Glucose 212 Intake and Output for Last 24 Hours 10/03/18 10/04/18 10/05/18 23:59 23:59 23:59 Intake Total 2120 / 2120 100 / 100 Output Total 175 / 175 100 / 100 Balance 1945 / 1944 0 / 0 Laboratory Tests Past 24 Hrs 10/05/18 10/05/18 06:20 06:20 WBC 5.7 RBC 3.67 L Hgb 10.6 L Hct 33.7 L MCV 91.8 MCH 28.9 MCHC 31.5 L RDW 14.4 RDW Differential 48.5 H Plt Count 178 MPV 10.5 Sodium 137 Potassium 4.3 Chloride 106 Carbon Dioxide 26.0 Anion Gap 5 BUN 17 Creatinine 0.61 Estim Creat Clear Calc 79.17 Est GFR (MDRD) Af Amer 125 Est GFR (MDRD) Non-Af 104 BUN/Creatinine Ratio 28.0 H Glucose 182 H Calcium 7.9 L POC Glucose 10/04/18 10/04/18 15:48 09:55 POC Glucose 200 H 212 H Medical Necessity - Tobacco Use Smoking Status: Never smoker Tobacco Use: Non-smoker Assessment/Plan All Active Problems Acute heart failure (Acute) Heart failure with preserved ejection fraction (Acute) BPPV (benign paroxysmal positional vertigo) (Acute) Symptomatic anemia (Acute) s/p Left TKR - PT today then home Follow up in office ASA 325 BID x 1 month for DVT prophylaxis Oxy IR for pain
[2018-10-05 07:26] VITALS: BP 108/55; PULSE 98; RESP 18; TEMP 36.7; O2SAT 97
[2018-10-05 07:42] VITALS: BP 115/55; PULSE 82; RESP 18; TEMP 36.6; O2SAT 96
[2018-10-05] MEDS: Aspirin 325 MG Tablet PO (07:53)
[2018-10-05] MEDS: Calcium Carbonate 500 MG Tablet PO (07:53)
[2018-10-05] MEDS: Pantoprazole Sodium 40 MG Tablet PO (07:53)
[2018-10-05] MEDS: Citalopram 20 MG Tablet PO (07:53)
[2018-10-05] MEDS: glipiZIDE 5 MG Tablet PO (07:53)
[2018-10-05] MEDS: Ezetimibe 10 MG Tablet PO (07:54)
[2018-10-05] MEDS: Multivitamins,Ther W-Minerals Tablet 1 TABLET PO (11:20)
[2018-10-05] MEDS: Atenolol 50 MG Tablet PO (11:23)
[2018-10-05] MEDS: oxyCODONE 5 MG Tablet PO ×2 (11:31→16:53)
[2018-10-05 11:34] VITALS: BP 120/59; PULSE 75
== END 2018-10-05 17:10 | disposition home or self-care (01) | DRG 470 ==
PROVIDERS: Anesthesiology; Admitting Provider Orthopaedic Surgery; Family Provider Family Medicine; PCP Family Medicine; Referring Provider Orthopaedic Surgery; Visit Provider Orthopaedic Surgery
PROC: 0SRD0J9 Replacement of Left Knee Joint with Synthetic Substitute, Cemented, Open Approach (ICD-10-PCS; CPT 27447; principal; 2018-10-04 06:50)
DX: M17.12 Unilateral primary osteoarthritis, left knee (principal); I50.30 Unspecified diastolic (congestive) heart failure; Z68.41 Body mass index [BMI] 40.0-44.9, adult; I11.0 Hypertensive heart disease with heart failure; Z96.651 Presence of right artificial knee joint; E66.9 Obesity, unspecified
CPT/HCPCS: 36415; 80048; 82962; 83036; 84443; 85027; 85610; 85730; 87081; 88305; 88311; 93005; 97110; 97161; 97166; 97530; 97535; C1776; J7040; J7120